=== PATIENT | male | born 1975 | race Caucasian/White ===

== ENCOUNTER 2016-08-14 00:43 | Emergency (ER) | payer OTHER ==
[2016-08-14 00:56] VITALS: RESP 18
--- NOTE | 2016-08-14 02:01 | ED ---
Wound/Laceration HPI - General Chief Complaint: Wound/Laceration Stated Complaint: finger lac Time Seen by Provider: 08/14/16 01:10 Source: patient, RN notes reviewed Mode of arrival: ambulatory Limitations: no limitations - History of Present Illness Initial Comments: Patient is a 40-year-old male presents emergency room for evaluation of right hand laceration. Patient states he was cleaning his dishes and accidentally sliced his hand on a broken portion of a dish. Patient denies any significant pain. Patient states he is up-to-date on his tetanus vaccine. Patient denies taking any blood thinners. Patient had the numbness or tingling in his fingers. - Related Data Previous Rx's Medication Instructions Recorded Ibuprofen [Motrin] 800 mg PO Q6HR PRN #20 tab 12/30/15 Cephalexin [Keflex] 500 mg PO Q6HR 5 Days 08/14/16 Allergies Allergy/AdvReac Type Severity Reaction Status Date / Time No Known Allergies Allergy Verified 08/14/16 00:56 Review of Systems ROS Statement: Those systems with pertinent positive or pertinent negative responses have been documented in the HPI. ROS Other: All systems not noted in ROS Statement are negative. Past Medical History Past Medical History: Diabetes Mellitus, Hypertension Additional Past Medical History / Comment(s): back pain History of Any Multi-Drug Resistant Organisms: None Reported Additional Past Surgical History / Comment(s): oral surgery Past Psychological History: Depression Smoking Status: Current every day smoker Past Alcohol Use History: None Reported Past Drug Use History: None Reported General Exam - General Exam Comments Initial Comments: Sitting in exam room, no acute distress. Limitations: no limitations General appearance: alert, in no apparent distress Head exam: Present: atraumatic, normocephalic, normal inspection Eye exam: Present: normal appearance ENT exam: Present: normal exam Neck exam: Present: normal inspection Respiratory exam: Absent: respiratory distress Right Hand Wrist exam: Present: full ROM, laceration (1 cm laceration on the webbing of the fingers on the palmar side between the fourth and fifth digits). Absent : tenderness Vascular: Present: normal capillary refill (Capillary refill less than 2 seconds ), radial pulse (2+), ulnar pulse (2+) Back exam: Present: normal inspection Neurological exam: Present: alert, oriented X3, CN II-XII intact, normal gait Psychiatric exam: Present: normal affect, normal mood Skin exam: Present: warm, dry, normal color. Absent: rash Course Vital Signs 08/14/16 08/14/16 00:54 03:10 Temperature 99.2 F 98.9 F Pulse Rate 95 85 Respiratory 18 18 Rate Blood Pressure 167/102 142/98 O2 Sat by Pulse 98 98 Oximetry Procedures - Laceration Laceration #1 Consent Obtained: verbal consent Indication: laceration Size (cm): 1 Description: linear Depth: simple, single layer Anesthetic Used: lidocaine 1% Anesthesia Technique: local infiltration Amount (mls): 2 Type of Sutures: nylon Size of Sutures: 5-0 Number of Sutures: 4 Technique: simple, interrupted Patient Tolerated Procedure: well, no complications Medical Decision Making - Medical Decision Making Patient is a 40-year-old male presents emergency room for evaluation right hand laceration. Laceration was repaired sutures. Patient does have history diabetes. Will place patient on Keflex for a few days prophylactically. Advised patient to return in 10-12 days for suture removal. Patient states he understands everything that was discussed with him. Return parameters discussed. Case discussed Dr. Thompson. Disposition Clinical Impression: Laceration of right hand Disposition: HOME SELF-CARE Condition: Good Instructions: Laceration (ED), Care For Your Stitches (ED) Additional Instructions: Do not submerge suture area in water. Clean suture area with a damp cloth. Take antibiotics as directed. Take Tylenol or Motrin as needed for discomfort. Please return in 10-12 days for suture removal. Please follow-up with primary care provider in 24-48 hours for reevaluation. If any new symptom arises or symptoms worsen, return to ER as soon as possible. Prescriptions: Cephalexin [Keflex] 500 mg PO Q6HR 5 Days Referrals: Nonstaff,Physician [Primary Care Provider] - 1-2 days Time of Disposition: 02:35
[2016-08-14 03:11] VITALS: BP 142/98; PULSE 85; TEMP 98.9
== END 2016-08-14 03:11 | disposition home or self-care (01) ==
LOC: EC 00:43
DX: S61.411A Laceration without foreign body of right hand, initial encounter (principal); F17.200 Nicotine dependence, unspecified, uncomplicated; W45.8XXA Other foreign body or object entering through skin, initial encounter; Y93.89 Activity, other specified
CPT/HCPCS: 12001; 99282

== ENCOUNTER 2016-11-04 22:55 | Emergency (ER) | payer OTHER ==
[2016-11-05] MEDS ORDERED: ONDANSETRON ODT 4 MG TAB ONE (00:30)
[2016-11-05] MEDS ORDERED: KETOROLAC 30 MG/ML 1 ML VIAL ONE (00:30)
== END 2016-11-05 00:40 | disposition home or self-care (01) ==
LOC: EC 22:55
DX: R51 Headache (principal); E11.9 Type 2 diabetes mellitus without complications; F17.200 Nicotine dependence, unspecified, uncomplicated; Z79.4 Long term (current) use of insulin
CPT/HCPCS: 99283; 96372; J1885

== ENCOUNTER 2017-01-11 10:26 | Emergency (ER) | payer OTHER ==
[2017-01-11] MEDS ORDERED: SODIUM CHLORIDE 0.9% 1,000 ML IV STA (10:46)
[2017-01-11] MEDS ORDERED: ONDANSETRON 4 MG/2 ML VIAL IVP STA (10:46)
[2017-01-11] MEDS ORDERED: hydrALAZINE HCL 20 MG/ML 1 ML VIAL IVP STA (10:53)
--- NOTE | 2017-01-11 10:53 | ED ---
General Adult HPI - General Chief complaint: Upper Respiratory Infection Stated complaint: SORE THROAT, CHEST PAIN WITH COUGH, RT SIDE PAIN Time Seen by Provider: 01/11/17 10:42 Source: patient, RN notes reviewed Mode of arrival: ambulatory Limitations: no limitations - History of Present Illness Initial comments: Patient 41-year-old male with significant past medical history for hypertension , diabetes, who presents emergency room today with complaints. Patient does admit that he's had some cough congestion. Denies any sputum production. He states she's not been feeling well over the last few days with some nausea. She has not had any appetite. States began having some right upper quadrant pain this morning. Patient does admit that he does not have a family doctor but gets his medications through her clinic. States blood pressure and blood sugar have been running high. Patient denies any other symptoms. Patient denies any recent fever, chills, shortness of breath, chest pain, numbness or tingling, dysuria or hematuria, constipation or diarrhea, headaches or visual changes, or any other complaints. - Related Data Home Medications Medication Instructions Recorded Confirmed Atorvastatin [Lipitor] 10 mg PO DAILY 01/11/17 01/11/17 Citalopram Hydrobromide 40 mg PO DAILY 01/11/17 01/11/17 [Citalopram HBr] Insulin Aspart [NovoLOG] See Protocol SQ AC-TID 01/11/17 01/11/17 Insulin Glargine [Lantus] 60 unit SQ BID 01/11/17 01/11/17 Lisinopril [Zestril] 40 mg PO DAILY 01/11/17 01/11/17 Naproxen 500 mg PO BID 01/11/17 01/11/17 Previous Rx's Medication Instructions Recorded Ondansetron Odt [Zofran ODT] 4 mg PO Q8HR PRN #20 tab 01/11/17 Allergies Allergy/AdvReac Type Severity Reaction Status Date / Time No Known Allergies Allergy Verified 01/11/17 11:05 Review of Systems ROS Statement: Those systems with pertinent positive or pertinent negative responses have been documented in the HPI. ROS Other: All systems not noted in ROS Statement are negative. Past Medical History Past Medical History: Diabetes Mellitus, Hypertension Additional Past Medical History / Comment(s): back pain History of Any Multi-Drug Resistant Organisms: None Reported Additional Past Surgical History / Comment(s): oral surgery Past Psychological History: Anxiety Smoking Status: Current every day smoker Past Alcohol Use History: None Reported Past Drug Use History: None Reported General Exam - General Exam Comments Initial Comments: General: The patient is awake and alert, in no distress, and does not appear acutely ill. Eye: Pupils are equal, round and reactive to light, extra-ocular movements are intact. No nystagmus. There is normal conjunctiva bilaterally. No signs of icterus. Ears, nose, mouth and throat: There are moist mucous membranes and no oral lesions. Neck: The neck is supple, there is no tenderness or JVD. Cardiovascular: There is a regular rate and rhythm. No murmur, rub or gallop is appreciated. Respiratory: Lungs are clear to auscultation, respirations are non-labored, breath sounds are equal. No wheezes, stridor, rales, or rhonchi. Gastrointestinal: Normal appearance abdomen. Normal bowel sounds. Abdomen soft on palpation. Patient does have tenderness in the right upper quadrant. Rebound tenderness. No CVA tenderness. Musculoskeletal: Normal ROM, no tenderness. Strength 5/5. Sensation intact. Pulses equal bilaterally 2+. Neurological: A&O x 3. CN II-XII intact, There are no obvious motor or sensory deficits. Coordination appears grossly intact. Speech is normal. Skin: Skin is warm and dry and no rashes or lesions are noted. Psychiatric: Cooperative, appropriate mood & affect, normal judgment. Limitations: no limitations Course Vital Signs 01/11/17 01/11/17 10:28 11:23 Temperature 97.6 F Pulse Rate 98 90 Respiratory 18 20 Rate Blood Pressure 171/112 150/90 O2 Sat by Pulse 95 98 Oximetry Medical Decision Making - Medical Decision Making Patient reexamined at this time shows no signs of distress. Is resting comfortably in the stretcher. His abdomen soft on exam. Patient's ultrasound negative for any evidence of acute cholecystitis. No gallstones. Results were discussed with patient. His labs been reviewed and negative cardiac enzymes. Patient's pain reproduced on palpation. Was discussed about the importance of following up both with family doctor and medical appointment scheduler. Patient states she has been taking his medications. Patient's EKG shows no change. Patient's chest x- rays unremarkable. A be discharged home with nausea medication. Is advised to follow-up over the next 2 days with both family doctor and medical appointment scheduler advised return here to emergency room if any symptoms increase or worsen or for new concerns. Case was discussed with attending physician . - Lab Data Result diagrams: 01/11/17 11:00 01/11/17 11:00 Lab Results 01/11/17 01/11/17 01/11/17 Range/Units 11:00 11:00 11:00 WBC 9.7 (3.8-10.6) k/uL RBC 5.08 (4.30-5.90) m/uL Hgb 15.6 (13.0-17.5) gm/dL Hct 45.1 (39.0-53.0) % MCV 88.7 (80.0-100.0) fL MCH 30.8 (25.0-35.0) pg MCHC 34.7 (31.0-37.0) g/dL RDW 12.8 (11.5-15.5) % Plt Count 244 (150-450) k/uL Neutrophils % 58 % Lymphocytes % 28 % Monocytes % 7 % Eosinophils % 4 % Basophils % 1 % Neutrophils # 5.6 (1.3-7.7) k/uL Lymphocytes # 2.7 (1.0-4.8) k/uL Monocytes # 0.7 (0-1.0) k/uL Eosinophils # 0.4 (0-0.7) k/uL Basophils # 0.1 (0-0.2) k/uL PT (9.0-12.0) sec INR (<1.2) APTT (22.0-30.0) sec Sodium 137 (137-145) mmol/L Potassium 4.1 (3.5-5.1) mmol/L Chloride 100 (98-107) mmol/L Carbon Dioxide 26 (22-30) mmol/L Anion Gap 11 mmol/L BUN 9 (9-20) mg/dL Creatinine 0.70 (0.66-1.25) mg/dL Est GFR (MDRD) Af Amer >60 (>60 ml/min/1.73 sqM) Est GFR (MDRD) Non-Af >60 (>60 ml/min/1.73 sqM) Glucose 313 H (74-99) mg/dL Calcium 9.5 (8.4-10.2) mg/dL Total Bilirubin 0.7 (0.2-1.3) mg/dL AST 48 (17-59) U/L ALT 86 H (21-72) U/L Alkaline Phosphatase 140 H (38-126) U/L Total Creatine Kinase 140 (55-170) U/L CK-MB (CK-2) 0.3 (0.0-2.4) ng/mL CK-MB (CK-2) Rel Index 0.2 Troponin I <0.012 (0.000-0.034) ng/mL Total Protein 7.5 (6.3-8.2) g/dL Albumin 4.2 (3.5-5.0) g/dL Amylase <30 L (30-110) U/L Lipase 77 (23-300) U/L Urine Color Urine Appearance (Clear) Urine pH (5.0-8.0) Ur Specific Sp[place] (1.001-1.035) Urine Protein (Negative) Urine Glucose (UA) (Negative) Urine Ketones (Negative) Urine Blood (Negative) Urine Nitrite (Negative) Urine Bilirubin (Negative) Urine Urobilinogen (<2.0) mg/dL Ur Leukocyte Esterase (Negative) Acetone, Qual Negative (Negative) 01/11/17 01/11/17 Range/Units 11:00 12:13 WBC (3.8-10.6) k/uL RBC (4.30-5.90) m/uL Hgb (13.0-17.5) gm/dL Hct (39.0-53.0) % MCV (80.0-100.0) fL MCH (25.0-35.0) pg MCHC (31.0-37.0) g/dL RDW (11.5-15.5) % Plt Count (150-450) k/uL Neutrophils % % Lymphocytes % % Monocytes % % Eosinophils % % Basophils % % Neutrophils # (1.3-7.7) k/uL Lymphocytes # (1.0-4.8) k/uL Monocytes # (0-1.0) k/uL Eosinophils # (0-0.7) k/uL Basophils # (0-0.2) k/uL PT 12.2 H (9.0-12.0) sec INR 1.2 H (<1.2) APTT 27.1 (22.0-30.0) sec Sodium (137-145) mmol/L Potassium (3.5-5.1) mmol/L Chloride (98-107) mmol/L Carbon Dioxide (22-30) mmol/L Anion Gap mmol/L BUN (9-20) mg/dL Creatinine (0.66-1.25) mg/dL Est GFR (MDRD) Af Amer (>60 ml/min/1.73 sqM) Est GFR (MDRD) Non-Af (>60 ml/min/1.73 sqM) Glucose (74-99) mg/dL Calcium (8.4-10.2) mg/dL Total Bilirubin (0.2-1.3) mg/dL AST (17-59) U/L ALT (21-72) U/L Alkaline Phosphatase (38-126) U/L Total Creatine Kinase (55-170) U/L CK-MB (CK-2) (0.0-2.4) ng/mL CK-MB (CK-2) Rel Index Troponin I (0.000-0.034) ng/mL Total Protein (6.3-8.2) g/dL Albumin (3.5-5.0) g/dL Amylase (30-110) U/L Lipase (23-300) U/L Urine Color Light Yellow Urine Appearance Clear (Clear) Urine pH 7.0 (5.0-8.0) Ur Specific [place] 1.016 (1.001-1.035) Urine Protein Negative (Negative) Urine Glucose (UA) 4+ H (Negative) Urine Ketones Trace H (Negative) Urine Blood Negative (Negative) Urine Nitrite Negative (Negative) Urine Bilirubin Negative (Negative) Urine Urobilinogen <2.0 (<2.0) mg/dL Ur Leukocyte Esterase Negative (Negative) Acetone, Qual (Negative) Disposition Clinical Impression: Nausea & vomiting, Upper respiratory infection Disposition: HOME SELF-CARE Condition: Good Instructions: Upper Respiratory Infection (ED) Additional Instructions: Please use medication as discussed. Please follow-up with family doctor in the next 2 days of symptoms have not improved. Please return to emergency room if the symptoms increase or worsen or for any other concerns. Prescriptions: Ondansetron Odt [Zofran ODT] 4 mg PO Q8HR PRN #20 tab PRN Reason: Nausea Referrals: None,Stated [Primary Care Provider] - 1-2 days Suzi Mishra MD [STAFF PHYSICIAN] - 1-2 days Víctor Sanchez MD [STAFF PHYSICIAN] - 1-2 days Time of Disposition: 12:39
[2017-01-11 11:14] LABS: Basophils # (A) 0.1 k/uL (0-0.2); Basophils % (A) 1 %; CH 31.1; CHCM 35.3; Eosinophils # (A) 0.4 k/uL (0-0.7); Eosinophils % (A) 4 %; HCT 45.1 % (39.0-53.0); HDW 2.74; HGB 15.6 gm/dL (13.0-17.5); Luc # (Auto) 0.27; Luc % (Auto) 3; Lymphocytes # (A) 2.7 k/uL (1.0-4.8); Lymphocytes % (A) 28 %; MCH 30.8 pg (25.0-35.0); MCHC 34.7 g/dL (31.0-37.0); MCV 88.7 fL (80.0-100.0); Mean Platelet Volume 7.3; Monocytes # (A) 0.7 k/uL (0-1.0); Monocytes % (A) 7 %; Neutrophils # (A) 5.6 k/uL (1.3-7.7); Neutrophils % (A) 58 %; RBC 5.08 m/uL (4.30-5.90); RDW 12.8 % (11.5-15.5); WBC 9.7 k/uL (3.8-10.6); WBC (Perox) 9.67
[2017-01-11 11:27] LABS: ALT 86 U/L (21-72); AST 48 U/L (17-59); Alkaline Phosphatase 140 U/L (38-126); Amylase <30 U/L (30-110); Anion Gap 11 mmol/L; Blood Urea Nitrogen 9 mg/dL (9-20); Calcium 9.5 mg/dL (8.4-10.2); Carbon Dioxide 26 mmol/L (22-30); Chloride 100 mmol/L (98-107); Glucose 313 mg/dL (74-99); Non-African American GFR(MDRD) >60 (>60 ml/min/1.73 sqM); Potassium 4.1 mmol/L (3.5-5.1); Sodium 137 mmol/L (137-145); Total Bilirubin 0.7 mg/dL (0.2-1.3); Total Protein 7.5 g/dL (6.3-8.2)
--- NOTE | 2017-01-11 11:33 | XR ---
EXAMINATION TYPE: XR chest 2V DATE OF EXAM: 01/11/2017 COMPARISON: 09/14/2015 HISTORY: Chest pain, abdominal pain and vomiting TECHNIQUE: Frontal and lateral views of the chest are obtained. FINDINGS: There is no focal air space opacity, pleural effusion, or pneumothorax seen. The cardiac silhouette size is within normal limits. The osseous structures are intact. Mild degenerative campos es of the thoracic spine. IMPRESSION: No acute cardiopulmonary process.
[2017-01-11 11:39] LABS: Creatine Kinase 140 U/L (55-170)
[2017-01-11 11:49] LABS: INR 1.2 (<1.2); Partial Thromboplastin Time 27.1 sec (22.0-30.0); Prothrombin Time 12.2 sec (9.0-12.0)
[2017-01-11 11:52] LABS: Creatine Kinase MB 0.3 ng/mL (0.0-2.4); Troponin I <0.012 ng/mL (0.000-0.034)
--- NOTE | 2017-01-11 12:08 | US ---
EXAMINATION TYPE: US abdomen limited DATE OF EXAM: 01/11/2017 COMPARISON: NONE CLINICAL HISTORY: Pain. RUQ pain, NPO. EXAM MEASUREMENTS: Liver Length: 21.4 cm Gallbladder Wall: 0.2 cm CBD: 0.5 cm Right Kidney: 10.9 x 6.4 x 7.6 cm Pancreas: Echogenic. Tail not well seen due to overlying bowel gas Liver: Increased attenuation, decreased visualization of vessels suggestive of fatty infiltrate. En larged. Gallbladder: wnl Evidence for sonographic Anton's sign: neg CHD: suboptimal visualization due to body habitus Right Kidney: wnl IMPRESSION: 1. Visualized portions of the abdomen right upper quadrant were unremarkable.
[2017-01-11 12:26] LABS: Appearance,Urine Clear (Clear); Bilirubin,Urine Negative (Negative); Glucose,Urine (UA) 4+ (Negative); Ketones,Urine Trace (Negative); Leukocyte Esterase,Urine Negative (Negative); Nitrite,Urine Negative (Negative); Protein,Urine Negative (Negative); Specific Gravity,Urine 1.016 (1.001-1.035); UA Billing (MACRO vs. MICRO) CHEM; Urobilinogen,Urine <2.0 mg/dL (<2.0)
[2017-01-11 12:51] VITALS: BP 156/87; PULSE 85; RESP 18; TEMP 98.3
== END 2017-01-11 12:56 | disposition home or self-care (01) ==
LOC: EC 10:26
DX: R11.2 Nausea with vomiting, unspecified (principal); J06.9 Acute upper respiratory infection, unspecified; R10.11 Right upper quadrant pain; E11.9 Type 2 diabetes mellitus without complications; I10 Essential (primary) hypertension; F41.9 Anxiety disorder, unspecified; F17.200 Nicotine dependence, unspecified, uncomplicated; Z79.1 Long term (current) use of non-steroidal anti-inflammatories (NSAID); Z79.4 Long term (current) use of insulin; Z79.899 Other long term (current) drug therapy
CPT/HCPCS: 36415; 93005; 80053; 82150; 82550; 82553; 82009; 83690; 84484; 85025; 85610; 85730; 81003; 71020; 76705; 99284; 96374; 96375; 96361; J0360; J2405

== ENCOUNTER 2017-05-10 22:43 | Emergency (ER) | payer OTHER ==
[2017-05-10] MEDS ORDERED: ENALAPRILAT 1.25 MG/ML 1 ML VIAL IVP STA (23:03)
[2017-05-10 23:18] LABS: Glucose,Whole Blood 262 mg/dL (75-99)
--- NOTE | 2017-05-10 23:20 | ED ---
Extremity Problem HPI - General Chief complaint: Extremity Problem,Nontraumatic Stated complaint: rt. leg pain Time Seen by Provider: 05/10/17 22:54 Source: patient, RN notes reviewed Mode of arrival: ambulatory Limitations: no limitations - History of Present Illness Initial comments: This is a 41-year-old male who presents to the emergency department with chief complaint of right leg pain. Patient states that he has been experiencing right calf pain for the past one week. 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 He states that the calf pain makes it difficult to stand for long periods of time. Denies any specific injury or trauma to the right lower extremity. Patient denies any chest pain or shortness of breath. Patient also presents to the emergency department with complaints of high blood pressure and diabetes. Initially, patient states that he forgot to take his medications. On further questioning, patient states that he does not have a primary care provider and ran out of his medications. Patient states he takes insulin for diabetes. Denies fever, chills , chest pain, abdominal pain, nausea or vomiting, constipation or diarrhea, dysuria or hematuria, numbness or tingling, headache or vision changes. - Related Data Home Medications Medication Instructions Recorded Confirmed Atorvastatin [Lipitor] 10 mg PO DAILY 01/11/17 01/11/17 Citalopram Hydrobromide 40 mg PO DAILY 01/11/17 01/11/17 [Citalopram HBr] Insulin Aspart [NovoLOG] 15 unit SQ AC-BID 01/11/17 04/02/17 Insulin Glargine [Lantus] 60 unit SQ BID 01/11/17 04/02/17 Lisinopril [Zestril] 40 mg PO DAILY 01/11/17 01/11/17 Naproxen 500 mg PO BID 01/11/17 01/11/17 HYDROcodone/APAP 7.5-325MG [[place] 1 tab PO BID PRN 04/02/17 04/02/17 7.5-325] Previous Rx's Medication Instructions Recorded Ondansetron Odt [Zofran ODT] 4 mg PO Q8HR PRN #20 tab 01/11/17 Ibuprofen [Motrin] 600 mg PO Q6HR PRN #20 tab 04/02/17 Ondansetron Odt [Zofran ODT] 4 mg PO Q8HR PRN #20 tab 04/02/17 Ketorolac [Toradol] 10 mg PO Q6HR #6 tab 05/11/17 Allergies Allergy/AdvReac Type Severity Reaction Status Date / Time No Known Allergies Allergy Verified 05/10/17 22:52 Review of Systems ROS Statement: Those systems with pertinent positive or pertinent negative responses have been documented in the HPI. ROS Other: All systems not noted in ROS Statement are negative. Past Medical History Past Medical History: Diabetes Mellitus, Hypertension Additional Past Medical History / Comment(s): back pain History of Any Multi-Drug Resistant Organisms: None Reported Additional Past Surgical History / Comment(s): oral surgery Past Psychological History: Anxiety Smoking Status: Current every day smoker Past Alcohol Use History: None Reported Past Drug Use History: None Reported General Exam - General Exam Comments Initial Comments: General: Awake and alert, well-developed; in no apparent distress. HEENT: Head atraumatic, normocephalic. Pupils are equal, round and reactive to light. Extraocular movements intact. Neck: Supple. Normal ROM. Cardiovascular: Regular rate and rhythm. No murmurs, rubs or gallops. Chest symmetrical. Respiratory: Lungs clear to auscultation bilaterally. No wheezes, rales or rhonchi. Normal respiratory effort with no use of accessory muscles. Musculoskeletal: Normal active range of motion of right lower extremity. No swelling, erythema or warmth noted. Pedal and posterior tibial pulses are 2+, equal and palpable bilaterally. There is tenderness on palpation of posterior calf. Positive Homans sign. Skin: [place], warm and dry without rashes or lesions. Neurological: Alert and oriented x3. CN II-XII grossly intact. Speech is fluent and answers are appropriate. No focal neuro deficits. Psychiatric: Normal mood and affect. No overt signs of depression or anxiety noted. Limitations: no limitations Course Vital Signs 05/10/17 22:44 Temperature 97.0 F L Pulse Rate 79 Respiratory 18 Rate Blood Pressure 181/103 O2 Sat by Pulse 98 Oximetry Medical Decision Making - Medical Decision Making This is a 41-year-old male who presents emergency department chief complaint of right calf pain. Ultrasound venous Doppler was negative for a deep vein thrombosis. Patient denied any specific injury or trauma to the right lower extremity. Patient will be given a prescription for Toradol 10 mg daily. He is in no acute distress at this time and is doing well. He will be discharged home to admission to follow-up with a primary care provider. He is in agreement with plan and voices understanding. All questions answered. On presentation, patient had a blood pressure of 181/103. An IV line was started and patient was given 1.25 mg of Vasotec. Bedside glucose was 262. Patient was given 6 units of Humulin R. - Radiology Data Radiology results: report reviewed Ultrasound venous Doppler right lower extremity negative for DVT Disposition Clinical Impression: Right calf pain Disposition: HOME SELF-CARE Condition: Good Instructions: Leg Pain (ED) Additional Instructions: Please take medications as prescribed. Please follow up with primary care provider within 1-2 days. Return to emergency department if symptoms should worsen or any concerns arise. Prescriptions: Ketorolac [Toradol] 10 mg PO Q6HR #6 tab Referrals: None,Stated [Primary Care Provider] - 1-2 days Sen Plummer MD [STAFF PHYSICIAN] - 1-2 days Time of Disposition: 00:07
[2017-05-10] MEDS ORDERED: INSULIN REGULAR 100 UNIT/ML VIAL SQ ONE (23:46)
--- NOTE | 2017-05-10 23:48 | US ---
EXAMINATION TYPE: US venous doppler duplex LE RT DATE OF EXAM: 05/10/2017 11:02 PM COMPARISON: NONE CLINICAL HISTORY: Pain. SIDE PERFORMED: Right TECHNIQUE: The lower extremity deep venous system is examined utilizing real time linear array sonog regis with graded compression, doppler sonography and color-flow sonography. VESSELS IMAGED: External Iliac Vein (EIV) Common Femoral Vein Deep Femoral Vein Greater Saphenous Vein * Femoral Vein Popliteal Vein Small Saphenous Vein * Proximal Calf Veins (* superficial vessels) Patient of large body habitus, technically difficult study. Right Leg: Negative for DVT IMPRESSION: Negative exam. No evidence of deep venous thrombosis in the right leg.
[2017-05-11 00:13] VITALS: TEMP 97.2
[2017-05-11 00:26] VITALS: BP 154/74; PULSE 85; RESP 18
[2017-05-11 00:27] LABS: Glucose,Whole Blood 281 mg/dL (75-99)
== END 2017-05-11 00:41 | disposition home or self-care (01) ==
LOC: EC 22:43
DX: M79.604 Pain in right leg (principal); E11.9 Type 2 diabetes mellitus without complications; I10 Essential (primary) hypertension; F17.200 Nicotine dependence, unspecified, uncomplicated; Z79.4 Long term (current) use of insulin; Z79.899 Other long term (current) drug therapy; Z79.1 Long term (current) use of non-steroidal anti-inflammatories (NSAID)
CPT/HCPCS: 36415; 96374; 99284

== ENCOUNTER 2017-05-15 21:02 | Emergency (ER) | payer OTHER ==
[2017-05-15 21:14] VITALS: TEMP 97.4
[2017-05-15] MEDS ORDERED: cloNIDine HCL 0.2 MG TAB PO STA (21:38)
--- NOTE | 2017-05-15 22:28 | US ---
EXAMINATION TYPE: US venous doppler duplex LE RT DATE OF EXAM: 05/15/2017 9:51 PM COMPARISON: NONE CLINICAL HISTORY: Pain. Right leg pain SIDE PERFORMED: Right TECHNIQUE: The lower extremity deep venous system is examined utilizing real time linear array sonog regis with graded compression, doppler sonography and color-flow sonography. VESSELS IMAGED: External Iliac Vein (EIV) Common Femoral Vein Deep Femoral Vein Greater Saphenous Vein * Femoral Vein Popliteal Vein Small Saphenous Vein * Proximal Calf Veins (* superficial vessels) Right Leg: Negative for DVT No evidence of DVT right leg. IMPRESSION: Negative exam. No evidence of deep venous thrombosis in the right leg.
--- NOTE | 2017-05-15 22:30 | ED ---
General Adult HPI - General Chief complaint: Extremity Injury, Lower Stated complaint: Leg Pain Time Seen by Provider: 05/15/17 21:24 Source: patient, RN notes reviewed Mode of arrival: ambulatory Limitations: no limitations - History of Present Illness Initial comments: This is a 41-year-old male who presents to the emergency department with chief complaint of right lower extremity pain. Patient was seen here previously with the same complaint. An ultrasound venous Doppler revealed no evidence of DVT. Patient presents again today with the same complaint. He states that he had to leave work early due to right lower extremity pain. Patient denies any specific injury or trauma to the leg. He states that this is been going on for 2-3 months. On presentation patient has an elevated blood pressure. He is a known diabetic and has hypertension that is untreated. Patient states that he does not want to see a doctor so does not take any of his medications. Denies fever, chills, chest pain, shortness of breath, abdominal pain, nausea or vomiting, constipation or diarrhea, dysuria or hematuria, numbness or tingling, headache or vision changes. - Related Data Home Medications Medication Instructions Recorded Confirmed Atorvastatin [Lipitor] 10 mg PO DAILY 01/11/17 01/11/17 Citalopram Hydrobromide 40 mg PO DAILY 01/11/17 01/11/17 [Citalopram HBr] Insulin Aspart [NovoLOG] 15 unit SQ AC-BID 01/11/17 04/02/17 Insulin Glargine [Lantus] 60 unit SQ BID 01/11/17 04/02/17 Naproxen 500 mg PO BID 01/11/17 01/11/17 HYDROcodone/APAP 7.5-325MG [[place] 1 tab PO BID PRN 04/02/17 04/02/17 7.5-325] Previous Rx's Medication Instructions Recorded Ondansetron Odt [Zofran ODT] 4 mg PO Q8HR PRN #20 tab 01/11/17 Ibuprofen [Motrin] 600 mg PO Q6HR PRN #20 tab 04/02/17 Ondansetron Odt [Zofran ODT] 4 mg PO Q8HR PRN #20 tab 04/02/17 Ketorolac [Toradol] 10 mg PO Q6HR #6 tab 05/11/17 Lisinopril [Zestril] 40 mg PO DAILY #4 tablet 05/15/17 Allergies Allergy/AdvReac Type Severity Reaction Status Date / Time No Known Allergies Allergy Verified 05/15/17 21:09 Review of Systems ROS Statement: Those systems with pertinent positive or pertinent negative responses have been documented in the HPI. ROS Other: All systems not noted in ROS Statement are negative. Past Medical History Past Medical History: Diabetes Mellitus, Hypertension Additional Past Medical History / Comment(s): back pain History of Any Multi-Drug Resistant Organisms: None Reported Additional Past Surgical History / Comment(s): oral surgery Past Psychological History: Anxiety Smoking Status: Current every day smoker Past Alcohol Use History: None Reported Past Drug Use History: None Reported General Exam - General Exam Comments Initial Comments: General: Awake and alert, well-developed; in no apparent distress. HEENT: Head atraumatic, normocephalic. Pupils are equal, round and reactive to light. Extraocular movements intact. Oropharynx moist without erythema or exudate. Neck: Supple. Normal ROM. Cardiovascular: Regular rate and rhythm. No murmurs, rubs or gallops. Chest symmetrical. Respiratory: Lungs clear to auscultation bilaterally. No wheezes, rales or rhonchi. Normal respiratory effort with no use of accessory muscles. Musculoskeletal: Normal active range of motion of right lower extremity. Calf tenderness present. Tenderness on palpation of right [place]. No swelling, erythema or contusions noted. Pedal and posterior tibial pulses are 2+ equal and palpable bilaterally. Skin: [place], warm and dry without rashes or lesions. Neurological: Alert and oriented x3. CN II-XII grossly intact. Speech is fluent and answers are appropriate. No focal neuro deficits. Psychiatric: Normal mood and affect. No overt signs of depression or anxiety noted. Limitations: no limitations Course Vital Signs 05/15/17 05/15/17 21:10 22:13 Temperature 97.4 F L Pulse Rate 82 79 Respiratory 18 20 Rate Blood Pressure 166/109 141/87 O2 Sat by Pulse 97 98 Oximetry Medical Decision Making - Medical Decision Making This is a 41-year-old male who presents to the emergency department for evaluation of chronic right lower extremity pain. Patient denies any specific injury or trauma. He does state that he has been experiencing pain for the last 2-3 months. Patient was given 0.2 mg of Catapres which brought his blood pressure down to a stable level. He will be provided a prescription for lisinopril 40 mg for the next couple of days until he is able to follow up with primary care provider. Repeat ultrasound venous Doppler revealed no evidence for DVT. X-ray of tibia and fibula revealed no acute fractures or dislocations. These findings were discussed with patient. He requests pain medications. He will be given a Tylenol with codeine starter pack. He will also be given follow-up for a primary doctor and orthopedics. Patient is in agreement with plan voices understanding. All questions were answered. - Radiology Data Radiology results: report reviewed Ultrasound Venous Doppler right lower extremity impression: Negative exam. No evidence of deep venous thrombosis in the right leg. X-ray right tibia/fibula findings: I see no fracture nor dislocation. There is a small exostosis on the medial proximal fibular metaphysis. Knee joint and ankle joints appear intact. Impression: Small exostosis on the proximal fibula of doubtful significance. Otherwise negative exam. Disposition Clinical Impression: Right calf pain Disposition: HOME SELF-CARE Condition: Good Instructions: Leg Pain (ED), Lisinopril (By mouth) Additional Instructions: Please take medications as prescribed. Please follow up with primary care provider within 1-2 days. Return to emergency department if symptoms should worsen or any concerns arise. Prescriptions: Lisinopril [Zestril] 40 mg PO DAILY #4 tablet Referrals: None,Stated [Primary Care Provider] - 1-2 days Lidia Irvin MD [STAFF PHYSICIAN] - 1-2 days Dg Haro DO [Doctor of Osteopathic Medicine] - 1-2 days Time of Disposition: 22:52
[2017-05-15 22:38] VITALS: BP 141/87; PULSE 79; RESP 20
--- NOTE | 2017-05-15 22:44 | XR ---
EXAMINATION TYPE: XR tibia fibula RT DATE OF EXAM: 05/15/2017 COMPARISON: NONE HISTORY: Pain TECHNIQUE: 3 views FINDINGS: I see no fracture nor dislocation. There is a small exostosis on the medial proximal fibula metaphysis. Knee joint and ankle joint appear intact. IMPRESSION: Small exostosis on the proximal fibula of doubtful significance. Otherwise negative exam.
[2017-05-15] MEDS ORDERED: ACET/COD 300 MG/30 MG STARTER PACK 6 TAB BTL PO STA (22:50)
== END 2017-05-15 22:58 | disposition home or self-care (01) ==
LOC: EC 21:02
DX: M79.661 Pain in right lower leg (principal); I10 Essential (primary) hypertension; F17.200 Nicotine dependence, unspecified, uncomplicated; Z79.4 Long term (current) use of insulin; Z79.1 Long term (current) use of non-steroidal anti-inflammatories (NSAID); Z79.899 Other long term (current) drug therapy
CPT/HCPCS: 99284

== ENCOUNTER 2017-06-15 16:20 | Observation (INO) | payer OTHER ==
[2017-06-15] MEDS ORDERED: SODIUM CHLORIDE 0.9% 1,000 ML IV STA (16:49)
[2017-06-15] MEDS ORDERED: ASPIRIN 81 MG PO STA (16:49)
[2017-06-15] MEDS ORDERED: MORPHINE SULFATE 4 MG/ML SYRINGE IVP STA (16:49)
[2017-06-15] MEDS ORDERED: ONDANSETRON 4 MG/2 ML VIAL IVP STA (16:49)
[2017-06-15] MEDS ORDERED: NITROGLYCERIN OINT 1 INCH/GM PACKET TOPICAL STA (16:49)
--- NOTE | 2017-06-15 16:49 | ED ---
Chest Pain HPI - General Chief Complaint: Chest Pain Stated Complaint: Chest Pain Time Seen by Provider: 06/15/17 16:36 Source: patient Mode of arrival: wheelchair Limitations: no limitations - History of Present Illness Initial Comments: Years old male with a history of diabetes hypertension and hyperlipidemia presented with the chest pain chest pain started at 10 PM last night he saying he gets chest pain off and on quite frequently he got short winded and then developed chest pain 2 days ago when he was shoveling snow now deep breaths worsen the chest pain he denies any nausea no vomiting no cold sweats no fever no chills. No headaches no neck stiffness no abdominal pain no frequency urgency dysuria no symptoms of TIA or CVA - Related Data Home Medications Medication Instructions Recorded Confirmed Atorvastatin [Lipitor] 10 mg PO DAILY 01/11/17 01/11/17 Citalopram Hydrobromide 40 mg PO DAILY 01/11/17 01/11/17 [Citalopram HBr] Insulin Aspart [NovoLOG] 15 unit SQ AC-BID 01/11/17 04/02/17 Insulin Glargine [Lantus] 60 unit SQ BID 01/11/17 04/02/17 Naproxen 500 mg PO BID 01/11/17 01/11/17 HYDROcodone/APAP 7.5-325MG [[place] 1 tab PO BID PRN 04/02/17 04/02/17 7.5-325] Previous Rx's Medication Instructions Recorded Ondansetron Odt [Zofran ODT] 4 mg PO Q8HR PRN #20 tab 01/11/17 Ibuprofen [Motrin] 600 mg PO Q6HR PRN #20 tab 04/02/17 Ondansetron Odt [Zofran ODT] 4 mg PO Q8HR PRN #20 tab 04/02/17 Ketorolac [Toradol] 10 mg PO Q6HR #6 tab 05/11/17 Lisinopril [Zestril] 40 mg PO DAILY #4 tablet 05/15/17 Allergies Allergy/AdvReac Type Severity Reaction Status Date / Time No Known Allergies Allergy Verified 06/15/17 16:27 Review of Systems ROS Statement: Those systems with pertinent positive or pertinent negative responses have been documented in the HPI. ROS Other: All systems not noted in ROS Statement are negative. EKG Findings - EKG Comments: EKG Findings:: Review of this EKG reveals sinus rhythm ventricular rate is 89 [place] interval is 144 QRS duration is 98 QT/QTC 394/479. This EKG does not reveal any ST elevation or ST depression Past Medical History Past Medical History: Diabetes Mellitus, Hypertension Additional Past Medical History / Comment(s): back pain History of Any Multi-Drug Resistant Organisms: None Reported Past Surgical History: Appendectomy Additional Past Surgical History / Comment(s): oral surgery Past Psychological History: Anxiety Smoking Status: Current every day smoker Past Alcohol Use History: Occasional Past Drug Use History: None Reported General Exam - General Exam Comments Initial Comments: General: The patient is awake and alert, in no distress, and does not appear acutely ill. Skin: Skin is warm and dry and no rashes or lesions are noted. Eye: Pupils are equal, round and reactive to light, extra-ocular movements are intact; there is normal conjunctiva bilaterally. Ears, nose, mouth and throat: There are moist mucous membranes and no oral lesions. Neck: The neck is supple, there is no tenderness or JVD. Cardiovascular: There is a regular rate and rhythm. No murmur, rub or gallop is appreciated. Respiratory: To auscultation bilateral, no wheezing no rhonchi no distress respiratory nguyen noticed Gastrointestinal: Soft, non-distended, non-tender abdomen without masses or organomegaly noted. There is no rebound or guarding present. Bowel sounds are unremarkable. Back: There is no tenderness to palpation in the midline. There is no obvious deformity. Musculoskeletal: Normal ROM, no tenderness, There is no pedal edema. There is no calf tenderness or swelling. No cords were appreciated. Neurological: CN II-XII intact, Cranial nerves III through XII are intact. There are no obvious motor or sensory deficits. Coordination appears grossly intact. Speech is normal. Psychiatric: Cooperative, appropriate mood & affect, normal judgment. Limitations: no limitations Course Vital Signs 06/15/17 06/15/17 06/15/17 16:23 16:45 18:04 Temperature 98.1 F 98.1 F Pulse Rate 86 85 Pulse Rate [ 85 Bilateral Machine Stapler ] Respiratory 18 18 Rate Blood Pressure 171/102 165/100 O2 Sat by Pulse 95 97 Oximetry Sinus reassessed at 1730, his chest x-ray, CBC, His metabolic panel are within normal range including his EKG and troponin pressure was high is greater than 300 though he is not urinating and ketoacidosis is a [place] is normal considering his high sugar and he is been off-and-on and pain worse with exertion spoke with the Dr. Stoll for 3 sets of cardiac markers he agreed to that and patient be admitted to Dr. Stoll Disposition Clinical Impression: Chest pain, Hyperglycemia Disposition: ADMITTED IP TO THIS HOSP Referrals: None,Stated [Primary Care Provider] - 1-2 days
[2017-06-15 17:10] LABS: Basophils # (A) 0.1 k/uL (0-0.2); Basophils % (A) 1 %; Eosinophils # (A) 0.2 k/uL (0-0.7); Eosinophils % (A) 2 %; HCT 45.4 % (39.0-53.0); HGB 15.2 gm/dL (13.0-17.5); Lymphocytes # (A) 3.3 k/uL (1.0-4.8); Lymphocytes % (A) 31 %; MCH 29.9 pg (25.0-35.0); MCHC 33.5 g/dL (31.0-37.0); MCV 89.4 fL (80.0-100.0); Mean Platelet Volume 7.2; Monocytes # (A) 0.5 k/uL (0-1.0); Monocytes % (A) 5 %; Neutrophils # (A) 6.5 k/uL (1.3-7.7); Neutrophils % (A) 59 %; Platelet Count 265 k/uL (150-450); RBC 5.08 m/uL (4.30-5.90); RDW 12.4 % (11.5-15.5); WBC 10.9 k/uL (3.8-10.6)
[2017-06-15 17:20] LABS: Creatine Kinase 118 U/L (55-170); D-Dimer 0.39 mg/L FEU (<0.60)
[2017-06-15 17:22] LABS: ALT 42 U/L (21-72); AST 29 U/L (17-59); Albumin 4.2 g/dL (3.5-5.0); Alkaline Phosphatase 127 U/L (38-126); Anion Gap 13 mmol/L; Blood Urea Nitrogen 11 mg/dL (9-20); Calcium 9.6 mg/dL (8.4-10.2); Carbon Dioxide 26 mmol/L (22-30); Chloride 98 mmol/L (98-107); Glucose 335 mg/dL (74-99); Magnesium 1.7 mg/dL (1.6-2.3); Potassium 3.9 mmol/L (3.5-5.1); Sodium 137 mmol/L (137-145); Total Bilirubin 0.4 mg/dL (0.2-1.3); Total Protein 7.4 g/dL (6.3-8.2)
[2017-06-15 17:24] LABS: INR 1.2 (<1.2); Partial Thromboplastin Time 26.9 sec (22.0-30.0); Prothrombin Time 11.6 sec (9.0-12.0)
--- NOTE | 2017-06-15 17:30 | XR ---
EXAMINATION TYPE: XR chest 2V DATE OF EXAM: 06/15/2017 COMPARISON: 01/11/2017 HISTORY: 41-year-old male with chest pain TECHNIQUE: PA and lateral views FINDINGS: Heart upper limits of normal in size. Aorta and pulmonary vasculature within normal limits. Diffuse i nterstitial prominence is unchanged. No consolidation or pleural effusion seen. IMPRESSION: Chronic changes, no acute cardiopulmonary process.
[2017-06-15 17:33] LABS: Creatine Kinase MB 0.5 ng/mL (0.0-2.4); Troponin I <0.012 ng/mL (0.000-0.034)
[2017-06-15] MEDS ORDERED: SODIUM CHLORIDE 0.9% 1,000 ML IV ONE (18:09)
[2017-06-15] MEDS ORDERED: INSULIN REGULAR 100 UNIT/ML VIAL SQ ONE (18:09)
[2017-06-15] MEDS ORDERED: SODIUM CHLORIDE 0.9% 1,000 ML IV SCH (18:15)
[2017-06-15] MEDS ORDERED: NITROGLYCERIN SL TABS 0.4 MG TAB SUBLINGUAL PRN (18:15)
[2017-06-15] MEDS ORDERED: HYDROcodone/APAP 7.5-325MG 1 EACH TAB PO PRN (18:18)
[2017-06-15] MEDS ORDERED: IBUPROFEN 600 MG TAB PO PRN (18:18)
[2017-06-15 19:17] LABS: Glucose,Whole Blood 225 mg/dL (75-99)
[2017-06-15 20:55] LABS: Glucose,Whole Blood 189 mg/dL (75-99)
[2017-06-15 21:26] VITALS: BMI 41.3
[2017-06-15] MEDS: INSULIN DETEMIR 100 UNIT/ML 10 ML VIAL SQ SCH (21:28)
[2017-06-15] MEDS: METOPROLOL TARTRATE 25 MG TAB PO SCH (21:28)
[2017-06-15 23:49] LABS: Creatine Kinase 104 U/L (55-170)
[2017-06-16 00:02] LABS: Creatine Kinase MB 0.3 ng/mL (0.0-2.4); Troponin I <0.012 ng/mL (0.000-0.034)
[2017-06-16 02:30] LABS: Glucose,Whole Blood 228 mg/dL (75-99)
[2017-06-16 07:09] LABS: Glucose,Whole Blood 220 mg/dL (75-99)
[2017-06-16] MEDS ORDERED: INSULIN ASPART 100 UNIT/ML 1 ML 10 ML VIAL SQ SCH (07:30)
[2017-06-16 07:34] LABS: Creatine Kinase 90 U/L (55-170)
[2017-06-16 07:38] LABS: Cholesterol 165 mg/dL (<200); HDL Cholesterol 34 mg/dL (40-60); LDL Cholesterol,Calculated 96 mg/dL (0-99); Triglycerides 174 mg/dL (<150)
[2017-06-16 07:46] LABS: Creatine Kinase MB 0.3 ng/mL (0.0-2.4); Troponin I <0.012 ng/mL (0.000-0.034)
[2017-06-16] MEDS ORDERED: ASPIRIN 325 MG TAB PO SCH (09:00)
[2017-06-16] MEDS ORDERED: CITALOPRAM HYDROBROMIDE 20 MG TAB PO SCH (09:00)
[2017-06-16] MEDS ORDERED: ATORVASTATIN 10 MG TAB PO SCH (09:00)
[2017-06-16] MEDS: METOPROLOL TARTRATE 25 MG TAB PO SCH (09:37)
[2017-06-16] MEDS: INSULIN DETEMIR 100 UNIT/ML 10 ML VIAL SQ SCH (09:37)
[2017-06-16 12:11] LABS: Glucose,Whole Blood 271 mg/dL (75-99)
[2017-06-16 12:55] VITALS: BP 148/93; PULSE 70; RESP 16; TEMP 97.9
--- NOTE | 2017-06-16 13:31 | HP ---
HISTORY AND PHYSICAL CHIEF COMPLAINT: Chest pain. HISTORY OF PRESENT ILLNESS: This is the first admission for this 41-year-old white male. He was sitting and talking to his daughter when he developed discomfort in the anterior chest. He described is as sharp. He did have some diaphoresis, shortness of breath and some dysesthesias in the left arm. He drove himself to the emergency room. In the ER, studies were negative. He was admitted for observation. He has a history of hypertension and diabetes, insulin-dependent diabetes, but apparently he is very noncompliant, does not take his medications. REVIEW OF SYSTEMS: He has had no headaches, problems with vision or hearing, neurologic history, cough, hemoptysis, sputum production, abdominal pain, nausea, vomiting, hematemesis, melena, hematochezia, colitis, diverticulosis, diverticulitis, hemorrhoids, jaundice, hepatitis, hematuria, frequency, urgency, renal disease, arthralgias. Past medical history, family history, personal and social history reveal he is not allergic to anything and he has had no surgery. MEDICATIONS: 1. Lipitor 10 mg a day. 2. Lisinopril 40 mg once a day. 3. Celexa 40 mg once a day. 4. Vicodin 7.5 b.i.d. p.r.n. 5. Ibuprofen 600 mg q.i.d. 6. Full-strength aspirin once a day. 7. Toradol 10 mg q6h p.r.n. 8. Naprosyn 500 mg twice a day. 9. Zofran ODT q8h p.r.n. 10.NovoLog 15 units twice a day. 11.Lantus 60 units twice a day. SOCIAL HISTORY: He smokes about a pack of cigarettes a day. He has a grandmother that had heart disease. PHYSICAL EXAMINATION: Blood pressure 133/84 with pulse 71, respirations of 18. He is afebrile. GENERAL: He appeared to be overweight in no acute distress. Skin color is normal. Skin is warm and dry. Lymph nodes not enlarged. Head, ears, eyes, nose, mouth, and throat were normal. Neck veins not distended. Thyroid is not enlarged. The chest is clear to auscultation and percussion. Cardiac exam is normal. The abdomen is soft and nontender. It is protuberant. Extremities normal. Neurological intact. IMPRESSION: 1. Chest pain. 2. History of hypertension. 3. Uncontrolled insulin-dependent diabetes mellitus. 4. History of poor compliance to medical management. PLAN: 1. Bed rest. 2. IV fluids. 3. Serial EKGs and enzymes. MMODL / ALAYNAN: [id number] /
--- NOTE | 2017-06-16 13:34 | DS ---
DISCHARGE SUMMARY CHIEF COMPLAINT: Chest pain. HISTORY OF PRESENT ILLNESS AND PHYSICAL EXAM: The details of this man's history and physical can be found in the initial workup. LABORATORY STUDIES: While he was in the hospital, he had laboratory studies, details of which can be found in the laboratory section of the chart. COURSE IN HOSPITAL: After admission, he was placed on bedrest, started on intravenous fluids and had serial EKGs and enzymes. They were normal. It was felt that he could go home on his usual activity, diet, medication and will follow up with his own physician or come to our office in the next day or two. FINAL DIAGNOSES: 1. Chest pain. 2. Hypertension. 3. Insulin dependent diabetes mellitus. 4. Poor medical compliance. OPERATIONS: None. CONSULTATIONS: None. He is improved. AMY / GIOVANI: [id number] /
[2017-06-16 20:08] LABS: Hemoglobin A1C 9.8 % (4.0-6.0)
== END 2017-06-16 14:55 | disposition home or self-care (01) ==
LOC: EC 16:20 → 3OBS 18:15
PROVIDERS: ADMIT Family Medicine; ATTEND Family Medicine
DX: R07.89 Other chest pain (principal); I10 Essential (primary) hypertension; E11.65 Type 2 diabetes mellitus with hyperglycemia; Z91.19 Patient's noncompliance with other medical treatment and regimen; T38.3X6A Underdosing of insulin and oral hypoglycemic [antidiabetic] drugs, initial encounter; E78.5 Hyperlipidemia, unspecified; M54.9 Dorsalgia, unspecified; F41.9 Anxiety disorder, unspecified; F17.210 Nicotine dependence, cigarettes, uncomplicated; R06.02 Shortness of breath; R20.8 Other disturbances of skin sensation; R61 Generalized hyperhidrosis; Z79.899 Other long term (current) drug therapy; Z79.4 Long term (current) use of insulin; Z79.1 Long term (current) use of non-steroidal anti-inflammatories (NSAID); Z82.49 Family history of ischemic heart disease and other diseases of the circulatory system; Z79.82 Long term (current) use of aspirin
CPT/HCPCS: 96361 ×4; 96375 ×2; 93005 ×2; 96374; 99285; 36415; 85379; 83880; 80061; 80053; 82550 ×2; 82553 ×2; 83735; 84484 ×2; 85025; 85610; 85730; 83036; 71046; G0378 ×2; J2270; J2405

== ENCOUNTER 2017-07-01 02:39 | Emergency (ER) | payer OTHER ==
[2017-07-01 03:00] VITALS: TEMP 98.4
[2017-07-01] MEDS ORDERED: METOCLOPRAMIDE 5 MG/ML 2 ML VIAL IVP STA (03:17)
[2017-07-01] MEDS ORDERED: diphenhydrAMINE 50 MG/ML 1 ML VIAL IVP STA (03:17)
[2017-07-01] MEDS ORDERED: KETOROLAC 30 MG/ML 1 ML VIAL IVP STA (03:17)
[2017-07-01] MEDS ORDERED: SODIUM CHLORIDE 0.9% 1,000 ML IV STA (03:18)
--- NOTE | 2017-07-01 03:33 | ED ---
Headache HPI - General Chief Complaint: Headache Stated Complaint: HEADACHE,VOMITING Time Seen by Provider: 07/01/17 03:15 Source: RN notes reviewed Mode of arrival: ambulatory Limitations: no limitations - History of Present Illness Initial Comments: This is a 41-year-old male who presents to the emergency department with chief complaint of headache and vomiting. Patient states that he was at work prior to arrival and had an episode of vomiting. He denies any abdominal pain. He states that on his way to the emergency department he developed a headache and had 2 more episodes of vomiting. He states that the headache is band-like, wrapping around his head and is pounding in nature. He rates his pain as 8/10. Patient does report a history of migraine headaches. Denies any recent falls , injuries or trauma. Denies fever, chills, chest pain, shortness of breath, abdominal pain,constipation or diarrhea, dysuria or hematuria, numbness or tingling, or vision changes. - Related Data Home Medications Medication Instructions Recorded Confirmed Atorvastatin [Lipitor] 10 mg PO DAILY 01/11/17 01/11/17 Citalopram Hydrobromide 40 mg PO DAILY 01/11/17 01/11/17 [Citalopram HBr] Insulin Aspart [NovoLOG] 15 unit SQ AC-BID 01/11/17 04/02/17 Insulin Glargine [Lantus] 60 unit SQ BID 01/11/17 04/02/17 Naproxen 500 mg PO BID 01/11/17 01/11/17 HYDROcodone/APAP 7.5-325MG [[place] 1 tab PO BID PRN 04/02/17 04/02/17 7.5-325] Previous Rx's Medication Instructions Recorded Ondansetron Odt [Zofran ODT] 4 mg PO Q8HR PRN #20 tab 01/11/17 Ibuprofen [Motrin] 600 mg PO Q6HR PRN #20 tab 04/02/17 Ondansetron Odt [Zofran ODT] 4 mg PO Q8HR PRN #20 tab 04/02/17 Ketorolac [Toradol] 10 mg PO Q6HR #6 tab 05/11/17 Lisinopril [Zestril] 40 mg PO DAILY #4 tablet 05/15/17 Aspirin 325 mg PO DAILY tab 06/16/17 Lisinopril [Zestril] 5 mg PO DAILY #10 tab 07/01/17 Allergies Allergy/AdvReac Type Severity Reaction Status Date / Time No Known Allergies Allergy Verified 07/01/17 03:00 Review of Systems ROS Statement: Those systems with pertinent positive or pertinent negative responses have been documented in the HPI. ROS Other: All systems not noted in ROS Statement are negative. Past Medical History Past Medical History: Diabetes Mellitus, Hypertension Additional Past Medical History / Comment(s): back pain with pinched nerve, chronic left calf pain pt states DVT r/o, pt states he was once told he has "3 bad valves" in his heart.{ pt does not recall when or who told him. he stated he was given medicine to take but he no longer takes it. unsure of name of med} migraines. History of Any Multi-Drug Resistant Organisms: None Reported Past Surgical History: Appendectomy Additional Past Surgical History / Comment(s): oral surgery Past Anesthesia/Blood Transfusion Reactions: No Reported Reaction Past Psychological History: Anxiety Smoking Status: Current every day smoker Past Alcohol Use History: Occasional Past Drug Use History: None Reported - Past Family History Brother(s) Additional Family Medical History / Comment(s): tumor of brain - at 34 General Exam - General Exam Comments Initial Comments: General: Awake and alert, well-developed; in no apparent distress. Watching TV while lying on the ED stretcher. Does not appear to be acutely ill. HEENT: Head atraumatic, normocephalic. Pupils are equal, round and reactive to light. Extraocular movements intact. Oropharynx moist without erythema or exudate. Neck: Supple. Normal ROM. Cardiovascular: Regular rate and rhythm. No murmurs, rubs or gallops. Chest symmetrical. Respiratory: Lungs clear to auscultation bilaterally. No wheezes, rales or rhonchi. Normal respiratory effort with no use of accessory muscles. Abdomen: Soft, non-tender, non-distended. No rigidity, rebound or guarding. Normal bowel sounds in all 4 quadrants. Musculoskeletal: Normal ROM, no tenderness bilateral upper and lower extremities. Ambulating normally. Skin: [place], warm and dry without rashes or lesions. Neurological: Alert and oriented x3. CN II-XII grossly intact. Speech is fluent and answers are appropriate. No focal neuro deficits. Psychiatric: Normal mood and affect. No overt signs of depression or anxiety noted. Limitations: no limitations Course Vital Signs 07/01/17 02:56 Temperature 98.4 F Pulse Rate 104 H Respiratory 20 Rate Blood Pressure 171/109 O2 Sat by Pulse 96 Oximetry Medical Decision Making - Medical Decision Making This is a 41-year-old male who presents to the emergency department with chief complaint of headache and vomiting. Patient does report a history of migraines and states that this feels no different from his normal. Denied any recent falls, injuries or trauma. Patient does suffer from hypertension and on presentation was found to have an elevated blood pressure. He was given 0.1 mg clonidine. Patient was given Toradol, Reglan and Benadryl for his headache. On reevaluation, patient states that he is much improved and is no longer experiencing symptoms. Patient states that he is not prescribed any medication for his hypertension. He will be given a prescription for lisinopril. He is to follow-up with his primary care provider as soon as possible. Patient is in no acute distress and will be discharged home. He is in agreement with plan and voices understanding. All questions were answered. Disposition Clinical Impression: Headache, Hypertension Disposition: HOME SELF-CARE Condition: Good Instructions: Acute Headache (ED), Hypertension (ED) Additional Instructions: Please take medications as prescribed. Please follow up with primary care provider within 1-2 days. Return to emergency department if symptoms should worsen or any concerns arise. Prescriptions: Lisinopril [Zestril] 5 mg PO DAILY #10 tab Referrals: Demetrio Stoll MD [Primary Care Provider] - 1-2 days Time of Disposition: 04:24
[2017-07-01] MEDS ORDERED: cloNIDine HCL 0.1 MG TAB PO STA (03:52)
[2017-07-01] MEDS ORDERED: LISINOPRIL 5 MG TAB PO STA (04:21)
[2017-07-01 04:38] VITALS: BP 153/79; PULSE 85; RESP 16
== END 2017-07-01 04:40 | disposition home or self-care (01) ==
LOC: EC 02:39
DX: I10 Essential (primary) hypertension (principal); R51 Headache; R11.10 Vomiting, unspecified; E11.9 Type 2 diabetes mellitus without complications; F41.9 Anxiety disorder, unspecified; F17.200 Nicotine dependence, unspecified, uncomplicated; Z79.1 Long term (current) use of non-steroidal anti-inflammatories (NSAID); Z79.4 Long term (current) use of insulin; Z79.899 Other long term (current) drug therapy
CPT/HCPCS: 99283; 96374; 96375 ×2; 96361; J1200; J2765; J1885

== ENCOUNTER → 2017-07-01 | Outpatient (CLI) | payer OTHER | END | disposition home or self-care (01) | LOC: RADECHMAIN 14:18 | PROVIDERS: ATTEND Family Medicine | DX: Z53.9 Procedure and treatment not carried out, unspecified reason (principal) ==

== ENCOUNTER → 2017-07-17 | Outpatient (CLI) | payer OTHER ==
--- NOTE | 2017-07-17 11:00 | ECHOS ---
STRESS ECHOCARDIOGRAM DATE OF SERVICE: 07/17/2017 INDICATIONS: Chest pain. MEDICATIONS: BASELINE HEART RATE: 97 BASELINE BLOOD PRESSURE: 126/58 MAXIMUM HEART RATE: 154 MAXIMUM BLOOD PRESSURE: 199/96 85% MPHR: 153 100% MPHR: 180 METS: 8.9 MAXIMUM STAGE REACHED: III TOTAL EXERCISE TIME: 7-1/2 minutes. CLINICAL INFORMATION: Baseline EKG revealed sinus mechanism with poor R-wave progression. Patient walked on a standard David protocol for 7-1/2 minutes achieved a maximal heart rate of 154 beats per minute. Rare isolated PVCs were noted. There was no evidence of any ST-segment changes to indicate ischemia. The patient did not have angina, but developed shortness of breath. By EKG criteria, this is a negative stress test with fair exercise capacity. Baseline echo images revealed that there was some mild global decrease in contractility of all segments. Estimated ejection fraction was between 45% and 50%. At peak exercise, there was good augmentation of left ventricular wall motion and wall thickening of all segments suggesting that there is no evidence of stress-induced ischemia on this study. Ejection fraction on stress images was at least 55% to 60%. FINAL IMPRESSION: 1. Fair exercise capacity with a negative stress test by EKG criteria. 2. Patient may have underlying nonischemic cardiomyopathy type picture. There was no evidence of ischemia on the stress echocardiogram. MMODL / IJN: [id number] /
== END | disposition home or self-care (01) ==
LOC: RADNMMAIN 06:18
PROVIDERS: ATTEND Family Medicine
DX: R07.9 Chest pain, unspecified (principal)
CPT/HCPCS: 93017; C8928; Q9950; 93350

== ENCOUNTER 2017-09-25 01:08 | Observation (INO) | payer OTHER ==
[2017-09-25] MEDS ORDERED: ONDANSETRON 4 MG/2 ML VIAL IVP STA (01:39)
[2017-09-25] MEDS ORDERED: SODIUM CHLORIDE 0.9% 1,000 ML IV STA (01:39)
[2017-09-25] MEDS: MORPHINE SULFATE 2 MG/ML SYRINGE IVP STA ×2 (01:57→02:00)
[2017-09-25 01:59] LABS: Basophils # (A) 0.1 k/uL (0-0.2); Basophils % (A) 1 %; Eosinophils # (A) 0.3 k/uL (0-0.7); Eosinophils % (A) 3 %; HCT 46.4 % (39.0-53.0); HGB 15.8 gm/dL (13.0-17.5); Lymphocytes # (A) 3.6 k/uL (1.0-4.8); Lymphocytes % (A) 36 %; MCH 30.2 pg (25.0-35.0); MCHC 34.1 g/dL (31.0-37.0); MCV 88.7 fL (80.0-100.0); Mean Platelet Volume 7.5; Monocytes # (A) 0.7 k/uL (0-1.0); Monocytes % (A) 7 %; Neutrophils # (A) 5.3 k/uL (1.3-7.7); Neutrophils % (A) 53 %; Platelet Count 223 k/uL (150-450); RBC 5.23 m/uL (4.30-5.90); RDW 12.9 % (11.5-15.5)
--- NOTE | 2017-09-25 02:08 | XR ---
EXAMINATION TYPE: XR chest 2V DATE OF EXAM: 09/25/2017 COMPARISON: 07/26/2017 HISTORY: Chest pain TECHNIQUE: Frontal and lateral views of the chest are obtained. FINDINGS: Heart and mediastinum are normal. Lungs are clear. Diaphragm is normal. There are chest le ads. IMPRESSION: Normal chest. No change.
[2017-09-25 02:09] LABS: ALT 73 U/L (21-72); AST 42 U/L (17-59); Albumin 4.3 g/dL (3.5-5.0); Alkaline Phosphatase 132 U/L (38-126); Anion Gap 16 mmol/L; Blood Urea Nitrogen 9 mg/dL (9-20); Calcium 9.2 mg/dL (8.4-10.2); Carbon Dioxide 24 mmol/L (22-30); Chloride 99 mmol/L (98-107); Glucose 356 mg/dL (74-99); Magnesium 1.7 mg/dL (1.6-2.3); Sodium 139 mmol/L (137-145); Total Bilirubin 0.4 mg/dL (0.2-1.3); Total Protein 7.4 g/dL (6.3-8.2)
--- NOTE | 2017-09-25 02:09 | CT ---
EXAMINATION TYPE: CT brain wo con DATE OF EXAM: 09/25/2017 COMPARISON: NONE HISTORY: headache CT DLP: 1108.40 mGycm. Automated Exposure Control for Dose Reduction was Utilized. TECHNIQUE: CT scan of the head is performed without contrast. FINDINGS: Ventricles and sulci appear normal. There is no mass effect nor midline shift. There is n o sign of intracranial hemorrhage. Calvarium appears normal. IMPRESSION: Normal head CT scan.
[2017-09-25 02:10] LABS: INR 1.2 (<1.2)
[2017-09-25] MEDS ORDERED: ACETAMINOPHEN TAB 500 MG TAB PO STA (02:10)
[2017-09-25 02:11] LABS: Partial Thromboplastin Time 25.9 sec (22.0-30.0); Prothrombin Time 11.3 sec (9.0-12.0)
[2017-09-25 02:36] LABS: Creatine Kinase 130 U/L (55-170)
[2017-09-25 02:50] LABS: Creatine Kinase MB 0.4 ng/mL (0.0-2.4); Troponin I <0.012 ng/mL (0.000-0.034)
[2017-09-25] MEDS ORDERED: INSULIN REGULAR 100 UNIT/ML VIAL SQ ONE (03:13)
--- NOTE | 2017-09-25 03:13 | ED ---
Chest Pain HPI - General Chief Complaint: Chest Pain Stated Complaint: chest pain Time Seen by Provider: 09/25/17 01:26 Source: patient Mode of arrival: wheelchair Limitations: no limitations - History of Present Illness Initial Comments: 45 years old male presents with a headache and the chest pain, he has a history of chronic headache as well as chronic chest pain is off-and-on for 2 years chest pain started 2 hours prior to coming to the ER headache there for 3 days he denies any shortness of breath he denies any pleuritic chest pain, he was admitted in the hospital back in June he was seen by cardiology had a stress test on. He is also complaining about some mom and dysuria as well as rash on his penis, review of system is unremarkable otherwise - Related Data Home Medications Medication Instructions Recorded Confirmed Atorvastatin [Lipitor] 10 mg PO DAILY 01/11/17 07/26/17 Citalopram Hydrobromide 40 mg PO DAILY 01/11/17 07/26/17 [Citalopram HBr] Insulin Aspart [NovoLOG] See Protocol SQ ACHS PRN 01/11/17 07/26/17 Insulin Glargine [Lantus] 100 unit SQ BID 01/11/17 07/26/17 HYDROcodone/APAP 7.5-325MG [[place] 1 tab PO BID PRN 04/02/17 07/26/17 7.5-325] ALPRAZolam [Xanax] 0.25 mg PO BID PRN 07/26/17 07/26/17 Ketorolac [Toradol] 10 mg PO Q6HR PRN 07/26/17 07/26/17 Previous Rx's Medication Instructions Recorded Ondansetron Odt [Zofran ODT] 4 mg PO Q8HR PRN #20 tab 04/02/17 Aspirin 325 mg PO DAILY tab 06/16/17 Lisinopril [Zestril] 5 mg PO DAILY #10 tab 07/01/17 Allergies Allergy/AdvReac Type Severity Reaction Status Date / Time No Known Allergies Allergy Verified 09/25/17 01:15 Review of Systems ROS Statement: Those systems with pertinent positive or pertinent negative responses have been documented in the HPI. ROS Other: All systems not noted in ROS Statement are negative. EKG Findings - EKG Comments: EKG Findings:: EKG is normal sinus rhythm ventricular rate is 98 GA interval is 150 QRS duration is 98 QT/QTc is 370/472 and aVF this EKG does not reveal any ST elevation or ST depression Past Medical History Past Medical History: Diabetes Mellitus, Hypertension Additional Past Medical History / Comment(s): back pain with pinched nerve, chronic left calf pain pt states DVT r/o, pt states he was once told he has "3 bad valves" in his heart.{ pt does not recall when or who told him. he stated he was given medicine to take but he no longer takes it. unsure of name of med} migraines. History of Any Multi-Drug Resistant Organisms: None Reported Past Surgical History: Appendectomy Additional Past Surgical History / Comment(s): oral surgery Past Anesthesia/Blood Transfusion Reactions: No Reported Reaction Past Psychological History: Anxiety Smoking Status: Current every day smoker Past Alcohol Use History: Occasional Past Drug Use History: None Reported - Past Family History Brother(s) Additional Family Medical History / Comment(s): tumor of brain - at 34 General Exam - General Exam Comments Initial Comments: General: The patient is awake and alert, in no distress, and does not appear acutely ill. Skin: Skin is warm and dry and no rashes or lesions are noted. Eye: Pupils are equal, round and reactive to light, extra-ocular movements are intact; there is normal conjunctiva bilaterally. Ears, nose, mouth and throat: There are moist mucous membranes and no oral lesions. Neck: The neck is supple, there is no tenderness or JVD. Cardiovascular: There is a regular rate and rhythm. No murmur, rub or gallop is appreciated. Respiratory: To auscultation bilateral, no wheezing no rhonchi no distress respiratory nguyen noticed Gastrointestinal: Soft, non-distended, non-tender abdomen without masses or organomegaly noted. There is no rebound or guarding present. Bowel sounds are unremarkable. Examination of the scrotum and noticed some fungal infection of the foreskin, culture was done Back: There is no tenderness to palpation in the midline. There is no obvious deformity. Musculoskeletal: Normal ROM, no tenderness, There is no pedal edema. There is no calf tenderness or swelling. No cords were appreciated. Neurological: CN II-XII intact, Cranial nerves III through XII are intact. There are no obvious motor or sensory deficits. Coordination appears grossly intact. Speech is normal. Psychiatric: Cooperative, appropriate mood & affect, normal judgment. Limitations: no limitations Course Vital Signs 09/25/17 09/25/17 09/25/17 01:13 02:01 03:33 Temperature 98.6 F Pulse Rate 101 H 94 84 Respiratory 18 18 18 Rate Blood Pressure 166/99 147/85 138/87 O2 Sat by Pulse 96 97 99 Oximetry Patient's troponin, EKG, head CT, CBC, compressive metabolic panel, EKG are unremarkable. Considering is a diabetic considering his current hyperglycemia and recommended that he stays in for 24 hours with the 3 sets of cardiac markers Disposition Clinical Impression: Chest pain, Headache, Candidiasis Disposition: ADMITTED IP TO THIS HOSP Condition: Good Referrals: None,Stated [Primary Care Provider] - 1-2 days
[2017-09-25] MEDS ORDERED: MORPHINE SULFATE 4 MG/ML SYRINGE IV PRN (04:00)
[2017-09-25] MEDS ORDERED: NITROGLYCERIN SL TABS 0.4 MG TAB SUBLINGUAL PRN (04:00)
[2017-09-25] MEDS ORDERED: HYDROcodone/APAP 7.5-325MG 1 EACH TAB PO PRN (04:11)
[2017-09-25] MEDS ORDERED: ONDANSETRON ODT 4 MG TAB PO PRN (04:11)
[2017-09-25] MEDS ORDERED: ALPRAZolam 0.25 MG TAB PO PRN (04:11)
[2017-09-25 04:27] LABS: Glucose,Whole Blood 267 mg/dL (75-99)
[2017-09-25 04:53] VITALS: BMI 41.3
[2017-09-25 07:07] LABS: Glucose,Whole Blood 250 mg/dL (75-99)
[2017-09-25 08:23] VITALS: RESP 18
[2017-09-25] MEDS ORDERED: CITALOPRAM HYDROBROMIDE 20 MG TAB PO SCH (09:00)
[2017-09-25] MEDS ORDERED: ATORVASTATIN 10 MG TAB PO SCH (09:00)
[2017-09-25] MEDS ORDERED: INSULIN DETEMIR 100 UNIT/ML 10 ML VIAL SQ SCH (09:00)
[2017-09-25] MEDS ORDERED: LISINOPRIL 5 MG TAB PO SCH (09:00)
[2017-09-25 09:42] LABS: Creatine Kinase 103 U/L (55-170)
[2017-09-25 09:51] LABS: Creatine Kinase MB 0.3 ng/mL (0.0-2.4); Troponin I <0.012 ng/mL (0.000-0.034)
--- NOTE | 2017-09-25 10:13 | CONS ---
CONSULTATION Mr. Lay is a 41-year-old male with a known history of chronic tobacco use, hypertension, hyperlipidemia and diabetes mellitus and noncompliance, who presented with symptoms of chest discomfort. He had discomfort yesterday, lasted for few minutes at rest. He had multiple presentations to the emergency room as well as admission with similar symptoms. He has underwent a stress echocardiogram performed in June of this year that revealed no evidence of stress induced ischemia. There was evidence of mild global hypokinesis noted in the past. Discussing his case with Dr. Stoll patient has been noncompliant with his medication and his followup. He has been seen in the past by Dr. Lin, but has not followed on a regular basis. The patient has some dyspnea on exertion. He is not active physically. He has no dizziness. No palpitation. No syncope. No PND or orthopnea. No peripheral edema. MEDICATION: His medications at home include lisinopril, insulin, Lipitor 10 mg daily, aspirin once a day, and Zofran on a p.r.n. basis. REVIEW OF SYSTEMS: RESPIRATORY SYSTEM: He had dyspnea on exertion. History of chronic tobacco use. GI SYSTEM: No recent GI bleed. No peptic ulcer disease. SYSTEM: No dysuria or hematuria. NERVOUS SYSTEM: No stroke or seizure. PHYSICAL EXAMINATION: A 41-year-old male, alert, oriented, in no apparent distress. Obese. Blood pressure 138/90 with the heart rate in the 70s. HEAD: Normocephalic. EYES: Sclerae anicteric. NECK: Good upstroke. No bruit. No jugular venous distention. LUNGS: Clear to auscultation. HEART: Regular rate and rhythm. S1, S2. No S3, no S4. No rub. ABDOMEN: Soft, obese, nontender. Positive bowel sounds. No organomegaly. EXTREMITIES: No edema. Intact distal pulses. LAB DATA: Lab data revealed troponin less than 0.012. BUN and creatinine of 9 and 0.75. Potassium 4.0. Hemoglobin 15.8. EKG revealed a sinus mechanism with a normal axis and intervals with minor nonspecific ST-T wave changes. He had a CT scan of the head that showed no evidence of acute changes. A chest x-ray was unremarkable. IMPRESSION: 1. Chest discomfort, has atypical feature for ischemic heart disease in a patient with multiple risk factors. The patient has underwent stress echocardiogram recently revealed no evidence of inducible ischemia with mild global hypokinesis that was noted in the past. 2. History of hypertension. 3. Hyperlipidemia. 4. Diabetes mellitus. 5. Obesity. 6. Chronic tobacco use. 7. Noncompliance. RECOMMENDATION: From the cardiac standpoint, if there is no evidence of abnormality in his subsequent enzymes, I would not recommend any further cardiac workup at this time. The importance of smoking cessation was discussed with the patient. Thank you for this consult. We will follow with you. MMODL / IJN: [id number] /
[2017-09-25 11:40] VITALS: BP 172/93; PULSE 79; TEMP 97.5
--- NOTE | 2017-09-25 20:43 | HP ---
HISTORY AND PHYSICAL CHIEF COMPLAINT: Chest pain. HISTORY OF PRESENT ILLNESS: Another of many admissions for this 41-year-old obese white male [place] diabetic. He is very noncompliant. He has been in the hospital several times over the last year. He comes in with elevated blood sugar and other problems, but frequently chest pain. He had a workup about 2 months ago and was negative, but pain is in the left lower anterior chest at the costal margin and he had no associated shortness of breath, nausea, diaphoresis, cough, hemoptysis, etc. Enzymes initially were normal. The patient is admitted for observation. REVIEW OF SYSTEMS: He has had no neurologic problems, pulmonary symptoms, abdominal pain, vomiting, GI or complaints, etc. He does not take care of his diabetes and his blood sugars are over 300. PHYSICAL EXAMINATION: Blood pressure 136/90 with a pulse of 88 and regular, respirations of 35 and he is afebrile. In general, he appeared to be obese and in no acute distress. Skin color is normal. Skin is warm and dry. Lymph nodes are not enlarged. Head, ears, eyes, nose, mouth, and throat were normal. Neck veins were not distended. Thyroid was not enlarged. Chest is clear. Cardiac is normal. The abdomen is protuberant. Extremities are normal. Neurologically, he is intact. IMPRESSION: 1. Atypical chest pain. 2. Uncontrolled insulin-dependent diabetes mellitus. 3. Chronic obstructive pulmonary disease. 4. Obesity. PLAN: 1. Bed rest. 2. IV fluids. 3. Serial EKGs and enzymes. 4. Cardiology consult. MMODL / IJN: [id number] /
--- NOTE | 2017-09-25 20:43 | DS ---
DISCHARGE SUMMARY CHIEF COMPLAINT: Chest pain. HISTORY OF PRESENT ILLNESS AND PHYSICAL EXAM: Details of this man's history and physical can be found in the initial workup. LABORATORY STUDIES: While he was the hospital he had laboratory studies details of which can be found in the laboratory section of chart. COURSE IN HOSPITAL: After admission, he was placed on bedrest, started on intravenous fluids and had serial EKGs and enzymes. The first two were drawn and they were negative. He was seen by Cardiology. He then signed himself out AGAINST MEDICAL ADVICE. FINAL DIAGNOSES: 1. Atypical chest pain. 2. Uncontrolled insulin-dependent diabetes mellitus. 3. Obesity. 4. Chronic obstructive pulmonary disease. OPERATIONS: None. CONSULTATIONS: Cardiology. He is improved. He left AMA. MMODL / IJN: [id number] /
[2017-09-26] MEDS ORDERED: ASPIRIN 325 MG TAB PO SCH (09:00)
== END 2017-09-25 11:35 | disposition left against medical advice (07) ==
LOC: EC 01:08 → 3OBS 03:59
PROVIDERS: ADMIT Family Medicine; ATTEND Family Medicine
DX: R07.89 Other chest pain (principal); E78.5 Hyperlipidemia, unspecified; E11.65 Type 2 diabetes mellitus with hyperglycemia; J44.9 Chronic obstructive pulmonary disease, unspecified; I10 Essential (primary) hypertension; B37.49 Other urogenital candidiasis; F41.9 Anxiety disorder, unspecified; F17.200 Nicotine dependence, unspecified, uncomplicated; Z91.14 Patient's other noncompliance with medication regimen; Z68.41 Body mass index [BMI] 40.0-44.9, adult; E66.9 Obesity, unspecified; G43.909 Migraine, unspecified, not intractable, without status migrainosus; M79.662 Pain in left lower leg; G89.29 Other chronic pain; G58.9 Mononeuropathy, unspecified; Z79.4 Long term (current) use of insulin; Z79.82 Long term (current) use of aspirin; Z79.899 Other long term (current) drug therapy; Z90.89 Acquired absence of other organs; Z84.89 Family history of other specified conditions
CPT/HCPCS: 99285 ×2; 96374 ×2; 96361 ×3; 36415; 93005; 80053; 82550; 82553; 83735; 84484; 85025; 85610; 85730; 87070; 87205; 71046; 70450; G0378; J2405

== ENCOUNTER 2017-10-18 22:49 | Emergency (ER) | payer OTHER ==
[2017-10-18] MEDS ORDERED: ACETAMINOPHEN TAB 500 MG TAB PO STA (23:46)
--- NOTE | 2017-10-18 23:47 | ED ---
General Adult HPI - General Chief complaint: Abdominal Pain Stated complaint: R rib pain Time Seen by Provider: 10/18/17 23:41 Source: patient, family, RN notes reviewed Mode of arrival: ambulatory Limitations: no limitations - History of Present Illness Initial comments: This is a 41-year-old male who presents to the emergency department with chief complaint right rib pain. Patient states that prior to arrival he was playing with his son. He states that his son was lying on the ground and pulling on his arm. He states that his son pulled at the same time that he pushed and his right ribs hit the wall and he felt a pop sensation. He complains of pain to the anterior portion of his right lower ribs. Denies chest pain or shortness of breath. Denies any other injuries or trauma. Denies fevers or chills, abdominal pain, nausea or vomiting, dizziness or headache. - Related Data Home Medications Medication Instructions Recorded Confirmed Insulin Glargine [Lantus] 100 unit SQ BID 01/11/17 10/18/17 HYDROcodone/APAP 7.5-325MG [[place] 1 tab PO BID PRN 04/02/17 10/18/17 7.5-325] ALPRAZolam [Xanax] 1 mg PO BID 09/25/17 10/18/17 DULoxetine HCL [Cymbalta] 60 mg PO DAILY 09/25/17 10/18/17 Glimepiride [Amaryl] 4 mg PO BID 09/25/17 10/18/17 INSULIN LISPRO (humaLOG) [humaLOG] 15 units SQ BID 09/25/17 10/18/17 Lisinopril 30 mg PO DAILY 09/25/17 10/18/17 Loratadine [Claritin] 10 mg PO DAILY 09/25/17 10/18/17 Naproxen 500 mg PO BID 09/25/17 10/18/17 Pioglitazone [Actos] 30 mg PO DAILY 09/25/17 10/18/17 metFORMIN HCL [Glucophage] 500 mg PO BID 09/25/17 10/18/17 sitaGLIPtin [Januvia] 100 mg PO DAILY 09/25/17 10/18/17 Allergies Allergy/AdvReac Type Severity Reaction Status Date / Time No Known Allergies Allergy Verified 10/18/17 22:54 Review of Systems ROS Statement: Those systems with pertinent positive or pertinent negative responses have been documented in the HPI. ROS Other: All systems not noted in ROS Statement are negative. Past Medical History Past Medical History: Diabetes Mellitus, Hypertension Additional Past Medical History / Comment(s): back pain with pinched nerve, chronic left calf pain pt states DVT r/o, pt states he was once told he has "3 bad valves" in his heart.{ pt does not recall when or who told him. he stated he was given medicine to take but he no longer takes it. unsure of name of med} migraines. History of Any Multi-Drug Resistant Organisms: None Reported Past Surgical History: Appendectomy Additional Past Surgical History / Comment(s): oral surgery Past Anesthesia/Blood Transfusion Reactions: No Reported Reaction Past Psychological History: Anxiety Smoking Status: Current every day smoker Past Alcohol Use History: Occasional Past Drug Use History: None Reported - Past Family History Brother(s) Additional Family Medical History / Comment(s): tumor of brain - at 34 General Exam - General Exam Comments Initial Comments: General: Awake and alert, well-developed; in no apparent distress. HEENT: Head atraumatic, normocephalic. Pupils are equal, round and reactive to light. Extraocular movements intact. Oropharynx moist without erythema or exudate. Neck: Supple. Normal ROM. Cardiovascular: Regular rate and rhythm. No murmurs, rubs or gallops. Chest symmetrical. Tenderness on palpation of right anterior inferior ribs. Respiratory: Lungs clear to auscultation bilaterally. No wheezes, rales or rhonchi. Normal respiratory effort with no use of accessory muscles. Musculoskeletal: Normal ROM, no tenderness bilateral upper and lower extremities. Ambulating normally. Skin: [place], warm and dry without rashes or lesions. Neurological: Alert and oriented x3. CN II-XII grossly intact. Speech is fluent and answers are appropriate. No focal neuro deficits. Psychiatric: Normal mood and affect. No overt signs of depression or anxiety noted. Limitations: no limitations Course Vital Signs 10/18/17 22:51 Temperature 98.2 F Pulse Rate 105 H Respiratory 20 Rate Blood Pressure 145/92 O2 Sat by Pulse 97 Oximetry Medical Decision Making - Medical Decision Making This is a 41-year-old male who presents to the emergency department with chief complaint of right rib pain. There is tenderness on palpation of the right anterior inferior ribs. Lungs are clear to auscultation bilaterally. X-ray of the right ribs and chest was obtained and revealed no acute abnormalities. Patient likely suffering from an intercostal muscle strain. Vital signs are stable and patient is in no acute distress. He will be discharged home at this time. Recommend rest, ice and anti-inflammatories as needed. Patient is in agreement and voices understanding. All questions answered. - Radiology Data Radiology results: report reviewed X-ray right ribs with PA chest impression: Normal chest. Normal right ribs. Disposition Clinical Impression: Intercostal muscle strain Disposition: HOME SELF-CARE Condition: Good Instructions: Chest Wall Pain (ED) Additional Instructions: Please rest, ice and take ibuprofen or Tylenol as needed. Please follow up with primary care provider within 1-2 days. Return to emergency department if symptoms should worsen or any concerns arise. Is patient prescribed a controlled substance at d/c from ED?: No Referrals: None,Stated [Primary Care Provider] - 1-2 days Time of Disposition: 00:49
--- NOTE | 2017-10-19 00:28 | XR ---
EXAMINATION TYPE: XR ribs RT w pa chest xray DATE OF EXAM: 10/19/2017 COMPARISON: NONE HISTORY: Right-sided pain TECHNIQUE: 5 views including chest x-ray FINDINGS: Heart and mediastinum are normal. Lungs are clear. The right ribs appear intact. There is n o pleural effusion or pneumothorax. IMPRESSION: Normal chest. Normal right ribs.
[2017-10-19 01:28] VITALS: BP 138/69; PULSE 89; RESP 17; TEMP 98.6
== END 2017-10-19 01:28 | disposition home or self-care (01) ==
LOC: EC 22:49
DX: S29.011A Strain of muscle and tendon of front wall of thorax, initial encounter (principal); E11.9 Type 2 diabetes mellitus without complications; I10 Essential (primary) hypertension; F41.9 Anxiety disorder, unspecified; F17.200 Nicotine dependence, unspecified, uncomplicated; Z79.4 Long term (current) use of insulin; Z79.1 Long term (current) use of non-steroidal anti-inflammatories (NSAID); Z79.899 Other long term (current) drug therapy; W22.01XA Walked into wall, initial encounter
CPT/HCPCS: 99284

== ENCOUNTER 2017-10-20 12:36 | Emergency (ER) | payer OTHER ==
[2017-10-20 12:53] VITALS: BP 168/75; PULSE 72; RESP 18; TEMP 98.2
--- NOTE | 2017-10-20 13:50 | ED ---
General Adult HPI - General Chief complaint: Chest Pain Stated complaint: rt rib pain Time Seen by Provider: 10/20/17 12:53 Source: patient, RN notes reviewed Mode of arrival: ambulatory Limitations: no limitations - History of Present Illness Initial comments: 41-year-old male presents to the emergency department for right-sided rib pain 4 days. Patient states he was playing with his child when his arm was pulled in the wrong direction and he fell on the right side of his ribs. Patient states he was seen here 4 days ago and x-ray was negative. Patient states it is still painful to take a deep breath. Patient denies any chest pain. Patient states it is not her diffuse sitting for hurts if he moves or tries to take a deep breath. Patient denies any cough or fevers. Patient denies any back pain or left-sided rib pain. Patient has no other complaints at this time including shortness of breath, chest pain, abdominal pain, nausea or vomiting, headache, or visual changes. - Related Data Home Medications Medication Instructions Recorded Confirmed Insulin Glargine [Lantus] 100 unit SQ BID 01/11/17 10/20/17 HYDROcodone/APAP 7.5-325MG [[place] 1 tab PO BID PRN 04/02/17 10/20/17 7.5-325] ALPRAZolam [Xanax] 1 mg PO BID 09/25/17 10/20/17 DULoxetine HCL [Cymbalta] 60 mg PO DAILY 09/25/17 10/20/17 Glimepiride [Amaryl] 4 mg PO BID 09/25/17 10/20/17 INSULIN LISPRO (humaLOG) [humaLOG] 15 units SQ BID 09/25/17 10/20/17 Lisinopril 30 mg PO DAILY 09/25/17 10/20/17 Loratadine [Claritin] 10 mg PO DAILY 09/25/17 10/20/17 Naproxen 500 mg PO BID 09/25/17 10/20/17 Pioglitazone [Actos] 30 mg PO DAILY 09/25/17 10/20/17 metFORMIN HCL [Glucophage] 500 mg PO BID 09/25/17 10/20/17 sitaGLIPtin [Januvia] 100 mg PO DAILY 09/25/17 10/20/17 Allergies Allergy/AdvReac Type Severity Reaction Status Date / Time No Known Allergies Allergy Verified 10/20/17 12:49 Review of Systems ROS Statement: Those systems with pertinent positive or pertinent negative responses have been documented in the HPI. ROS Other: All systems not noted in ROS Statement are negative. Past Medical History Past Medical History: Diabetes Mellitus, Hypertension Additional Past Medical History / Comment(s): back pain with pinched nerve, chronic left calf pain pt states DVT r/o, pt states he was once told he has "3 bad valves" in his heart.{ pt does not recall when or who told him. he stated he was given medicine to take but he no longer takes it. unsure of name of med} migraines. History of Any Multi-Drug Resistant Organisms: None Reported Past Surgical History: Appendectomy Additional Past Surgical History / Comment(s): oral surgery Past Anesthesia/Blood Transfusion Reactions: No Reported Reaction Past Psychological History: Anxiety Smoking Status: Current every day smoker Past Alcohol Use History: Occasional Past Drug Use History: None Reported - Past Family History Brother(s) Additional Family Medical History / Comment(s): tumor of brain - at 34 General Exam - General Exam Comments Initial Comments: Patient has tenderness to the right anterior inferior ribs. No step offs present. No ecchymosis or swelling present. No lacerations or breaks in the skin. No spreading redness. Patient is able to deep breathe but states it is painful. Limitations: no limitations General appearance: alert, in no apparent distress Head exam: Present: atraumatic, normocephalic, normal inspection Eye exam: Present: normal appearance ENT exam: Present: normal exam, mucous membranes moist Neck exam: Present: normal inspection, full ROM. Absent: tenderness, meningismus, lymphadenopathy Respiratory exam: Present: normal lung sounds bilaterally. Absent: respiratory distress, wheezes, rales, rhonchi, stridor Cardiovascular Exam: Present: regular rate, normal rhythm, normal heart sounds. Absent: systolic murmur, diastolic murmur, rubs, gallop, clicks Back exam: Present: normal inspection, full ROM. Absent: tenderness Course Vital Signs 10/20/17 12:50 Temperature 98.2 F Pulse Rate 72 Respiratory 18 Rate Blood Pressure 168/75 O2 Sat by Pulse 95 Oximetry Medical Decision Making - Medical Decision Making 41-year-old male since to the emergency department for a chief complaint of rib pain 4 days. Patient fell on his right ribs 4 days ago and was seen in the ER at that time with negative x-rays. Patient states pain is continuing and it hurts to take a deep breath. Patient states it does not hurt when he is lying down or hurts when he moves. On exam patient has tenderness of the right anterior ribs. No step off palpated. Patient is able to deep breathe but states it is painful. No swelling or ecchymosis noted of the right ribs. X- ray shows no displaced rib fractures. Lungs are clear. Chest x-ray shows no pneumothorax evident. Patient likely has a strain of an intercostal muscle as diagnosed at previous visit. He will continue to take [place] for pain. He was given an incentive spirometer and educated on use to prevent pneumonia. He was also educated on pillow splinting the area. He will follow up with primary care in 1-2 days. He will return to the emergency department if he has any worsening symptoms. Disposition Clinical Impression: Intercostal muscle strain Disposition: HOME SELF-CARE Condition: Good Instructions: Rib Contusion (ED) Additional Instructions: Please continue to take [place] for pain. You can use a pillow to splint the right ribs. Use incentive spirometer to take 10-15 breath every 2 hours. This will prevent pneumonia from occurring. Follow-up with primary care in 1-2 days. If symptoms worsen return to the emergency department. Is patient prescribed a controlled substance at d/c from ED?: No Referrals: Jorge Gauthier MD [STAFF PHYSICIAN] - 1-2 days Time of Disposition: 13:41
--- NOTE | 2017-10-20 14:14 | XR ---
EXAMINATION TYPE: XR ribs RT w pa chest xray DATE OF EXAM: 10/20/2017 COMPARISON: 10/19/2017 HISTORY: Pain TECHNIQUE: 2 views right ribs supplemented with a frontal chest. FINDINGS: No pneumothorax is evident. No displaced rib fractures are evident. No suspicious lung find ings are evident on chest film. Heart size is normal. IMPRESSION: 1. Normal right ribs. 2. Follow-up can be performed 7-10 days from acute trauma for continued pain
== END 2017-10-20 14:27 | disposition home or self-care (01) ==
LOC: EC 12:36
DX: S29.011A Strain of muscle and tendon of front wall of thorax, initial encounter (principal); E11.9 Type 2 diabetes mellitus without complications; I10 Essential (primary) hypertension; F41.9 Anxiety disorder, unspecified; F17.200 Nicotine dependence, unspecified, uncomplicated; Z79.1 Long term (current) use of non-steroidal anti-inflammatories (NSAID); Z79.4 Long term (current) use of insulin; Z79.899 Other long term (current) drug therapy; W18.39XA Other fall on same level, initial encounter; Y93.89 Activity, other specified
CPT/HCPCS: 99283

== ENCOUNTER 2017-11-01 17:15 | Emergency (ER) | payer OTHER ==
[2017-11-01 17:23] VITALS: RESP 18
--- NOTE | 2017-11-01 17:45 | ED ---
URI HPI - General Chief Complaint: Upper Respiratory Infection Stated Complaint: cough, exposed to bronchitis Time Seen by Provider: 11/01/17 17:33 Source: patient, RN notes reviewed Mode of arrival: ambulatory Limitations: no limitations - History of Present Illness Initial Comments: This is a 41-year-old male who presents to the emergency department with chief complaint of cough. Patient states that when he coughs he feels chest discomfort and short of breath. He states that he has been exposed to bronchitis as his oldest daughter was recently diagnosed. He states that he has been coughing for the past 2 days. He admits to being a current, every day smoker. Patient was seen here a couple weeks ago with rib pain. He was advised to use the spirometer every hour, however patient states that he has not been doing so. Patient denies any fevers or chills, abdominal pain, nausea or vomiting, diarrhea or constipation. Patient requests a work excusal note for tonight. - Related Data Home Medications Medication Instructions Recorded Confirmed Insulin Glargine [Lantus] 110 unit SQ BID 01/11/17 11/01/17 HYDROcodone/APAP 7.5-325MG [[place] 1 tab PO BID PRN 04/02/17 11/01/17 7.5-325] DULoxetine HCL [Cymbalta] 60 mg PO DAILY 09/25/17 11/01/17 Glimepiride [Amaryl] 4 mg PO BID 09/25/17 11/01/17 INSULIN LISPRO (humaLOG) [humaLOG] 30 units SQ BID 09/25/17 11/01/17 Lisinopril 30 mg PO DAILY 09/25/17 11/01/17 Loratadine [Claritin] 10 mg PO DAILY 09/25/17 11/01/17 Naproxen 500 mg PO BID 09/25/17 11/01/17 Pioglitazone [Actos] 30 mg PO DAILY 09/25/17 11/01/17 metFORMIN HCL [Glucophage] 500 mg PO BID 09/25/17 11/01/17 sitaGLIPtin [Januvia] 100 mg PO DAILY 09/25/17 11/01/17 ALPRAZolam [Xanax] 0.25 mg PO BID PRN 11/01/17 11/01/17 Previous Rx's Medication Instructions Recorded Albuterol Inhaler [Ventolin Hfa 1 - 2 puff INHALATION Q6HR PRN #1 11/01/17 Inhaler] inhaler Azithromycin [Zithromax Z-pack] 0 mg PO DIRECTED #6 tab 11/01/17 predniSONE 20 mg PO BID #8 tab 11/01/17 Allergies Allergy/AdvReac Type Severity Reaction Status Date / Time No Known Allergies Allergy Verified 11/01/17 17:59 Review of Systems ROS Statement: Those systems with pertinent positive or pertinent negative responses have been documented in the HPI. ROS Other: All systems not noted in ROS Statement are negative. 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 History of Any Multi-Drug Resistant Organisms: None Reported Past Surgical History: Appendectomy Additional Past Surgical History / Comment(s): oral surgery Past Anesthesia/Blood Transfusion Reactions: No Reported Reaction Past Psychological History: Anxiety Smoking Status: Current every day smoker Past Alcohol Use History: Occasional Past Drug Use History: None Reported - Past Family History Brother(s) Additional Family Medical History / Comment(s): tumor of brain - at 34 General Exam - General Exam Comments Initial Comments: General: Awake and alert, well-developed; in no apparent distress. HEENT: Head atraumatic, normocephalic. Pupils are equal, round and reactive to light. Extraocular movements intact. Oropharynx moist without erythema or exudate. Neck: Supple. Normal ROM. Cardiovascular: Regular rate and rhythm. No murmurs, rubs or gallops. Chest symmetrical. Respiratory: Lungs clear to auscultation bilaterally. No wheezes, rales or rhonchi. Normal respiratory effort with no use of accessory muscles. Musculoskeletal: Normal ROM, no tenderness bilateral upper and lower extremities. Ambulating normally. Skin: [place], warm and dry without rashes or lesions. Neurological: Alert and oriented x3. CN II-XII grossly intact. Speech is fluent and answers are appropriate. No focal neuro deficits. Psychiatric: Normal mood and affect. No overt signs of depression or anxiety noted. Limitations: no limitations Course Vital Signs 11/01/17 17:20 Temperature 98.2 F Pulse Rate 81 Respiratory 18 Rate Blood Pressure 148/88 O2 Sat by Pulse 97 Oximetry Medical Decision Making - Medical Decision Making This is a 41-year-old male who presents to the emergency department with chief complaint of cough for the past 2 days. Patient states when he coughs he feels short of breath. He states that he has recently been exposed to bronchitis. Vital signs are stable and patient is afebrile. Chest x-ray revealed no acute cardiopulmonary processes. Patient is a current, every day smoker. He will be treated with azithromycin, prednisone and albuterol inhaler. Patient is in agreement with plan and voices understanding. He is in no acute distress and will be discharged home at this time. All questions answered. - Radiology Data Radiology results: image reviewed Interpreted by me: Chest x-ray was reviewed and reveals no acute cardiopulmonary processes. No pleural effusions, pneumonia or pneumothorax noted. No significant changes when compared to 10/20/2017. Disposition Clinical Impression: Bronchitis Disposition: HOME SELF-CARE Condition: Good Instructions: Acute Bronchitis (ED) Additional Instructions: Please take medications as prescribed. Please follow up with primary care provider within 1-2 days. Return to emergency department if symptoms should worsen or any concerns arise. Prescriptions: Albuterol Inhaler [Ventolin Hfa Inhaler] 1 - 2 puff INHALATION Q6HR PRN #1 inhaler PRN Reason: Shortness Of Breath Azithromycin [Zithromax Z-pack] 0 mg PO DIRECTED #6 tab predniSONE 20 mg PO BID #8 tab Is patient prescribed a controlled substance at d/c from ED?: No Referrals: None,Stated [Primary Care Provider] - 1-2 days Time of Disposition: 19:06
[2017-11-01] MEDS ORDERED: predniSONE 50 MG TAB PO STA (19:03)
[2017-11-01 19:15] VITALS: BP 134/86; PULSE 78; TEMP 98
--- NOTE | 2017-11-01 20:05 | XR ---
EXAMINATION TYPE: XR chest 2V DATE OF EXAM: 11/01/2017 COMPARISON: 10/20/2017 HISTORY: Cough and congestion TECHNIQUE: Frontal and lateral views of the chest are obtained. FINDINGS: Heart and mediastinum are normal. Lungs are clear. Diaphragm is normal. Bony thorax appear s normal. IMPRESSION: Normal chest. There is improved aeration of the left lower lobe compared to last exam.
== END 2017-11-01 19:15 | disposition home or self-care (01) ==
LOC: EC 17:15
DX: J40 Bronchitis, not specified as acute or chronic (principal); E11.9 Type 2 diabetes mellitus without complications; I10 Essential (primary) hypertension; F41.9 Anxiety disorder, unspecified; F17.200 Nicotine dependence, unspecified, uncomplicated; Z79.4 Long term (current) use of insulin; Z79.1 Long term (current) use of non-steroidal anti-inflammatories (NSAID); Z79.899 Other long term (current) drug therapy
CPT/HCPCS: 71046; 99283; J7512

== ENCOUNTER → 2017-11-07 | Outpatient (CLI) | payer OTHER ==
[2017-11-07 14:01] VITALS: BMI 40.4
== END | disposition home or self-care (01) ==
LOC: DBWHC3 12:35
PROVIDERS: ATTEND Family Medicine
DX: E11.65 Type 2 diabetes mellitus with hyperglycemia (principal)
CPT/HCPCS: G0109 ×2

== ENCOUNTER 2017-11-21 22:10 | Emergency (ER) | payer OTHER ==
[2017-11-21] MEDS ORDERED: KETOROLAC 30 MG/ML 1 ML VIAL IVP STA (23:29)
[2017-11-21] MEDS ORDERED: METOCLOPRAMIDE 5 MG/ML 2 ML VIAL IVP STA (23:29)
[2017-11-21] MEDS ORDERED: diphenhydrAMINE 50 MG/ML 1 ML VIAL IVP STA (23:29)
--- NOTE | 2017-11-22 00:57 | ED ---
Head Injury HPI - General Chief complaint: Head Injury Stated complaint: diabetic Time Seen by Provider: 11/21/17 23:07 Source: patient Mode of arrival: ambulatory Limitations: no limitations - History of Present Illness Initial comments: 41-year-old male patient presents the emergency department today for complaints of headache. Patient states he has had a headache for the last 5 days. Patient states today he started to become nauseated. States he does have a history of headaches similar to this. States that he has seen his doctor and been here for evaluation for them in the past. Patient states he did recently have a CT scan which was normal. Patient denies any blurred or double vision. He denies any numbness or tingling, dizziness, or weakness. He denies any actual vomiting. Denies any new symptoms with this. He is also reporting some left anterior leg pain. He denies any injury to the leg. Patient states it does get better when he massages the muscle. Denies any numbness or tingling to the lower extremities. Denies any low back pain. Patient denies any recent rash, fever, chills, shortness breath, chest pain, abdominal pain, diarrhea, constipation, hematuria, dysuria, urinary urgency, urinary frequency, or any other complaints. - Related Data Home Medications Medication Instructions Recorded Confirmed Insulin Glargine [Lantus] 110 unit SQ BID 01/11/17 11/21/17 HYDROcodone/APAP 7.5-325MG [[place] 1 tab PO BID PRN 04/02/17 11/21/17 7.5-325] DULoxetine HCL [Cymbalta] 60 mg PO DAILY 09/25/17 11/21/17 Glimepiride [Amaryl] 4 mg PO BID 09/25/17 11/21/17 INSULIN LISPRO (humaLOG) [humaLOG] 34 units SQ BID 09/25/17 11/21/17 Lisinopril 30 mg PO DAILY 09/25/17 11/21/17 Loratadine [Claritin] 10 mg PO DAILY 09/25/17 11/21/17 Naproxen 500 mg PO BID 09/25/17 11/21/17 Pioglitazone [Actos] 30 mg PO DAILY 09/25/17 11/21/17 metFORMIN HCL [Glucophage] 500 mg PO BID 09/25/17 11/21/17 sitaGLIPtin [Januvia] 100 mg PO DAILY 09/25/17 11/21/17 ALPRAZolam [Xanax] 0.25 mg PO BID PRN 11/01/17 11/21/17 Allergies/Adverse reactions: Allergies Allergy/AdvReac Type Severity Reaction Status Date / Time No Known Allergies Allergy Verified 11/21/17 22:30 Review of Systems ROS Statement: Those systems with pertinent positive or pertinent negative responses have been documented in the HPI. ROS Other: All systems not noted in ROS Statement are negative. 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 History of Any Multi-Drug Resistant Organisms: None Reported Past Surgical History: Appendectomy Additional Past Surgical History / Comment(s): oral surgery Past Anesthesia/Blood Transfusion Reactions: No Reported Reaction Past Psychological History: Anxiety Smoking Status: Current every day smoker Past Alcohol Use History: Occasional Past Drug Use History: None Reported - Past Family History Brother(s) Additional Family Medical History / Comment(s): tumor of brain - at 34 General Exam Limitations: no limitations General appearance: alert, in no apparent distress, other (The well-developed, well-nourished adult male patient in no acute distress. Vital signs upon presentation are temperature 98.6F, pulse 88, respirations 18, blood pressure 166/107, pulse ox 96% on room air.) Eye exam: Present: normal appearance, PERRL, EOMI. Absent: scleral icterus, conjunctival injection, nystagmus, periorbital swelling ENT exam: Present: normal exam, normal oropharynx, mucous membranes moist Neck exam: Present: normal inspection, full ROM. Absent: tenderness, meningismus, lymphadenopathy Respiratory exam: Present: normal lung sounds bilaterally. Absent: respiratory distress, wheezes, rales, rhonchi, stridor Cardiovascular Exam: Present: regular rate, normal rhythm, normal heart sounds. Absent: systolic murmur, diastolic murmur, rubs, gallop, clicks GI/Abdominal exam: Present: soft, normal bowel sounds. Absent: distended, tenderness, guarding, rebound, rigid Extremities exam: Present: normal inspection, full ROM, normal capillary refill , other (Skin to the left lower extremity is pink, warm, and dry. Cap refills less than 3 seconds. Pedal posttibial pulses are 2+ and equal bilaterally.). Absent: tenderness, pedal edema, joint swelling, calf tenderness Neurological exam: Present: alert, oriented X3, CN II-XII intact, other ( Strength in all 4 extremities is 5/5.) Psychiatric exam: Present: normal affect, normal mood Skin exam: Present: warm, dry, intact, normal color. Absent: rash Course Vital Signs 11/21/17 11/22/17 11/22/17 22:17 00:07 01:30 Temperature 98.6 F 96.5 F L Pulse Rate 88 84 92 Respiratory 18 18 17 Rate Blood Pressure 166/107 144/85 139/79 O2 Sat by Pulse 96 96 98 Oximetry Medical Decision Making - Medical Decision Making 41-year-old male patient presented to the emergency department today for evaluation of headache 5 days. Physical examination is unremarkable. Patient is neurologically intact. Did review computed tomography scan from 09/25/2017 which showed no acute abnormalities, did inform patient of these results as he was questioning them. Did administer medications here in the department, upon reevaluation patient is feeling much better, states symptoms are fully resolved. He is instructed to follow-up with his primary care physician to discuss possible MRI if his headaches continue. Return parameters were discussed in detail. He verbalizes understanding and agrees with this plan. Disposition Clinical Impression: Headache Disposition: HOME SELF-CARE Condition: Good Instructions: Acute Headache (ED) Additional Instructions: Increase fluids. Follow-up with your primary care physician to discuss possible MRI for further evaluation of your frequent headaches. Return here immediately for any new, worsening, or concerning symptoms. Is patient prescribed a controlled substance at d/c from ED?: No Referrals: Demetrio Stoll MD [Primary Care Provider] - 1-2 days Time of Disposition: 00:57
[2017-11-22 01:31] VITALS: BP 139/79; PULSE 92; RESP 17; TEMP 96.5
== END 2017-11-22 01:31 | disposition home or self-care (01) ==
LOC: EC 22:10
DX: R51 Headache (principal); R11.0 Nausea; M79.605 Pain in left leg; E11.9 Type 2 diabetes mellitus without complications; I10 Essential (primary) hypertension; G89.29 Other chronic pain; F41.9 Anxiety disorder, unspecified; F17.200 Nicotine dependence, unspecified, uncomplicated; Z79.1 Long term (current) use of non-steroidal anti-inflammatories (NSAID); Z79.4 Long term (current) use of insulin; Z79.899 Other long term (current) drug therapy; Z84.89 Family history of other specified conditions
CPT/HCPCS: 99283; 96374; 96375 ×2; J1200; J2765; J1885

== ENCOUNTER 2017-11-23 23:35 | Emergency (ER) | payer OTHER ==
[2017-11-23 23:49] VITALS: RESP 18
[2017-11-24 00:07] LABS: Glucose,Whole Blood 223 mg/dL (75-99)
[2017-11-24] MEDS ORDERED: ONDANSETRON 4 MG/2 ML VIAL IVP STA (00:08)
[2017-11-24] MEDS ORDERED: SODIUM CHLORIDE 0.9% 1,000 ML IV STA (00:08)
--- NOTE | 2017-11-24 00:22 | ED ---
General Adult HPI - General Chief complaint: Nausea/Vomiting/Diarrhea Stated complaint: NVD Time Seen by Provider: 11/23/17 23:53 Source: patient, RN notes reviewed Mode of arrival: ambulatory Limitations: no limitations - History of Present Illness Initial comments: 41-year-old male presents to the emergency department for a chief complaint of nausea and diarrhea 2 days. Patient states he has had multiple bouts of diarrhea over the past 2 days. He has also vomited about 5 times. Patient admits to nausea at this time. Patient states he vomited last on the way to the hospital. Patient states he may have eaten fish 3 days ago that caused this. Patient admits to upper abdominal pain. He states it is mild in nature. Patient has a history of diabetes and hypertension. No fevers or chills at home. No urinary symptoms.Patient has no other complaints at this time including shortness of breath, chest pain, abdominal pain, nausea or vomiting, headache, or visual changes. - Related Data Home Medications Medication Instructions Recorded Confirmed Insulin Glargine [Lantus] 110 unit SQ BID 01/11/17 11/21/17 HYDROcodone/APAP 7.5-325MG [[place] 1 tab PO BID PRN 04/02/17 11/21/17 7.5-325] DULoxetine HCL [Cymbalta] 60 mg PO DAILY 09/25/17 11/21/17 Glimepiride [Amaryl] 4 mg PO BID 09/25/17 11/21/17 INSULIN LISPRO (humaLOG) [humaLOG] 34 units SQ BID 09/25/17 11/21/17 Lisinopril 30 mg PO DAILY 09/25/17 11/21/17 Loratadine [Claritin] 10 mg PO DAILY 09/25/17 11/21/17 Naproxen 500 mg PO BID 09/25/17 11/21/17 Pioglitazone [Actos] 30 mg PO DAILY 09/25/17 11/21/17 metFORMIN HCL [Glucophage] 500 mg PO BID 09/25/17 11/21/17 sitaGLIPtin [Januvia] 100 mg PO DAILY 09/25/17 11/21/17 ALPRAZolam [Xanax] 0.25 mg PO BID PRN 11/01/17 11/21/17 Previous Rx's Medication Instructions Recorded Loperamide [Imodium] 2 mg PO Q6H PRN #15 capsule 11/24/17 Ondansetron HCl [Zofran] 4 mg PO Q8HR PRN #14 tablet 11/24/17 Allergies Allergy/AdvReac Type Severity Reaction Status Date / Time No Known Allergies Allergy Verified 11/23/17 23:49 Review of Systems ROS Statement: Those systems with pertinent positive or pertinent negative responses have been documented in the HPI. ROS Other: All systems not noted in ROS Statement are negative. 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 History of Any Multi-Drug Resistant Organisms: None Reported Past Surgical History: Appendectomy Additional Past Surgical History / Comment(s): oral surgery Past Anesthesia/Blood Transfusion Reactions: No Reported Reaction Past Psychological History: Anxiety Smoking Status: Current every day smoker Past Alcohol Use History: None Reported Past Drug Use History: None Reported - Past Family History Brother(s) Additional Family Medical History / Comment(s): tumor of brain - at 34 General Exam Limitations: no limitations General appearance: alert, in no apparent distress Head exam: Present: atraumatic, normocephalic, normal inspection Eye exam: Present: normal appearance ENT exam: Present: normal exam, normal oropharynx, mucous membranes moist, TM's normal bilaterally, normal external ear exam Neck exam: Present: normal inspection, full ROM. Absent: tenderness, meningismus, lymphadenopathy Respiratory exam: Present: normal lung sounds bilaterally. Absent: respiratory distress, wheezes, rales, rhonchi, stridor Cardiovascular Exam: Present: regular rate, normal rhythm, normal heart sounds. Absent: systolic murmur, diastolic murmur, rubs, gallop, clicks GI/Abdominal exam: Present: soft, tenderness (mild epigastric tenderness), normal bowel sounds, other (negative rovsing, obturator). Absent: distended, guarding, rebound, rigid Neurological exam: Present: alert, oriented X3, CN II-XII intact Psychiatric exam: Present: normal affect, normal mood Course Vital Signs 11/23/17 11/24/17 11/24/17 23:46 00:23 01:47 Temperature 98.2 F 97.8 F Pulse Rate 91 86 79 Respiratory 18 18 18 Rate Blood Pressure 208/109 175/91 158/91 O2 Sat by Pulse 98 98 97 Oximetry Medical Decision Making - Medical Decision Making 41-year-old male presents to the emergency department for a chief complaint of nausea and vomiting 2 days. Patient has also had multiple bouts of diarrhea. Patient admits to mild epigastric pain. On exam patient has mild epigastric tenderness. No tenderness elsewhere in the abdomen.CBC shows a white count of 11 otherwise unremarkable. CMP unremarkable. Glucose 248 without anion gap. Patient given IV fluids and Zofran and is feeling much better. He is ready to go home. Patient likely has a gastroenteritis. He will be given Zofran as well as Imodium for relief. Patient hypertensive in emergency department. He has known hypertension and is asymptomatic at this time. He will follow up with primary care in 1-2 days for this as well as NVD. He is to return to the emergency department if he has any worsening symptoms or fevers. - Lab Data Result diagrams: 11/24/17 00:12 11/24/17 00:12 Lab Results 11/24/17 11/24/17 11/24/17 Range/Units 00:06 00:12 00:12 WBC 11.1 H (3.8-10.6) k/uL RBC 5.22 (4.30-5.90) m/uL Hgb 15.3 (13.0-17.5) gm/dL Hct 46.0 (39.0-53.0) % MCV 88.0 (80.0-100.0) fL MCH 29.3 (25.0-35.0) pg MCHC 33.2 (31.0-37.0) g/dL RDW 12.7 (11.5-15.5) % Plt Count 229 (150-450) k/uL Neutrophils % 47 % Lymphocytes % 40 % Monocytes % 7 % Eosinophils % 3 % Basophils % 1 % Neutrophils # 5.2 (1.3-7.7) k/uL Lymphocytes # 4.4 (1.0-4.8) k/uL Monocytes # 0.7 (0-1.0) k/uL Eosinophils # 0.3 (0-0.7) k/uL Basophils # 0.1 (0-0.2) k/uL Sodium 138 (137-145) mmol/L Potassium 4.2 (3.5-5.1) mmol/L Chloride 103 (98-107) mmol/L Carbon Dioxide 25 (22-30) mmol/L Anion Gap 10 mmol/L BUN 10 (9-20) mg/dL Creatinine 0.70 (0.66-1.25) mg/dL Est GFR (CKD-EPI)AfAm >90 (>60 ml/min/1.73 sqM) Est GFR (CKD-EPI)NonAf >90 (>60 ml/min/1.73 sqM) Glucose 248 H (74-99) mg/dL POC Glucose (mg/dL) 223 H (75-99) mg/dL POC Glu Japanese Interpreter ID Guerita Cameron Calcium 9.5 (8.4-10.2) mg/dL Total Bilirubin 0.8 (0.2-1.3) mg/dL AST 45 (17-59) U/L ALT 81 H (21-72) U/L Alkaline Phosphatase 108 (38-126) U/L Total Protein 7.7 (6.3-8.2) g/dL Albumin 4.3 (3.5-5.0) g/dL Amylase <30 L (30-110) U/L Lipase 56 (23-300) U/L Urine Color Urine Appearance (Clear) Urine pH (5.0-8.0) Ur Specific [place] (1.001-1.035) Urine Protein (Negative) Urine Glucose (UA) (Negative) Urine Ketones (Negative) Urine Blood (Negative) Urine Nitrite (Negative) Urine Bilirubin (Negative) Urine Urobilinogen (<2.0) mg/dL Ur Leukocyte Esterase (Negative) Urine RBC (0-5) /hpf Urine WBC (0-5) /hpf Ur Squamous Epith Cells (0-4) /hpf Amorphous Sediment (None) /hpf Urine Bacteria (None) /hpf Hyaline Casts (0-2) /lpf Urine Mucus (None) /hpf 11/24/17 Range/Units 00:13 WBC (3.8-10.6) k/uL RBC (4.30-5.90) m/uL Hgb (13.0-17.5) gm/dL Hct (39.0-53.0) % MCV (80.0-100.0) fL MCH (25.0-35.0) pg MCHC (31.0-37.0) g/dL RDW (11.5-15.5) % Plt Count (150-450) k/uL Neutrophils % % Lymphocytes % % Monocytes % % Eosinophils % % Basophils % % Neutrophils # (1.3-7.7) k/uL Lymphocytes # (1.0-4.8) k/uL Monocytes # (0-1.0) k/uL Eosinophils # (0-0.7) k/uL Basophils # (0-0.2) k/uL Sodium (137-145) mmol/L Potassium (3.5-5.1) mmol/L Chloride (98-107) mmol/L Carbon Dioxide (22-30) mmol/L Anion Gap mmol/L BUN (9-20) mg/dL Creatinine (0.66-1.25) mg/dL Est GFR (CKD-EPI)AfAm (>60 ml/min/1.73 sqM) Est GFR (CKD-EPI)NonAf (>60 ml/min/1.73 sqM) Glucose (74-99) mg/dL POC Glucose (mg/dL) (75-99) mg/dL POC Glu Japanese Interpreter ID Calcium (8.4-10.2) mg/dL Total Bilirubin (0.2-1.3) mg/dL AST (17-59) U/L ALT (21-72) U/L Alkaline Phosphatase (38-126) U/L Total Protein (6.3-8.2) g/dL Albumin (3.5-5.0) g/dL Amylase (30-110) U/L Lipase (23-300) U/L Urine Color Yellow Urine Appearance Clear (Clear) Urine pH 5.5 (5.0-8.0) Ur Specific [place] 1.023 (1.001-1.035) Urine Protein 1+ H (Negative) Urine Glucose (UA) 4+ H (Negative) Urine Ketones Negative (Negative) Urine Blood Negative (Negative) Urine Nitrite Negative (Negative) Urine Bilirubin Negative (Negative) Urine Urobilinogen <2.0 (<2.0) mg/dL Ur Leukocyte Esterase Trace H (Negative) Urine RBC <1 (0-5) /hpf Urine WBC 3 (0-5) /hpf Ur Squamous Epith Cells 2 (0-4) /hpf Amorphous Sediment Rare H (None) /hpf Urine Bacteria Rare H (None) /hpf Hyaline Casts 1 (0-2) /lpf Urine Mucus Rare H (None) /hpf Disposition Clinical Impression: Gastroenteritis Disposition: HOME SELF-CARE Condition: Good Instructions: Acute Nausea and Vomiting (ED), Acute Diarrhea (ED) Additional Instructions: Please take Zofran for nausea if needed. Please take Imodium for diarrhea if needed. Please follow-up with primary care on Saturday at your scheduled appointment. Return to the emergency department if you have any worsening symptoms Prescriptions: Loperamide [Imodium] 2 mg PO Q6H PRN #15 capsule PRN Reason: Diarrhea Ondansetron HCl [Zofran] 4 mg PO Q8HR PRN #14 tablet PRN Reason: Nausea Is patient prescribed a controlled substance at d/c from ED?: No Referrals: Demetrio Stoll MD [Primary Care Provider] - 1-2 days Time of Disposition: 01:52
[2017-11-24 00:43] LABS: Basophils # (A) 0.1 k/uL (0-0.2); Basophils % (A) 1 %; Eosinophils # (A) 0.3 k/uL (0-0.7); Eosinophils % (A) 3 %; HGB 15.3 gm/dL (13.0-17.5); Lymphocytes # (A) 4.4 k/uL (1.0-4.8); Lymphocytes % (A) 40 %; MCH 29.3 pg (25.0-35.0); MCHC 33.2 g/dL (31.0-37.0); Mean Platelet Volume 7.6; Monocytes # (A) 0.7 k/uL (0-1.0); Monocytes % (A) 7 %; Neutrophils # (A) 5.2 k/uL (1.3-7.7); Neutrophils % (A) 47 %; Platelet Count 229 k/uL (150-450); RBC 5.22 m/uL (4.30-5.90); RDW 12.7 % (11.5-15.5); WBC 11.1 k/uL (3.8-10.6)
[2017-11-24 00:55] LABS: Amorphous Sediment,Urine Rare /hpf; Appearance,Urine Clear (Clear); Bacteria,Urine Rare /hpf; Bilirubin,Urine Negative (Negative); Blood,Urine Negative (Negative); Color,Urine Yellow; Glucose,Urine (UA) 4+ (Negative); Hyaline Casts,Urine 1 /lpf (0-2); Ketones,Urine Negative (Negative); Leukocyte Esterase,Urine Trace (Negative); Mucus,Urine Rare /hpf; Nitrite,Urine Negative (Negative); PH, Urine 5.5 (5.0-8.0); Protein,Urine 1+ (Negative); RBC,Urine <1 /hpf (0-5); Specific Gravity,Urine 1.023 (1.001-1.035); Squamous Epithelial Cell,Urine 2 /hpf (0-4); Urobilinogen,Urine <2.0 mg/dL (<2.0); WBC,Urine 3 /hpf (0-5)
[2017-11-24 00:56] LABS: ALT 81 U/L (21-72); AST 45 U/L (17-59); Albumin 4.3 g/dL (3.5-5.0); Alkaline Phosphatase 108 U/L (38-126); Amylase <30 U/L (30-110); Anion Gap 10 mmol/L; Blood Urea Nitrogen 10 mg/dL (9-20); Calcium 9.5 mg/dL (8.4-10.2); Carbon Dioxide 25 mmol/L (22-30); Chloride 103 mmol/L (98-107); Glucose 248 mg/dL (74-99); Lipase 56 U/L (23-300); Potassium 4.2 mmol/L (3.5-5.1); Sodium 138 mmol/L (137-145); Total Bilirubin 0.8 mg/dL (0.2-1.3); Total Protein 7.7 g/dL (6.3-8.2)
[2017-11-24 01:48] VITALS: BP 158/91; PULSE 79; TEMP 97.8
== END 2017-11-24 02:10 | disposition home or self-care (01) ==
LOC: EC 23:35
DX: K52.9 Noninfective gastroenteritis and colitis, unspecified (principal); I10 Essential (primary) hypertension; E11.9 Type 2 diabetes mellitus without complications; F41.9 Anxiety disorder, unspecified; F17.200 Nicotine dependence, unspecified, uncomplicated; Z79.1 Long term (current) use of non-steroidal anti-inflammatories (NSAID); Z79.4 Long term (current) use of insulin; Z79.899 Other long term (current) drug therapy; Z90.49 Acquired absence of other specified parts of digestive tract
CPT/HCPCS: 36415; 80053; 82150; 83690; 85025; 81001; 99284; 96374; 96361 ×2; J2405

== ENCOUNTER 2018-03-08 12:19 | Emergency (ER) | payer OTHER ==
[2018-03-08 12:26] VITALS: TEMP 97.9
[2018-03-08] MEDS ORDERED: diphenhydrAMINE 50 MG/ML 1 ML VIAL IVP STA (12:41)
[2018-03-08] MEDS ORDERED: METOCLOPRAMIDE 5 MG/ML 2 ML VIAL IVP STA (12:41)
[2018-03-08] MEDS ORDERED: SODIUM CHLORIDE 0.9% 1,000 ML IV STA (12:41)
[2018-03-08] MEDS ORDERED: KETOROLAC 30 MG/ML 1 ML VIAL IVP STA (12:41)
[2018-03-08] MEDS ORDERED: cloNIDine HCL 0.1 MG TAB PO STA (12:42)
--- NOTE | 2018-03-08 12:44 | ED ---
Headache HPI - General Chief Complaint: Headache Stated Complaint: nausea, weakness Time Seen by Provider: 03/08/18 12:34 Source: RN notes reviewed, old records reviewed Mode of arrival: ambulatory Limitations: no limitations - History of Present Illness Initial Comments: Patient is a 42-year-old male presents emergency department today with chief complaint of headache, vomiting episodes for the past 3 days. Patient reports he has a history of diabetes and high blood pressure. Patient reports that the symptoms started with a headache. Patient states these been having a hard time taking his medications. He states that he has had no weakness, visual changes. Patient states that he has had no other complaints. - Related Data Home Medications Medication Instructions Recorded Confirmed Insulin Glargine [Lantus] 110 unit SQ BID 01/11/17 11/21/17 HYDROcodone/APAP 7.5-325MG [[place] 1 tab PO BID PRN 04/02/17 11/21/17 7.5-325] DULoxetine HCL [Cymbalta] 60 mg PO DAILY 09/25/17 11/21/17 Glimepiride [Amaryl] 4 mg PO BID 09/25/17 11/21/17 INSULIN LISPRO (humaLOG) [humaLOG] 34 units SQ BID 09/25/17 11/21/17 Lisinopril 30 mg PO DAILY 09/25/17 11/21/17 Loratadine [Claritin] 10 mg PO DAILY 09/25/17 11/21/17 Naproxen 500 mg PO BID 09/25/17 11/21/17 Pioglitazone [Actos] 30 mg PO DAILY 09/25/17 11/21/17 metFORMIN HCL [Glucophage] 500 mg PO BID 09/25/17 11/21/17 sitaGLIPtin [Januvia] 100 mg PO DAILY 09/25/17 11/21/17 ALPRAZolam [Xanax] 0.25 mg PO BID PRN 11/01/17 11/21/17 Previous Rx's Medication Instructions Recorded Loperamide [Imodium] 2 mg PO Q6H PRN #15 capsule 11/24/17 Ondansetron HCl [Zofran] 4 mg PO Q8HR PRN #14 tablet 11/24/17 Ondansetron [Zofran] 4 mg PO Q8HR PRN #8 tab 03/08/18 Allergies Allergy/AdvReac Type Severity Reaction Status Date / Time No Known Allergies Allergy Verified 03/08/18 12:26 Review of Systems ROS Statement: Those systems with pertinent positive or pertinent negative responses have been documented in the HPI. ROS Other: All systems not noted in ROS Statement are negative. 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 History of Any Multi-Drug Resistant Organisms: None Reported Past Surgical History: Appendectomy Additional Past Surgical History / Comment(s): oral surgery Past Anesthesia/Blood Transfusion Reactions: No Reported Reaction Past Psychological History: Anxiety Smoking Status: Current every day smoker Past Alcohol Use History: None Reported Past Drug Use History: None Reported - Past Family History Brother(s) Additional Family Medical History / Comment(s): tumor of brain - at 35 General Exam - General Exam Comments Initial Comments: This patient's a 42-year-old female. Alert and oriented. Patient appears in no acute distress. Limitations: no limitations General appearance: alert, in no apparent distress Head exam: Present: atraumatic Eye exam: Present: normal appearance, PERRL, EOMI. Absent: scleral icterus, conjunctival injection, periorbital swelling ENT exam: Present: normal exam, mucous membranes moist Neck exam: Present: normal inspection. Absent: tenderness, meningismus, lymphadenopathy Respiratory exam: Present: normal lung sounds bilaterally. Absent: respiratory distress, wheezes, rales, rhonchi, stridor Cardiovascular Exam: Present: regular rate, normal rhythm, normal heart sounds. Absent: systolic murmur, diastolic murmur, rubs, gallop, clicks GI/Abdominal exam: Present: soft, normal bowel sounds. Absent: distended, tenderness, guarding, rebound, rigid Extremities exam: Present: normal inspection, full ROM, normal capillary refill. Absent: tenderness, pedal edema, joint swelling, calf tenderness Back exam: Present: normal inspection Neurological exam: Present: alert, oriented X3, CN II-XII intact Psychiatric exam: Present: normal affect, normal mood Course Vital Signs 03/08/18 03/08/18 12:24 14:01 Temperature 97.9 F Pulse Rate 90 73 Respiratory 20 16 Rate Blood Pressure 207/115 120/86 O2 Sat by Pulse 98 94 L Oximetry Medical Decision Making - Medical Decision Making 22-year-old male presents with chief headache, he was given Reglan Benadryl Toradol. Is reevaluated at this time and states that his headache is diminished. Patient has no neurological deficits. He doesn't come to emergency room with an elevated blood pressure of 200/100. We did give the Patient clonidine. He states he did not take his blood pressure medication due to vomiting. Blood pressure came down nicely someone 20/80. He states that he seems symptomatic and feels well this time. Discussed close follow-up with primary care provider. Return parameters were discussed. - Lab Data Result diagrams: 03/08/18 12:59 03/08/18 12:59 Lab Results 03/08/18 03/08/18 Range/Units 12:59 12:59 WBC 8.3 (3.8-10.6) k/uL RBC 5.15 (4.30-5.90) m/uL Hgb 15.8 (13.0-17.5) gm/dL Hct 46.1 (39.0-53.0) % MCV 89.5 (80.0-100.0) fL MCH 30.7 (25.0-35.0) pg MCHC 34.3 (31.0-37.0) g/dL RDW 13.0 (11.5-15.5) % Plt Count 245 (150-450) k/uL Neutrophils % 56 % Lymphocytes % 31 % Monocytes % 6 % Eosinophils % 3 % Basophils % 1 % Neutrophils # 4.7 (1.3-7.7) k/uL Lymphocytes # 2.6 (1.0-4.8) k/uL Monocytes # 0.5 (0-1.0) k/uL Eosinophils # 0.3 (0-0.7) k/uL Basophils # 0.1 (0-0.2) k/uL Sodium 139 (137-145) mmol/L Potassium 4.2 (3.5-5.1) mmol/L Chloride 104 (98-107) mmol/L Carbon Dioxide 24 (22-30) mmol/L Anion Gap 11 mmol/L BUN 9 (9-20) mg/dL Creatinine 0.62 L (0.66-1.25) mg/dL Est GFR (CKD-EPI)AfAm >90 (>60 ml/min/1.73 sqM) Est GFR (CKD-EPI)NonAf >90 (>60 ml/min/1.73 sqM) Glucose 299 H (74-99) mg/dL Calcium 9.5 (8.4-10.2) mg/dL Disposition Clinical Impression: Headache, Hypertension Disposition: HOME SELF-CARE Condition: Good Instructions: Acute Headache (ED) Additional Instructions: Patient is follow-up with primary care physician. Return to emergency department if any alarming signs or symptoms occur. Prescriptions: Ondansetron [Zofran] 4 mg PO Q8HR PRN #8 tab PRN Reason: Nausea And Vomiting Is patient prescribed a controlled substance at d/c from ED?: No Referrals: Demetrio Stoll MD [Primary Care Provider] - 1-2 days Time of Disposition: 14:44
[2018-03-08 13:14] LABS: Basophils # (A) 0.1 k/uL (0-0.2); Basophils % (A) 1 %; Eosinophils # (A) 0.3 k/uL (0-0.7); Eosinophils % (A) 3 %; HCT 46.1 % (39.0-53.0); HGB 15.8 gm/dL (13.0-17.5); Lymphocytes # (A) 2.6 k/uL (1.0-4.8); Lymphocytes % (A) 31 %; MCH 30.7 pg (25.0-35.0); MCHC 34.3 g/dL (31.0-37.0); MCV 89.5 fL (80.0-100.0); Mean Platelet Volume 8.5; Monocytes # (A) 0.5 k/uL (0-1.0); Monocytes % (A) 6 %; Neutrophils # (A) 4.7 k/uL (1.3-7.7); Neutrophils % (A) 56 %; Platelet Count 245 k/uL (150-450); RBC 5.15 m/uL (4.30-5.90); WBC 8.3 k/uL (3.8-10.6)
[2018-03-08 13:22] LABS: Anion Gap 11 mmol/L; Blood Urea Nitrogen 9 mg/dL (9-20); Calcium 9.5 mg/dL (8.4-10.2); Carbon Dioxide 24 mmol/L (22-30); Chloride 104 mmol/L (98-107); Glucose 299 mg/dL (74-99); Potassium 4.2 mmol/L (3.5-5.1); Sodium 139 mmol/L (137-145)
[2018-03-08 14:01] VITALS: BP 120/86; PULSE 73; RESP 16
== END 2018-03-08 15:00 | disposition home or self-care (01) ==
LOC: EC 12:19
DX: I10 Essential (primary) hypertension (principal); R51 Headache; R11.2 Nausea with vomiting, unspecified; R53.1 Weakness; E11.9 Type 2 diabetes mellitus without complications; F41.9 Anxiety disorder, unspecified; F17.200 Nicotine dependence, unspecified, uncomplicated; Z86.69 Personal history of other diseases of the nervous system and sense organs; Z79.4 Long term (current) use of insulin; Z79.1 Long term (current) use of non-steroidal anti-inflammatories (NSAID); Z79.899 Other long term (current) drug therapy
CPT/HCPCS: 36415; 80048; 85025; 99284; 96374; 96375 ×2; 96361; J1200; J2765; J1885

== ENCOUNTER 2018-05-24 20:45 | Emergency (ER) | payer OTHER ==
--- NOTE | 2018-05-25 02:23 | XR ---
EXAMINATION TYPE: 3 views lumbar spine DATE OF EXAM: 05/24/2018 COMPARISON: None HISTORY: 42-year-old male with fall and pain FINDINGS: Transitional lumbosacral segment is noted as a lumbarized S1. There is grade 1 anterolisthesis at L5- S1 with hypertrophic facet arthropathy lower lumbar spine. Mild disc interspace narrowing at L5-S1. R emaining vertebral body heights are maintained. Small endplate Schmorl's nodes in the lower thoracic spine. Vertebral body heights are maintained. IMPRESSION: Transitional lumbosacral segment denoted as a lumbarized S1. There is facet arthropathy lower lumbar spine with grade 1 anterolisthesis at L5-S1. Mild degenerative disc disease here as well. No vertebra l compression collapse.
== END 2018-05-24 21:12 | disposition home or self-care (01) ==
LOC: EC 20:45
DX: M54.40 Lumbago with sciatica, unspecified side (principal)
CPT/HCPCS: 72100; 96372; 99284

== ENCOUNTER 2018-08-24 17:13 | Emergency (ER) | payer OTHER ==
[2018-08-24 17:20] VITALS: RESP 18; TEMP 97.6
[2018-08-24] MEDS ORDERED: KETOROLAC 30 MG/ML 1 ML VIAL IM STA (17:39)
[2018-08-24] MEDS ORDERED: LIDOCAINE 5% PATCH TOPICAL STA (17:40)
--- NOTE | 2018-08-24 17:43 | ED ---
Fall HPI - General Chief Complaint: Fall Stated Complaint: Fall off roof Time Seen by Provider: 08/24/18 17:27 Source: patient Mode of arrival: ambulatory - History of Present Illness Initial Comments: Patient is a 42-year-old male presenting for injuries sustained from a fall. The patient states shortly prior to arrival, he fell processing 9-10 feet off a roof when he landed on the grass. States that he did hit backwards have that there is no loss consciousness. He also adamantly denies any neck pain, back pain, abdominal pain, vision changes, headache and states that his only complaint is left lower rib pain on the anterior surface of his chest. He also denies any shortness of breath. - Related Data Home Medications Medication Instructions Recorded Confirmed Insulin Glargine [Lantus] 110 unit SQ BID 01/11/17 08/24/18 DULoxetine HCL [Cymbalta] 60 mg PO DAILY 09/25/17 08/24/18 Glimepiride [Amaryl] 4 mg PO BID 09/25/17 08/24/18 INSULIN LISPRO (humaLOG) [humaLOG] 34 units SQ BID 09/25/17 08/24/18 Lisinopril 30 mg PO DAILY 09/25/17 08/24/18 Loratadine [Claritin] 10 mg PO DAILY 09/25/17 08/24/18 Naproxen 500 mg PO BID 09/25/17 08/24/18 Pioglitazone [Actos] 30 mg PO DAILY 09/25/17 08/24/18 metFORMIN HCL [Glucophage] 500 mg PO BID 09/25/17 08/24/18 sitaGLIPtin [Januvia] 100 mg PO DAILY 09/25/17 08/24/18 ALPRAZolam [Xanax] 0.25 mg PO BID PRN 11/01/17 08/24/18 Previous Rx's Medication Instructions Recorded Ibuprofen [Motrin] 600 mg PO Q6HR PRN #20 tab 08/24/18 Lidocaine [Aspercreme Patch] 1 patch TRANSDERM DAILY #20 patch 08/24/18 Allergies Allergy/AdvReac Type Severity Reaction Status Date / Time No Known Allergies Allergy Verified 08/24/18 17:26 Review of Systems ROS Statement: Those systems with pertinent positive or pertinent negative responses have been documented in the HPI. Constitutional: Negative for chills, fatigue and fever. HENT: Negative for congestion. Respiratory: Negative for chest tightness, shortness of breath and wheezing. Negative for cough Cardiovascular: Negative for chest pain and palpitations. Gastrointestinal: Negative for abdominal pain. Negative for abdominal distention, diarrhea, nausea and vomiting. Genitourinary: Negative for dysuria. Musculoskeletal: Negative for back pain, neck pain and neck stiffness. Positive for left-sided rib pain Skin: Negative for color change. Neurological: Negative for dizziness, speech difficulty, weakness and light- headedness. Psychiatric/Behavioral: Negative for agitation and confusion. Negative for anxiety ROS Other: All systems not noted in ROS Statement are negative. Past Medical History Past Medical History: Diabetes Mellitus, Deep Vein Thrombosis (DVT), Hypertension Additional Past Medical History / Comment(s): back pain with pinched nerve, migraines. History of Any Multi-Drug Resistant Organisms: None Reported Past Surgical History: Appendectomy Additional Past Surgical History / Comment(s): oral surgery Past Anesthesia/Blood Transfusion Reactions: No Reported Reaction Past Psychological History: Anxiety, Depression Smoking Status: Current every day smoker Past Alcohol Use History: None Reported Past Drug Use History: None Reported - Past Family History Brother(s) Additional Family Medical History / Comment(s): tumor of brain - at 34 General Exam - General Exam Comments Initial Comments: Constitutional: Pt appears well-developed and well-nourished. No distress. Head: Normocephalic and atraumatic. Eyes: EOM are normal. Neck: Normal range of motion. Neck supple. Cardiovascular: Normal rate, regular rhythm, S1 normal, S2 normal and normal heart sounds. Exam reveals no gallop and no friction rub. No murmur heard. Pulmonary/Chest: Effort normal and breath sounds normal. No tachypnea and no bradypnea. No respiratory distress. No wheezes or rales noted. Abdominal: Soft. Bowel sounds are normal. Pt exhibits no shifting dullness, no distension, no pulsatile liver, no fluid wave, no abdominal bruit and no ascites. There is no rigidity, no rebound, no guarding, no tenderness at McBurney's point and negative Anton's sign. There is no tenderness. Musculoskeletal: Normal range of motion. Mild tenderness to palpation under the left nipple at approximately rib levels 63. There is no changes to skin color or ecchymosis. There is no tenderness to palpation of the C-spine, T-spine, L- spine Neurological: Pt is alert and oriented to person, place, and time. No cranial nerve deficit. Skin: Skin is warm and dry. No rash noted. Pt is not diaphoretic. No erythema. No pallor. Psychiatric: Pt has a normal mood and affect. Pt behavior is normal. Thought content normal. Limitations: no limitations Course Vital Signs 08/24/18 17:14 Temperature 97.6 F Pulse Rate 86 Respiratory 18 Rate Blood Pressure 151/104 O2 Sat by Pulse 97 Oximetry Medical Decision Making - Medical Decision Making CT of the head and neck was performed considering the mechanism of the fall. X- ray of the ribs were also unremarkable. Patient was advised that this is a contusion and was given pain medications.Explained all labs and diagnostic test results and that we will discharge the patient home and patient is to follow up with PCP in 1-2 days and return to the ED if symptoms worsen. Pt is agreeable to plan. Disposition Clinical Impression: Fall, Rib pain on left side Disposition: HOME SELF-CARE Condition: Good Instructions (If sedation given, give patient instructions): Costochondritis (ED) Prescriptions: Lidocaine [Aspercreme Patch] 1 patch TRANSDERM DAILY #20 patch Ibuprofen [Motrin] 600 mg PO Q6HR PRN #20 tab PRN Reason: Pain Is patient prescribed a controlled substance at d/c from ED?: No Referrals: None,Stated [Primary Care Provider] - 1-2 days Time of Disposition: 18:40
--- NOTE | 2018-08-24 18:21 | CT ---
EXAMINATION TYPE: CT brain gavin wo con DATE OF EXAM: 08/24/2018 COMPARISON: CT brain 09/25/2017 HISTORY: fell 10 feet off roof. Headache. Neck pain. CT DLP: 1672 mGycm Automated exposure control for dose reduction was used. TECHNIQUE: CT scan of the head and cervical spine are performed without contrast. FINDINGS: Ventricles of normal size. There is no mass effect nor midline shift. There is no sign of intracranial hemorrhage. Calvarium is intact. The cervical vertebra have normal alignment. There is anterior mild spurring at C5-6. Facet joints ar e intact. The skull base appears intact. Facet joints are intact. There is no evidence of bony destru ctive process. IMPRESSION: Negative CT scan of the brain. Mild spurring at C5-6. Otherwise negative CT scan of the cervical spine. No fracture.
--- NOTE | 2018-08-24 18:23 | XR ---
EXAMINATION TYPE: XR ribs LT w pa chest xray DATE OF EXAM: 08/24/2018 COMPARISON: 11/01/2017 chest x-ray HISTORY: Fall today. Pain. TECHNIQUE: 5 views FINDINGS: Heart and mediastinum are normal. Lungs are clear of infiltrate. There is no sign of pleura l effusion or pneumothorax. I see no rib fracture. IMPRESSION: Normal chest. Negative left rib exam.
[2018-08-24 19:02] VITALS: BP 140/99; PULSE 87
== END 2018-08-24 19:02 | disposition home or self-care (01) ==
LOC: EC 17:13
DX: R07.81 Pleurodynia (principal); E11.9 Type 2 diabetes mellitus without complications; I10 Essential (primary) hypertension; G43.909 Migraine, unspecified, not intractable, without status migrainosus; F41.9 Anxiety disorder, unspecified; F32.9 Major depressive disorder, single episode, unspecified; F17.200 Nicotine dependence, unspecified, uncomplicated; Z79.4 Long term (current) use of insulin; Z79.1 Long term (current) use of non-steroidal anti-inflammatories (NSAID); Z79.899 Other long term (current) drug therapy; W13.2XXA Fall from, out of or through roof, initial encounter; Y92.89 Other specified places as the place of occurrence of the external cause
CPT/HCPCS: 71101; 72125; 70450; 99284; 96372; J1885

== ENCOUNTER 2018-10-01 21:24 | Emergency (ER) | payer OTHER ==
[2018-10-01 21:32] VITALS: RESP 18
[2018-10-01 21:39] LABS: Glucose,Whole Blood 245 mg/dL (75-99)
[2018-10-01 22:33] LABS: Appearance,Urine Clear (Clear); Bilirubin,Urine Negative (Negative); Blood,Urine Negative (Negative); Color,Urine Yellow; Glucose,Urine (UA) 4+ (Negative); Ketones,Urine 1+ (Negative); Leukocyte Esterase,Urine Negative (Negative); Nitrite,Urine Negative (Negative); Protein,Urine Trace (Negative); Specific Gravity,Urine 1.027 (1.001-1.035); Urobilinogen,Urine <2.0 mg/dL (<2.0)
[2018-10-01] MEDS ORDERED: SODIUM CHLORIDE 0.9% 1,000 ML IV ONE (22:35)
--- NOTE | 2018-10-01 22:51 | ED ---
Recheck HPI - General Source: patient Mode of arrival: ambulatory Limitations: no limitations <Kenna Queen - Last Filed: 10/01/18 23:59> <Krysta Lino - Last Filed: 10/02/18 03:48> - General Chief Complaint: Recheck/Abnormal Lab/Rx Stated Complaint: Med Refill Time Seen by Provider: 10/01/18 21:32 - History of Present Illness Initial Comments: 42-year-old male past progressive hypertensions, type 2 diabetes presents today for chief complaint of medication refill. Patient states that he has been witho ut a primary care provider for 4 months as well as medication. Patient states she is concerned that his sugar has been uncontrolled for months who presents to the emergency department today for medication refill. Patient denies any symptoms. He states he feels well. When asked about his urinary habits patient states he has noticed a slight increased in frequency. Patient denies any bowel pain nausea vomiting he denies any chest pain source of breath headache or dizziness. He denies any lower extremity swelling. Remaining review of system negative. Upon arrival patient appears well no signs of acute distress. (Kenna Queen) - Related Data Previous Rx's Medication Instructions Recorded metFORMIN HCL 500 mg PO BID 15 Days #30 tablet 10/01/18 Allergies Allergy/AdvReac Type Severity Reaction Status Date / Time No Known Allergies Allergy Verified 10/01/18 21:53 Review of Systems ROS Other: All systems not noted in ROS Statement are negative. <Kenna Queen - Last Filed: 10/01/18 23:59> ROS Other: All systems not noted in ROS Statement are negative. <Krysta Lino - Last Filed: 10/02/18 03:48> ROS Statement: Those systems with pertinent positive or pertinent negative responses have been documented in the HPI. Past Medical History Past Medical History: Diabetes Mellitus, Deep Vein Thrombosis (DVT), Hypertension Additional Past Medical History / Comment(s): back pain with pinched nerve, migraines. History of Any Multi-Drug Resistant Organisms: None Reported Past Surgical History: Appendectomy Additional Past Surgical History / Comment(s): oral surgery, Past Anesthesia/Blood Transfusion Reactions: No Reported Reaction Past Psychological History: Anxiety, Depression Smoking Status: Current every day smoker Past Alcohol Use History: None Reported Past Drug Use History: None Reported - Past Family History Brother(s) Additional Family Medical History / Comment(s): tumor of brain - at 34 <Kenna Queen - Last Filed: 10/01/18 23:59> General Exam Limitations: no limitations <Kenna Queen - Last Filed: 10/01/18 23:59> - General Exam Comments Initial Comments: General: The patient is awake and alert, in no distress, and does not appear acutely ill. Eye: Pupils are equal, round and reactive to light, extra-ocular movements are intact. No nystagmus. There is normal conjunctiva bilaterally. No signs of icterus. Ears, nose, mouth and throat: There are moist mucous membranes and no oral lesions. Neck: The neck is supple, there is no tenderness or JVD. Cardiovascular: There is a regular rate and rhythm. No murmur, rub or gallop is appreciated. Respiratory: Lungs are clear to auscultation, respirations are non-labored, breath sounds are equal. No wheezes, stridor, rales, or rhonchi. Gastrointestinal: Soft, non-distended, non-tender abdomen without masses or organomegaly noted. There is no rebound or guarding present. No CVA tenderness. Bowel sounds are unremarkable. Musculoskeletal: Normal ROM, no tenderness. Strength 5/5. Sensation intact. Pulses equal bilaterally 2+. Neurological: A&O x 3. CN II-XII intact, There are no obvious motor or sensory deficits. Coordination appears grossly intact. Speech is normal. Skin: Skin is warm and dry and no rashes or lesions are noted. Psychiatric: Cooperative, appropriate mood & affect, normal judgment. (Kenna Queen) Course Vital Signs 10/01/18 10/01/18 21:28 23:52 Temperature 98.7 F 97.7 F Pulse Rate 115 H 93 Respiratory 18 18 Rate Blood Pressure 135/80 157/104 O2 Sat by Pulse 96 95 Oximetry Medical Decision Making - Lab Data Result diagrams: 10/01/18 22:47 10/01/18 22:47 <Kenna Queen Michelle - Last Filed: 10/01/18 23:59> - Lab Data Result diagrams: 10/01/18 22:47 10/01/18 22:47 <Krysta Lino - Last Filed: 10/02/18 03:48> - Medical Decision Making 42-year-old presenting for evaluation of blood glucose. Upon arrival blood glu cose 245. CMP revealed a glucose of 222. Patient given IV fluids. Anion gap within normal limits. No acetone in the blood. Patient did have +1 ketones. As well as glucose and urine. Patient was given 5 units SQ of regular insulin. At this time I do not feel comfortable prescribing patient insulin given patient current glucose level. Patient be prescribed metformin and given instruction to follow-up with the primary care provider. Patient is provided resources for a free/reduced [facility] that is in town. Patient was educated on lifestyle changes as well as importance of exercise. Patient states he has lost weight recently. I discussed the case by attending provider Dr. Lino over the phone at this time she is agreeable care plan as well as discharge today. Patient is agreeable care plan discharge. Denies questions at this time. (Kenna Queen) I was available for consultation in the emergency department. The history and physical exam were done by the midlevel provider. I was consulted for this patient's care. I reviewed the case with the midlevel provider and based on their presentation of the patient, I agree with the assessment, medical decision making and plan of care as documented. Chart was dictated using [employer] dictation software. Attempts were made to correct any dictation errors however some typographical errors may persist. (Krysta Lino) - Lab Data Lab Results 10/01/18 10/01/18 10/01/18 Range/Units 21:38 22:10 22:47 WBC (3.8-10.6) k/uL RBC (4.30-5.90) m/uL Hgb (13.0-17.5) gm/dL Hct (39.0-53.0) % MCV (80.0-100.0) fL MCH (25.0-35.0) pg MCHC (31.0-37.0) g/dL RDW (11.5-15.5) % Plt Count (150-450) k/uL Neutrophils % % Lymphocytes % % Monocytes % % Eosinophils % % Basophils % % Neutrophils # (1.3-7.7) k/uL Lymphocytes # (1.0-4.8) k/uL Monocytes # (0-1.0) k/uL Eosinophils # (0-0.7) k/uL Basophils # (0-0.2) k/uL Sodium 139 (137-145) mmol/L Potassium 3.9 (3.5-5.1) mmol/L Chloride 103 (98-107) mmol/L Carbon Dioxide 25 (22-30) mmol/L Anion Gap 11 mmol/L BUN 13 (9-20) mg/dL Creatinine 0.73 (0.66-1.25) mg/dL Est GFR (CKD-EPI)AfAm >90 (>60 ml/min/1.73 sqM) Est GFR (CKD-EPI)NonAf >90 (>60 ml/min/1.73 sqM) Glucose 222 H (74-99) mg/dL POC Glucose (mg/dL) 245 H (75-99) mg/dL POC Glu Pharmacy Specialist ID Guerita Cameron Calcium 10.1 (8.4-10.2) mg/dL Total Bilirubin 0.7 (0.2-1.3) mg/dL AST 39 (17-59) U/L ALT 41 (21-72) U/L Alkaline Phosphatase 112 (38-126) U/L Total Protein 8.0 (6.3-8.2) g/dL Albumin 4.4 (3.5-5.0) g/dL Urine Color Yellow Urine Appearance Clear (Clear) Urine pH 7.0 (5.0-8.0) Ur Specific [place] 1.027 (1.001-1.035) Urine Protein Trace H (Negative) Urine Glucose (UA) 4+ H (Negative) Urine Ketones 1+ H (Negative) Urine Blood Negative (Negative) Urine Nitrite Negative (Negative) Urine Bilirubin Negative (Negative) Urine Urobilinogen <2.0 (<2.0) mg/dL Ur Leukocyte Esterase Negative (Negative) Acetone, Qual Negative (Negative) 10/01/18 Range/Units 22:47 WBC 12.9 H (3.8-10.6) k/uL RBC 5.23 (4.30-5.90) m/uL Hgb 15.4 (13.0-17.5) gm/dL Hct 46.7 (39.0-53.0) % MCV 89.2 (80.0-100.0) fL MCH 29.4 (25.0-35.0) pg MCHC 33.0 (31.0-37.0) g/dL RDW 12.9 (11.5-15.5) % Plt Count 241 (150-450) k/uL Neutrophils % 62 % Lymphocytes % 28 % Monocytes % 5 % Eosinophils % 3 % Basophils % 0 % Neutrophils # 8.0 H (1.3-7.7) k/uL Lymphocytes # 3.6 (1.0-4.8) k/uL Monocytes # 0.7 (0-1.0) k/uL Eosinophils # 0.3 (0-0.7) k/uL Basophils # 0.1 (0-0.2) k/uL Sodium (137-145) mmol/L Potassium (3.5-5.1) mmol/L Chloride (98-107) mmol/L Carbon Dioxide (22-30) mmol/L Anion Gap mmol/L BUN (9-20) mg/dL Creatinine (0.66-1.25) mg/dL Est GFR (CKD-EPI)AfAm (>60 ml/min/1.73 sqM) Est GFR (CKD-EPI)NonAf (>60 ml/min/1.73 sqM) Glucose (74-99) mg/dL POC Glucose (mg/dL) (75-99) mg/dL POC Glu Pharmacy Specialist ID Calcium (8.4-10.2) mg/dL Total Bilirubin (0.2-1.3) mg/dL AST (17-59) U/L ALT (21-72) U/L Alkaline Phosphatase (38-126) U/L Total Protein (6.3-8.2) g/dL Albumin (3.5-5.0) g/dL Urine Color Urine Appearance (Clear) Urine pH (5.0-8.0) Ur Specific [place] (1.001-1.035) Urine Protein (Negative) Urine Glucose (UA) (Negative) Urine Ketones (Negative) Urine Blood (Negative) Urine Nitrite (Negative) Urine Bilirubin (Negative) Urine Urobilinogen (<2.0) mg/dL Ur Leukocyte Esterase (Negative) Acetone, Qual (Negative) Disposition Is patient prescribed a controlled substance at d/c from ED?: No Time of Disposition: 23:20 <Kenna Queen - Last Filed: 10/01/18 23:59> <Krysta Lino P - Last Filed: 10/02/18 03:48> Clinical Impression: Blood glucose elevated Disposition: HOME SELF-CARE Condition: Good Instructions (If sedation given, give patient instructions): Diabetes and Nutrition (ED), Diabetes and Exercise (ED), Type 2 Diabetes Management for Adults (ED) Additional Instructions: Please use medication as discussed. Please follow-up with family doctor in the next 2 days for further management of BP and diabetes. Please return to emergency room if the symptoms increase or worsen or for any other concerns. Prescriptions: metFORMIN HCL 500 mg PO BID 15 Days #30 tablet Referrals: None,Stated [Primary Care Provider] - 1-2 days [facility] [[facility]] - 1-2 days
[2018-10-01 23:01] LABS: Basophils # (A) 0.1 k/uL (0-0.2); Basophils % (A) 0 %; Eosinophils # (A) 0.3 k/uL (0-0.7); Eosinophils % (A) 3 %; HCT 46.7 % (39.0-53.0); HGB 15.4 gm/dL (13.0-17.5); Lymphocytes # (A) 3.6 k/uL (1.0-4.8); Lymphocytes % (A) 28 %; MCH 29.4 pg (25.0-35.0); MCV 89.2 fL (80.0-100.0); Mean Platelet Volume 7.3; Monocytes # (A) 0.7 k/uL (0-1.0); Monocytes % (A) 5 %; Neutrophils % (A) 62 %; Platelet Count 241 k/uL (150-450); RBC 5.23 m/uL (4.30-5.90); RDW 12.9 % (11.5-15.5); WBC 12.9 k/uL (3.8-10.6)
[2018-10-01 23:12] LABS: ALT 41 U/L (21-72); AST 39 U/L (17-59); Albumin 4.4 g/dL (3.5-5.0); Alkaline Phosphatase 112 U/L (38-126); Anion Gap 11 mmol/L; Blood Urea Nitrogen 13 mg/dL (9-20); Calcium 10.1 mg/dL (8.4-10.2); Carbon Dioxide 25 mmol/L (22-30); Chloride 103 mmol/L (98-107); Glucose 222 mg/dL (74-99); Potassium 3.9 mmol/L (3.5-5.1); Sodium 139 mmol/L (137-145); Total Bilirubin 0.7 mg/dL (0.2-1.3)
[2018-10-01] MEDS ORDERED: INSULIN REGULAR 100 UNIT/ML VIAL SQ ONE (23:15)
[2018-10-01 23:56] VITALS: BP 157/104; PULSE 93; TEMP 97.7
== END 2018-10-02 | disposition home or self-care (01) ==
LOC: EC 21:24
DX: E11.9 Type 2 diabetes mellitus without complications (principal); F17.200 Nicotine dependence, unspecified, uncomplicated; Z86.718 Personal history of other venous thrombosis and embolism
CPT/HCPCS: 36415; 80053; 81003; 82009; 85025; 96360; 99282

== ENCOUNTER 2019-03-14 17:48 | Emergency (ER) | payer OTHER ==
[2019-03-14] MEDS ORDERED: IPRATROPIUM-ALBUTEROL 3 ML NEB INHALATION STA (18:16)
[2019-03-14 18:49] LABS: Glucose,Whole Blood 244 mg/dL (75-99)
--- NOTE | 2019-03-14 18:56 | XR ---
EXAMINATION TYPE: XR chest 2V DATE OF EXAM: 03/14/2019 COMPARISON: 08/24/2018 HISTORY: Cough and weakness TECHNIQUE: Frontal and lateral views of the chest are obtained. FINDINGS: Heart and mediastinum are normal. Lungs are clear. Diaphragm is normal. Bony thorax appear s normal. IMPRESSION: Normal chest. No change.
--- NOTE | 2019-03-14 19:40 | ED ---
General Adult HPI - General Chief complaint: Weakness Stated complaint: cough/weakness Time Seen by Provider: 03/14/19 18:05 Source: patient, RN notes reviewed Mode of arrival: ambulatory Limitations: no limitations - History of Present Illness Initial comments: 43-year-old male with a past medical history of diabetes mellitus, DVT, hypertension presents to the emergency department for a chief complaint of cough. Patient has had a cough for the past 5-7 days. Cough is nonproductive. Patient states he has just felt run down because of this coffee. He denies shortness of breath or chest pain. States that his roommate wanted him to be checked out to make sure he wasn't contagious. He denies any fevers or chills at home. Patient has no other complaints at this time including shortness of breath, chest pain, abdominal pain, nausea or vomiting, headache, or visual changes. - Related Data Previous Rx's Medication Instructions Recorded metFORMIN HCL 500 mg PO BID 15 Days #30 tablet 10/01/18 Allergies Allergy/AdvReac Type Severity Reaction Status Date / Time No Known Allergies Allergy Verified 03/14/19 18:01 Review of Systems ROS Statement: Those systems with pertinent positive or pertinent negative responses have been documented in the HPI. ROS Other: All systems not noted in ROS Statement are negative. Past Medical History Past Medical History: Diabetes Mellitus, Deep Vein Thrombosis (DVT), Hypertension Additional Past Medical History / Comment(s): back pain with pinched nerve, migraines. History of Any Multi-Drug Resistant Organisms: None Reported Past Surgical History: Appendectomy Additional Past Surgical History / Comment(s): oral surgery, Past Anesthesia/Blood Transfusion Reactions: No Reported Reaction Past Psychological History: Anxiety, Depression Smoking Status: Current every day smoker Past Alcohol Use History: None Reported Past Drug Use History: None Reported - Past Family History Brother(s) Additional Family Medical History / Comment(s): tumor of brain - at 34 General Exam Limitations: no limitations General appearance: alert, in no apparent distress Head exam: Present: atraumatic, normocephalic, normal inspection Eye exam: Present: normal appearance, PERRL, EOMI. Absent: scleral icterus, conjunctival injection, periorbital swelling ENT exam: Present: normal exam, mucous membranes moist Neck exam: Present: normal inspection, full ROM. Absent: tenderness, meningismus, lymphadenopathy Respiratory exam: Present: normal lung sounds bilaterally. Absent: respiratory distress, wheezes, rales, rhonchi, stridor Cardiovascular Exam: Present: regular rate, normal rhythm, normal heart sounds. Absent: systolic murmur, diastolic murmur, rubs, gallop, clicks GI/Abdominal exam: Present: soft, normal bowel sounds. Absent: distended, tenderness, guarding, rebound, rigid Neurological exam: Present: alert Psychiatric exam: Present: normal affect, normal mood Course Vital Signs 03/14/19 03/14/19 03/14/19 17:58 18:32 18:37 Temperature 98.2 F Pulse Rate 98 92 100 Respiratory 18 14 Rate Blood Pressure 160/112 O2 Sat by Pulse 98 Oximetry 03/14/19 03/14/19 03/14/19 18:45 19:00 19:48 Temperature 97.5 F L 98.5 F Pulse Rate 93 95 91 Respiratory 18 18 16 Rate Blood Pressure 140/93 148/98 132/92 O2 Sat by Pulse 95 95 96 Oximetry Medical Decision Making - Medical Decision Making Patient was well-appearing. He was initially hypertensive but this did improve without therapy. Patient is denying any shortness of breath or chest pain just states he has had a nonproductive cough for the past week that is making him feel worn down. He has not had any fevers or chills. Patient states the only reason he presents today is his room he wants to make sure he is not contagious. I did obtain a chest x-ray which showed no acute process. Patient does have a glucose of 244. States that he is physically taking insulin but has not tried to follow up with anyone for this. States he doesn't know where his insurance card is. States he is no longer supposed be taking metformin. I discussed the patient that he needs to follow up with primary care soon as possible for insulin refill. He does agree to this. He will return if he has any worsening symptoms.I discussed this case with attending Dr. Martines who agrees with this assessment and treatment plan. 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 Call first thing Saturday morning. Take [id number] cough medicine. Return to the emergency department if you have any worsening symptoms. Is patient prescribed a controlled substance at d/c from ED?: No Referrals: Jabari Ricks MD [REFERRING] - 1-2 days Time of Disposition: 19:39
[2019-03-14 19:48] VITALS: BP 132/92; PULSE 91; RESP 16; TEMP 98.5
== END 2019-03-14 19:47 | disposition home or self-care (01) ==
LOC: EC 17:48
DX: J06.9 Acute upper respiratory infection, unspecified (principal); I10 Essential (primary) hypertension; E11.9 Type 2 diabetes mellitus without complications; F17.200 Nicotine dependence, unspecified, uncomplicated; Z79.4 Long term (current) use of insulin
CPT/HCPCS: 36415; 71046; 94640; 99285

== ENCOUNTER → 2019-06-19 | Outpatient (CLI) | payer OTHER ==
--- NOTE | 2019-06-19 13:23 | XR ---
EXAMINATION TYPE: XR chest 2V DATE OF EXAM: 06/19/2019 COMPARISON: Prior chest x-ray 03/14/2019 HISTORY: Cough TECHNIQUE: Frontal and lateral views of the chest are obtained. FINDINGS: There is no focal air space opacity, pleural effusion, or pneumothorax seen. The cardiac silhouette size is within normal limits. The osseous structures are intact. There is bronchial wall thickening. IMPRESSION: Correlate for bronchitis, reactive airways disease.
--- NOTE | 2019-06-20 16:01 | ECHOF ---
Referral Reason:I42.9 Cardiomyopathy MEASUREMENTS -------- HEIGHT: 180.3 cm WEIGHT: 136.1 kg BP: RVIDd: 2.9 cm (< 3.3) IVSd: 1.6 cm (0.6 - 1.1) LVIDd: 4.5 cm (3.9 - 5.3) LVPWd: 1.4 cm (0.6 - 1.1) IVSs: 2.2 cm LVIDs: 2.9 cm LVPWs: 1.7 cm Ao Diam: 3.2 cm (2.0 - 3.7) AV Cusp: 2.2 cm (1.5 - 2.6) LA Diam: 3.9 cm (2.7 - 3.8) MV EXCURSION: 23.948 mm (> 18.000) MV EF SLOPE: 122 mm/s (70 - 150) EPSS: 0.5 cm MV E Pavan: 0.61 m/s MV DecT: 212 ms MV A Pavan: 0.65 m/s MV E/A Ratio: 0.95 RAP: 5.00 mmHg RVSP: 14.84 mmHg FINDINGS -------- Sinus rhythm. This was a technically difficult study with suboptimal views. The left ventricular size is normal. There is moderate concentric left ventricular hypertrophy. O verall left ventricular systolic function is low-normal with, an EF between 50 - 55 %. The right ventricle is normal in size. The left atrial size is normal. The right atrial size is normal. Lumason used The aortic valve is trileaflet and appears structurally normal. The mitral valve is normal. There is trace mitral regurgitation. The tricuspid valve appears structurally normal. Trace tricuspid regurgitation present. Right katharina tricular systolic pressure is normal at < 35 mmHg. There is no pulmonic regurgitation present. The aortic root size is normal. IVC Not well visulized. There is no pericardial effusion. CONCLUSIONS -------- 1. Sinus rhythm. 2. This was a technically difficult study with suboptimal views. 3. The left ventricular size is normal. 4. There is moderate concentric left ventricular hypertrophy. 5. Overall left ventricular systolic function is low-normal with, an EF between 50 - 55 %. 6. The right ventricle is normal in size. 7. The left atrial size is normal. 8. The right atrial size is normal. 9. Lumason used 10. The aortic valve is trileaflet and appears structurally normal. 11. The mitral valve is normal. 12. There is trace mitral regurgitation. 13. The tricuspid valve appears structurally normal. 14. Trace tricuspid regurgitation present. 15. Right ventricular systolic pressure is normal at < 35 mmHg. 16. There is no pulmonic regurgitation present. 17. The aortic root size is normal. 18. IVC Not well visulized. 19. There is no pericardial effusion. CAR CHECKER: Sharmaine Lara RDCS
== END | disposition home or self-care (01) ==
LOC: RADECHMAIN 12:43
PROVIDERS: ATTEND Pediatrics
DX: I42.9 Cardiomyopathy, unspecified (principal); R05 Cough
CPT/HCPCS: 71046; C8929; Q9950; 93306

== ENCOUNTER 2019-11-12 14:39 | Observation (INO) | payer OTHER ==
[2019-11-12 14:50] LABS: Glucose,Whole Blood 291 mg/dL (75-99)
[2019-11-12] MEDS ORDERED: ASPIRIN 81 MG PO STA (15:17)
--- NOTE | 2019-11-12 15:42 | ED ---
General Adult HPI - General Chief complaint: Nausea/Vomiting/Diarrhea Stated complaint: Nausea, Dizzy Time Seen by Provider: 11/12/19 14:58 Source: patient Mode of arrival: ambulatory Limitations: no limitations - History of Present Illness Initial comments: Patient is a 43-year-old male with history of smoking, diabetes presenting to the emergency department with nausea and dizziness. Patient states over the last her days while he was at work, he developed sudden onset of dizziness where the room was spinning around him. Patient states afterwards she developed nausea but no vomiting. Patient reports also developing shortness of breath during those episodes with intermittent chest pain. States the chest pain was not present prior to 3 days ago. Patient states he does have history of anxiety but this does not feel like it. States he saw a customer security clerk several years ago and was advised to take blood pressure medication but he refused. Patient states his diabetes is somewhat under control and he is typically trending in the 300s whenever he is able to check his blood glucose levels. He visited family history of cardiac related . - Related Data Previous Rx's Medication Instructions Recorded metFORMIN HCL 500 mg PO BID 15 Days #30 tablet 10/01/18 Allergies Allergy/AdvReac Type Severity Reaction Status Date / Time No Known Allergies Allergy Verified 11/12/19 14:46 Review of Systems ROS Statement: Those systems with pertinent positive or pertinent negative responses have been documented in the HPI. ROS Other: All systems not noted in ROS Statement are negative. Past Medical History Past Medical History: COPD, Diabetes Mellitus, Deep Vein Thrombosis (DVT), Hypertension Additional Past Medical History / Comment(s): back pain with pinched nerve, migraines. History of Any Multi-Drug Resistant Organisms: None Reported Past Surgical History: Appendectomy Additional Past Surgical History / Comment(s): oral surgery, Past Anesthesia/Blood Transfusion Reactions: No Reported Reaction Past Psychological History: Anxiety, Depression Smoking Status: Current every day smoker Past Alcohol Use History: None Reported Past Drug Use History: None Reported - Past Family History Brother(s) Additional Family Medical History / Comment(s): tumor of brain - at 34 General Exam Limitations: no limitations General appearance: alert, in no apparent distress, obese Head exam: Present: atraumatic, normocephalic, normal inspection Eye exam: Present: normal appearance, PERRL, EOMI. Absent: conjunctival injection, nystagmus Pupils: Present: normal accommodation ENT exam: Present: normal exam, normal oropharynx, mucous membranes moist, TM's normal bilaterally, normal external ear exam Neck exam: Present: normal inspection, full ROM. Absent: tenderness Respiratory exam: Present: normal lung sounds bilaterally. Absent: respiratory distress, wheezes, rales Cardiovascular Exam: Present: regular rate, normal rhythm, normal heart sounds GI/Abdominal exam: Present: soft. Absent: distended, tenderness, guarding, rebound Extremities exam: Present: normal inspection, full ROM, normal capillary refill. Absent: tenderness Back exam: Present: normal inspection, full ROM. Absent: tenderness Neurological exam: Present: alert, oriented X3, normal gait Psychiatric exam: Present: normal affect, normal mood Skin exam: Present: warm, dry, intact, normal color Course Vital Signs 11/12/19 11/12/19 14:40 15:44 Temperature 98 F Pulse Rate 69 80 Respiratory 18 16 Rate Blood Pressure 154/81 150/97 O2 Sat by Pulse 96 95 Oximetry EKG Findings - EKG Comments: EKG Findings:: Sinus rhythm, Q waves in lead 3. Ventricular rate 82, HI 150, QRS 98, QTC 476. Medical Decision Making - Medical Decision Making Patient is a 43-year-old male with history of smoking, diabetes presenting to the emergency department with a chief complaint of nausea and dizziness. He does have history exacerbated this does not feel like it according to him. EKG reveals prolonged QT with normal sinus rhythm. His diabetes is poorly controlled and so is his blood pressure. Patient has not seen a customer security clerk in several years. Patient does have intermittent chest pain along with dyspnea over the last few days. They do mimic the symptoms of acute anxiety, however considering the patient's risk factors he will be admitted for cardiac observation. Case discussed with . Admitting physician is Dr.Nerusu Nelson consult - Lab Data Result diagrams: 11/12/19 15:29 11/12/19 15:29 Lab Results 11/12/19 11/12/19 11/12/19 Range/Units 14:43 15:29 15:29 WBC 9.4 (3.8-10.6) k/uL RBC 4.79 (4.30-5.90) m/uL Hgb 15.0 (13.0-17.5) gm/dL Hct 43.6 (39.0-53.0) % MCV 91.2 (80.0-100.0) fL MCH 31.4 (25.0-35.0) pg MCHC 34.4 (31.0-37.0) g/dL RDW 12.7 (11.5-15.5) % Plt Count 243 (150-450) k/uL Neutrophils % 60 % Lymphocytes % 28 % Monocytes % 8 % Eosinophils % 2 % Basophils % 1 % Neutrophils # 5.6 (1.3-7.7) k/uL Lymphocytes # 2.6 (1.0-4.8) k/uL Monocytes # 0.8 (0-1.0) k/uL Eosinophils # 0.2 (0-0.7) k/uL Basophils # 0.1 (0-0.2) k/uL PT 12.0 (9.0-12.0) sec INR 1.2 H (<1.2) APTT 28.5 (22.0-30.0) sec Sodium (137-145) mmol/L Potassium (3.5-5.1) mmol/L Chloride (98-107) mmol/L Carbon Dioxide (22-30) mmol/L Anion Gap mmol/L BUN (9-20) mg/dL Creatinine (0.66-1.25) mg/dL Est GFR (CKD-EPI)AfAm (>60 ml/min/1.73 sqM) Est GFR (CKD-EPI)NonAf (>60 ml/min/1.73 sqM) Glucose (74-99) mg/dL POC Glucose (mg/dL) 291 H (75-99) mg/dL POC Glu Heavy Mobile Equipment Repairer ID Martita Chicas Calcium (8.4-10.2) mg/dL Magnesium (1.6-2.3) mg/dL Total Bilirubin (0.2-1.3) mg/dL AST (17-59) U/L ALT (4-49) U/L Alkaline Phosphatase (38-126) U/L Troponin I (0.000-0.034) ng/mL Total Protein (6.3-8.2) g/dL Albumin (3.5-5.0) g/dL 11/12/19 11/12/19 Range/Units 15:29 15:29 WBC (3.8-10.6) k/uL RBC (4.30-5.90) m/uL Hgb (13.0-17.5) gm/dL Hct (39.0-53.0) % MCV (80.0-100.0) fL MCH (25.0-35.0) pg MCHC (31.0-37.0) g/dL RDW (11.5-15.5) % Plt Count (150-450) k/uL Neutrophils % % Lymphocytes % % Monocytes % % Eosinophils % % Basophils % % Neutrophils # (1.3-7.7) k/uL Lymphocytes # (1.0-4.8) k/uL Monocytes # (0-1.0) k/uL Eosinophils # (0-0.7) k/uL Basophils # (0-0.2) k/uL PT (9.0-12.0) sec INR (<1.2) APTT (22.0-30.0) sec Sodium 136 L (137-145) mmol/L Potassium 4.1 (3.5-5.1) mmol/L Chloride 101 (98-107) mmol/L Carbon Dioxide 24 (22-30) mmol/L Anion Gap 11 mmol/L BUN 12 (9-20) mg/dL Creatinine 1.00 (0.66-1.25) mg/dL Est GFR (CKD-EPI)AfAm >90 (>60 ml/min/1.73 sqM) Est GFR (CKD-EPI)NonAf >90 (>60 ml/min/1.73 sqM) Glucose 298 H (74-99) mg/dL POC Glucose (mg/dL) (75-99) mg/dL POC Glu Heavy Mobile Equipment Repairer ID Calcium 9.4 (8.4-10.2) mg/dL Magnesium 2.0 (1.6-2.3) mg/dL Total Bilirubin 0.7 (0.2-1.3) mg/dL AST 26 (17-59) U/L ALT 22 (4-49) U/L Alkaline Phosphatase 112 (38-126) U/L Troponin I <0.012 (0.000-0.034) ng/mL Total Protein 7.5 (6.3-8.2) g/dL Albumin 4.3 (3.5-5.0) g/dL Disposition Clinical Impression: Chest pain, Hyperglycemia, Dizziness Disposition: ADMITTED IP TO THIS HOSP Condition: Good Additional Instructions: Patient to be admitted Is patient prescribed a controlled substance at d/c from ED?: No Referrals: David Bentley MD [Primary Care Provider] - 1-2 days Time of Disposition: 17:22
[2019-11-12 15:51] LABS: Basophils # (A) 0.1 k/uL (0-0.2); Basophils % (A) 1 %; Eosinophils # (A) 0.2 k/uL (0-0.7); Eosinophils % (A) 2 %; HCT 43.6 % (39.0-53.0); Lymphocytes # (A) 2.6 k/uL (1.0-4.8); Lymphocytes % (A) 28 %; MCH 31.4 pg (25.0-35.0); MCHC 34.4 g/dL (31.0-37.0); MCV 91.2 fL (80.0-100.0); Mean Platelet Volume 8.5; Monocytes # (A) 0.8 k/uL (0-1.0); Monocytes % (A) 8 %; Neutrophils # (A) 5.6 k/uL (1.3-7.7); Neutrophils % (A) 60 %; Platelet Count 243 k/uL (150-450); RBC 4.79 m/uL (4.30-5.90); RDW 12.7 % (11.5-15.5); WBC 9.4 k/uL (3.8-10.6)
[2019-11-12 15:59] LABS: INR 1.2 (<1.2); Partial Thromboplastin Time 28.5 sec (22.0-30.0)
[2019-11-12 16:10] LABS: ALT 22 U/L (4-49); AST 26 U/L (17-59); African American GFR (CKD) >90 (>60 ml/min/1.73 sqM); Albumin 4.3 g/dL (3.5-5.0); Alkaline Phosphatase 112 U/L (38-126); Anion Gap 11 mmol/L; Blood Urea Nitrogen 12 mg/dL (9-20); Calcium 9.4 mg/dL (8.4-10.2); Carbon Dioxide 24 mmol/L (22-30); Chloride 101 mmol/L (98-107); Glucose 298 mg/dL (74-99); Non-African American GFR(CKD) >90 (>60 ml/min/1.73 sqM); Potassium 4.1 mmol/L (3.5-5.1); Sodium 136 mmol/L (137-145); Total Bilirubin 0.7 mg/dL (0.2-1.3); Total Protein 7.5 g/dL (6.3-8.2)
--- NOTE | 2019-11-12 16:44 | XR ---
EXAMINATION TYPE: XR chest 2V DATE OF EXAM: 11/12/2019 COMPARISON: 06/19/2019 HISTORY: 43-year-old male with chest pain TECHNIQUE: PA and lateral views FINDINGS: The cardiomediastinal silhouette, aorta, and pulmonary vasculature are within normal limits. Mild int erstitial prominence is unchanged. Otherwise, lungs and pleural spaces are clear. IMPRESSION: Chronic changes without acute cardiopulmonary process.
[2019-11-12] MEDS ORDERED: NALOXONE 0.4 MG/ML 1 ML VIAL IV PRN (17:22)
[2019-11-12] MEDS ORDERED: ONDANSETRON 4 MG/2 ML VIAL IVP STA (17:23)
[2019-11-12] MEDS ORDERED: ONDANSETRON 4 MG/2 ML VIAL IVP PRN (17:24)
[2019-11-12] MEDS ORDERED: ALPRAZolam 1 MG TAB PO PRN (17:24)
[2019-11-12] MEDS: SODIUM CHLORIDE 0.9% 1,000 ML IV SCH (18:06)
[2019-11-13] MEDS: SODIUM CHLORIDE 0.9% 1,000 ML IV SCH ×2 (06:48→20:30)
[2019-11-13 07:01] LABS: Glucose,Whole Blood 223 mg/dL (75-99)
[2019-11-13] MEDS: ATORVASTATIN 40 MG TAB PO SCH (08:13)
[2019-11-13] MEDS: ASPIRIN 81 MG PO SCH (08:13)
[2019-11-13 08:30] LABS: Cholesterol 168 mg/dL (<200); HDL Cholesterol 34 mg/dL (40-60); LDL Cholesterol,Calculated 96 mg/dL (0-99); Triglycerides 189 mg/dL (<150)
[2019-11-13] MEDS ORDERED: lisinopriL 5 MG TAB PO SCH (09:00)
--- NOTE | 2019-11-13 09:45 | P.CRDCN ---
History of Present Illness History of present illness: HISTORY OF PRESENTING ILLNESS This is a pleasant 43-year-old male past medical history significant for obese mellitus, hypertension, dyslipidemia, chronic nicotine dependence noncompliant. 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 He underwent cardiac catheterization per Dr. Daniel Alejandra [facility] March 2018 revealing normal coronary arteries with normal LVEDP. We have been asked to see in consultation for chest pain. Dates yesterday while at work he had an acute onset of diaphoresis, nausea and feeling lightheaded. He had to brace himself his machine to prevent him from passing out. He also describes a heaviness in the midsternal region. His dizziness lasted for about 10 minutes. He continued to be persistently nauseated with chest discomfort. He received IV Zofran in the emergency department and his symptoms of nausea did subside. He continues to have discomfort in the midsternal region that not reproducible on palpation or with deep inspiration. According to the patient he was recently released from and January. His medication compliance since that time has been intermittent. DIAGNOSTICS EKG reveals sinus mechanism heart rate of 82, flipped T waves inferiorly. Chest xray negative for an acute cardiopulmonary process. Laboratory reviewed, CBC unremarkable, sodium 136, potassium 4.1, creatinine 1.0 , magnesium 2.0, cardiac enzymes negative 3, LDL 96, HDL 34 and total cholesterol 168. Current cardiac medications include lisinopril 40 mg daily, atorvastatin 20 mg daily and propanolol 40 mg twice a day. Assessment updated by the pharmacy. Most recent echocardiogram obtained in May 2019 reveals preserved LV systolic function with ejection fraction 50-55%, no wall motion abnormalities noted, moderate concentric LVH. REVIEW OF SYSTEMS At the time of my exam: CONSTITUTIONAL: Denies fever or chills. CARDIOVASCULAR: Denies chest pain, shortness of breath, orthopnea, PND or palpitations. RESPIRATORY: Denies cough. GASTROINTESTINAL: Denies abdominal pain, diarrhea, constipation, nausea or vomiting. MUSCULOSKELETAL: Denies myalgias. NEUROLOGIC: Denies numbness, tingling or weakness. ENDOCRINE: Denies fatigue, weight change, polydipsia or polyurina. GENITOURINARY: Denies burning, hematuria or urgency with micturation. HEMATOLOGIC: Denies history of anemia or bleeding. PHYSICAL EXAMINATION Blood pressure 143/85 heart rate 80 afebrile and maintaining oxygen saturation on room air. CONSTITUTIONAL: No apparent distress. HEENT: Head is normocephalic. Pupils are equal, round. Sclerae anicteric. Mucous membranes of the mouth are moist. No JVD. No carotid bruit. CHEST EXAMINATION: Lungs are clear to auscultation. No chest wall tenderness is noted on palpation or with deep breathing. HEART EXAMINATION: Regular rate and rhythm. S1, S2 heard. No murmurs, gallops or rub. ABDOMEN: Soft, nontender. Positive bowel sounds. EXTREMITIES: 2+ peripheral pulses, no lower extremity edema and no calf tenderness. NEUROLOGIC EXAMINATION: Patient is awake, alert and oriented x3. ASSESSMENT Pain, atypical. An acute coronary event has been ruled out. Recent cardiac catheterization revealing normal coronary arteries March 2018. Hypertension Dyslipidemia Diabetes mellitus Chronic nicotine dependence Obesity, BMI 37 History of noncompliance PLAN Recommend continuing lisinopril 40 mg daily along with atorvastatin 40 mg daily and aspirin 81 mg daily. Discontinue propanolol secondary to noncompliance. This medication can cause rebound hypertension if not taken as prescribed. Repeat 2-D echocardiogram and Doppler study to assess cardiac structure and function. Recommend tobacco cessation. Increase activity and ambulation. Medication compliance discussed at length. Thank you kindly for this consultation. Nurse Practitioner note has been reviewed, I agree with a documented findings and plan of care. Patient was seen and examined. Past Medical History Past Medical History: COPD, Diabetes Mellitus, Deep Vein Thrombosis (DVT), Hypertension Additional Past Medical History / Comment(s): back pain with pinched nerve, migraines. History of Any Multi-Drug Resistant Organisms: None Reported Past Surgical History: Appendectomy Additional Past Surgical History / Comment(s): oral surgery, Past Anesthesia/Blood Transfusion Reactions: No Reported Reaction Past Psychological History: Anxiety, Depression Smoking Status: Current some day smoker Past Alcohol Use History: None Reported Past Drug Use History: None Reported - Past Family History Brother(s) Additional Family Medical History / Comment(s): tumor of brain - at 34 Medications and Allergies Home Medications Medication Instructions Recorded Confirmed Type Atorvastatin Calcium [Lipitor] 20 mg PO DAILY 11/13/19 11/13/19 History DULoxetine HCL [Cymbalta] 60 mg PO DAILY 11/13/19 11/13/19 History Docusate [Colace] 100 mg PO DAILY PRN 11/13/19 11/13/19 History INSULIN LISPRO (humaLOG) [humaLOG] 18 units SQ BID 11/13/19 11/13/19 History Insulin Glargine [Lantus] 60 unit SQ HS 11/13/19 11/13/19 History Lisinopril 40 mg PO DAILY 11/13/19 11/13/19 History Montelukast Sodium [Singulair] 10 mg PO HS 11/13/19 11/13/19 History Propranolol HCl 40 mg PO BID 11/13/19 11/13/19 History metFORMIN HCL ER [Glucophage Xr] 1,000 mg PO W/SUPPER 11/13/19 11/13/19 History Allergies Allergy/AdvReac Type Severity Reaction Status Date / Time No Known Allergies Allergy Verified 11/12/19 14:46 Physical Exam Vitals: Vital Signs Temp Pulse Pulse Resp BP BP Pulse Ox 11/13/19 03:00 98.2 F 80 18 143/85 93 L 11/12/19 21:00 97.7 F 78 18 165/92 98 11/12/19 19:42 18 11/12/19 17:49 97.9 F 90 16 142/107 98 11/12/19 15:44 80 16 150/97 95 11/12/19 14:40 98 F 69 18 154/81 96 Intake and Output 11/12/19 11/13/19 11/13/19 22:59 06:59 14:59 Other: # Voids 2 1 Weight 128.82 kg Results 11/12/19 15:29 11/12/19 15:29 Cardiac Enzymes 11/12/19 11/12/19 11/12/19 Range/Units 15:29 15:29 18:29 AST 26 (17-59) U/L Troponin I <0.012 <0.012 (0.000-0.034) ng/mL 11/12/19 Range/Units 20:53 AST (17-59) U/L Troponin I <0.012 (0.000-0.034) ng/mL Coagulation 11/12/19 Range/Units 15:29 PT 12.0 (9.0-12.0) sec APTT 28.5 (22.0-30.0) sec CBC 11/12/19 Range/Units 15:29 WBC 9.4 (3.8-10.6) k/uL RBC 4.79 (4.30-5.90) m/uL Hgb 15.0 (13.0-17.5) gm/dL Hct 43.6 (39.0-53.0) % Plt Count 243 (150-450) k/uL Comprehensive Metabolic Panel 11/12/19 Range/Units 15:29 Sodium 136 L (137-145) mmol/L Potassium 4.1 (3.5-5.1) mmol/L Chloride 101 (98-107) mmol/L Carbon Dioxide 24 (22-30) mmol/L BUN 12 (9-20) mg/dL Creatinine 1.00 (0.66-1.25) mg/dL Glucose 298 H (74-99) mg/dL Calcium 9.4 (8.4-10.2) mg/dL AST 26 (17-59) U/L ALT 22 (4-49) U/L Alkaline Phosphatase 112 (38-126) U/L Total Protein 7.5 (6.3-8.2) g/dL Albumin 4.3 (3.5-5.0) g/dL Current Medications Generic Name Dose Route Start Last Admin Trade Name Freq PRN Reason Stop Dose Admin Alprazolam 1 mg 11/12/19 17:24 Xanax PO BID PRN Anxiety Atorvastatin Calcium 40 mg 11/13/19 09:00 Lipitor PO DAILY JESSICA Sodium Chloride 1,000 mls @ 75 mls/hr 11/12/19 17:30 11/13/19 06:48 Saline 0.9% IV 75 mls/hr .[id number] JESSICA Administration Lisinopril 5 mg 11/13/19 09:00 Zestril PO DAILY JESSICA Naloxone HCl 0.2 mg 11/12/19 17:22 Narcan IV Q2M PRN Opioid Reversal Ondansetron HCl 4 mg 11/12/19 17:24 Zofran IVP 11/19/19 17:25 ONCE PRN Nausea Intake and Output 11/12/19 11/13/19 11/13/19 22:59 06:59 14:59 Other: # Voids 2 1 Weight 128.82 kg 11/12/19 15:29 11/12/19 15:29
--- NOTE | 2019-11-13 10:22 | ECHOF ---
Referral Reason:cp MEASUREMENTS -------- HEIGHT: 185.4 cm WEIGHT: 128.8 kg BP: 143/85 RVIDd: 3.5 cm (< 3.3) IVSd: 1.6 cm (0.6 - 1.1) LVIDd: 4.9 cm (3.9 - 5.3) LVPWd: 1.5 cm (0.6 - 1.1) IVSs: 1.7 cm LVIDs: 3.8 cm LVPWs: 2.1 cm LAESV Index (A-L): 23.00 ml/m Ao Diam: 3.3 cm (2.0 - 3.7) AV Cusp: 2.5 cm (1.5 - 2.6) MV EXCURSION: 23.970 mm (> 18.000) MV EF SLOPE: 137 mm/s (70 - 150) EPSS: 0.7 cm MV E Pavan: 0.82 m/s MV DecT: 195 ms MV A Pavan: 0.64 m/s MV E/A Ratio: 1.29 RAP: 5.00 mmHg RVSP: 22.70 mmHg FINDINGS -------- Sinus rhythm. This was a technically difficult study with suboptimal apical views. The left ventricular size is normal. There is moderate concentric left ventricular hypertrophy. O verall left ventricular systolic function is mildly impaired with, an EF between 45 - 50 %. Mitral Doppler inflow pattern suggests diastolic filling abnormality 10.22. The right ventricle is normal in size. Normal LA size by volume 22+/-6 ml/m2. The right atrium was not well visualized. xx ml of Lumason was utilized for enhancement of images. Interatrial and interventricular septum intact. The aortic valve is trileaflet, and appears structurally normal. No aortic stenosis or regurgitation. The mitral valve is normal. No mitral regurgitation. Mild tricuspid regurgitation present. Right ventricular systolic pressure is normal at < 35 mmHg. The right ventricular systolic pressure, as measured by Doppler, is 22.70mmHg. There is no pulmonic regurgitation present. The aortic root size is normal. There is no pericardial effusion. CONCLUSIONS -------- 1. There is moderate concentric left ventricular hypertrophy. 2. Overall left ventricular systolic function is mildly impaired with, an EF between 45 - 50 %. 3. Mitral Doppler inflow pattern suggest diastolic filling abnormality 10.22. 4. Normal LA size by volume 22+/-6 ml/m2. 5. The aortic valve is trileaflet, and appears structurally normal. No aortic stenosis or regurgitati on. 6. The mitral valve is normal. 7. Mild tricuspid regurgitation present. GARMENT FINISHER: Collette White RDCS
[2019-11-13 13:40] LABS: Hemoglobin A1C 10.1 % (4.0-6.0)
[2019-11-13 14:19] VITALS: BMI 37.4
[2019-11-13] MEDS ORDERED: DOCUSATE 100 MG CAP PO PRN (14:48)
--- NOTE | 2019-11-13 15:12 | P.HPIM ---
History of Present Illness this is a pleasant 43 years old male with past medical history of COPD, diabetes mellitus, hypertension, right leg deep venous thrombosis about 5-6 years agonot on anticoagulation. Patient presents because of episodes of dizziness. 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 Some of dizziness, felt like the room is spinning the pluses for 2 minutes before he goes back to normal, at times he has to hold with his hand so it will not fall down, associated with sweating, nausea. Patient denies chest pain or dyspnea It happens to him and a frequency of once a day Patient smokes cigar once a week, no alcohol or illicit drugs vital signs stable and patient is afebrile,labs show an unremarkable CBC, INR and BMP and liver enzymes. Serial troponins are negative, glucose is elevated t o 23-to 98 EKG showing sinus rhythm at [address]-T changes, QTC is no acute process echocardiogramshown ejection fraction of 45-50%, moderate concentric LVH in the emergency room patient was started on aspirin. patient says and confirms that he takes 120 units of Lantus at night, and 60 units of NovoLog with meals, no recent change in his medication we going to start him on Levemir 120 at bedtime 130 units with meals Review of Systems CONSTITUTIONAL: No fever, no malaise, no fatigue. HEENT: No recent visual problems or hearing problems. Denied any sore throat. CARDIOVASCULAR: No orthopnea, PND, no palpitations, no syncope. PULMONARY: No shortness of breath, no cough, no hemoptysis. GASTROINTESTINAL: No diarrhea, no nausea, no vomiting, no abdominal pain. Normoactive bowel sounds. NEUROLOGICAL: No headaches, no weakness, no numbness. HEMATOLOGICAL: Denies any bleeding or petechiae. GENITOURINARY: Denies any burning micturition, frequency, or urgency. MUSCULOSKELETAL/RHEUMATOLOGICAL: Denies any joint pain, swelling, or any muscle pain. ENDOCRINE: Denies any polyuria or polydipsia. Past Medical History Past Medical History: COPD, Diabetes Mellitus, Deep Vein Thrombosis (DVT), Hypertension Additional Past Medical History / Comment(s): back pain with pinched nerve, migraines. History of Any Multi-Drug Resistant Organisms: None Reported Past Surgical History: Appendectomy Additional Past Surgical History / Comment(s): oral surgery, Past Anesthesia/Blood Transfusion Reactions: No Reported Reaction Past Psychological History: Anxiety, Depression Smoking Status: Current some day smoker Past Alcohol Use History: None Reported Past Drug Use History: None Reported - Past Family History Brother(s) Additional Family Medical History / Comment(s): tumor of brain - at 34 Medications and Allergies Home Medications Medication Instructions Recorded Confirmed Type Atorvastatin Calcium [Lipitor] 20 mg PO DAILY 11/13/19 11/13/19 History DULoxetine HCL [Cymbalta] 60 mg PO DAILY 11/13/19 11/13/19 History Docusate [Colace] 100 mg PO DAILY PRN 11/13/19 11/13/19 History INSULIN LISPRO (humaLOG) [humaLOG] 18 units SQ BID 11/13/19 11/13/19 History Insulin Glargine [Lantus] 60 unit SQ HS 11/13/19 11/13/19 History Lisinopril 40 mg PO DAILY 11/13/19 11/13/19 History Montelukast Sodium [Singulair] 10 mg PO HS 11/13/19 11/13/19 History Propranolol HCl 40 mg PO BID 11/13/19 11/13/19 History metFORMIN HCL ER [Glucophage Xr] 1,000 mg PO W/SUPPER 11/13/19 11/13/19 History Allergies Allergy/AdvReac Type Severity Reaction Status Date / Time No Known Allergies Allergy Verified 11/12/19 14:46 Physical Exam Vitals: Vital Signs Temp Pulse Pulse Resp BP BP Pulse Ox 11/13/19 09:00 97.6 F 68 18 135/84 95 11/13/19 03:00 98.2 F 80 18 143/85 93 L 11/12/19 21:00 97.7 F 78 18 165/92 98 11/12/19 19:42 18 11/12/19 17:49 97.9 F 90 16 142/107 98 11/12/19 15:44 80 16 150/97 95 11/12/19 14:40 98 F 69 18 154/81 96 Intake and Output 11/12/19 11/13/19 11/13/19 22:59 06:59 14:59 Intake Total 465 Output Total 300 Balance 165 Intake: Intake, IV Titration 225 Amount Sodium Chloride 0.9% 1, 225 000 ml @ 75 mls/hr IV . [id number] [facility] Rx#:[id number] Oral 240 Output: Urine 300 Other: # Voids 2 1 Weight 128.82 kg GENERAL: The patient is alert and oriented x3, not in any acute distress. Well developed, well nourished. HEENT: Pupils are round and equally reacting to light. EOMI. No scleral icterus. No conjunctival pallor. Normocephalic, atraumatic. No pharyngeal erythema. No thyromegaly. CARDIOVASCULAR: S1 and S2 present. No murmurs, rubs, or gallops. PULMONARY: Chest is clear to auscultation, no wheezing or crackles. ABDOMEN: Soft, nontender, nondistended, normoactive bowel sounds. No palpable organomegaly. MUSCULOSKELETAL: No joint swelling or deformity. EXTREMITIES: No cyanosis, clubbing, or pedal edema. NEUROLOGICAL: Gross neurological examination did not reveal any focal deficits. SKIN: No rashes. No petechiae Results CBC & Chem 7: 11/12/19 15:29 11/12/19 15:29 Labs: Abnormal Lab Results - Last 24 Hours (Table) 11/12/19 11/12/19 11/12/19 Range/Units 14:43 15:29 15:29 INR 1.2 H (<1.2) Sodium 136 L (137-145) mmol/L Glucose 298 H (74-99) mg/dL POC Glucose (mg/dL) 291 H (75-99) mg/dL Triglycerides (<150) mg/dL HDL Cholesterol (40-60) mg/dL 11/13/19 11/13/19 Range/Units 06:54 07:47 INR (<1.2) Sodium (137-145) mmol/L Glucose (74-99) mg/dL POC Glucose (mg/dL) 223 H (75-99) mg/dL Triglycerides 189 H (<150) mg/dL HDL Cholesterol 34 L (40-60) mg/dL Thrombosis Risk Factor Assmnt - Choose All That Apply Any of the Below Risk Factors Present?: Yes Each Factor Represents 1 point: Abnormal pulmonary function (COPD), Age 41-60 years, Obesity (BMI >25) Thrombosis Risk Factor Assessment Total Risk Factor Score: 3 Thrombosis Risk Factor Assessment Level: Moderate Risk Assessment and Plan 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 Special Events Fundraiser evaluated the patient for discharge. We'll check d-dimer in view of his history of DVTand if positive then we'll do CTA of the chest to rule out PE, risks of CTA including but not limited to risk of ALLERGIC reaction nephrotoxicity is explained for the patient and he verbalized understanding and acceptance, also last neurologist to check on him, other than that his uncontrolled diabetes may contribute to it. We will check hemoglobin A1c. We'll check orthostatic vital signs were Labs and medication were reviewed.. Continue same treatment. Continue with symptomatic treatment. Resume home medication. Monitor lytes and vitals. DVT and GI prophylaxis. Further recommendations of the clinical course of the patient Patient was instructed to go back to work with heavy admission to the cleared by his doctors DVT prophylaxis: Subcutaneous heparin GI Prophylaxis: Pepcid PT/OT: Pending Prognosis is guarded
[2019-11-13 16:43] LABS: Glucose,Whole Blood 245 mg/dL (75-99)
[2019-11-13] MEDS: INSULIN ASPART (NovoLOG) 100 UNIT/ML VIAL SQ SCH ×3 (17:08→21:47)
[2019-11-13] MEDS ORDERED: metFORMIN 500 MG TAB PO SCH (17:30)
[2019-11-13] MEDS: MONTELUKAST 10 MG TAB PO SCH (20:31)
[2019-11-13] MEDS: HEPARIN SODIUM,PORCINE 5,000 UNIT/ML 1 ML VIAL SQ SCH (20:32)
[2019-11-13] MEDS: FAMOTIDINE 20 MG/2 ML VIAL IV SCH (20:32)
[2019-11-13] MEDS ORDERED: INSULIN ASPART (NovoLOG) 100 UNIT/ML VIAL SQ SCH ×2 (21:00)
[2019-11-13] MEDS ORDERED: HEPARIN SODIUM,PORCINE 5,000 UNIT/ML 1 ML VIAL SQ SCH (21:00)
[2019-11-13] MEDS ORDERED: FAMOTIDINE 20 MG/2 ML VIAL IV SCH (21:00)
[2019-11-13] MEDS ORDERED: INSULIN DETEMIR (LEVEMIR) 100 UNIT/ML SYR SQ SCH ×2 (21:00)
[2019-11-13] MEDS ORDERED: PROPRANOLOL 40 MG TAB PO SCH (21:00)
[2019-11-13 21:42] LABS: Glucose,Whole Blood 186 mg/dL (75-99)
[2019-11-13 23:10] LABS: Glucose,Whole Blood 311 mg/dL (75-99)
[2019-11-14] MEDS: DEXTROSE 5%-0.9% NACL 1,000 ML IV SCH ×4 (00:12→21:31)
[2019-11-14 00:57] LABS: Glucose,Whole Blood 254 mg/dL (75-99)
[2019-11-14 02:40] LABS: Glucose,Whole Blood 245 mg/dL (75-99)
[2019-11-14] MEDS: SODIUM CHLORIDE 0.9% 1,000 ML IV SCH ×3 (04:17→21:21)
[2019-11-14 04:34] LABS: Glucose,Whole Blood 237 mg/dL (75-99)
[2019-11-14 06:16] LABS: Glucose,Whole Blood 166 mg/dL (75-99)
[2019-11-14 06:20] LABS: Basophils # (A) 0.1 k/uL (0-0.2); Basophils % (A) 1 %; Eosinophils # (A) 0.2 k/uL (0-0.7); Eosinophils % (A) 3 %; HCT 39.8 % (39.0-53.0); HGB 13.5 gm/dL (13.0-17.5); Lymphocytes # (A) 3.4 k/uL (1.0-4.8); Lymphocytes % (A) 40 %; MCH 31.4 pg (25.0-35.0); MCV 92.4 fL (80.0-100.0); Mean Platelet Volume 8.2; Monocytes # (A) 0.5 k/uL (0-1.0); Monocytes % (A) 6 %; Neutrophils % (A) 48 %; Platelet Count 214 k/uL (150-450); RBC 4.31 m/uL (4.30-5.90); RDW 12.7 % (11.5-15.5); WBC 8.4 k/uL (3.8-10.6)
[2019-11-14 06:33] LABS: African American GFR (CKD) >90 (>60 ml/min/1.73 sqM); Anion Gap 6 mmol/L; Blood Urea Nitrogen 10 mg/dL (9-20); Calcium 8.5 mg/dL (8.4-10.2); Carbon Dioxide 24 mmol/L (22-30); Chloride 109 mmol/L (98-107); Glucose 167 mg/dL (74-99); Non-African American GFR(CKD) >90 (>60 ml/min/1.73 sqM); Sodium 139 mmol/L (137-145)
[2019-11-14] MEDS: INSULIN ASPART (NovoLOG) 100 UNIT/ML VIAL SQ SCH ×4 (06:48→21:24)
--- NOTE | 2019-11-14 07:45 | CT ---
EXAMINATION TYPE: CT angio chest DATE OF EXAM: 11/14/2019 7:35 AM COMPARISON: None. HISTORY: elevated d dimer CT DLP: 555.5 mGycm Automated exposure control for dose reduction was used. CONTRAST: CTA scan of the thorax is performed with IV Contrast, patient injected with 100 mL of Isovue 370, pul monary embolism protocol. . FINDINGS: There is some dependent atelectasis in the dependent portions of both lungs. Lungs otherwis e clear. There is no significant axillary, mediastinal or hilar adenopathy. There is no evidence of pulmonary embolus. The aorta is normal in caliber. Heart size upper limits of normal. There is no pleural or pericardial fluid. Visualized portions of the upper abdomen are unremarkable. There is minimal hypertrophic spondylosis within the spine. IMPRESSION: THIS EXAMINATION IS NEGATIVE FOR PULMONARY EMBOLUS.
[2019-11-14 08:02] LABS: Glucose,Whole Blood 116 mg/dL (75-99)
[2019-11-14] MEDS ORDERED: NON FORMULARY DRUG (Lisinopril [Lisinopril] 40 MG) PO SCH (09:00)
[2019-11-14] MEDS: HEPARIN SODIUM,PORCINE 5,000 UNIT/ML 1 ML VIAL SQ SCH ×2 (09:08→21:21)
[2019-11-14] MEDS: DULoxetine HCL 60 MG CAPSULE.DR PO SCH (09:09)
[2019-11-14] MEDS: ASPIRIN 81 MG PO SCH (09:09)
[2019-11-14] MEDS: ATORVASTATIN 40 MG TAB PO SCH (09:09)
[2019-11-14] MEDS: lisinopriL 20 MG TAB PO SCH (09:09)
[2019-11-14] MEDS: FAMOTIDINE 20 MG/2 ML VIAL IV SCH (09:09)
[2019-11-14 10:28] LABS: Glucose,Whole Blood 214 mg/dL (75-99)
[2019-11-14 12:14] LABS: Glucose,Whole Blood 157 mg/dL (75-99)
--- NOTE | 2019-11-14 13:53 | P.PN ---
Subjective Progress Note Date: 11/14/19 This is a pleasant 43-year-old male past medical history significant for obese mellitus, hypertension, dyslipidemia, chronic nicotine dependence noncompliant. He does not follow regularly in the office with a self pay collector. He underwent cardiac catheterization per Dr. Sanchez [facility] March 2018 revealing normal coronary arteries with normal LVEDP. Being seen by cardiology for atypical chest pain and HTN. Deemed no acute cardiology process. PROGRESS NOTE 11/14/2019 PHYSICAL EXAMINATION: HEENT: Head is atraumatic, normocephalic. Pupils are equal, round. Sclerae anicteric. Conjunctivae are clear. Mucous membranes of the mouth are moist. Neck is supple. There is no jugular venous distention. No carotid bruit is heard. No thyromegaly. LUNGS: Clear to auscultation no wheezes, rales or rhonchi. No chest wall tenderness is noted on palpation or with deep breathing. HEART: Regular rate and rhythm without murmurs, rubs or gallops. S1 and S2 heard. ABDOMEN: Abdominal exam revealed normal bowel sounds. The abdomen was soft, non-tender, and without masses, organomegaly, or appreciable enlargement of the abdominal aorta. EXTREMITIES: Examination of the extremities revealed easily palpable radial, femoral and pedal pulses. There was no cyanosis, clubbing or edema. No calf tenderness noted. VASCULAR: Radial and dorsalis pedis pulses palpated, no evidence of clubbing. NEUROLOGIC: Patient is awake, alert and oriented x3. There were no obvious focal neurologic abnormalities. LAB DATA: FINAL IMPRESSION: 1. Atpical chest pain 2. Hypertension, improved 3. CAD, mild by recent cardiac cath 4. Tobacco Abuse 5. Obesity PLAN: Okay for discharge from cardiology standpoint with stable blood pressure. Patient to follow-up with Dr. Tran in one week. Continue same medical/medication regime. Objective - Vital Signs Vital signs: Vital Signs Temp 98.2 F 11/14/19 07:40 Pulse 62 11/14/19 07:40 Resp 16 11/14/19 07:40 BP 152/97 11/14/19 07:40 Pulse Ox 98 11/14/19 07:40 Intake & Output 11/13/19 11/14/19 11/14/19 18:59 06:59 18:59 Intake Total 1545 350 Output Total 900 Balance 645 350 Weight 128.82 kg Intake: Intake, IV Titration 225 350 Amount Sodium Chloride 0.9% 1, 350 000 ml @ 100 mls/hr IV . Q10H [facility] Rx#:[id number] Sodium Chloride 0.9% 1, 225 000 ml @ 125 mls/hr IV . Q8H [facility] Rx#:[id number] Oral 1320 Output: Urine 900 Other: Voiding Method Toilet # Voids 1 - Labs CBC & Chem 7: 11/14/19 05:47 11/14/19 05:47 Labs: Abnormal Lab Results - Last 24 Hours (Table) 11/13/19 11/13/19 11/13/19 Range/Units 15:38 16:41 21:38 D-Dimer 0.66 H (<0.60) mg/L FEU Chloride (98-107) mmol/L Glucose (74-99) mg/dL POC Glucose (mg/dL) 245 H 186 H (75-99) mg/dL 11/13/19 11/14/19 11/14/19 Range/Units 22:59 00:54 02:37 D-Dimer (<0.60) mg/L FEU Chloride (98-107) mmol/L Glucose (74-99) mg/dL POC Glucose (mg/dL) 311 H 254 H 245 H (75-99) mg/dL 11/14/19 11/14/19 11/14/19 Range/Units 04:32 05:47 06:12 D-Dimer (<0.60) mg/L FEU Chloride 109 H (98-107) mmol/L Glucose 167 H (74-99) mg/dL POC Glucose (mg/dL) 237 H 166 H (75-99) mg/dL 11/14/19 11/14/19 11/14/19 Range/Units 08:00 10:27 12:12 D-Dimer (<0.60) mg/L FEU Chloride (98-107) mmol/L Glucose (74-99) mg/dL POC Glucose (mg/dL) 116 H 214 H 157 H (75-99) mg/dL
--- NOTE | 2019-11-14 14:10 | US ---
EXAMINATION TYPE: US carotid duplex BILAT DATE OF EXAM: 11/14/2019 COMPARISON: NONE CLINICAL HISTORY: 43-year-old male dizziness. TECHNIQUE: Carotid duplex ultrasound examination. In direct Doppler criteria utilized. FINDINGS: EXAM MEASUREMENTS: RIGHT: Peak Systolic Velocity (PSV) cm/sec ----- Right CCA: 50.1 ----- Right ICA: 76.5 ----- Right ECA: 76.5 ICA/CCA ratio: 1.5 RIGHT: End Diastole cm/sec ----- Right CCA: 12.8 ----- Right ICA: 35.8 ----- Right ECA: 17.1 LEFT: Peak Systolic Velocity (PSV) cm/sec ----- Left CCA: 51.2 ----- Left ICA: 61.6 ----- Left ECA: 75.8 ICA/CCA ratio: 1.2 LEFT: End Diastole cm/sec ----- Left CCA: 16.3 ----- Left ICA: 29.2 ----- Left ECA: 11.1 VERTEBRALS (direction of flow): Right Vertebral: Antegrade Left Vertebral: Antegrade Rhythm: Normal PRIMARY SUBSTANCE ABUSE COUNSELOR NOTES: Mild amount of plaque visualized bilaterally. No elevated velocities IMPRESSION: No hemodynamically significant internal carotid artery stenosis on either side. Mild plaque bilateral ly. Criteria for Assigning % of Stenosis / Diameter reduction (Estimation based on the indirect measurements of the internal carotid artery velocities (ICA PSV). 1. Normal (no stenosis)=ICA PSV < 125 cm/s: ratio < 2.0: ICA EDV<40 cm/s. 2. Less than 50% stenosis=ICA PSV < 125 cm/s: ratio < 2.0: ICA EDV<40 cm/s. 3. 50 to 69% stenosis=ICA PSV of 125 to 230 cm/s: ration 2.0 ? 4.0: ICA EDV 40-100 cm/s. 4. Greater than 70% stenosis to near occlusion= ICA PSV > 230 cm/s: ratio > 4.0: ICA EDV > 100 cm/s. 5. Near occlusion= ICA PSV velocities may be low or undetectable: variable ratio and ICA EDV. 6. Total occlusion=unable to detect flow.
--- NOTE | 2019-11-14 14:26 | CT ---
EXAMINATION TYPE: CT brain wo con DATE OF EXAM: 11/14/2019 COMPARISON: 08/24/2018 HISTORY: 43-year-old male with headache and dizziness TECHNIQUE: Examination was done in axial plane without intravenous contrast. Coronal and sagittal r econstructions performed. CT DLP: 862.5 mGycm Automated exposure control for dose reduction was used. FINDINGS: There is no evidence of acute intracranial hemorrhage, acute ischemic changes, mass, mass-effect, or extra-axial fluid collection. There is no effacement of cerebral sulci or basal subarachnoid cister ns. There is no hydrocephalus. There is no midline shift. Price-white matter distinction is preserv ed. Paranasal sinuses and mastoid air cells are well pneumatized. Orbits and globes are intact. IMPRESSION: No acute intracranial abnormality seen.
[2019-11-14 16:29] LABS: Glucose,Whole Blood 178 mg/dL (75-99)
[2019-11-14] MEDS ORDERED: INSULIN DETEMIR (LEVEMIR) 100 UNIT/ML SYR SQ SCH (21:00)
[2019-11-14 21:17] LABS: Glucose,Whole Blood 211 mg/dL (75-99)
[2019-11-14] MEDS: FAMOTIDINE 20 MG TAB PO SCH (21:21)
[2019-11-14] MEDS: PROPRANOLOL 40 MG TAB PO SCH (21:22)
[2019-11-14] MEDS: MONTELUKAST 10 MG TAB PO SCH (21:22)
[2019-11-14] MEDS: INSULIN DETEMIR (LEVEMIR) 100 UNIT/ML SYR SQ SCH (21:23)
--- NOTE | 2019-11-14 23:55 | P.PN ---
Subjective Progress Note Date: 11/14/19 Principal diagnosis: Dizziness Mr. Lay is a 43-year-old male with a past medical history of diabetes mellitus, hypertension, COPD, right leg DVT about 5 to 6 years ago presenting with a chief complaint of dizziness. 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 He just started to work for the past 4 days only and since going to work he is having dizziness. He is feeling like the room is spinning and that he is about to fall but did not have a fall. He tried to break the fall by holding onto things that are nearby. On 11/14/2019 -patient is lying in bed appears to be in no acute distress. He states that he just had his lunch and started to feel nauseous. He states that his dizziness starts after he feels nauseous. Denies having any vomiting or abdominal pain. He feels like the room starts to spin. Denies having any headaches, no visual changes, no double vision. He denies having any ear ache or ear discharge. No sore throat. Patient denies having any chest pain or palpitations. No cough or difficulty in breathing. Denies having hematuria or dysuria. On reviewing the patient's vitals his blood pressure is 134/69 heart rate around 63, temperature of 98.3 saturating at 96% on room air. Patient's labs have been reviewed and within normal limits. Blood sugars have been running between 200s to 300s. Active Medications Alprazolam (Xanax) 1 mg PO BID PRN PRN Reason: Anxiety Aspirin (Aspirin) 81 mg PO DAILY [facility] Last Admin: 11/14/19 09:09 Dose: 81 mg Documented by: Atorvastatin Calcium (Lipitor) 40 mg PO DAILY [facility] Last Admin: 11/14/19 09:09 Dose: 40 mg Documented by: Docusate Sodium (Colace) 100 mg PO DAILY PRN PRN Reason: Constipation Duloxetine HCl (Cymbalta) 60 mg PO DAILY [facility] Last Admin: 11/14/19 09:09 Dose: 60 mg Documented by: Famotidine (Pepcid) 20 mg PO Q12HR [facility] Last Admin: 11/14/19 21:21 Dose: 20 mg Documented by: Heparin Sodium (Porcine) (Heparin) 5,000 unit SQ Q12HR [facility] Last Admin: 11/14/19 21:21 Dose: 5,000 unit Documented by: Dextrose/Sodium Chloride (Dextrose 5%-Ns Iv Soln) 1,000 mls @ 125 mls/hr IV .Q8H [facility] Last Admin: 11/14/19 21:31 Dose: Not Given Documented by: Sodium Chloride (Saline 0.9%) 1,000 mls @ 100 mls/hr IV .Q10H [facility] Last Admin: 11/14/19 21:21 Dose: 100 mls/hr Documented by: Insulin Aspart (Novolog) 0 unit SQ [facility]; Protocol Last Admin: 11/14/19 21:24 Dose: 4 unit Documented by: Insulin Detemir (Levemir) 120 unit SQ [facility] Last Admin: 11/14/19 21:23 Dose: 120 unit Documented by: Lisinopril (Zestril) 40 mg PO DAILY [facility] Last Admin: 11/14/19 09:09 Dose: 40 mg Documented by: Montelukast Sodium (Singulair) 10 mg PO [facility] Last Admin: 11/14/19 21:22 Dose: 10 mg Documented by: Naloxone HCl (Narcan) 0.2 mg IV Q2M PRN PRN Reason: Opioid Reversal Ondansetron HCl (Zofran) 4 mg IVP ONCE PRN PRN Reason: Nausea Stop: 11/19/19 17:25 Propranolol HCl (Inderal) 40 mg PO BID [facility] Last Admin: 11/14/19 21:22 Dose: 40 mg Documented by: Objective - Vital Signs Vital signs: Vital Signs Temp 98.0 F 11/14/19 15:00 Pulse 56 L 11/14/19 15:00 Resp 16 11/14/19 15:00 BP 158/94 11/14/19 15:00 Pulse Ox 96 11/14/19 15:00 Intake & Output 11/13/19 11/14/19 11/14/19 18:59 06:59 18:59 Intake Total 1545 1200 Output Total 900 Balance 645 1200 Weight 128.82 kg 128.82 kg Intake: Intake, IV Titration 225 1200 Amount Sodium Chloride 0.9% 1, 1200 000 ml @ 100 mls/hr IV . Q10H [facility] Rx#:[id number] Sodium Chloride 0.9% 1, 225 000 ml @ 125 mls/hr IV . Q8H [facility] Rx#:[id number] Oral 1320 Output: Urine 900 Other: Voiding Method Toilet # Voids 1 5 - Exam GENERAL: The patient is alert and oriented x3, not in any acute distress. Well developed, well nourished. HEENT: Pupils are round and equally reacting to light. EOMI. No scleral icterus. No conjunctival pallor. Normocephalic, atraumatic. No pharyngeal erythema. No thyromegaly. CARDIOVASCULAR: S1 and S2 present. No murmurs, rubs, or gallops. PULMONARY: Chest is clear to auscultation, no wheezing or crackles. ABDOMEN: Soft, nontender, nondistended, normoactive bowel sounds. No palpable organomegaly. MUSCULOSKELETAL: No joint swelling or deformity. EXTREMITIES: No cyanosis, clubbing, or pedal edema. NEUROLOGICAL: Gross neurological examination did not reveal any focal deficits. SKIN: No rashes. No petechiae - Labs CBC & Chem 7: 11/14/19 05:47 11/14/19 05:47 Labs: Abnormal Lab Results - Last 24 Hours (Table) 11/13/19 11/13/19 11/14/19 Range/Units 21:38 22:59 00:54 Chloride (98-107) mmol/L Glucose (74-99) mg/dL POC Glucose (mg/dL) 186 H 311 H 254 H (75-99) mg/dL 11/14/19 11/14/19 11/14/19 Range/Units 02:37 04:32 05:47 Chloride 109 H (98-107) mmol/L Glucose 167 H (74-99) mg/dL POC Glucose (mg/dL) 245 H 237 H (75-99) mg/dL 11/14/19 11/14/19 11/14/19 Range/Units 06:12 08:00 10:27 Chloride (98-107) mmol/L Glucose (74-99) mg/dL POC Glucose (mg/dL) 166 H 116 H 214 H (75-99) mg/dL 11/14/19 11/14/19 Range/Units 12:12 16:28 Chloride (98-107) mmol/L Glucose (74-99) mg/dL POC Glucose (mg/dL) 157 H 178 H (75-99) mg/dL Assessment and Plan Assessment: ASSESSMENT Dizziness -work-up in progress Hypertension Type 2 diabetes mellitus COPD History of DVT not on anticoagulation Obesity with BMI of 37.5 PLAN: Work-up so far for [id number] at 0.66, CT Frida of the chest negat tamara for PE echocardiogram done showing ejection fraction of 45 to 50%, diastolic filling abnormality. Further his diabetes, patient states he has been taking 120 units of insulin, but that seem to make too much of a dose for him so he was only given 60 units of Lantus yesterday, his blood sugars are ranging between 200s to 300s. Will order a CAT scan of the head and also carotid artery Doppler as a part of work-up for dizziness. Neurology has been consulted, they are not available over the weekend. 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 Patient has history of DVT but has been off of anticoagulation, so currently he has not been started on any anticoagulation. Heparin for DVT prophylaxis. Continue with aspirin and statin continue with the rest of his current medication regimen. Further recommendations to follow depending on the progress of the patient.
[2019-11-15 00:43] LABS: Glucose,Whole Blood 185 mg/dL (75-99)
[2019-11-15 04:32] LABS: Glucose,Whole Blood 125 mg/dL (75-99)
[2019-11-15] MEDS: DEXTROSE 5%-0.9% NACL 1,000 ML IV SCH ×3 (05:30→23:12)
[2019-11-15] MEDS: INSULIN ASPART (NovoLOG) 100 UNIT/ML VIAL SQ SCH ×4 (06:21→20:45)
[2019-11-15 06:22] LABS: Glucose,Whole Blood 112 mg/dL (75-99)
[2019-11-15] MEDS: SODIUM CHLORIDE 0.9% 1,000 ML IV SCH (06:22)
[2019-11-15 07:26] LABS: Basophils # (A) 0.1 k/uL (0-0.2); Basophils % (A) 1 %; Eosinophils # (A) 0.4 k/uL (0-0.7); Eosinophils % (A) 4 %; HGB 13.4 gm/dL (13.0-17.5); Lymphocytes # (A) 3.4 k/uL (1.0-4.8); Lymphocytes % (A) 37 %; MCH 29.4 pg (25.0-35.0); Mean Platelet Volume 8.7; Monocytes # (A) 0.7 k/uL (0-1.0); Monocytes % (A) 7 %; Neutrophils # (A) 4.5 k/uL (1.3-7.7); Neutrophils % (A) 48 %; Platelet Count 206 k/uL (150-450); RBC 4.57 m/uL (4.30-5.90); RDW 12.7 % (11.5-15.5); WBC 9.2 k/uL (3.8-10.6)
[2019-11-15 08:01] LABS: Glucose,Whole Blood 128 mg/dL (75-99)
[2019-11-15 08:07] LABS: African American GFR (CKD) >90 (>60 ml/min/1.73 sqM); Anion Gap 8 mmol/L; Blood Urea Nitrogen 9 mg/dL (9-20); Calcium 8.7 mg/dL (8.4-10.2); Carbon Dioxide 23 mmol/L (22-30); Chloride 106 mmol/L (98-107); Glucose 99 mg/dL (74-99); Non-African American GFR(CKD) >90 (>60 ml/min/1.73 sqM); Potassium 4.1 mmol/L (3.5-5.1); Sodium 137 mmol/L (137-145)
[2019-11-15] MEDS: lisinopriL 20 MG TAB PO SCH (09:20)
[2019-11-15] MEDS: PROPRANOLOL 40 MG TAB PO SCH (09:20)
[2019-11-15] MEDS: HEPARIN SODIUM,PORCINE 5,000 UNIT/ML 1 ML VIAL SQ SCH ×2 (09:21→20:41)
[2019-11-15] MEDS: FAMOTIDINE 20 MG TAB PO SCH ×2 (09:21→20:41)
[2019-11-15] MEDS: ATORVASTATIN 40 MG TAB PO SCH (09:21)
[2019-11-15] MEDS: DULoxetine HCL 60 MG CAPSULE.DR PO SCH (09:21)
[2019-11-15] MEDS: ASPIRIN 81 MG PO SCH (09:21)
--- NOTE | 2019-11-15 10:35 | P.PN ---
Subjective HISTORY OF PRESENTING ILLNESS This is a pleasant 43-year-old male past medical history significant for obese mellitus, hypertension, dyslipidemia, chronic nicotine dependence noncompliant. He does not follow regularly in the office with a quantitative analyst. He underwent cardiac catheterization per Dr. Daniel Alejandra [facility] March 2018 revealing normal coronary arteries with normal LVEDP. He is seen and examined resting comfortably laying flat sleeping in bed. He is in no acute distress. He continues to complain of discomfort across his chest 7 out of 10 but has constant since admission. He is complaining of dizziness. He underwent a CT of his brain that was unremarkable. Echocardiogram revealed low normal ejection fraction 45-50%. Currently maintained on aspirin 81 mg daily, atorvastatin 40 mg daily, lisinopril 40 mg daily and propanolol 40 mg twice a day. Blood pressure 145/92 heart rate 55 afebrile maintaining oxygen saturation on room air. Laboratory data reviewed, CBC unremarkable, sodium 137, potassium 4.1, creatinine 0.63. He is awaiting neurology evaluation. PHYSICAL EXAMINATION CONSTITUTIONAL: No apparent distress. HEENT: Head is normocephalic. Pupils are equal, round. Sclerae anicteric. Mucous membranes of the mouth are moist. No JVD. No carotid bruit. CHEST EXAMINATION: Lungs are clear to auscultation. No chest wall tenderness is noted on palpation or with deep breathing. HEART EXAMINATION: Regular rate and rhythm. S1, S2 heard. No murmurs, gallops or rub. EXTREMITIES: 2+ peripheral pulses, no lower extremity edema and no calf tenderness. ASSESSMENT Pain, atypical. An acute coronary event has been ruled out. Recent cardiac catheterization revealing normal coronary arteries March 2018. Hypertension Dyslipidemia Diabetes mellitus Chronic nicotine dependence Obesity, BMI 37 History of noncompliance PLAN Adjust propanolol dose to 20 mg TID for optimal dosing. We will continue to follow along as needed, please call with further questions or concerns. Nurse Practitioner note has been reviewed, I agree with a documented findings and plan of care. Patient was seen and examined. Objective - Vital Signs Vital signs: Vital Signs Temp 98.1 F 11/15/19 07:55 Pulse 55 L 11/15/19 07:55 Resp 16 11/15/19 07:55 BP 145/92 11/15/19 07:55 Pulse Ox 96 11/15/19 07:55 Intake & Output 07/11/15/19 11/15/19 18:59 06:59 18:59 Intake Total 1200 Balance 1200 Weight 128.82 kg Intake: Intake, IV Titration 1200 Amount Sodium Chloride 0.9% 1, 1200 000 ml @ 100 mls/hr IV . Q10H [facility] Rx#:[id number] Other: Voiding Method Toilet # Voids 5 1 - Labs CBC & Chem 7: 11/15/19 06:01 11/15/19 06:01 Labs: Abnormal Lab Results - Last 24 Hours (Table) 11/14/19 11/14/19 11/14/19 Range/Units 10:27 12:12 16:28 Creatinine (0.66-1.25) mg/dL POC Glucose (mg/dL) 214 H 157 H 178 H (75-99) mg/dL 11/14/19 11/15/19 11/15/19 Range/Units 21:13 00:40 04:30 Creatinine (0.66-1.25) mg/dL POC Glucose (mg/dL) 211 H 185 H 125 H (75-99) mg/dL 11/15/19 11/15/19 11/15/19 Range/Units 06:01 06:20 08:00 Creatinine 0.63 L (0.66-1.25) mg/dL POC Glucose (mg/dL) 112 H 128 H (75-99) mg/dL
[2019-11-15 11:46] LABS: Glucose,Whole Blood 170 mg/dL (75-99)
[2019-11-15 16:16] LABS: Glucose,Whole Blood 105 mg/dL (75-99)
[2019-11-15] MEDS: PROPRANOLOL 20 MG TAB PO SCH ×2 (16:23→23:11)
[2019-11-15 20:12] LABS: Glucose,Whole Blood 120 mg/dL (75-99)
[2019-11-15] MEDS: INSULIN DETEMIR (LEVEMIR) 100 UNIT/ML SYR SQ SCH (20:41)
[2019-11-15] MEDS: MONTELUKAST 10 MG TAB PO SCH (20:42)
[2019-11-15 23:22] LABS: Glucose,Whole Blood 92 mg/dL (75-99)
[2019-11-16 00:37] LABS: Glucose,Whole Blood 99 mg/dL (75-99)
[2019-11-16 02:22] LABS: Glucose,Whole Blood 108 mg/dL (75-99)
[2019-11-16 04:49] LABS: Glucose,Whole Blood 100 mg/dL (75-99)
[2019-11-16 05:04] VITALS: TEMP 98.2
[2019-11-16 06:35] LABS: Glucose,Whole Blood 103 mg/dL (75-99)
[2019-11-16] MEDS: DEXTROSE 5%-0.9% NACL 1,000 ML IV SCH (06:43)
[2019-11-16] MEDS: INSULIN ASPART (NovoLOG) 100 UNIT/ML VIAL SQ SCH ×2 (06:59→11:51)
[2019-11-16 08:01] VITALS: BP 132/75; PULSE 65; RESP 16
[2019-11-16 08:36] LABS: Glucose,Whole Blood 123 mg/dL (75-99)
[2019-11-16] MEDS: FAMOTIDINE 20 MG TAB PO SCH (09:01)
[2019-11-16] MEDS: lisinopriL 20 MG TAB PO SCH (09:01)
[2019-11-16] MEDS: ATORVASTATIN 40 MG TAB PO SCH (09:01)
[2019-11-16] MEDS: DULoxetine HCL 60 MG CAPSULE.DR PO SCH (09:01)
[2019-11-16] MEDS: HEPARIN SODIUM,PORCINE 5,000 UNIT/ML 1 ML VIAL SQ SCH (09:01)
[2019-11-16] MEDS: ASPIRIN 81 MG PO SCH (09:01)
[2019-11-16] MEDS: PROPRANOLOL 20 MG TAB PO SCH (09:07)
[2019-11-16 10:37] LABS: Glucose,Whole Blood 86 mg/dL (75-99)
[2019-11-16 14:42] LABS: Glucose,Whole Blood 166 mg/dL (75-99)
--- NOTE | 2019-11-16 15:18 | P.PN ---
Subjective Progress Note Date: 11/15/19 Principal diagnosis: Dizziness Mr. Lay is a 43-year-old male with a past medical history of diabetes mellitus, hypertension, COPD, right leg DVT about 5 to 6 years ago presenting with a chief complaint of dizziness. 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 He just started to work for the past 4 days only and since going to work he is having dizziness. He is feeling like the room is spinning and that he is about to fall but did not have a fall. He tried to break the fall by holding onto things that are nearby. On 11/14/2019 -patient is lying in bed appears to be in no acute distress. He states that he just had his lunch and started to feel nauseous. He states that his dizziness starts after he feels nauseous. Denies having any vomiting or abdominal pain. He feels like the room starts to spin. Denies having any headaches, no visual changes, no double vision. He denies having any ear ache or ear discharge. No sore throat. Patient denies having any chest pain or palpitations. No cough or difficulty in breathing. Denies having hematuria or dysuria. On reviewing the patient's vitals his blood pressure is 134/69 heart rate around 63, temperature of 98.3 saturating at 96% on room air. Patient's labs have been reviewed and within normal limits. Blood sugars have been running between 200s to 300s. On 11/15/2019 - patient is lying in bed and appears to be in no acute distress. Patient received 120 units of Levemir last night and his blood sugars have been slightly on the lower side. As per nursing staff report patient has been up to keep that and not eating his meals. Patient denies having any chest pain. No cough or difficulty in breathing. No guarding pain nausea vomiting or diarrhea. He states that his dizziness is there, but improved. Reviewed patient's vitals and labs that are within normal limits for today. Objective - Vital Signs Vital signs: Vital Signs Temp 98.1 F 11/15/19 07:55 Pulse 55 L 11/15/19 07:55 Resp 16 11/15/19 07:55 BP 145/92 11/15/19 07:55 Pulse Ox 96 11/15/19 07:55 Intake & Output 11/14/19 11/15/19 11/15/19 18:59 06:59 18:59 Intake Total 1200 200 Balance 1200 200 Weight 128.82 kg Intake: Intake, IV Titration 1200 Amount Sodium Chloride 0.9% 1, 1200 000 ml @ 100 mls/hr IV . Q10H [facility] Rx#:[id number] Oral 200 Other: Voiding Method Toilet # Voids 5 1 - Exam PHYSICAL EXAM GENERAL: The patient is alert and oriented x3, not in any acute distress. Well developed, well nourished. HEENT: No pallor. No icterus. CARDIOVASCULAR: S1 and S2 present. No murmurs, rubs, or gallops. PULMONARY: Chest is clear to auscultation, no wheezing or crackles. ABDOMEN: Soft, nontender, nondistended, normoactive bowel sounds. MUSCULOSKELETAL: No joint swelling or deformity. EXTREMITIES: No cyanosis, clubbing, or pedal edema. NEUROLOGICAL: Gross neurological examination did not reveal any focal deficits. SKIN: No rashes. No petechiae - Labs CBC & Chem 7: 11/15/19 06:01 11/15/19 06:01 Labs: Abnormal Lab Results - Last 24 Hours (Table) 11/14/19 11/14/19 11/14/19 Range/Units 12:12 16:28 21:13 Creatinine (0.66-1.25) mg/dL POC Glucose (mg/dL) 157 H 178 H 211 H (75-99) mg/dL 11/15/19 11/15/19 11/15/19 Range/Units 00:40 04:30 06:01 Creatinine 0.63 L (0.66-1.25) mg/dL POC Glucose (mg/dL) 185 H 125 H (75-99) mg/dL 11/15/19 11/15/19 Range/Units 06:20 08:00 Creatinine (0.66-1.25) mg/dL POC Glucose (mg/dL) 112 H 128 H (75-99) mg/dL Assessment and Plan Assessment: ASSESSMENT Dizziness -work-up in progress Hypertension Type 2 diabetes mellitus COPD History of DVT not on anticoagulation Obesity with BMI of 37.5 PLAN: Patient's vitals and labs for today within normal limits. Work-up so far for [id number] at 0.66, CT Angio of the chest negative for PE echocardiogram done showing ejection fraction of 45 to 50%, diastolic filling abnormality. Further his diabetes, patient states he has been taking 120 units of insulin, but that seem to make too much of a dose for him so he was only given 60 units of Lantus yesterday, his blood sugars are ranging between 200s to 300s. Will order a CAT scan of the head and also carotid artery Doppler as a part of work-up for dizziness. Patient has history of DVT but has been off of anticoagulation, so currently he has not been started on any anticoagulation. Heparin for DVT prophylaxis. Continue with aspirin and statin continue with the rest of his current medication regimen.Neurology has been consulted, they are not available over the weekend. 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
--- NOTE | 2019-11-16 15:37 | P.DS ---
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 Lay is a 43-year-old male with a past medical history of COPD, that is not has, hypertension, right leg DVT not on anticoagulation, coming in with the chief complaint of dizziness. 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 He felt like the room was spinning for 2 minutes and would go back to normal. Since being in the hospital, workup for dizziness has been done with, CTA of the chest that was negative for PE. Echocardiogram showing ejection fraction of 45-50%. CT of the head is negative. Bilateral carotid artery Doppler within normal limits except for mild plaque bilaterally. Patient was evaluated by cardiology, and his propranolol dose was adjusted to 20 mg 3 times a day. Patient was also evaluated by neurology and they cleared him for discharge. Vital Signs 11/16/19 07:56 Temperature 98.2 F Pulse Rate [ 65 Left Supine] Respiratory 16 Rate Blood Pressure 132/75 [Left Arm Supine] O2 Sat by Pulse 93 L Oximetry PHYSICAL EXAM GENERAL: The patient is alert and oriented x3, not in any acute distress. Well developed, well nourished. HEENT: No pallor. No icterus. CARDIOVASCULAR: S1 and S2 present. No murmurs, rubs, or gallops. PULMONARY: Chest is clear to auscultation, no wheezing or crackles. ABDOMEN: Soft, nontender, nondistended, normoactive bowel sounds. MUSCULOSKELETAL: No joint swelling or deformity. EXTREMITIES: No cyanosis, clubbing, or pedal edema. NEUROLOGICAL: Gross neurological examination did not reveal any focal deficits. SKIN: No rashes. No petechiae DISCHARGE DIAGNOSIS Dizziness- probably due to overdosing of insulin Hypertension Type 2 diabetes mellitus COPD History of DVT not on anticoagulation Obesity with BMI of 37.5 PLAN: Patient has been advised to cut down and on his insulin, he has been taking 120 units in the morning and 60 units of Levemir at night. During his hospital stay he was given 120 units, even with this dose, patient dropped his blood sugars in the mornings. So he is advised to take 60 units of insulin daily and NovoLog 18 units with meals. Aspirin 81 mg has been added to his regimen. Propranolol has been changed from 40 mg twice a day to 20 mg 3 times a day. Patient is advised to follow-up with his PCP in 2-3 days. More than 35 minutes spent towards the discharge of the patient. Patient Condition at Discharge: Good Plan - Discharge Summary Discharge Rx Participant: No New Discharge Prescriptions: New Aspirin 81 mg PO DAILY 30 Days #30 chew Continue Lisinopril 40 mg PO DAILY Insulin Glargine [Lantus] 60 unit SQ HS INSULIN LISPRO (humaLOG) [humaLOG] 18 units SQ BID Docusate [Colace] 100 mg PO DAILY PRN PRN Reason: Constipation DULoxetine HCL [Cymbalta] 60 mg PO DAILY Atorvastatin Calcium [Lipitor] 20 mg PO DAILY metFORMIN HCL ER [Glucophage Xr] 1,000 mg PO W/SUPPER Propranolol HCl 40 mg PO BID Montelukast Sodium [Singulair] 10 mg PO HS Discharge Medication List Atorvastatin Calcium [Lipitor] 20 mg PO DAILY 11/13/19 [History] DULoxetine HCL [Cymbalta] 60 mg PO DAILY 11/13/19 [History] Docusate [Colace] 100 mg PO DAILY PRN 11/13/19 [History] INSULIN LISPRO (humaLOG) [humaLOG] 18 units SQ BID 11/13/19 [History] Insulin Glargine [Lantus] 60 unit SQ HS 11/13/19 [History] Lisinopril 40 mg PO DAILY 11/13/19 [History] Montelukast Sodium [Singulair] 10 mg PO HS 11/13/19 [History] Propranolol HCl 40 mg PO BID 11/13/19 [History] metFORMIN HCL ER [Glucophage Xr] 1,000 mg PO W/SUPPER 11/13/19 [History] Aspirin 81 mg PO DAILY 30 Days #30 chew 11/16/19 [Rx] Follow up Appointment(s)/Referral(s): Trell Cantu MD [STAFF PHYSICIAN] - 11/27/19 1:15 pm David Bentley MD [Primary Care Provider] - 1-2 days Patient Instructions/Handouts: Chest Pain (DC), Dizziness (GEN) Activity/Diet/Wound Care/Special Instructions: Patient to be admitted Discharge Disposition: HOME SELF-CARE
--- NOTE | 2019-11-16 16:22 | P.CNNES ---
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 Patient states that on 11/10/2019 he started work at 3 PM. About 2 hours into work, at around 5:30 PM, he started feeling sweaty, nauseous and dizzy. He couldn't continue to work, left work at 6:30 PM. He went home, rested, felt wanted to throw up. He felt fine however. Next morning he was fine. He again went to work at 3 PM. Around the same time at 5 to 5:30 PM, started with similar symptoms with sweating, nausea and dizziness. He pushed himself an worked until 11 PM. He went home, relaxed and felt better. Next a on , his friend drove him to work and while he was the car at 2:30 PM, he again started having similar symptoms as mentioned above. Patient states that he reported to his boss, who fired him from work immediately and told him to go to ER. He arrived ER on , 11/12/2027 to 2:39 PM. His blood pressure on arrival was 154/81, pulse rate 69 and temperature 98. Patient underwent Chest x-ray showed chronic changes without acute cardiopulmonary process. EKG showed normal sinus rhythm. Nonspecific T-wave abnormality. 2-D echo showed moderate concentric LVH. EF is mildly impaired, 45-50%. Normal left atrial size. CTA chest negative for embolism. Carotid Doppler showed no hemodynamically significant stenosis on either side. Mild plaque bilaterally. Antegrade flow in both vertebral arteries. CT head from 11/14/2019, (2 days after presentation) showed no acute intracranial abnormality. Patient's previous MRI of the lumbar spine from 07/13/2015 showed increasing degenerative changes L5-S1 level is noted with suspected effacement of right L5 nerve. Hemoglobin A1c 10.1 on 11/13/2019. Patient does have evidence of diabetes as far as October 2013, when his A1c was 9.1. Hepatic panel normal. Patient's cholesterol is 168, LDL 96, HDL 34 and triglycerides 189. TSH was checked urgently, came back normal 1.130. Patient states that he has history of diabetes since 2004. He has hypertension. Patient is a very very light smoker (states smokes 1 cigarette a week). He does not take any antiplatelet medication at home. Patient also states that he takes insulin 60 units in the morning, 60 units at lunch and 120 units before dinner. He also tells me that each day he went to work, he did not have breakfast although he took his insulin as usual. I suspect he may be having hypoglycemic episodes leading to these symptoms. He denies any slurred speech f acial droop, double vision focal numbness tingling or weakness. Patient was also seen by magneto specialist, who has mentioned that patient had undergone cardiac catheterization in March 2018 revealing normal coronary arteries with normal LVEDP. Their impression is atypical chest pain Review of Systems As per HPI. All other review of systems unremarkable. At present he feels fine. Patient denies any problems with hearing, tinnitus, sinus congestion, recent upper respiratory infection. Past Medical History Past Medical History: COPD, Diabetes Mellitus, Deep Vein Thrombosis (DVT), Hypertension Additional Past Medical History / Comment(s): back pain with pinched nerve, migraines. History of Any Multi-Drug Resistant Organisms: None Reported Past Surgical History: Appendectomy Additional Past Surgical History / Comment(s): oral surgery, Past Anesthesia/Blood Transfusion Reactions: No Reported Reaction Past Psychological History: Anxiety, Depression Smoking Status: Current some day smoker Past Alcohol Use History: None Reported Past Drug Use History: None Reported - Past Family History Brother(s) Additional Family Medical History / Comment(s): tumor of brain - at 34 Medications and Allergies Home Medications Medication Instructions Recorded Confirmed Type Atorvastatin Calcium [Lipitor] 20 mg PO DAILY 11/13/19 11/13/19 History DULoxetine HCL [Cymbalta] 60 mg PO DAILY 11/13/19 11/13/19 History Docusate [Colace] 100 mg PO DAILY PRN 11/13/19 11/13/19 History INSULIN LISPRO (humaLOG) [humaLOG] 18 units SQ BID 11/13/19 11/13/19 History Insulin Glargine [Lantus] 60 unit SQ HS 11/13/19 11/13/19 History Lisinopril 40 mg PO DAILY 11/13/19 11/13/19 History Montelukast Sodium [Singulair] 10 mg PO HS 11/13/19 11/13/19 History metFORMIN HCL ER [Glucophage Xr] 1,000 mg PO W/SUPPER 11/13/19 11/13/19 History Aspirin 81 mg PO DAILY 30 Days #30 chew 11/16/19 Rx Propranolol [Inderal] 20 mg PO TID 30 Days #90 tab 11/16/19 Rx Allergies Allergy/AdvReac Type Severity Reaction Status Date / Time No Known Allergies Allergy Verified 11/12/19 14:46 Physical Examination - Vital Signs Vital Signs: Vital Signs Temp Pulse Pulse Pulse Resp BP BP 11/16/19 07:56 98.2 F 65 16 132/75 11/16/19 03:00 98.2 F 54 L 18 126/76 11/15/19 21:00 98.5 F 52 L 16 124/73 11/15/19 14:55 98.1 F 56 L 16 156/93 Pulse Ox 11/16/19 07:56 93 L 11/16/19 03:00 97 11/15/19 21:00 96 11/15/19 14:55 98 Intake and Output 11/15/19 11/16/19 11/16/19 22:59 06:59 14:59 Intake Total 720 1000 690 Balance 720 1000 690 Intake: Intake, IV Titration 1000 Amount Dextrose 5%-0.9% NaCl 1, 1000 000 ml @ 125 mls/hr IV . Q8H [facility] Rx#:[id number] Oral 720 690 Other: Voiding Method Toilet Toilet # Voids 2 Weight 128.82 kg On examination patient is a middle aged male, in no acute distress. He is alert and awake, in no distress. Patient's mental status, speech and language functions are normal. Attention and concentration, fund of knowledge is adequate. On cranial nerve examination pupils are round and reacting to lig ht, visual ng are full on confrontation. Extraocular muscles are intact with no nystagmus. Face is symmetric, tongue protrudes the midline. Palatal elevation and sensation normal. Hearing and shoulder shrug normal. On muscle strength testing there is no pronator drift and the strength is normal in arms and legs distally and proximally. Reflexes are diminished and plantars are downgoing. Sensory touch is equal. No ataxia for [id number] or [id number]-[id number] testing. Tone and bulk of muscles normal. Gait appears normal. There is no obvious bruit, S1 is audible. There is mild peripheral edema. Results - Laboratory Findings CBC and BMP: 11/15/19 06:01 11/15/19 06:01 Abnormal Lab Findings: Abnormal Labs 11/12/19 11/12/19 11/12/19 14:43 15:29 15:29 INR 1.2 H D-Dimer Sodium 136 L Chloride Creatinine Glucose 298 H POC Glucose (mg/dL) 291 H Hemoglobin A1c Triglycerides HDL Cholesterol 11/13/19 11/13/19 11/13/19 06:54 07:47 07:51 INR D-Dimer Sodium Chloride Creatinine Glucose POC Glucose (mg/dL) 223 H Hemoglobin A1c 10.1 H Triglycerides 189 H HDL Cholesterol 34 L 11/13/19 11/13/19 11/13/19 15:38 16:41 21:38 INR D-Dimer 0.66 H Sodium Chloride Creatinine Glucose POC Glucose (mg/dL) 245 H 186 H Hemoglobin A1c Triglycerides HDL Cholesterol 11/13/19 11/14/19 11/14/19 22:59 00:54 02:37 INR D-Dimer Sodium Chloride Creatinine Glucose POC Glucose (mg/dL) 311 H 254 H 245 H Hemoglobin A1c Triglycerides HDL Cholesterol 11/14/19 11/14/19 11/14/19 04:32 05:47 06:12 INR D-Dimer Sodium Chloride 109 H Creatinine Glucose 167 H POC Glucose (mg/dL) 237 H 166 H Hemoglobin A1c Triglycerides HDL Cholesterol 11/14/19 11/14/19 11/14/19 08:00 10:27 12:12 INR D-Dimer Sodium Chloride Creatinine Glucose POC Glucose (mg/dL) 116 H 214 H 157 H Hemoglobin A1c Triglycerides HDL Cholesterol 11/14/19 11/14/19 11/15/19 16:28 21:13 00:40 INR D-Dimer Sodium Chloride Creatinine Glucose POC Glucose (mg/dL) 178 H 211 H 185 H Hemoglobin A1c Triglycerides HDL Cholesterol 11/15/19 11/15/19 11/15/19 04:30 06:01 06:20 INR D-Dimer Sodium Chloride Creatinine 0.63 L Glucose POC Glucose (mg/dL) 125 H 112 H Hemoglobin A1c Triglycerides HDL Cholesterol 11/15/19 11/15/19 11/15/19 08:00 11:45 16:15 INR D-Dimer Sodium Chloride Creatinine Glucose POC Glucose (mg/dL) 128 H 170 H 105 H Hemoglobin A1c Triglycerides HDL Cholesterol 11/15/19 11/16/19 11/16/19 20:10 02:19 04:46 INR D-Dimer Sodium Chloride Creatinine Glucose POC Glucose (mg/dL) 120 H 108 H 100 H Hemoglobin A1c Triglycerides HDL Cholesterol 11/16/19 11/16/19 06:33 08:35 INR D-Dimer Sodium Chloride Creatinine Glucose POC Glucose (mg/dL) 103 H 123 H Hemoglobin A1c Triglycerides HDL Cholesterol Assessment and Plan Assessment: * Recurrent episodes of sweating, dizziness, lightheadedness and nausea, exact etiology uncertain. Doubt cerebrovascular in origin with lack of any focal findings on examination with normal CT head. Cerebellar TIAs less likely. Cardiac etiology (CAD) also in differential. Cellar Hand has seen the patient and felt atypical chest pain. Patient does have history of diabetes, which is poorly controlled. Patient apparently had taken his insulin, in the morning and at noon, but not eaten his breakfast on each of the 3 days that he was symptomatic, therefore hypoglycemia is also in the differential. Unfortunately blood sugars were not checked at that time. Patient has long- standing history of diabetes, which is poorly controlled, but does not have a glucometer to monitor his glucose. * Hypertension * Diabetes, poorly controlled * Obesity * Dyslipidemia * Plan: * Patient was recommended to start aspirin 81 mg daily, and continue indefinitely. * Continue statins. * TSH was checked, and is normal. * Carotid Doppler and computed tomography scan of head are normal. * Aggressive control of stroke risk factors, including optimize control of diabetes to target hemoglobin A1c <7.0. * Patient to be provided with a glucometer machine, to check blood glucose if he again develops symptoms. * Follow with his primary physician closely.
[2019-11-16] MEDS ORDERED: INSULIN DETEMIR (LEVEMIR) 100 UNIT/ML SYR SQ SCH (21:00)
== END 2019-11-16 16:15 | disposition home or self-care (01) ==
LOC: EC 14:39 → 3NCARDOBS 18:07
PROVIDERS: ADMIT Internal Medicine; ATTEND Internal Medicine
DX: R42 Dizziness and giddiness (principal); I10 Essential (primary) hypertension; E11.649 Type 2 diabetes mellitus with hypoglycemia without coma; J44.9 Chronic obstructive pulmonary disease, unspecified; E66.9 Obesity, unspecified; R07.89 Other chest pain; F41.9 Anxiety disorder, unspecified; T50.906A Underdosing of unspecified drugs, medicaments and biological substances, initial encounter; G43.909 Migraine, unspecified, not intractable, without status migrainosus; F32.9 Major depressive disorder, single episode, unspecified; R94.31 Abnormal electrocardiogram [ECG] [EKG]; I65.23 Occlusion and stenosis of bilateral carotid arteries; R79.1 Abnormal coagulation profile; E78.5 Hyperlipidemia, unspecified; R60.0 Localized edema; I25.10 Atherosclerotic heart disease of native coronary artery without angina pectoris; F17.290 Nicotine dependence, other tobacco product, uncomplicated; F17.210 Nicotine dependence, cigarettes, uncomplicated; Z68.37 Body mass index [BMI] 37.0-37.9, adult; Z98.890 Other specified postprocedural states; Z91.128 Patient's intentional underdosing of medication regimen for other reason; Z03.818 Encounter for observation for suspected exposure to other biological agents ruled out; Z86.718 Personal history of other venous thrombosis and embolism; Z87.39 Personal history of other diseases of the musculoskeletal system and connective tissue; Z90.49 Acquired absence of other specified parts of digestive tract; Z79.4 Long term (current) use of insulin; Z79.899 Other long term (current) drug therapy; Z59.0 Homelessness; Z82.0 Family history of epilepsy and other diseases of the nervous system
CPT/HCPCS: 93005 ×2; 96361 ×3; 96372 ×4; 96375 ×2; 96374; 99285; 36415; 85379; 80061; 80053; 80048 ×2; 84443; 82607; 82746; 83735; 84484; 85025 ×3; 85610; 85730; 83036; 71046; 93880; 70450; 71275; G0378 ×5; C8929; U0003; J1644 ×4; J2405; Q9950; Q9967; 93306

== ENCOUNTER → 2020-05-19 | Outpatient (CLI) | payer OTHER ==
--- NOTE | 2020-05-19 15:45 | XR ---
EXAMINATION TYPE: XR cervical spine comp DATE OF EXAM: 05/19/2020 COMPARISON: NONE HISTORY: Pain TECHNIQUE: Four views are submitted. FINDINGS: The odontoid is intact. There are no compression deformities. The prevertebral soft tissue structur es are within normal limits. Calcification the soft tissues of the left neck likely related carotid artery calcification. Hypertrophic and degenerative changes involving the mid and lower spine. Alignm ent is demonstrated level C6. IMPRESSION: 1. Alignment only demonstrated level C6 demonstrates multilevel hypertrophic and degenerative changes .
--- NOTE | 2020-05-19 15:46 | XR ---
EXAMINATION TYPE: XR shoulder complete RT DATE OF EXAM: 05/19/2020 COMPARISON: NONE HISTORY: Pain TECHNIQUE: Three views are submitted. FINDINGS: The osseous structures are intact. There is no acute fracture or dislocation. Mild hypertrophic gomez ges of the AC joint. IMPRESSION: 1. Mild AC joint arthropathy.
--- NOTE | 2020-05-19 15:47 | XR ---
EXAMINATION TYPE: XR thoracic spine 2V DATE OF EXAM: 05/19/2020 COMPARISON: NONE HISTORY: Pain TECHNIQUE: 3 views submitted FINDINGS: Alignment is anatomic. There is no compression deformities. Multilevel mild to moderate hypertrophic and degenerative changes. IMPRESSION: 1. Multilevel mild to moderate degenerative disc disease.
== END | disposition home or self-care (01) ==
LOC: RADXRMAIN 14:55
PROVIDERS: ATTEND Physician Assistant
DX: M51.34 Other intervertebral disc degeneration, thoracic region (principal); M47.812 Spondylosis without myelopathy or radiculopathy, cervical region; M89.38 Hypertrophy of bone, other site; M12.811 Other specific arthropathies, not elsewhere classified, right shoulder
CPT/HCPCS: 72050; 72070

== ENCOUNTER 2020-09-01 16:33 | Emergency (ER) | payer OTHER ==
[2020-09-01 17:15] VITALS: RESP 18
[2020-09-01] MEDS ORDERED: ACET/COD 300 MG/30 MG STARTER PACK 6 TAB BTL PO STA (18:18)
--- NOTE | 2020-09-01 18:20 | ED ---
Upper Extremity HPI - General Source: patient Mode of arrival: ambulatory Limitations: no limitations <Kenna Queen - Last Filed: 09/01/20 19:32> <Lashonda Alejandre - Last Filed: 09/02/20 23:07> - General Chief Complaint: Extremity Injury, Upper Stated Complaint: R Shoulder Pain Time Seen by Provider: 09/01/20 17:30 - History of Present Illness Initial Comments: 44-year-old male presenting for multiple complaints. Patient states that he has had a skin tag on his scrotum for months he states he had a previous one removed in [place]. Patient states that it is so large is now hurting he denies any peeling cracking or bleeding he denies any pain in the testicle itself states it is just of the skin of the scrotum. Patient also states that he was told he had a right shoulder bursitis, and needed an MRI. Patient states he thought he could get a MRI in the ER today. Patient denies any penile lesions fevers dysuria urgency frequency hematuria he denies any shoulder redness he states that the right shoulder pain was worsened after lifting some heavy pots for a friend. Patient has been seeing a phyiscian for the right shoulder outpatient. pt denies chest pain, dyspnea, extremity swelling, weakness of the UE. Patient has no additional complaints. Denies falls. Patient appears well nontoxic in no acute ditress. BP elevated, pt states he needs to take him BP medications. (Kenna Queen) - Related Data Home Medications Medication Instructions Recorded Confirmed Atorvastatin Calcium [Lipitor] 20 mg PO DAILY 11/13/19 11/13/19 DULoxetine HCL [Cymbalta] 60 mg PO DAILY 11/13/19 11/13/19 Docusate [Colace] 100 mg PO DAILY PRN 11/13/19 11/13/19 INSULIN LISPRO (humaLOG) [humaLOG] 18 units SQ BID 11/13/19 11/13/19 Insulin Glargine [Lantus] 60 unit SQ HS 11/13/19 11/13/19 Montelukast Sodium [Singulair] 10 mg PO HS 11/13/19 11/13/19 lisinopriL 40 mg PO DAILY 11/13/19 11/13/19 metFORMIN HCL ER [Glucophage Xr] 1,000 mg PO W/SUPPER 11/13/19 11/13/19 Previous Rx's Medication Instructions Recorded Aspirin 81 mg PO DAILY 30 Days #30 chew 11/16/19 Propranolol [Inderal] 20 mg PO TID 30 Days #90 tab 11/16/19 Allergies Allergy/AdvReac Type Severity Reaction Status Date / Time No Known Allergies Allergy Verified 09/01/20 17:15 Review of Systems ROS Other: All systems not noted in ROS Statement are negative. <Kenna Queen - Last Filed: 09/01/20 19:32> ROS Other: All systems not noted in ROS Statement are negative. <HillLashonda Sanchez - Last Filed: 09/02/20 23:07> ROS Statement: Those systems with pertinent positive or pertinent negative responses have been documented in the HPI. Past Medical History Past Medical History: COPD, Diabetes Mellitus, Deep Vein Thrombosis (DVT), Hypertension Additional Past Medical History / Comment(s): back pain with pinched nerve, benjamin soheila. History of Any Multi-Drug Resistant Organisms: None Reported Past Surgical History: Appendectomy Additional Past Surgical History / Comment(s): oral surgery, Past Anesthesia/Blood Transfusion Reactions: No Reported Reaction Past Psychological History: Anxiety, Depression Smoking Status: Current some day smoker Past Alcohol Use History: None Reported Past Drug Use History: None Reported - Past Family History Brother(s) Additional Family Medical History / Comment(s): tumor of brain - at 34 <Kenna Queen - Last Filed: 09/01/20 19:32> General Exam Limitations: no limitations <Kenna Queen - Last Filed: 09/01/20 19:32> - General Exam Comments Initial Comments: General: The patient is awake and alert, in no distress Eye: Pupils are equal, round and reactive to light, extra-ocular movements are intact. No nystagmus. There is normal conjunctiva bilaterally. No signs of icterus. Ears, nose, mouth and throat: There are moist mucous membranes and no oral lesions. Neck: The neck is supple, there is no tenderness or JVD. Cardiovascular: There is a regular rate and rhythm. No murmur, rub or gallop is appreciated. Respiratory: Lungs are clear to auscultation, respirations are non-labored, breath sounds are equal. No wheezes, stridor, rales, or rhonchi. Gastrointestinal: Soft, non-distended, non-tender abdomen without masses or organomegaly noted. There is no rebound or guarding present. : pedunculated skin color lesion on right testicle, handing roughly [id number] Musculoskeletal: Normal ROM, no tenderness. Strength 5/5. Sensation intact. Radial pulses equal bilaterally 2+. Patient is able to make the okay sign, thumbs-up ,oppose all digits and thumb, extned and flex at the wrist. Neurological: A&O x 3. CN II-XII intact grossly, There are no obvious motor or sensory deficits. Coordination appears grossly intact. Speech is normal. Skin: Skin is warm and dry and no rashes or lesions are noted. Psychiatric: Cooperative, appropriate mood & affect, normal judgment. (Kenna Queen) Course Vital Signs 09/01/20 09/01/20 17:12 18:41 Temperature 98 F 98.7 F Pulse Rate 116 H 102 H Respiratory 18 18 Rate Blood Pressure 156/95 196/117 O2 Sat by Pulse 98 97 Oximetry Medical Decision Making <Kenna Queen - Last Filed: 09/01/20 19:32> <Lashonda Alejandre - Last Filed: 09/02/20 23:07> - Medical Decision Making XR no acute process. hx of buritis/rotator injury. increased with movement and after lifting. patient denies direct trauma. pt neurovascularly intact. scrotum has a pedunculated lesion with stalk on the right testicle. skin color, no bleeding. no testicular swelling, no pain to papation of the remaining testicul/scrotum. patient has no additioned complaints. BP elevated states he will take medications when he gets home, denies headaches nausea vomiting visual changes chest pain shortness of breath or changes in urination. Ibach and the patient have biopsy and removal of the suspected skin tag like lesion of testicl e to r/o a malignant source as well as f/u with orthopedics for srugery. pt provided referrals and discharged appearing well. Dr Alejandre agreeable to care plan. (Kenna Queen) I was available for consultation in the emergency department. The history and physical exam were done by the midlevel provider. I was consulted for this patients care. I reviewed the case with the midlevel provider and based on their presentation of the patient, I agree with the assessment, medical decision making and plan of care as documented. Chart was dictated using Spread[employer] dictation software. Attempts were made to correct any dictation errors however some typographical errors may persist. Patient was seen during a national state of emergency due to the Covid-19 pandemic. (Lashonda Alejandre) Disposition Is patient prescribed a controlled substance at d/c from ED?: No Time of Disposition: 18:20 <Kenna Queen - Last Filed: 09/01/20 19:32> <Lashonda Alejandre - Last Filed: 09/02/20 23:07> Clinical Impression: Right shoulder pain, Right shoulder strain, Scrotal skin lesion Disposition: HOME SELF-CARE Condition: Good Instructions (If sedation given, give patient instructions): R.I.C.E. Treatment (ED) Additional Instructions: Please use medication as discussed. Please follow-up with family doctor in the next 2 days, recommend orthopedic follow-up, and urology or dermatology follow- up for scrotal skin lesion. Please return to emergency room if the symptoms increase or worsen or for any other concerns. Referrals: Reji Hanson MD [Primary Care Provider] - 1-2 days Nabil Reyes MD [STAFF PHYSICIAN] - 1-2 days Randall Wagner MD [STAFF PHYSICIAN] - 1-2 days
--- NOTE | 2020-09-01 18:31 | XR ---
EXAMINATION TYPE: XR shoulder complete RT DATE OF EXAM: 09/01/2020 COMPARISON: 05/19/2020 HISTORY: Shoulder pain TECHNIQUE: 3 views FINDINGS: I see no fracture nor dislocation. Glenohumeral joint is intact. There are no erosions. The re are no pathologic calcifications. IMPRESSION: Negative right shoulder exam. No fracture.
[2020-09-01 18:46] VITALS: BP 196/117; PULSE 102; TEMP 98.7
== END 2020-09-01 18:41 | disposition home or self-care (01) ==
LOC: EC 16:33
DX: S46.911A Strain of unspecified muscle, fascia and tendon at shoulder and upper arm level, right arm, initial encounter (principal); N50.89 Other specified disorders of the male genital organs; J44.9 Chronic obstructive pulmonary disease, unspecified; I10 Essential (primary) hypertension; E11.9 Type 2 diabetes mellitus without complications; F41.9 Anxiety disorder, unspecified; F32.9 Major depressive disorder, single episode, unspecified; G43.909 Migraine, unspecified, not intractable, without status migrainosus; F17.200 Nicotine dependence, unspecified, uncomplicated; Z86.718 Personal history of other venous thrombosis and embolism; Z79.82 Long term (current) use of aspirin; Z79.4 Long term (current) use of insulin; X50.0XXA Overexertion from strenuous movement or load, initial encounter
CPT/HCPCS: 99283

== ENCOUNTER 2020-09-19 14:02 | Observation (INO) | payer OTHER ==
[2020-09-19 14:42] LABS: Basophils # (A) 0.1 k/uL (0-0.2); Basophils % (A) 1 %; Eosinophils # (A) 0.3 k/uL (0-0.7); Eosinophils % (A) 3 %; HCT 44.7 % (39.0-53.0); HGB 15.7 gm/dL (13.0-17.5); Lymphocytes # (A) 2.7 k/uL (1.0-4.8); Lymphocytes % (A) 29 %; MCH 30.9 pg (25.0-35.0); MCHC 35.1 g/dL (31.0-37.0); Mean Platelet Volume 7.6; Monocytes # (A) 0.4 k/uL (0-1.0); Monocytes % (A) 5 %; Neutrophils # (A) 5.8 k/uL (1.3-7.7); Neutrophils % (A) 61 %; Platelet Count 248 k/uL (150-450); RBC 5.08 m/uL (4.30-5.90); RDW 12.5 % (11.5-15.5); WBC 9.5 k/uL (3.8-10.6)
[2020-09-19 14:52] LABS: INR 1.1 (<1.2); Partial Thromboplastin Time 25.4 sec (22.0-30.0); Prothrombin Time 11.7 sec (9.0-12.0)
[2020-09-19 14:54] LABS: ALT 20 U/L (4-49); AST 22 U/L (17-59); African American GFR (CKD) >90 (>60 ml/min/1.73 sqM); Albumin 4.5 g/dL (3.5-5.0); Alkaline Phosphatase 125 U/L (38-126); Anion Gap 9 mmol/L; Blood Urea Nitrogen 12 mg/dL (9-20); Calcium 10.2 mg/dL (8.4-10.2); Carbon Dioxide 25 mmol/L (22-30); Chloride 101 mmol/L (98-107); Glucose 340 mg/dL (74-99); Magnesium 1.7 mg/dL (1.6-2.3); Non-African American GFR(CKD) >90 (>60 ml/min/1.73 sqM); Potassium 3.9 mmol/L (3.5-5.1); Sodium 135 mmol/L (137-145); Total Bilirubin 0.5 mg/dL (0.2-1.3); Total Protein 7.6 g/dL (6.3-8.2)
[2020-09-19] MEDS ORDERED: NITROGLYCERIN OINT 1 INCH/GM PACKET TOPICAL STA (15:26)
[2020-09-19] MEDS ORDERED: ASPIRIN 81 MG PO STA (15:26)
--- NOTE | 2020-09-19 15:48 | ED ---
General Adult HPI - General Chief complaint: Chest Pain Stated complaint: Chest Pain, SOB Time Seen by Provider: 09/19/20 14:10 Source: patient, RN notes reviewed, old records reviewed Mode of arrival: ambulatory Limitations: no limitations - History of Present Illness Initial comments: This a 44-year-old male presents emergency Department complaining of chest pain. Patient states woke him up last night twice and he states when he has the chest pain there is shortness of breath associated with it. Patient denies any diaphoretic episodes. Patient denies any recent fever chills or cough per patient has any recent trauma. Patient states currently he is pacing chest pain. Patient states earlier today was coming and going and lasting only a few minutes but now it is been more persistent. Patient states he is a diabetic with high blood pressure and high cholesterol. Patient states she quit smoking 2 years ago. - Related Data Home Medications Medication Instructions Recorded Confirmed Atorvastatin Calcium [Lipitor] 20 mg PO DAILY 11/13/19 11/13/19 DULoxetine HCL [Cymbalta] 60 mg PO DAILY 11/13/19 11/13/19 Docusate [Colace] 100 mg PO DAILY PRN 11/13/19 11/13/19 INSULIN LISPRO (humaLOG) [humaLOG] 18 units SQ BID 11/13/19 11/13/19 Insulin Glargine [Lantus] 60 unit SQ HS 11/13/19 11/13/19 Montelukast Sodium [Singulair] 10 mg PO HS 11/13/19 11/13/19 lisinopriL 40 mg PO DAILY 11/13/19 11/13/19 metFORMIN HCL ER [Glucophage Xr] 1,000 mg PO W/SUPPER 11/13/19 11/13/19 Previous Rx's Medication Instructions Recorded Aspirin 81 mg PO DAILY 30 Days #30 chew 11/16/19 Propranolol [Inderal] 20 mg PO TID 30 Days #90 tab 11/16/19 Allergies Allergy/AdvReac Type Severity Reaction Status Date / Time No Known Allergies Allergy Verified 09/19/20 16:28 Review of Systems ROS Statement: Those systems with pertinent positive or pertinent negative responses have been documented in the HPI. ROS Other: All systems not noted in ROS Statement are negative. Past Medical History Past Medical History: COPD, Diabetes Mellitus, Deep Vein Thrombosis (DVT), Hypertension Additional Past Medical History / Comment(s): back pain with pinched nerve, migraines. History of Any Multi-Drug Resistant Organisms: None Reported Past Surgical History: Appendectomy Additional Past Surgical History / Comment(s): oral surgery, Past Anesthesia/Blood Transfusion Reactions: No Reported Reaction Past Psychological History: Anxiety, Depression Smoking Status: Former smoker Past Alcohol Use History: None Reported Past Drug Use History: None Reported - Past Family History Brother(s) Additional Family Medical History / Comment(s): tumor of brain - at 34 General Exam - General Exam Comments Initial Comments: GENERAL: Patient is well-developed and well-nourished. Patient is nontoxic and well- hydrated and is in mild distress. ENT: Neck is soft and supple. No significant lymphadenopathy is noted. Oropharynx is clear. Moist mucous membranes. Neck has full range of motion without eliciting any pain. EYES: The sclera were anicteric and conjunctiva were pink and moist. Extraocular movements were intact and pupils were equal round and reactive to light. Eyelids were unremarkable. PULMONARY: Unlabored respirations. Good breath sounds bilaterally. No audible rales rhon chi or wheezing was noted. CARDIOVASCULAR: There is a regular rate and rhythm without any murmurs gallops or rubs. ABDOMEN: Soft and nontender with normal bowel sounds. SKIN: Skin is clear with no lesions or rashes and otherwise unremarkable. NEUROLOGIC: Patient is alert and oriented x3. Cranial nerves II through XII are grossly intact. Motor and sensory are also intact. Normal speech, volume and content. Symmetrical smile. MUSCULOSKELETAL: Normal extremities with adequate strength and full range of motion. No lower extremity swelling or edema. No calf tenderness. LYMPHATICS: No significant lymphadenopathy is noted PSYCHIATRIC: Normal psychiatric evaluation. Limitations: no limitations Course Vital Signs 09/19/20 14:11 Temperature 97.5 F L Pulse Rate 101 H Respiratory 18 Rate Blood Pressure 142/101 O2 Sat by Pulse 97 Oximetry Medical Decision Making - Medical Decision Making EKG shows normal sinus rhythm at 90 bpm AR interval 256 QRS is 104 QT interval 388 QTC is 495. Patient's EKG shows no ST segment elevation Chest x-ray shows no acute abnormality. I will back into the room and reevaluated the patient after she passed when and nitroglycerin. Patient received heparin I spoke with Dr. Brand agreed with the patient admitted the patient wrote admitting orders I continued heparin Nitropaste the floor. I consulted cardiology. - Lab Data Result diagrams: 09/19/20 14:34 09/19/20 14:34 Lab Results 09/19/20 09/19/20 09/19/20 Range/Units 14:34 14:34 14:34 WBC 9.5 (3.8-10.6) k/uL RBC 5.08 (4.30-5.90) m/uL Hgb 15.7 (13.0-17.5) gm/dL Hct 44.7 (39.0-53.0) % MCV 88.0 (80.0-100.0) fL MCH 30.9 (25.0-35.0) pg MCHC 35.1 (31.0-37.0) g/dL RDW 12.5 (11.5-15.5) % Plt Count 248 (150-450) k/uL MPV 7.6 Neutrophils % 61 % Lymphocytes % 29 % Monocytes % 5 % Eosinophils % 3 % Basophils % 1 % Neutrophils # 5.8 (1.3-7.7) k/uL Lymphocytes # 2.7 (1.0-4.8) k/uL Monocytes # 0.4 (0-1.0) k/uL Eosinophils # 0.3 (0-0.7) k/uL Basophils # 0.1 (0-0.2) k/uL PT 11.7 (9.0-12.0) sec INR 1.1 (<1.2) APTT 25.4 (22.0-30.0) sec Sodium 135 L (137-145) mmol/L Potassium 3.9 (3.5-5.1) mmol/L Chloride 101 (98-107) mmol/L Carbon Dioxide 25 (22-30) mmol/L Anion Gap 9 mmol/L BUN 12 (9-20) mg/dL Creatinine 0.57 L (0.66-1.25) mg/dL Est GFR (CKD-EPI)AfAm >90 (>60 ml/min/1.73 sqM) Est GFR (CKD-EPI)NonAf >90 (>60 ml/min/1.73 sqM) Glucose 340 H (74-99) mg/dL Calcium 10.2 (8.4-10.2) mg/dL Magnesium 1.7 (1.6-2.3) mg/dL Total Bilirubin 0.5 (0.2-1.3) mg/dL AST 22 (17-59) U/L ALT 20 (4-49) U/L Alkaline Phosphatase 125 (38-126) U/L Troponin I (0.000-0.034) ng/mL Total Protein 7.6 (6.3-8.2) g/dL Albumin 4.5 (3.5-5.0) g/dL 09/19/20 Range/Units 14:34 WBC (3.8-10.6) k/uL RBC (4.30-5.90) m/uL Hgb (13.0-17.5) gm/dL Hct (39.0-53.0) % MCV (80.0-100.0) fL MCH (25.0-35.0) pg MCHC (31.0-37.0) g/dL RDW (11.5-15.5) % Plt Count (150-450) k/uL MPV Neutrophils % % Lymphocytes % % Monocytes % % Eosinophils % % Basophils % % Neutrophils # (1.3-7.7) k/uL Lymphocytes # (1.0-4.8) k/uL Monocytes # (0-1.0) k/uL Eosinophils # (0-0.7) k/uL Basophils # (0-0.2) k/uL PT (9.0-12.0) sec INR (<1.2) APTT (22.0-30.0) sec Sodium (137-145) mmol/L Potassium (3.5-5.1) mmol/L Chloride (98-107) mmol/L Carbon Dioxide (22-30) mmol/L Anion Gap mmol/L BUN (9-20) mg/dL Creatinine (0.66-1.25) mg/dL Est GFR (CKD-EPI)AfAm (>60 ml/min/1.73 sqM) Est GFR (CKD-EPI)NonAf (>60 ml/min/1.73 sqM) Glucose (74-99) mg/dL Calcium (8.4-10.2) mg/dL Magnesium (1.6-2.3) mg/dL Total Bilirubin (0.2-1.3) mg/dL AST (17-59) U/L ALT (4-49) U/L Alkaline Phosphatase (38-126) U/L Troponin I <0.012 (0.000-0.034) ng/mL Total Protein (6.3-8.2) g/dL Albumin (3.5-5.0) g/dL Critical Care Time Critical Care Time: Yes Total Critical Care Time: 35 Disposition Clinical Impression: Unstable angina pectoris Disposition: ADMITTED IP TO THIS HOSP Referrals: Reji Hanson MD [Primary Care Provider] - 1-2 days Time of Disposition: 17:00
--- NOTE | 2020-09-19 15:59 | XR ---
EXAMINATION TYPE: XR chest 2V DATE OF EXAM: 09/19/2020 COMPARISON: Chest x-ray November 12, 2019. CTA chest November 14, 2019 HISTORY: Chest pain. TECHNIQUE: Frontal and lateral views of the chest are obtained. FINDINGS: There is no suspicious new focal air space opacity, pleural effusion, or pneumothorax seen . The cardiac silhouette size is stable and upper limits of normal. The osseous structures are int act. IMPRESSION: No acute cardiopulmonary process. No significant change from prior studies.
[2020-09-19] MEDS ORDERED: HEPARIN SODIUM 1,000 UN/ML (10ML VL) IV STA (17:01)
[2020-09-19] MEDS ORDERED: NITROGLYCERIN SL TABS 0.4 MG TAB SUBLINGUAL PRN (17:02)
[2020-09-19] MEDS ORDERED: hydrALAZINE HCL 20 MG/ML 1 ML VIAL IVP STA (17:14)
[2020-09-19] MEDS ORDERED: HEPARIN SOD,PORK IN 0.45% NACL 25,000 UNIT in 0.45% NACL 1 250ML.BAG IV SCH (17:15)
[2020-09-19] MEDS: NITROGLYCERIN OINT 1 INCH/GM PACKET TOPICAL SCH ×2 (18:31→23:40)
[2020-09-19] MEDS ORDERED: ACETAMINOPHEN TAB 325 MG TAB PO STA (18:49)
[2020-09-19] MEDS ORDERED: INSULIN ASPART (NovoLOG) 100 UNIT/ML VIAL SQ ONE (18:58)
[2020-09-19 18:59] LABS: Glucose,Whole Blood 271 mg/dL (75-99)
[2020-09-19] MEDS ORDERED: INSULIN DETEMIR (LEVEMIR) 100 UNIT/ML SYR SQ SCH (21:00)
[2020-09-19] MEDS ORDERED: MONTELUKAST 10 MG TAB PO SCH (21:00)
[2020-09-19] MEDS: FLUTICASONE 110 MCG INHALER INHALATION SCH (21:42)
--- NOTE | 2020-09-19 21:43 | P.HPIM ---
History of Present Illness H&P Date: 09/19/20 Chief Complaint: Chest pain History of presenting complaint: This is a pleasant 43-year-old patient of Dr. Hanson. Chronic stable medical conditions include COPD, diabetes, hypertension, hyperlipidemia and chronic low back pain. Patient also takes Cymbalta for depression. Patient presents for central chest pain that he's had on and off for cc for last 3 years. But pain has been more severe this time. He woke up at night with a sharp pain like needles in the middle of the chest. Fasting for about a minute. It happened a second time around. He decided to come in. Does not radiation. No dizziness or lightheadedness no perspiration. This local tenderness around t he sternum. Denies any prior cardiac history. Denies any cough Review of systems: GEN.: None EYES: None HEENT: None NECK: None RESPIRATORY: None CARDIOVASCULAR: As above GASTROINTESTINAL: None GENITOURINARY: None MUSCULOSKELETAL: As above] LYMPHATICS: None HEMATOLOGICAL: None PSYCHIATRY: None NEUROLOGICAL: None Past medical history to include: COPD, diabetes, DVT, hypertension, low back pain with pinched nerve, migraines, anxiety depression Social history: Lives with a friend, otherwise is homeless. Does smoke a cigar occasionally. Did smoke more so in the past. No alcohol. Physical examination: VITAL SIGNS: 97.5, 101, 18, 1 42 x 1 01, 97% on room air GENERAL: BMI 35, decline in bed, awake, comfortable. EYES: Pupils equal. Conjunctiva normal. HEENT: External appearance of nose and ears normal, oral cavity grossly normal. NECK: JVD not raised; masses not palpable. HEART: First and second heart sounds are normal; no edema. LUNGS: Respiratory rate normal; clear to auscultation. ABDOMEN: Soft, nontender, liver spleen not palpable, no masses palpable. PSYCH: Alert and oriented x3; mood and affect normal. MUSCULAR skeletal: Reproducible pain on the right costochondral junction at the midsternal level NEUROLOGICAL: Cranial nerves grossly intact; no facial asymmetry, power and sensation grossly intact. LYMPHATICS: No lymph nodes palpable in the axilla and neck INVESTIGATIONS, reviewed in the clinical context: WBC 9.5 hemoglobin 15.7 platelets 248 potassium 3.9 creatinine 0.57 Blood glucose 340 Troponin I 2 less than 0.012 Coronavirus [PCR]-not detected EKG tracing personally reviewed by me-normal sinus rhythm. Nonspecific T-wave changes. Prolonged QT Chest x-ray film personally reviewed by me-lungs clear Assessment and plan: -Anterior chest wall pain that had been present for 3 years. Intubated. Pain is reproducible. Localized tenderness at the costochondral junction. Pain is only of 1 minute duration. Likely accuse costochondritis. Rule out a cardiac cause -Obesity BMI 35 Weight loss measures and follow-up with PCP -COPD in a cigar smoker Use Asmanex -Diabetes mellitus type 2 on oral hypoglycemic and insulin Continue with Glucophage and Giardia is. Follow Accu-Cheks. Resume Lantus at the reduced dose -Hyperlipidemia Continue with Crestor -Essential hypertension Continue with lisinopril and Inderal -Depression Continue with Cymbalta Care was discussed with the patient. Questions answered. Home medications resumed. Follow Accu-Cheks. Cardiology consulted. Past Medical History Past Medical History: COPD, Diabetes Mellitus, Deep Vein Thrombosis (DVT), Hypertension Additional Past Medical History / Comment(s): back pain with pinched nerve, migraines. History of Any Multi-Drug Resistant Organisms: None Reported Past Surgical History: Appendectomy Additional Past Surgical History / Comment(s): oral surgery, Past Anesthesia/Blood Transfusion Reactions: No Reported Reaction Past Psychological History: Anxiety, Depression Smoking Status: Former smoker Past Alcohol Use History: None Reported Past Drug Use History: None Reported - Past Family History Brother(s) Additional Family Medical History / Comment(s): tumor of brain - at 34 Medications and Allergies Home Medications Medication Instructions Recorded Confirmed Type DULoxetine HCL [Cymbalta] 60 mg PO BID 11/13/19 09/19/20 History Docusate [Colace] 100 mg PO DAILY PRN 11/13/19 09/19/20 History INSULIN LISPRO (humaLOG) [humaLOG] 30 units SQ AC-TID 11/13/19 09/19/20 History Insulin Glargine [Lantus] 60 unit SQ HS 11/13/19 09/19/20 History Montelukast Sodium [Singulair] 10 mg PO HS 11/13/19 09/19/20 History lisinopriL 40 mg PO DAILY 11/13/19 09/19/20 History metFORMIN HCL ER [Glucophage Xr] 1,000 mg PO W/SUPPER 11/13/19 09/19/20 History Propranolol [Inderal] 20 mg PO TID 30 Days #90 tab 11/16/19 09/19/20 Rx Empagliflozin [Jardiance] 10 mg PO DAILY 09/19/20 09/19/20 History Mometasone Furoate [Asmanex] 1 puff INHALATION RT-HS 09/19/20 09/19/20 History Rosuvastatin Calcium [Crestor] 40 mg PO DAILY 09/19/20 09/19/20 History Allergies Allergy/AdvReac Type Severity Reaction Status Date / Time No Known Allergies Allergy Verified 09/19/20 17:20 Physical Exam Vitals: Vital Signs Temp Pulse Resp BP Pulse Ox 09/19/20 20:00 108 H 18 135/80 95 09/19/20 18:23 105 H 18 153/94 95 09/19/20 17:07 100 18 172/113 94 L 09/19/20 14:11 97.5 F L 101 H 18 142/101 97 Intake and Output 09/19/20 09/19/20 09/19/20 06:59 14:59 22:59 Other: Weight 127.006 kg Results CBC & Chem 7: 09/19/20 14:34 09/19/20 14:34 Labs: Abnormal Lab Results - Last 24 Hours (Table) 09/19/20 09/19/20 Range/Units 14:34 18:48 Sodium 135 L (137-145) mmol/L Creatinine 0.57 L (0.66-1.25) mg/dL Glucose 340 H (74-99) mg/dL POC Glucose (mg/dL) 271 H (75-99) mg/dL
[2020-09-19] MEDS ORDERED: PROPRANOLOL 20 MG TAB PO SCH (22:00)
[2020-09-19 23:13] LABS: Glucose,Whole Blood 294 mg/dL (75-99)
[2020-09-19] MEDS ORDERED: ACETAMINOPHEN TAB 325 MG TAB PO PRN (23:30)
[2020-09-19] MEDS: metFORMIN 500 MG TAB PO SCH (23:38)
[2020-09-19] MEDS: DULoxetine HCL 60 MG CAPSULE.DR PO SCH (23:40)
[2020-09-20] MEDS: HEPARIN SODIUM 1,000 UN/ML (10ML VL) IV PRN ×2 (00:36→07:07)
[2020-09-20 03:57] VITALS: RESP 18
[2020-09-20 06:57] LABS: Glucose,Whole Blood 297 mg/dL (75-99)
[2020-09-20] MEDS: FLUTICASONE 110 MCG INHALER INHALATION SCH (08:00)
[2020-09-20 08:29] LABS: Glucose,Whole Blood 282 mg/dL (75-99)
[2020-09-20] MEDS ORDERED: ONDANSETRON 4 MG/2 ML VIAL IVP PRN (08:37)
[2020-09-20] MEDS: NITROGLYCERIN OINT 1 INCH/GM PACKET TOPICAL SCH ×2 (08:48→11:04)
[2020-09-20] MEDS ORDERED: lisinopriL 20 MG TAB PO SCH (09:00)
[2020-09-20] MEDS ORDERED: TRIAMTERENE-HCTZ 37.5-25MG 1 EACH CAP PO SCH (09:00)
[2020-09-20] MEDS ORDERED: ASPIRIN 325 MG TAB PO SCH (09:00)
[2020-09-20] MEDS ORDERED: ATORVASTATIN 80 MG TAB PO SCH (09:00)
[2020-09-20] MEDS ORDERED: NON FORMULARY DRUG (Empagliflozin [Jardiance] 10 MG Tablet) PO SCH (09:00)
[2020-09-20] MEDS: INSULIN ASPART (NovoLOG) 100 UNIT/ML VIAL SQ SCH ×6 (09:01→18:02)
[2020-09-20] MEDS: metFORMIN 500 MG TAB PO SCH (09:15)
[2020-09-20] MEDS: DULoxetine HCL 60 MG CAPSULE.DR PO SCH (09:15)
[2020-09-20] MEDS: carvediloL 6.25 MG TAB PO SCH ×2 (09:15→17:57)
[2020-09-20 11:34] LABS: Chol/HDL Ratio 7.1; LDL Cholesterol,Calculated 106.8 mg/dL (0.0-131.0); VLDL Calculation 70.2 mg/dL (5.00-40.00)
[2020-09-20 11:48] LABS: Glucose,Whole Blood 235 mg/dL (75-99)
[2020-09-20 14:11] VITALS: BP 131/82; PULSE 97; TEMP 98.3
--- NOTE | 2020-09-20 14:51 | P.CRDCN ---
History of Present Illness History of present illness: HISTORY OF PRESENTING ILLNESS This is a pleasant 44-year-old male past medical history significant for type 2 diabetes, hypertension, dyslipidemia, former nicotine dependence, former alcohol abuse, peripheral vascular disease. Patient states he is homeless and has difficulty getting to his appointments. He follows in the office with Dr. Sanchez. We have been asked to see in consultation for chest pain. Patient presents to the emergency department with increased episodes of chest pain. His chest pain is midsternal, nonradiating, nonexertional. He states that he gets chest pain when he wakes up at night. It lasts for minutes to 1.5 minute. This continued to happen for 3 mornings so he decided to present to the emergency department. His pain is sharp. He denies palpitations, shortness of breath, fatigue, weakness, lightheadedness, syncope. Nothing makes the pain better or worse. He does have lower extremity edema. He states he used to drink alcohol 30+ beers a day. he is a former smoker. He denies symptoms of PND or orthopnea. In 2018 patient presented to [facility] with atypical chest discomfort. He underwent a cardiac catheterization which revealed normal coronary arteries. He continued to have intermittent episodes of atypical chest discomfort. In 2018 his echocardiogram revealed mildly impaired LV function was around 45%.Current home cardiac medications include lisinopril 40 mg daily, rosuvastatin 40 mg daily, propanolol 20 mg 3 times a day. DIAGNOSTICS EKG reveals sinus rhythm, heart rate 98, no significant ST-T wave abnormalities. EKG this morning revealed sinus rhythm, heart rate 89, no significant ST-T wave abnormalities. Last Cardiac Catheterization 02/2018 at [facility] Which Revealed Normal Coronary Arteries. Chest xray no acute cardiopulmonary process. Laboratory reviewed, CBC unremarkable, sodium 135, potassium 3.9, serum creatinine 0.7, glucose 340, magnesium 1.7, troponin negative 3, COVID-19 negative REVIEW OF SYSTEMS At the time of my exam: CONSTITUTIONAL: Denies fever or chills. CARDIOVASCULAR: Positive chest pain, positive lower extremity edema Denies chest pain,, orthopnea, PND or palpitations. RESPIRATORY: Denies cough. GASTROINTESTINAL: Denies abdominal pain, diarrhea, constipation, nausea or vomiting. MUSCULOSKELETAL: Denies myalgias. NEUROLOGIC: Denies numbness, tingling, headacbe or weakness. ENDOCRINE: Denies fatigue, weight change, polydipsia or polyurina. GENITOURINARY: Denies burning, hematuria or urgency with micturation. HEMATOLOGIC: Denies history of anemia or bleeding. PHYSICAL EXAMINATION Blood pressure 142/93 heart rate 0.7 afebrile and maintaining oxygen saturation 93% on room air CONSTITUTIONAL: No apparent distress. HEENT: Head is normocephalic. Pupils are equal, round. Sclerae anicteric. Mucous membranes of the mouth are moist. No JVD. No carotid bruit. CHEST EXAMINATION: Lungs are clear to auscultation. No chest wall tenderness is noted on palpation or with deep breathing. HEART EXAMINATION: Regular rate and rhythm. S1, S2 heard. No murmurs, gallops or rub. ABDOMEN: Soft, nontender. Positive bowel sounds. EXTREMITIES: 2+ peripheral pulses, 3+ bilateral lower extremity edema and no calf tenderness. NEUROLOGIC EXAMINATION: Patient is awake, alert and oriented x3. ASSESSMENT Chest pain, atypical, acute coronary syndrome has been ruled out Hypertension Type 2 Diabetes Dyslipidemia Former nicotine dependence Former alcohol abuse Peripheral vascular disease PLAN An acute coronary event has been ruled out with no EKG evidence of ischemia and negative cardiac enzymes. Obtain 2D echocardiogram and doppler study to assess cardiac structure and function. Check TSH Stop Propranolol Recommend carvedilol 6.25mg BID Start Dyazide 30 7. 525 milligrams daily Continue lisinopril 40 mg daily Continue Statin Follow up with Dr. Sanchez Nurse Practitioner note has been reviewed, I agree with a documented findings and plan of care. Patient was seen and examined. Past Medical History Past Medical History: COPD, Diabetes Mellitus, Deep Vein Thrombosis (DVT), Hypertension Additional Past Medical History / Comment(s): back pain with pinched nerve, migraines. History of Any Multi-Drug Resistant Organisms: None Reported Past Surgical History: Appendectomy Additional Past Surgical History / Comment(s): oral surgery, Past Anesthesia/Blood Transfusion Reactions: No Reported Reaction Past Psychological History: Anxiety, Depression Smoking Status: Former smoker Past Alcohol Use History: None Reported Past Drug Use History: None Reported - Past Family History Brother(s) Additional Family Medical History / Comment(s): tumor of brain - at 34 Medications and Allergies Home Medications Medication Instructions Recorded Confirmed Type DULoxetine HCL [Cymbalta] 60 mg PO BID 11/13/19 09/19/20 History Docusate [Colace] 100 mg PO DAILY PRN 11/13/19 09/19/20 History INSULIN LISPRO (humaLOG) [humaLOG] 30 units SQ AC-TID 11/13/19 09/19/20 History Insulin Glargine [Lantus] 60 unit SQ HS 11/13/19 09/19/20 History Montelukast Sodium [Singulair] 10 mg PO HS 11/13/19 09/19/20 History lisinopriL 40 mg PO DAILY 11/13/19 09/19/20 History metFORMIN HCL ER [Glucophage Xr] 1,000 mg PO W/SUPPER 11/13/19 09/19/20 History Propranolol [Inderal] 20 mg PO TID 30 Days #90 tab 11/16/19 09/19/20 Rx Empagliflozin [Jardiance] 10 mg PO DAILY 09/19/20 09/19/20 History Mometasone Furoate [Asmanex] 1 puff INHALATION RT-HS 09/19/20 09/19/20 History Rosuvastatin Calcium [Crestor] 40 mg PO DAILY 09/19/20 09/19/20 History Allergies Allergy/AdvReac Type Severity Reaction Status Date / Time No Known Allergies Allergy Verified 09/19/20 17:20 Physical Exam Vitals: Vital Signs Temp Pulse Pulse Resp BP BP Pulse Ox 09/20/20 11:02 93 142/93 09/20/20 08:00 18 09/20/20 07:00 98.5 F 95 18 144/92 92 L 09/20/20 05:00 132/87 09/20/20 00:45 97.4 F L 97 18 160/113 95 09/19/20 23:01 97.8 F 99 20 158/101 96 09/19/20 20:00 108 H 18 135/80 95 09/19/20 18:23 105 H 18 153/94 95 09/19/20 17:07 100 18 172/113 94 L 09/19/20 14:11 97.5 F L 101 H 18 142/101 97 Intake and Output 09/19/20 09/20/20 09/20/20 22:59 06:59 14:59 Intake Total 62.5 98.288 Balance 62.5 98.288 Intake: Intake, IV Titration 62.5 98.288 Amount Heparin Sod,Pork in 0.45% 62.5 98.288 NaCl 25,000 unit In 0.45 % NaCl 1 250ml.bag @ 7. 874 UNITS/KG/HR 10 mls/hr IV .Q24H [facility] Rx#: [id number] Other: Voiding Method Toilet Toilet # Voids 1 Weight 127.006 kg Results 09/19/20 14:34 09/19/20 14:34 Cardiac Enzymes 09/19/20 09/19/20 09/19/20 Range/Units 14:34 14:34 17:38 AST 22 (17-59) U/L Troponin I <0.012 <0.012 (0.000-0.034) ng/mL 09/19/20 Range/Units 21:51 AST (17-59) U/L Troponin I <0.012 (0.000-0.034) ng/mL Coagulation 09/19/20 09/19/20 09/20/20 Range/Units 14:34 23:12 05:15 PT 11.7 (9.0-12.0) sec APTT 25.4 28.6 35.1 H (22.0-30.0) sec Lipids 09/19/20 Range/Units 23:12 Triglycerides 351.0 H (0.0-149.0) mg/dL Cholesterol 206 H (0-200) mg/dL HDL Cholesterol 29.0 L (40.0-60.0) mg/dL Cholesterol/HDL Ratio 7.10 CBC 09/19/20 Range/Units 14:34 WBC 9.5 (3.8-10.6) k/uL RBC 5.08 (4.30-5.90) m/uL Hgb 15.7 (13.0-17.5) gm/dL Hct 44.7 (39.0-53.0) % Plt Count 248 (150-450) k/uL Comprehensive Metabolic Panel 09/19/20 Range/Units 14:34 Sodium 135 L (137-145) mmol/L Potassium 3.9 (3.5-5.1) mmol/L Chloride 101 (98-107) mmol/L Carbon Dioxide 25 (22-30) mmol/L BUN 12 (9-20) mg/dL Creatinine 0.57 L (0.66-1.25) mg/dL Glucose 340 H (74-99) mg/dL Calcium 10.2 (8.4-10.2) mg/dL AST 22 (17-59) U/L ALT 20 (4-49) U/L Alkaline Phosphatase 125 (38-126) U/L Total Protein 7.6 (6.3-8.2) g/dL Albumin 4.5 (3.5-5.0) g/dL Current Medications Generic Name Dose Route Start Last Admin Trade Name Rajatq PRN Reason Stop Dose Admin Acetaminophen 650 mg 09/19/20 23:30 09/19/20 23:41 Acetaminophen Tab 325 Mg Tab PO 650 mg Q6HR PRN Administration Fever and/ or Pain Atorvastatin Calcium 80 mg 09/20/20 09:00 09/20/20 09:15 Atorvastatin 80 Mg Tab PO 80 mg DAILY JESSICA Administration Carvedilol 6.25 mg 09/20/20 08:57 09/20/20 09:15 Carvedilol 6.25 Mg Tab PO 6.25 mg BID-W/MEALS JESSICA Administration Duloxetine HCl 60 mg 09/19/20 21:00 09/20/20 09:15 Duloxetine Hcl 60 Mg Capsule.Dr PO 60 mg BID JESSICA Administration Fluticasone Propionate 1 puff 09/19/20 20:00 09/20/20 08:00 Fluticasone 110 Mcg Inhaler INHALATION 1 puff RT-BID JESSICA Administration Heparin Sodium (Porcine) 0 unit 09/19/20 23:54 09/20/20 07:07 Heparin Sodium 1,000 Un/Ml (10ml Vl) IV 3,000 unit PER PROTOCOL PRN Administration Low PTT Protocol Insulin Aspart 20 unit 09/20/20 07:30 09/20/20 09:01 Insulin Aspart (Novolog) 100 Unit/Ml Vial SQ Not Given AC-TID JESSICA Insulin Aspart 0 unit 09/20/20 12:30 09/20/20 09:13 Insulin Aspart (Novolog) 100 Unit/Ml Vial SQ 7 unit ACHS JESSICA Administration Protocol Insulin Detemir 50 unit 09/19/20 21:00 09/19/20 23:40 Insulin Detemir (Levemir) 100 Unit/Ml Syr SQ 50 unit HS JESSICA Administration Lisinopril 40 mg 09/20/20 09:00 09/20/20 09:15 Lisinopril 20 Mg Tab PO 40 mg DAILY JESSICA Administration Metformin HCl 500 mg 09/19/20 21:00 09/20/20 09:15 Metformin 500 Mg Tab PO 500 mg BID JESSICA Administration Montelukast Sodium 10 mg 09/19/20 21:00 09/19/20 23:40 Montelukast 10 Mg Tab PO 10 mg HS JESSICA Administration Nitroglycerin 0.4 mg 09/19/20 17:02 Nitroglycerin Sl Tabs 0.4 Mg Tab SUBLINGUAL Q5M PRN Chest Pain Nitroglycerin 1 inch 09/19/20 18:00 09/20/20 11:04 Nitroglycerin Oint 1 Inch/Gm Packet TOPICAL Not Given Q6HR [facility] Non-Formulary Medication 10 mg 09/20/20 09:00 09/20/20 09:15 Empagliflozin [Jardiance] PO Not Given DAILY JESSICA Ondansetron HCl 4 mg 09/20/20 08:37 09/20/20 08:55 Ondansetron 4 Mg/2 Ml Vial IVP 4 mg Q6HR PRN Administration Nausea And Vomiting Triamterene/Hydrochlorothiazide 1 each 09/20/20 09:00 09/20/20 11:03 Triamterene-Hctz 37.5-25mg 1 Each Cap PO 1 each DAILY JESSICA Administration Intake and Output 09/19/20 09/20/20 09/20/20 22:59 06:59 14:59 Intake Total 62.5 98.288 Balance 62.5 98.288 Intake: Intake, IV Titration 62.5 98.288 Amount Heparin Sod,Pork in 0.45% 62.5 98.288 NaCl 25,000 unit In 0.45 % NaCl 1 250ml.bag @ 7. 874 UNITS/KG/HR 10 mls/hr IV .Q24H [facility] Rx#: [id number] Other: Voiding Method Toilet Toilet # Voids 1 Weight 127.006 kg 09/19/20 14:34 09/19/20 14:34
--- NOTE | 2020-09-20 17:00 | ECHOF ---
Referral Reason:LV function MEASUREMENTS -------- HEIGHT: 190.5 cm WEIGHT: 127.0 kg BP: 144/92 IVSd: 1.7 cm (0.6 - 1.1) LVIDd: 5.1 cm (3.9 - 5.3) LVPWd: 1.7 cm (0.6 - 1.1) EDV(Teich): 123 ml IVSs: 1.5 cm LVIDs: 4.7 cm LVPWs: 2.3 cm %IVS Thck: -10 % ESV(Teich): 105 ml EF(Teich): 15 % %FS: 7 % SV(Teich): 18 ml RVIDd: 2.9 cm (< 3.3) LALs A4C: 4.8 cm LAAs A4C: 11.9 cm LAESV A-L A4C: 25 ml LAESV MOD A4C: 24 ml LALs A2C: 5.5 cm LAAs A2C: 16.2 cm LAESV A-L A2C: 40 ml LAESV MOD A2C: 38 ml LAESV(A-L): 34 ml LAESV Index (A-L): 13.51 ml/m Ao Diam: 3.3 cm (2.0 - 3.7) AV Cusp: 1.8 cm (1.5 - 2.6) EPSS: 1.7 cm MV E Pavan: 0.79 m/s MV DecT: 131 ms MV Dec [place]: 6.0 m/s MV A Pavan: 0.67 m/s MV E/A Ratio: 1.17 MV PHT: 38 ms AV Vmax: 1.07 m/s AV maxP.56 mmHg MV EF SLOPE: 72.09 mm/s (70 - 150) MV EXCURSION: 19.44 mm (> 18.000) FINDINGS -------- Sinus rhythm. This was a technically difficult study with suboptimal apical views. The left ventricular size is normal. There is moderate concentric left ventricular hypertrophy. T here is severe global hypokinesis of LV . Overall left ventricular systolic function is severely im paired with, an EF between 25 - 30 %. The right ventricle is normal in size. Normal LA size by volume 22+/-6 ml/m2. The right atrial size is normal. xx ml of Lumason was utilized for enhancement of images. Interatrial and interventricular septum intact. There is no evidence of aortic regurgitation. There is no evidence of aortic stenosis. Mild mitral regurgitation is present. Mild tricuspid regurgitation present. Unable to estimate RVSP due to inadequate TR jet spectral dop pler profile. There is no pulmonic regurgitation present. The aortic root size is normal. IVC Not well visulized. There is no pericardial effusion. CONCLUSIONS -------- 1. The left ventricular size is normal. 2. There is moderate concentric left ventricular hypertrophy. 3. There is severe global hypokinesis of LV . 4. Overall left ventricular systolic function is severely impaired with, an EF between 25 - 30 %. 5. Mild mitral regurgitation is present. 6. Mild tricuspid regurgitation present. OIL WELL PERFORATOR OPERATOR: Collette White RDCS
[2020-09-20] MEDS ORDERED: carvediloL 6.25 MG TAB PO SCH (17:30)
[2020-09-20 17:33] LABS: Glucose,Whole Blood 169 mg/dL (75-99)
--- NOTE | 2020-09-20 22:30 | P.DS ---
Providers Date of admission: 09/19/20 18:41 Expected date of discharge: 09/20/20 Attending physician: Mukesh Brand Consults: 09/19/20 17:02 Consult Physician Urgent Consulting Provider: [facility] Consult Reason/Comments: Unstable angina Do you want consulting provider notified?: Yes Primary care physician: [facility] Course: Chief Complaint: Chest pain History of presenting complaint: This is a pleasant 43-year-old patient of Dr. Hanson. Chronic stable medical conditions include COPD, diabetes, hypertension, hyperlipidemia and chronic low back pain. Patient also takes Cymbalta for depression. Patient presents for central chest pain that he's had on and off for cc for last 3 years. But pain has been more severe this time. He woke up at night with a sharp pain like needles in the middle of the chest. Fasting for about a minute. It happened a second time around. He decided to come in. Does not radiation. No dizziness or lightheadedness no perspiration. This local tenderness around the sternum. Denies any prior cardiac history. Denies any cough Patient is felt to have acute costochondritis. 2-D echo showed an EF of 25-30%. Patient is placed on Coreg and lisinopril HCl. Care was discussed with the patient. Cleared by cardiology this evening for discharge. We'll follow with Dr. Tran in the office. Discussion and discharge planning more than 35 minutes Consultation: [facility] Past medical history to include: COPD, diabetes, DVT, hypertension, low back pain with pinched nerve, migraines, anxiety depression Social history: Lives with a friend, otherwise is homeless. Does smoke a cigar occasionally. Did smoke more so in the past. No alcohol. Physical examination: VITAL SIGNS: 98.3, 97, 18, 130/82, 93% GENERAL: BMI 35, laying in bed, comfortable EYES: Pupils equal. Conjunctiva normal. HEENT: External appearance of nose and ears normal, oral cavity grossly normal. NECK: JVD not raised; masses not palpable. HEART: First and second heart sounds are normal; no edema. LUNGS: Respiratory rate normal; clear to auscultation. ABDOMEN: Soft, nontender, liver spleen not palpable, no masses palpable. PSYCH: Alert and oriented x3; mood and affect normal. MUSCULAR skeletal: Reproducible pain on the right costochondral junction at the midsternal level INVESTIGATIONS, reviewed in the clinical context: 2-D echocardiogram: Moderate concentric LVH. EF 25-30% TSH 3.1 WBC 9.5 hemoglobin 15.7 platelets 248 potassium 3.9 creatinine 0.57 Blood glucose 340 Troponin I 2 less than 0.012 Coronavirus [PCR]-not detected EKG tracing personally reviewed by me-normal sinus rhythm. Nonspecific T-wave changes. Prolonged QT Chest x-ray film personally reviewed by me-lungs clear Assessment and plan: -Anterior chest wall pain that had been present for 3 years. reproducible. Localized tenderness at the costochondral junction. Pain is only of 1 minute duration. Acute on chronic costochondritis. -Obesity BMI 35 Weight loss measures and follow-up with PCP -COPD in a cigar smoker Use Asmanex -Diabetes mellitus type 2 on oral hypoglycemic and insulin Continue with Glucophage and Giardia is. Follow Accu-Cheks. Resume Lantus at the reduced dose -Hyperlipidemia Continue with Crestor -Essential hypertension Continue with lisinopril and Inderal -Depression Continue with Cymbalta -Chronic congestive heart failure from systolic dysfunction EF 25 to-30% Beta andrew and Coreg added. patient will need a cardiac catheterization. Disposition: Home Plan - Discharge Summary New Discharge Prescriptions: New carvediloL [Coreg] 6.25 mg PO BID-W/MEALS #60 tab Lisinopril-Hctz 20-12.5 mg [Zestoretic 20-12.5] 1 tab PO BID #60 tab Continue Insulin Glargine [Lantus] 60 unit SQ HS INSULIN LISPRO (humaLOG) [humaLOG] 30 units SQ AC-TID Docusate [Colace] 100 mg PO DAILY PRN PRN Reason: Constipation DULoxetine HCL [Cymbalta] 60 mg PO BID metFORMIN HCL ER [Glucophage Xr] 1,000 mg PO W/SUPPER Montelukast Sodium [Singulair] 10 mg PO HS Rosuvastatin Calcium [Crestor] 40 mg PO DAILY Mometasone Furoate [Asmanex] 1 puff INHALATION RT-HS Empagliflozin [Jardiance] 10 mg PO DAILY Discontinued lisinopriL 40 mg PO DAILY Propranolol [Inderal] 20 mg PO TID 30 Days #90 tab Discharge Medication List DULoxetine HCL [Cymbalta] 60 mg PO BID 11/13/19 [History] Docusate [Colace] 100 mg PO DAILY PRN 11/13/19 [History] INSULIN LISPRO (humaLOG) [humaLOG] 30 units SQ AC-TID 11/13/19 [History] Insulin Glargine [Lantus] 60 unit SQ HS 11/13/19 [History] Montelukast Sodium [Singulair] 10 mg PO HS 11/13/19 [History] metFORMIN HCL ER [Glucophage Xr] 1,000 mg PO W/SUPPER 11/13/19 [History] Empagliflozin [Jardiance] 10 mg PO DAILY 09/19/20 [History] Mometasone Furoate [Asmanex] 1 puff INHALATION RT-HS 09/19/20 [History] Rosuvastatin Calcium [Crestor] 40 mg PO DAILY 09/19/20 [History] Lisinopril-Hctz 20-12.5 mg [Zestoretic 20-12.5] 1 tab PO BID #60 tab 09/20/20 [Rx] carvediloL [Coreg] 6.25 mg PO BID-W/MEALS #60 tab 09/20/20 [Rx] Follow up Appointment(s)/Referral(s): Víctor Sanchez MD [STAFF PHYSICIAN] - 2 Weeks (Please call office to make appointment ) Reji Hanson MD [Primary Care Provider] - 1-2 days (Please call office to make appointment) Patient Instructions/Handouts: Heart Healthy Diet (DC), Hypertension (DC) Discharge Disposition: HOME SELF-CARE
== END 2020-09-20 18:07 | disposition home or self-care (01) ==
LOC: EC 14:02 → 6NMEDSUR 18:41
PROVIDERS: ADMIT Hospitalist; ATTEND Hospitalist
DX: R07.2 Precordial pain (principal); M94.0 Chondrocostal junction syndrome [Tietze]; E66.9 Obesity, unspecified; J44.9 Chronic obstructive pulmonary disease, unspecified; I50.20 Unspecified systolic (congestive) heart failure; E78.5 Hyperlipidemia, unspecified; Z20.822 Contact with and (suspected) exposure to COVID-19; E11.51 Type 2 diabetes mellitus with diabetic peripheral angiopathy without gangrene; E11.41 Type 2 diabetes mellitus with diabetic mononeuropathy; E78.00 Pure hypercholesterolemia, unspecified; G89.29 Other chronic pain; M54.5 Low back pain; F17.290 Nicotine dependence, other tobacco product, uncomplicated; F32.9 Major depressive disorder, single episode, unspecified; F41.9 Anxiety disorder, unspecified; Z59.0 Homelessness; Z68.35 Body mass index [BMI] 35.0-35.9, adult; Z79.4 Long term (current) use of insulin; Z79.899 Other long term (current) drug therapy; Z79.82 Long term (current) use of aspirin; Z86.718 Personal history of other venous thrombosis and embolism; Z86.69 Personal history of other diseases of the nervous system and sense organs
CPT/HCPCS: 96366 ×3; 96375 ×2; 96365; 99291; 36415; 94640; 93005; 80061; 80053; 84443; 83735; 84484; 85025; 85610; 85730 ×2; 87635; 71046; G0378 ×2; C8929; J0360; J2405; J1644 ×3; Q9950; 93306

== ENCOUNTER → 2020-10-25 | Outpatient (CLI) | payer OTHER | END | disposition home or self-care (01) | LOC: LABWHC1 11:37 | PROVIDERS: ATTEND Internal Medicine Interventional Cardiology | DX: E66.3 Overweight (principal); E78.5 Hyperlipidemia, unspecified; I10 Essential (primary) hypertension; I42.8 Other cardiomyopathies | CPT/HCPCS: 36415; 84439; 84443 ==

== ENCOUNTER 2020-11-03 15:02 | Emergency (ER) | payer OTHER ==
[2020-11-03 15:15] VITALS: BP 151/108; PULSE 93; RESP 16; TEMP 98
[2020-11-03] MEDS ORDERED: KETOROLAC 15 MG/ML 1 ML VIAL IM STA (15:34)
--- NOTE | 2020-11-03 16:15 | XR ---
EXAMINATION TYPE: XR shoulder complete 3 views RT, XR forearm 2 views RT DATE OF EXAM: 11/03/2020 Comparison: Shoulder 09/01/2020 Clinical History: 44-year-old male with pain after injury Findings: Right shoulder: AC joint appears intact. Subacromial space is preserved. No tendinous or bursal calcifications. No ac [place] fracture, subluxation, or dislocation seen. An os acromion is noted. Some irregularity at its pse udoarticulation is unchanged from 09/01/2020 and likely chronic. Visualized right hemithorax is clear. Right forearm: The elbow and wrist articulations appear intact. No elbow joint effusion. No acute fracture of the ra dius or ulna is identified. Impression: 1. Right shoulder: Some degenerative change at the pseudoarticulation of the os acromiale. This appea rs similar compared to 09/01/2020. Otherwise, no acute osseous abnormality seen. 2. Right forearm: No acute osseous abnormality seen.
--- NOTE | 2020-11-03 16:31 | ED ---
Extremity Problem HPI - General Chief complaint: Extremity Problem,Nontraumatic Stated complaint: Broken arm Time Seen by Provider: 11/03/20 15:16 Source: patient, RN notes reviewed Mode of arrival: ambulatory Limitations: no limitations - History of Present Illness Initial comments: 44-year-old male complaining of right shoulder and right elbow pain. He notes that he jumped into some water over the weekend and landed on his right arm. He notes that his right shoulder is painful to raise secondary to pain. He notes that the pain is anteriorly in on the top. He notes that the pain in his forearm is over his brachial radialis and that it is tender to the touch. Patient does have full range of motion sensation in his right upper extremity. He denied any numbness tingling. He denied any chest pain shortness of breath headache nausea vomiting diarrhea constipation fever fatigue chills. - Related Data Home Medications Medication Instructions Recorded Confirmed DULoxetine HCL [Cymbalta] 60 mg PO BID 11/13/19 09/19/20 Docusate [Colace] 100 mg PO DAILY PRN 11/13/19 09/19/20 INSULIN LISPRO (humaLOG) [humaLOG] 30 units SQ AC-TID 11/13/19 09/19/20 Insulin Glargine [Lantus] 60 unit SQ HS 11/13/19 09/19/20 Montelukast Sodium [Singulair] 10 mg PO HS 11/13/19 09/19/20 metFORMIN HCL ER [Glucophage Xr] 1,000 mg PO W/SUPPER 11/13/19 09/19/20 Empagliflozin [Jardiance] 10 mg PO DAILY 09/19/20 09/19/20 Mometasone Furoate [Asmanex] 1 puff INHALATION RT-HS 09/19/20 09/19/20 Rosuvastatin Calcium [Crestor] 40 mg PO DAILY 09/19/20 09/19/20 Previous Rx's Medication Instructions Recorded Lisinopril-Hctz 20-12.5 mg 1 tab PO BID #60 tab 09/20/20 [Zestoretic 20-12.5] carvediloL [Coreg] 6.25 mg PO BID-W/MEALS #60 tab 09/20/20 Allergies Allergy/AdvReac Type Severity Reaction Status Date / Time No Known Allergies Allergy Verified 11/03/20 15:11 Review of Systems ROS Statement: Those systems with pertinent positive or pertinent negative responses have been documented in the HPI. ROS Other: All systems not noted in ROS Statement are negative. Past Medical History Past Medical History: COPD, Diabetes Mellitus, Deep Vein Thrombosis (DVT), Hypertension Additional Past Medical History / Comment(s): back pain with pinched nerve, migraines. History of Any Multi-Drug Resistant Organisms: None Reported Past Surgical History: Appendectomy Additional Past Surgical History / Comment(s): oral surgery, Past Anesthesia/Blood Transfusion Reactions: No Reported Reaction Past Psychological History: Anxiety, Depression Smoking Status: Former smoker Past Alcohol Use History: None Reported Past Drug Use History: None Reported - Past Family History Brother(s) Additional Family Medical History / Comment(s): tumor of brain - at 34 General Exam Limitations: no limitations General appearance: alert, in no apparent distress Head exam: Present: atraumatic, normocephalic, normal inspection Eye exam: Present: normal appearance, PERRL, EOMI. Absent: scleral icterus, conjunctival injection, periorbital swelling Neck exam: Present: normal inspection Respiratory exam: Present: normal lung sounds bilaterally. Absent: respiratory distress, wheezes, rales, rhonchi, stridor Cardiovascular Exam: Present: regular rate, normal rhythm, normal heart sounds. Absent: systolic murmur, diastolic murmur, rubs, gallop, clicks Right Shoulder Exam: Present: normal inspection, tenderness (Anterior and superior aspect). Absent: full ROM (Secondary to pain), swelling, abrasion, laceration, ecchymosis, deformity, crepitus, dislocation, erythema, tenderness over AC joint Forearm Wrist exam: Present: normal inspection, full ROM, tenderness (Over the brachial radialis). Absent: swelling, abrasion, laceration, ecchymosis, deformity, crepitus, dislocation Neurological exam: Present: alert, oriented X3 Psychiatric exam: Present: normal affect, normal mood Skin exam: Present: warm, dry, intact, normal color. Absent: rash Course Vital Signs 11/03/20 15:11 Temperature 98 F Pulse Rate 93 Respiratory 16 Rate Blood Pressure 151/108 O2 Sat by Pulse 98 Oximetry Medical Decision Making - Medical Decision Making 44-year-old male complaining of right shoulder and forearm pain after injuring it over the weekend by jumping into some water and landing on it. X-ray of the right shoulder and right forearm, 15 mg of Toradol ordered. X-ray negative for any acute fractures or dislocations. Given imaging results and clinical symptoms most likely muscle strains of the right shoulder and right forearm. Case discussed with Dr. Thompson, patient can discharge home with follow-up to orthopedist. - Radiology Data Radiology results: report reviewed, image reviewed Right forearm and shoulder x-ray: The elbow and wrist articulations appear intact. No elbow joint effusion. No acute fracture of the radius or ulna is identified. Before meals joint appears intact. Subacromial space is preserved. No tenderness or bursal calcifications. No acute fracture subluxation or disl ocation seen. In hospital chromium is noted. Some irregularity at its pseudoarticulation is unchanged from 09/01/2020 and likely chronic. Disposition Clinical Impression: Right shoulder pain, Right forearm pain Disposition: HOME SELF-CARE Condition: Stable Instructions (If sedation given, give patient instructions): Arm Pain (ED) Additional Instructions: Please return to the Emergency Department if symptoms worsen or any other concerns. Follow-up with primary care as needed. Follow-up with orthopedist in the next several days. Take at home Motrin Tylenol as needed for pain control. Wear sling throughout the day. Is patient prescribed a controlled substance at d/c from ED?: No Referrals: None,Stated [Primary Care Provider] - 1-2 days Bart Haines PAC [PHYSICIAN CONCRETE SMOOTHER] - 1-2 days Time of Disposition: 16:59
== END 2020-11-03 17:24 | disposition home or self-care (01) ==
LOC: EC 15:02
DX: M25.511 Pain in right shoulder (principal); M79.631 Pain in right forearm; M25.521 Pain in right elbow; I10 Essential (primary) hypertension; E11.9 Type 2 diabetes mellitus without complications; J44.9 Chronic obstructive pulmonary disease, unspecified; G43.909 Migraine, unspecified, not intractable, without status migrainosus; F32.9 Major depressive disorder, single episode, unspecified; F41.9 Anxiety disorder, unspecified; Z86.718 Personal history of other venous thrombosis and embolism; Z87.891 Personal history of nicotine dependence; Z79.4 Long term (current) use of insulin; Z79.51 Long term (current) use of inhaled steroids
CPT/HCPCS: 96372; 99283

== ENCOUNTER → 2021-01-05 | Outpatient (CLI) | payer OTHER ==
--- NOTE | 2021-01-08 03:19 | MR ---
EXAMINATION TYPE: MR shoulder RT wo con DATE OF EXAM: 01/05/2021 COMPARISON: HISTORY: Right shoulder pain, decreased ROM x 6 mos. Multiplanar multiecho imaging of the right shoulder without contrast. The glenoid alexandro appear intact. Subscapularis tendon is intact. Biceps tendon is intact. There is some spurring at the AC joint. There is minimal subacromial impingement. The supraspinatus t endon appears intact. I see no bony destructive process. There is some narrowing of the shoulder join t space. There is no evidence of a fracture. IMPRESSION: No evidence of rotator cuff tear. Mild osteoarthritis of the glenohumeral joint. Spurring at the AC j oint and mild subacromial impingement.
== END | disposition home or self-care (01) ==
LOC: RADMRIMAIN 11:14
PROVIDERS: ATTEND Orthopaedic Surgery
DX: M19.011 Primary osteoarthritis, right shoulder (principal)

== ENCOUNTER → 2021-05-01 | Outpatient (CLI) | payer OTHER ==
[2021-05-01 15:47] LABS: HCT 46.5 % (39.0-53.0); HGB 15.2 gm/dL (13.0-17.5); MCH 30.4 pg (25.0-35.0); MCHC 32.6 g/dL (31.0-37.0); MCV 93.3 fL (80.0-100.0); Mean Platelet Volume 8.1; Platelet Count 261 k/uL (150-450); RBC 4.98 m/uL (4.30-5.90); RDW 12.7 % (11.5-15.5); WBC 10.6 k/uL (3.8-10.6)
[2021-05-01 15:56] LABS: African American GFR (CKD) >90 (>60 ml/min/1.73 sqM); Anion Gap 15 mmol/L; Blood Urea Nitrogen 9 mg/dL (9-20); Carbon Dioxide 26 mmol/L (22-30); Chloride 100 mmol/L (98-107); Non-African American GFR(CKD) >90 (>60 ml/min/1.73 sqM); Potassium 4.5 mmol/L (3.5-5.1); Sodium 141 mmol/L (137-145)
== END | disposition home or self-care (01) ==
LOC: LABPAT 14:29
PROVIDERS: ATTEND Internal Medicine Interventional Cardiology
DX: Z01.812 Encounter for preprocedural laboratory examination (principal); I42.8 Other cardiomyopathies
CPT/HCPCS: 36415; 80051; 82565; 84520; 85027

== ENCOUNTER 2021-05-08 06:00 | Observation (INO) | payer OTHER ==
[2021-05-08] MEDS ORDERED: ALPRAZolam 0.5 MG TAB PO PRN (06:29)
[2021-05-08] MEDS ORDERED: ALPRAZolam 0.25 MG TAB PO PRN (06:29)
[2021-05-08] MEDS ORDERED: NITROGLYCERIN SL TABS 0.4 MG TAB SUBLINGUAL PRN (06:29)
[2021-05-08] MEDS ORDERED: ATORVASTATIN 80 MG TAB PO STA (06:29)
[2021-05-08] MEDS ORDERED: ASPIRIN 325 MG TAB PO STA (06:29)
[2021-05-08] MEDS: SODIUM CHLORIDE 0.9% 1,000 ML in EMPTY BAG 1 BAG IV SCH ×3 (06:45→23:09)
[2021-05-08 06:54] LABS: Glucose,Whole Blood 190 mg/dL (75-99)
[2021-05-08] MEDS ORDERED: VERAPAMIL 2.5 MG/ML 2 ML AMP ONE (07:16)
[2021-05-08] MEDS ORDERED: LIDOCAINE 1% INJ 10MG/ML (20 ML MDV) ONE (07:16)
[2021-05-08] MEDS ORDERED: HEPARIN SODIUM 1,000 UN/ML (10ML VL) ONE (07:33)
[2021-05-08] MEDS ORDERED: MIDAZOLAM 2 MG/2 ML VIAL IV ONE (07:42)
[2021-05-08] MEDS ORDERED: LIDOCAINE 1% INJ 10MG/ML (20 ML MDV) SQ ONE (07:44)
[2021-05-08] MEDS: VERAPAMIL SYRINGE (5 MG/10 ML) INTRAARTER ONE ×2 (07:47→08:00)
[2021-05-08] MEDS ORDERED: ENALAPRILAT 1.25 MG/ML 1 ML VIAL ONE (07:54)
[2021-05-08] MEDS ORDERED: hydrALAZINE HCL 20 MG/ML 1 ML VIAL ONE ×2 (07:54→09:09)
[2021-05-08] MEDS ORDERED: fentaNYL (PF) 50 MCG/ML 2 ML AMP ONE (07:57)
[2021-05-08] MEDS ORDERED: ENALAPRILAT 1.25 MG/ML 1 ML VIAL IV ONE (07:59)
[2021-05-08] MEDS ORDERED: hydrALAZINE HCL 20 MG/ML 1 ML VIAL IV ONE (07:59)
[2021-05-08] MEDS ORDERED: IOPAMIDOL-370 125ML BTL INJ ONE (08:00)
[2021-05-08] MEDS ORDERED: fentaNYL (PF) 50 MCG/ML 2 ML AMP IV ONE (08:00)
[2021-05-08] MEDS ORDERED: RX INFO: IV CONTRAST WAS GIVEN 1 EACH MISC MISCELLANE PRN (08:02)
[2021-05-08] MEDS ORDERED: SODIUM CHLORIDE 0.9% 1,000 ML IV SCH (08:15)
[2021-05-08] MEDS ORDERED: hydrALAZINE HCL 20 MG/ML 1 ML VIAL IVP STA (09:08)
[2021-05-08] MEDS ORDERED: ONDANSETRON 4 MG/2 ML VIAL ONE ×2 (09:36→09:48)
[2021-05-08 09:54] LABS: Glucose,Whole Blood 253 mg/dL (75-99)
[2021-05-08] MEDS ORDERED: METOPROLOL TARTRATE 5 MG/5 ML VIAL IVP ONE (10:10)
[2021-05-08] MEDS ORDERED: traMADol 50 MG TAB PO PRN (10:23)
[2021-05-08] MEDS ORDERED: DOCUSATE 100 MG CAP PO PRN (10:23)
--- NOTE | 2021-05-08 10:49 | CC ---
CARDIAC CATHETERIZATION REPORT DATE OF SERVICE: 05/08/2021 PERFORMING PHYSICIAN: Víctor Sanchez M.D. PROCEDURES PERFORMED: 1. Selective right and left coronary angiogram. 2. Left heart catheterization. INDICATION: This is a 45-year-old gentleman who was diagnosed recently with cardiomyopathy with echo showing also wall motion abnormalities concerning for severe underlying coronary artery disease. The EF was 30% to 35%. In light of that, a heart catheterization was advised to rule out severe underlying coronary artery disease. APPROACH: Right radial artery. COMPLICATIONS: None. LEVEL OF SEDATION: Moderate, with sedation length of 17 minutes. PROCEDURE DESCRIPTION: After obtaining informed consent, the patient was brought to cardiac label tacker. The right radial artery was cannulated using micropuncture technique. The micropuncture wire passed easily. Then I placed a 6-Turkmen sheath at the right radial artery. I did selective right and left coronary angiogram using JR4 and JL3.5 catheters. Left heart catheterization was performed using a 5-Turkmen pigtail catheter. The procedure was completed without any complication. SELECTIVE CORONARY ANGIOGRAM: 1. The right coronary artery is a large-caliber vessel and it is a dominant vessel. The RCA is angiographically normal. It distally bifurcates into PDA and PLV branches; both appeared to be angiographically normal. 2. The left main is angiographically normal. It bifurcates into LCX and LAD. 3. The LCX is a large-caliber vessel. It is a nondominant vessel. The LCX is angiographically normal. It gives rise to the first and second obtuse marginal branches; both appeared to be angiographically normal. 4. The LAD is a large-caliber vessel. The LAD is angiographically normal. It gives rise to a first diagonal branch, which seems to be angiographically normal. The LAD does reach the apex. 5. HEMODYNAMICS: The LVEDP was 22 mmHg without significant gradient across the aortic valve. CONCLUSION: 1. Normal coronary angiogram. 2. Elevated left-sided filling pressure with EDP of 22 mmHg. POST-PROCEDURE MANAGEMENT: 1. Continue to maximize medical treatment for cardiomyopathy. 2. Continue up-titrating beta andrew as well as YOLIE inhibitor. 3. Repeat the echo down the line to assess for improvement in the ejection fraction. 4. Follow up with the patient. MMODL / IJN: [id number] /
[2021-05-08] MEDS ORDERED: NON FORMULARY DRUG (Insulin Lispro (Humalog) 100 UNIT/1 ML Vial) SQ SCH (12:30)
[2021-05-08] MEDS: INSULIN ASPART (NovoLOG) 100 UNIT/ML VIAL SQ SCH ×2 (14:12→17:44)
[2021-05-08] MEDS: ONDANSETRON 4 MG/2 ML VIAL IVP PRN ×2 (14:53→21:40)
[2021-05-08] MEDS ORDERED: ACETAMINOPHEN TAB 325 MG TAB PO PRN (15:08)
[2021-05-08 17:09] LABS: Glucose,Whole Blood 172 mg/dL (75-99)
[2021-05-08] MEDS: carvediloL 6.25 MG TAB PO SCH (18:39)
[2021-05-08 19:23] VITALS: BMI 39.2
[2021-05-08 20:32] LABS: Glucose,Whole Blood 169 mg/dL (75-99)
[2021-05-08] MEDS: FLUTICASONE 110 MCG INHALER INHALATION SCH (20:32)
[2021-05-08] MEDS ORDERED: INSULIN DETEMIR (LEVEMIR) 100 UNIT/ML SYR SQ SCH (21:00)
[2021-05-08] MEDS ORDERED: MONTELUKAST 10 MG TAB PO SCH (21:00)
[2021-05-08] MEDS: DULoxetine HCL 60 MG CAPSULE.DR PO SCH (21:40)
[2021-05-08] MEDS: LISINOPRIL-HCTZ 20-12.5 MG 1 EACH TAB PO SCH (21:40)
[2021-05-09] MEDS: SODIUM CHLORIDE 0.9% 1,000 ML in EMPTY BAG 1 BAG IV SCH ×2 (04:55→13:40)
[2021-05-09] MEDS: ONDANSETRON 4 MG/2 ML VIAL IVP PRN (05:53)
[2021-05-09 07:16] LABS: Glucose,Whole Blood 197 mg/dL (75-99)
[2021-05-09 08:07] VITALS: RESP 16; TEMP 98
[2021-05-09] MEDS ORDERED: METOCLOPRAMIDE 5 MG/ML 2 ML VIAL IVP PRN (08:29)
[2021-05-09] MEDS: INSULIN ASPART (NovoLOG) 100 UNIT/ML VIAL SQ SCH ×3 (08:30→17:38)
[2021-05-09] MEDS: DULoxetine HCL 60 MG CAPSULE.DR PO SCH (08:32)
[2021-05-09] MEDS: LISINOPRIL-HCTZ 20-12.5 MG 1 EACH TAB PO SCH (08:32)
[2021-05-09] MEDS: carvediloL 6.25 MG TAB PO SCH ×2 (08:32→17:43)
[2021-05-09] MEDS ORDERED: ATORVASTATIN 80 MG TAB PO SCH (09:00)
[2021-05-09] MEDS ORDERED: ASPIRIN 325 MG TAB PO SCH (09:00)
[2021-05-09] MEDS: FLUTICASONE 110 MCG INHALER INHALATION SCH (09:11)
[2021-05-09 12:16] LABS: Glucose,Whole Blood 217 mg/dL (75-99)
[2021-05-09 15:44] VITALS: BP 161/88; PULSE 90
[2021-05-09 17:22] LABS: Glucose,Whole Blood 188 mg/dL (75-99)
--- NOTE | 2021-05-10 17:18 | DS ---
DISCHARGE SUMMARY DATE OF ADMISSION: 05/08/2021 DATE OF DISCHARGE: 05/09/2021 BRIEF HISTORY: This is a 45-year-old gentleman who was diagnosed recently with cardiomyopathy and he underwent a heart catheterization which revealed mild nonobstructive coronary artery disease. The patient was seen yesterday. He was kept overnight per his request and because he is homeless. The patient is going to be discharged home. His right radial site is soft and nontender and without any bruises. I will follow up with the patient in a week in the office. MMODL / IJN: [id number] /
== END 2021-05-09 17:47 | disposition home or self-care (01) ==
LOC: CATHCVL 06:00 → 6NMEDSUR 07:57 → CATHCVL 23:54 → 6NMEDSUR 23:54
PROVIDERS: ADMIT Internal Medicine Interventional Cardiology; ATTEND Internal Medicine Interventional Cardiology
DX: I42.8 Other cardiomyopathies (principal); I25.10 Atherosclerotic heart disease of native coronary artery without angina pectoris; I10 Essential (primary) hypertension; E11.9 Type 2 diabetes mellitus without complications; I34.0 Nonrheumatic mitral (valve) insufficiency; E78.00 Pure hypercholesterolemia, unspecified; F17.290 Nicotine dependence, other tobacco product, uncomplicated; I73.9 Peripheral vascular disease, unspecified; E66.01 Morbid (severe) obesity due to excess calories; Z68.39 Body mass index [BMI] 39.0-39.9, adult; Z79.51 Long term (current) use of inhaled steroids; Z79.4 Long term (current) use of insulin; Z79.84 Long term (current) use of oral hypoglycemic drugs; Z79.899 Other long term (current) drug therapy; Z59.00 Homelessness unspecified
CPT/HCPCS: 93458; 94640 ×2; 87635; G0378; C1894; J2250; J0360; J2765; J2405 ×2; J2001; J3010; J1644; Q9967

== ENCOUNTER 2021-05-12 11:33 | Inpatient (IN) | payer OTHER ==
--- NOTE | 2021-05-12 12:34 | ED ---
General Adult HPI - General Chief complaint: Neuro Symptoms/Deficit Stated complaint: blurred vision, dizzy Time Seen by Provider: 05/12/21 11:45 Source: patient Mode of arrival: wheelchair Limitations: no limitations - History of Present Illness Initial comments: Dictation was produced using [employer] dictation software. please excuse any grammatical, word or spelling errors. Chief Complaint: 45-year-old male presents to the emergency department for headache and diplopia History of Present Illness: She is a 45-year-old homeless man who presents to the emergency department for headache and diplopia. 4 days ago patient was admitted to the hospital. He had a cardiac catheterization on May 08. Catheterization was allegedly normal. Patient reports that after the catheterization he started complaining of diplopia. Patient states that he has no history of diplopia. Patient also complains of a mild whole cranial headache. States the headache is not severe. Patient states he has decreased visual acuity to both eyes. He does complain of worsening symptoms to both eyes but worse with the right. He states that he sees double. Patient states that he is diplopia with all extraocular movements. The ROS documented in this emergency department record has been reviewed and confirmed by me. Those systems with pertinent positive or negative responses have been documented in the HPI. All other systems are other negative and/or noncontributory. PHYSICAL EXAM: General Impression: Alert and oriented x3, not in acute distress HEENT: Normocephalic atraumatic, extra-ocular movements intact, pupils equal and reactive to light bilaterally, mucous membranes moist. Cardiovascular: Heart regular rate and rhythm Chest: Able to complete full sentences, no retractions, no tachypnea Abdomen: abdomen soft, non-tender, non-distended, no organomegaly Musculoskeletal: Pulses present and equal in all extremities, no peripheral edema Motor: no focal deficits noted Neurological: There is incomplete medial gaze to the right eye with gazing to the left. No ptosis bilaterally no other facial abnormalities noted. Resting gaze shows barely noticeable exotropia of the right eye Skin: Intact with no visualized rashes Psych: Normal affect and mood ED course: 45-year-old male presents with acute onset diplopia. She does have physical exam findings concerning for diplopia. Vital signs upon arrival are within acceptable limits. Laboratory evaluation obtained. CBC shows mild leukocytosis 12.1. Likely stress. Coag panel is unremarkable. Metabolic panel is within acceptable limits. COVID-19 rapid test is negative. Computed tomography scan of brain shows no acute processes. Chest x-ray shows cardiac megaly but no acute processes. CT angiography of the head and neck was obtained showing low attenuation within the jugular vein on the left is likely flow artifact rather than thrombosis. There is a questionable perhaps 1 mm aneurysm of the anterior communicating artery likely related to superimposition of structures. Patient reevaluated at 2:42 PM. He denies any headache. He does feel like he is nauseated. Case is discussed in detail with neurologist Dr. Peres who will be on consult. He states that the patient will need magnetic resonance imaging for further workup. [facility] be [facility]. Patient given aspirin per recommendation by Dr. Peres. Patient is agreeable with plan. He will be admitted. EKG interpretation: Ventricular rate 95, normal sinus rhythm, KS interval 142, QRS 100, QTC 477. No KS prolongation, no QTC prolongation, no ST or T-wave jb nges noted. Overall, this EKG is unremarkable - Related Data Home Medications Medication Instructions Recorded Confirmed INSULIN LISPRO (humaLOG) [humaLOG] 30 units SQ AC-BID 11/13/19 05/12/21 Insulin Glargine [Lantus Vial] 60 unit SQ HS 11/13/19 05/12/21 Montelukast Sodium [Singulair] 10 mg PO HS 11/13/19 05/12/21 Rosuvastatin Calcium [Crestor] 40 mg PO DAILY 09/19/20 05/12/21 traMADol HCL [Ultram] 50 mg PO QID PRN 05/08/21 05/12/21 Carvedilol [Coreg] 25 mg PO BID-W/MEALS 05/12/21 05/12/21 Dulaglutide [Trulicity] 1.5 mg SQ WE 05/12/21 05/12/21 Lisinopril-Hctz 20-12.5 mg 1 tab PO DAILY 05/12/21 05/12/21 [Zestoretic 20-12.5] Spironolactone 25 mg PO DAILY 05/12/21 05/12/21 Allergies Allergy/AdvReac Type Severity Reaction Status Date / Time No Known Allergies Allergy Verified 05/12/21 13:14 Review of Systems ROS Statement: Those systems with pertinent positive or pertinent negative responses have been documented in the HPI. ROS Other: All systems not noted in ROS Statement are negative. Past Medical History Past Medical History: COPD, Diabetes Mellitus, Deep Vein Thrombosis (DVT), Hyperlipidemia, Hypertension Additional Past Medical History / Comment(s): back pain with pinched nerve, migraines. History of Any Multi-Drug Resistant Organisms: None Reported Past Surgical History: Appendectomy Additional Past Surgical History / Comment(s): oral surgery, Past Anesthesia/Blood Transfusion Reactions: No Reported Reaction Past Psychological History: Anxiety, Depression Smoking Status: Former smoker Past Alcohol Use History: None Reported Past Drug Use History: None Reported - Past Family History Brother(s) Additional Family Medical History / Comment(s): tumor of brain - at 34 General Exam Limitations: no limitations Course Vital Signs 05/12/21 11:36 Temperature 97.5 F L Pulse Rate 103 H Respiratory 18 Rate Blood Pressure 149/112 O2 Sat by Pulse 98 Oximetry Medical Decision Making - Lab Data Result diagrams: 05/12/21 12:15 05/12/21 12:15 Lab Results 05/12/21 05/12/21 05/12/21 Range/Units 12:15 12:15 12:15 WBC 12.1 H (3.8-10.6) k/uL RBC 5.25 (4.30-5.90) m/uL Hgb 16.3 (13.0-17.5) gm/dL Hct 48.0 (39.0-53.0) % MCV 91.4 (80.0-100.0) fL MCH 31.1 (25.0-35.0) pg MCHC 34.0 (31.0-37.0) g/dL RDW 12.4 (11.5-15.5) % Plt Count 270 (150-450) k/uL MPV 8.0 Neutrophils % 65 % Lymphocytes % 25 % Monocytes % 6 % Eosinophils % 1 % Basophils % 1 % Neutrophils # 7.8 H (1.3-7.7) k/uL Lymphocytes # 3.1 (1.0-4.8) k/uL Monocytes # 0.7 (0-1.0) k/uL Eosinophils # 0.2 (0-0.7) k/uL Basophils # 0.1 (0-0.2) k/uL PT 12.6 H (9.0-12.0) sec INR 1.2 H (<1.2) APTT 28.5 (22.0-30.0) sec Sodium 136 L (137-145) mmol/L Potassium 4.3 (3.5-5.1) mmol/L Chloride 100 (98-107) mmol/L Carbon Dioxide 25 (22-30) mmol/L Anion Gap 11 mmol/L BUN 11 (9-20) mg/dL Creatinine 0.70 (0.66-1.25) mg/dL Est GFR (CKD-EPI)AfAm >90 (>60 ml/min/1.73 sqM) Est GFR (CKD-EPI)NonAf >90 (>60 ml/min/1.73 sqM) Glucose 192 H (74-99) mg/dL Calcium 9.9 (8.4-10.2) mg/dL Coronavirus (PCR) (Not Detectd) 05/12/21 Range/Units 13:21 WBC (3.8-10.6) k/uL RBC (4.30-5.90) m/uL Hgb (13.0-17.5) gm/dL Hct (39.0-53.0) % MCV (80.0-100.0) fL MCH (25.0-35.0) pg MCHC (31.0-37.0) g/dL RDW (11.5-15.5) % Plt Count (150-450) k/uL MPV Neutrophils % % Lymphocytes % % Monocytes % % Eosinophils % % Basophils % % Neutrophils # (1.3-7.7) k/uL Lymphocytes # (1.0-4.8) k/uL Monocytes # (0-1.0) k/uL Eosinophils # (0-0.7) k/uL Basophils # (0-0.2) k/uL PT (9.0-12.0) sec INR (<1.2) APTT (22.0-30.0) sec Sodium (137-145) mmol/L Potassium (3.5-5.1) mmol/L Chloride (98-107) mmol/L Carbon Dioxide (22-30) mmol/L Anion Gap mmol/L BUN (9-20) mg/dL Creatinine (0.66-1.25) mg/dL Est GFR (CKD-EPI)AfAm (>60 ml/min/1.73 sqM) Est GFR (CKD-EPI)NonAf (>60 ml/min/1.73 sqM) Glucose (74-99) mg/dL Calcium (8.4-10.2) mg/dL Coronavirus (PCR) Not Detected (Not Detectd) Disposition Clinical Impression: Diplopia Disposition: ADMITTED IP TO THIS HOSP Condition: Fair Referrals: Cabrera Andrew DO [Primary Care Provider] - 1-2 days
[2021-05-12 12:38] LABS: Basophils # (A) 0.1 k/uL (0-0.2); Basophils % (A) 1 %; Eosinophils # (A) 0.2 k/uL (0-0.7); Eosinophils % (A) 1 %; HGB 16.3 gm/dL (13.0-17.5); Lymphocytes # (A) 3.1 k/uL (1.0-4.8); Lymphocytes % (A) 25 %; MCH 31.1 pg (25.0-35.0); MCV 91.4 fL (80.0-100.0); Monocytes # (A) 0.7 k/uL (0-1.0); Monocytes % (A) 6 %; Neutrophils # (A) 7.8 k/uL (1.3-7.7); Neutrophils % (A) 65 %; Platelet Count 270 k/uL (150-450); RBC 5.25 m/uL (4.30-5.90); RDW 12.4 % (11.5-15.5); WBC 12.1 k/uL (3.8-10.6)
[2021-05-12 12:43] LABS: INR 1.2 (<1.2); Partial Thromboplastin Time 28.5 sec (22.0-30.0); Prothrombin Time 12.6 sec (9.0-12.0)
[2021-05-12 12:45] LABS: African American GFR (CKD) >90 (>60 ml/min/1.73 sqM); Anion Gap 11 mmol/L; Blood Urea Nitrogen 11 mg/dL (9-20); Calcium 9.9 mg/dL (8.4-10.2); Carbon Dioxide 25 mmol/L (22-30); Chloride 100 mmol/L (98-107); Glucose 192 mg/dL (74-99); Non-African American GFR(CKD) >90 (>60 ml/min/1.73 sqM); Sodium 136 mmol/L (137-145)
[2021-05-12 12:48] LABS: Potassium 4.3 mmol/L (3.5-5.1)
[2021-05-12] MEDS ORDERED: ONDANSETRON 4 MG/2 ML VIAL IVP STA (13:24)
--- NOTE | 2021-05-12 13:31 | XR ---
EXAMINATION TYPE: XR chest 1V portable DATE OF EXAM: 05/12/2021 COMPARISON: NONE HISTORY: Diplopia TECHNIQUE: Single frontal view of the chest is obtained. FINDINGS: There is no focal air space opacity, pleural effusion, or pneumothorax seen. Heart size is enlarged. No overt failure. Biapical pleural thickening.. The osseous structures are intact. IMPRESSION: Cardiomegaly.
--- NOTE | 2021-05-12 13:31 | CT ---
EXAMINATION TYPE: CT brain wo con DATE OF EXAM: 05/12/2021 COMPARISON: None HISTORY: Heart cath 05-08-21. Headache, dizziness and nausea x [address] DLP: 1124.8 mGycm. Automated Exposure Control for Dose Reduction was Utilized. TECHNIQUE: CT scan of the head is performed without contrast. FINDINGS: There is no acute intracranial hemorrhage, mass effect, or midline shift identified. The ventricles and sulci are within normal limits in size. The globes are intact and the visualized sin uses are clear. IMPRESSION: No acute intracranial hemorrhage, mass effect, or midline shift is seen.
--- NOTE | 2021-05-12 14:26 | CT ---
EXAMINATION TYPE: CT angio head neck DATE OF EXAM: 05/12/2021 HISTORY: Heart cath 05-08-21. Headache, dizziness and nausea x 3 days. COMPARISON: CT DLP: 814.1 mGycm. Automated Exposure Control for Dose Reduction was Utilized. TECHNIQUE: CTA scan of the neck is performed with IV Contrast, patient injected with 65 mL of Isovue 370, axial images are obtained, coronal and sagittal reformatted images are reviewed. 3D reconstruct ed images are created on an independent workstation and reviewed. FINDINGS: Standard three-vessel anatomy of the arch is seen. There is mild atherosclerotic plaque of the left carotid bulb with no significant stenosis. The right carotid bulb appears to be widely paten t with no significant stenosis. Visualized subclavian arteries are patent. There is increased attenuation within the jugular vein antwan aterally which likely is related to flow artifact. This is more pronounced on the left and could be c onfirmed with ultrasound of the jugular vein. Intracranially there is symmetric appearance of the vertebral arteries and the basilar system is rizvi nt. Posterior cerebral arteries are symmetric and appear to be patent. There is a hypoplastic or aplastic segment of the right anterior cerebral artery A1 segment. MCAs fernando ear to be symmetric in size and patent. A 2 segment of the right anterior cerebral artery somewhat di minutive. There is slight prominence of the anterior communicating artery on axial image 22. IMPRESSION: 1. Carotid bifurcations are widely patent. There is low attenuation within the jugular vein particula rly on the left most likely related to flow artifact rather than thrombosis. Recommend ultrasound of the jugular veins within the neck for confirmation. 2. Intracranial structures appear to be patent with questionable 1 mm aneurysm of the anterior commun icating artery which is the more likely related to superimposition of structures. This could be follo wed with a short-term follow-up 6 month MRA [place] of Gutierrez. 3. There is mild prominence of the extraocular muscles which may be physiologic correlate with thyroi d function studies. NASCET criteria was used in interpretation of this exam?
[2021-05-12] MEDS ORDERED: ASPIRIN 81 MG PO STA (14:37)
[2021-05-12] MEDS ORDERED: NALOXONE 0.4 MG/ML 1 ML VIAL IV PRN (14:43)
[2021-05-12] MEDS: SODIUM CHLORIDE 0.9% 1,000 ML IV SCH (14:50)
[2021-05-12] MEDS ORDERED: traMADol 50 MG TAB PO PRN (17:43)
--- NOTE | 2021-05-12 19:16 | MR ---
INDICATION: Patient age:Male; 45 years old; Reason for study: inconclusive CT; COMPARISON: CT angiogram of 05/12/2021. TECHNIQUE: Multi planar, multi sequence imaging was performed through the brain including: T1, T2, In version recovery, Diffusion weighted imaging, and gradient echo imaging. T1 fat-saturation images we re obtained. FINDINGS: Small focus of restricted effusion suggested within the most lateral to cerebral aqueduct on the righ t near the superior pole calculus. No additional areas of restricted diffusion identified. The campo-white junctions, ventricular system, basal cisterns appear unremarkable. Intracranial arteri al flow voids are maintained. Midline structures show no abnormality. Patchy areas of high T2 signal intensity are seen within the periventricular white matter. The susceptibility weighted images do not reveal any evidence for micro-hemorrhage. The bone marrow signal is within normal limits. The paranasal sinuses and globes are unremarkable. IMPRESSION: 1. Subtle area of restricted diffusion suggesting acute/subacute infarct brain stem just lateral to t he cerebral aqueduct on the right near the superior colliculus. No evidence of intracranial mass or a bnormal enhancement. 2. Nonspecific white matter changes, likely related to small vessel ischemic disease
--- NOTE | 2021-05-12 20:41 | HP ---
HISTORY AND PHYSICAL DATE OF SERVICE: 05/12/2021. CHIEF COMPLAINTS: Blurry vision, dizziness. HISTORY OF PRESENT ILLNESS: This 45-year-old gentleman with a past medical history of multiple medical problems including COPD, diabetes mellitus, history of DVT, hypertension, hyperlipidemia, anxiety and depression being followed by Dr. Cabrera Andrew in the outpatient setting. The patient recently had a cardiac catheterization on 05/08/2021 through right radial approach. Cardiac cath showed normal coronaries elevated left-sided filling pressure with end-diastolic pressure of 22 mm. The patient is complaining of dizziness and diplopia on looking to the left after the procedure. There is no history of fever, rigors or chills. No history of headache, loss of consciousness or seizures. Patient had some ataxic gait, falling to the right also. Patient came to [facility] and admitted to the hospital for further evaluation and treatment. There is no history of fever, rigors. No history if headache, loss of consciousness or seizures. PAST MEDICAL HISTORY: History of recent cardiac arrest, COPD, diabetes, DVT, history of hypertension, hyperlipidemia, back pain. MEDICATIONS: Home medications are: Trulicity, Ultram, Crestor, Coreg, Singular, Zestoretic, Lantus, Humalog, Aldactone. Doses are reviewed. ALLERGIES: None. FAMILY HISTORY: History of tumor in the brain in brother who at the age of 34. SOCIAL HISTORY: Previous history of smoking. No history of alcohol intake. REVIEW OF SYSTEMS: ENT: As mentioned earlier. CARDIOVASCULAR system: As mentioned earlier. RESPIRATORY: As mentioned earlier. GI: No nausea or vomiting. : No dysuria. NERVOUS SYSTEM: As mentioned earlier. ALLERGY/IMMUNOLOGY: No asthma or hayfever. MUSCULOSKELETAL: As mentioned earlier. HEMATOLOGY/ONCOLOGY: No history of anemia. ENDOCRINE: As mentioned earlier. CONSTITUTIONAL: As mentioned earlier. DERMATOLOGY: Negative. RHEUMATOLOGY: Negative. PSYCHIATRIC: As mentioned earlier. PHYSICAL EXAMINATION: Patient is alert, oriented x3. Pulse is 103, blood pressure 149/112, respiration 18, temperature 97.5, pulse ox 98% on room air. HEENT: Conjunctivae normal. Oral mucosa moist. NECK is no jugular venous distention. No carotid bruit. No lymph node enlargement. CARDIOVASCULAR: S1, S2. RESPIRATORY: Breath sounds diminished in the bases. No rhonchi. No crackles. ABDOMEN: Soft, nontender. No mass palpable. LEGS: No edema. No swelling. NERVOUS SYSTEM: Higher functions as mentioned earlier. Moves all four extremities. No focal motor or sensory deficits. The medial movement of the right eye is diminished and some ataxia present on the right side. LYMPHATICS: No lymph nodes palpable in the neck, axillae or groin. SKIN: No ulcers, no rashes, no bleeding. JOINTS: No active deforming arthropathy. LAB STUDIES: WBC 12.1, hemoglobin 16.3, INR 1.2 sodium 136, glucose 192. ASSESSMENT: 1. Possible brainstem lesion with medial lesion on the right brainstem. 2. History of recent cardiac catheterization. 3. Increased WBC. 4. Hyponatremia. 5. Diabetes mellitus, type 2. 6. Chronic obstructive pulmonary disease. 7. History of deep vein thrombosis. 8. Hypertension. 9. Hyperlipidemia. 10.Back pain with . 11.History of migraine. 12.History of anxiety, depression. 13.History of nicotine dependence. 14.Obesity with body mass index 38.7. 15.FULL CODE. RECOMMENDATIONS AND DISCUSSION: This 45-year-old gentleman who presented with multiple complex medical issues, we will monitor the patient closely, continue the current medications, management and symptomatic treatment. Otherwise, at this time, I would recommend MRI of the brain and neurology evaluation, neuro checks. Resume the home medications. Antiplatelet agents. Guarded prognosis because of multiple complex medical issues. Further recommendations to follow. A copy of dictation being forwarded to Dr. Cabrera Andrew who is the primary physician. MMCLAUDIO / ALAYNAN: [id number] / MTDD
[2021-05-12] MEDS: carvediloL 12.5 MG TAB PO SCH (21:08)
[2021-05-12] MEDS: CLOPIDOGREL 75 MG TAB PO SCH (21:08)
[2021-05-12] MEDS: INSULIN DETEMIR (LEVEMIR) 100 UNIT/ML SYR SQ SCH (21:08)
[2021-05-12] MEDS: MONTELUKAST 10 MG TAB PO SCH (21:08)
[2021-05-12] MEDS: ATORVASTATIN 80 MG TAB PO SCH (21:08)
[2021-05-12] MEDS: HEPARIN SODIUM,PORCINE/PF 5,000 UNIT/0.5 ML SYRINGE SQ SCH (21:08)
[2021-05-12] MEDS: INSULIN ASPART (NovoLOG) 100 UNIT/ML VIAL SQ SCH (21:20)
[2021-05-12 21:28] LABS: Glucose,Whole Blood 196 mg/dL (75-99)
--- NOTE | 2021-05-12 23:45 | P.CNNES ---
History of Present Illness Consult date: 05/12/21 Requesting physician: Coy Hameed Reason for Consult: Diplopia History of Present Illness: Patient is a 45-year-old male, who had undergone cardiac catheterization recently came to the hospital today at 11:33 AM for dizziness, double vision and nausea. Patient states that he underwent cardiac catheterization 4 days ago on 05/08/2021. Right after the cath was completed, patient was complaining of some pain in the cath site. While he was given the pain medication, patient immediately developed blurred vision, headache, dizziness. He was told that the symptoms will go away, but he was still discharged the next day. Patient states that since then he has been having problems with double vision particularly looking to the left. Also complaining of headache pointing to the bifrontal region, dizziness, nausea. The dizziness and nausea is worse when he is walking to the bathroom. He spoke to his primary physician, who wanted patient to come to the ER. Vital signs on arrival blood pressure 149/112, pulse rate 103, temperature 97.5. Blood test shows normal CBC with slightly elevated WBC 12.1. INR 1.2, sodium 136 potassium 4.3, normal renal functions. Coronavirus negative. Patient's last hemoglobin A1c 10.1 on 11/13/2019. Lipid panel with cholesterol 206, LDL 106 and HDL 29 and triglycerides 351 on 09/19/2020. PFTs normal. Patient's B12 was 601 on 11/15/2019. CT head normal. Chest x-ray showed cardiomegaly. CTA of neck showed carotid bifurcations are widely patent. There is low att enuation within the jugular vein particularly on the left, most likely related to flow artifact rather than thrombosis. Recommend ultrasound of the jugular veins within the neck for confirmation. Intracranial structures appeared to be patent with questionable 1 mm aneurysm of the anterior communicating artery which is more likely related to superimposition of structures. This could be followed with a short term follow-up 6 months MRA [facility] of [place]. There is mild prominence of the extraocular muscles which may be physiologic, correlate with thyroid function studies. EKG shows normal sinus rhythm, minimal voltage criteria for LVH. Patient's home medications include insulin, Crestor 40 mg, tramadol, spironolactone, Coreg, lisinopril/HCTZ, Trulicity. Patient states that he did not take any antiplatelet medication until the day before his cardiac catheterization when he started the aspirin. He is taking aspirin 81 mg daily only for the last for 5 days. Patient denies any previous history of strokes or TIA. Patient has been seen by myself previously on 11/16/2023 recurrent episodes of sweating, dizziness lightheadedness and nausea. Review of Systems As mentioned in detail in HPI. All other 14 point review of systems reviewed and are unremarkable. He does have poor dentition. Denies any chest pain, shortness of breath wheezing or cough. Denies any abdominal pain, nausea vomiting diarrhea. Patient does have some history of dislocated shoulder. He does get shoulder pain. Past Medical History Past Medical History: COPD, Diabetes Mellitus, Deep Vein Thrombosis (DVT), Hyperlipidemia, Hypertension Additional Past Medical History / Comment(s): back pain with pinched nerve, migraines. History of Any Multi-Drug Resistant Organisms: None Reported Past Surgical History: Appendectomy Additional Past Surgical History / Comment(s): oral surgery, Past Anesthesia/Blood Transfusion Reactions: No Reported Reaction Past Psychological History: Anxiety, Depression Smoking Status: Former smoker Past Alcohol Use History: None Reported Past Drug Use History: None Reported - Past Family History Brother(s) Additional Family Medical History / Comment(s): tumor of brain - at 34 Medications and Allergies Home Medications Medication Instructions Recorded Confirmed Type INSULIN LISPRO (humaLOG) [humaLOG] 30 units SQ AC-BID 11/13/19 05/12/21 History Insulin Glargine [Lantus Vial] 60 unit SQ HS 11/13/19 05/12/21 History Montelukast Sodium [Singulair] 10 mg PO HS 11/13/19 05/12/21 History Rosuvastatin Calcium [Crestor] 40 mg PO DAILY 09/19/20 05/12/21 History traMADol HCL [Ultram] 50 mg PO QID PRN 05/08/21 05/12/21 History Carvedilol [Coreg] 25 mg PO BID-W/MEALS 05/12/21 05/12/21 History Dulaglutide [Trulicity] 1.5 mg SQ WE 05/12/21 05/12/21 History Lisinopril-Hctz 20-12.5 mg 1 tab PO DAILY 05/12/21 05/12/21 History [Zestoretic 20-12.5] Spironolactone 25 mg PO DAILY 05/12/21 05/12/21 History Allergies Allergy/AdvReac Type Severity Reaction Status Date / Time No Known Allergies Allergy Verified 05/12/21 13:14 Physical Examination - Vital Signs Vital Signs: Vital Signs Temp Pulse Resp BP Pulse Ox 05/12/21 17:06 111 H 18 158/98 97 05/12/21 11:36 97.5 F L 103 H 18 149/112 98 Intake and Output 05/12/21 05/12/21 05/12/21 06:59 14:59 22:59 Other: Weight 129.274 kg Patient is a middle aged male, in no acute distress. Patient is alert awake oriented to time place and person. Speech and language functions are normal. Attention, concentration and fund of knowledge is adequate. On cranial examination, pupils are round and reacting to light, visual ng are full on confrontation, extraocular muscles reveal right JUWAN. Face has mild flattening of the right nasolabial fold. His tongue protrudes to the midline. Palatal elevation and sensation normal, hearing and shoulder shrug normal, facial sensation normal. Shoulder shrug normal. On muscle strength testing, there is no pronator drift and the strength is normal in arms and legs distally and proximally. Deep tendon reflexes are symmetric, 1 in the upper limbs, 2 at the knees, 1 at ankles and plantars downgoing. Sensory to touch is equal with no neglect on double simultaneous stimulation. Cerebellar function showed no ataxia for [id number] testing. No dysdiadochokinesia. Tone and bulk of muscles normal. Gait normal. On general examination, there is no carotid bruit or murmur, S1-S2 audible. Abdomen is soft nontender. Chest is clear. Peripheral pulses are present. No edema. Results - Laboratory Findings CBC and BMP: 05/12/21 12:15 05/12/21 12:15 Abnormal Lab Findings: Abnormal Labs 05/12/21 05/12/21 05/12/21 12:15 12:15 12:15 WBC 12.1 H Neutrophils # 7.8 H PT 12.6 H INR 1.2 H Sodium 136 L Glucose 192 H Assessment and Plan Assessment: * Acute ischemic stroke producing right JUWAN. MRI of the brain revealed acute ischemic infarction involving the brainstem, just lateral to the cerebral aqueduct on the right, near superior colliculus (probably involving the right MLF). Patient has presented with diplopia, dizziness, headache and nausea. * Status post cardiac catheterization 05/08/2021 * Diabetes, poorly controlled * Hypertension * Obesity * Hyperlipidemia Plan: * Patient will be placed on dual antiplatelet medications for 21 days, then stop Plavix and continue aspirin 81 mg indefinitely. * Optimize control of stroke risk factors. * Hemoglobin A1c is 8.3. Optimize diabetes control to target A1c <7.0 * 2-D echo evaluate for any embolic source. * B12, folate. Lipid panel. * CTA of the head reported possibility of cerebral aneurysm. We will check MRA of the brain. * Patient was recommended to follow up with neuro-wildland fire fighter as an outpatient, if the diplopia persists. * Dr. Dillard will resume neurology service in the morning. * Thank you for the consult.
[2021-05-12 23:57] LABS: Folate, Serum 19.3 ng/mL (4.40-31.00)
[2021-05-13 08:01] LABS: Glucose,Whole Blood 133 mg/dL (75-99)
[2021-05-13] MEDS: MULTIVITAMINS, THERA 1 EACH TAB PO SCH (09:16)
[2021-05-13] MEDS: PANTOPRAZOLE 40 MG TABLET PO SCH (09:16)
[2021-05-13] MEDS: LISINOPRIL-HCTZ 20-12.5 MG 1 EACH TAB PO SCH (09:16)
[2021-05-13] MEDS: INSULIN ASPART (NovoLOG) 100 UNIT/ML VIAL SQ SCH ×2 (09:17→17:58)
[2021-05-13] MEDS: ATORVASTATIN 80 MG TAB PO SCH (09:17)
[2021-05-13] MEDS: SPIRONOLACTONE 25 MG TAB PO SCH (09:17)
[2021-05-13] MEDS: CLOPIDOGREL 75 MG TAB PO SCH (09:17)
[2021-05-13] MEDS: ASPIRIN 81 MG PO SCH (09:17)
[2021-05-13] MEDS: carvediloL 12.5 MG TAB PO SCH ×2 (09:17→17:58)
[2021-05-13] MEDS: HEPARIN SODIUM,PORCINE/PF 5,000 UNIT/0.5 ML SYRINGE SQ SCH ×2 (09:18→20:30)
[2021-05-13 11:40] LABS: Glucose,Whole Blood 172 mg/dL (75-99)
--- NOTE | 2021-05-13 12:01 | ECHOF ---
Referral Reason:Stroke MEASUREMENTS -------- HEIGHT: 182.9 cm WEIGHT: 129.3 kg BP: 115/65 IVSd: 1.4 cm (0.6 - 1.1) LVIDd: 5.3 cm (3.9 - 5.3) LVPWd: 1.5 cm (0.6 - 1.1) EDV(Teich): 138 ml IVSs: 1.6 cm LVIDs: 4.3 cm LVPWs: 2.1 cm %IVS Thck: 16 % ESV(Teich): 85 ml EF(Teich): 38 % %FS: 19 % SV(Teich): 53 ml LA Diam: 3.8 cm (2.7 - 3.8) RVIDd: 2.7 cm (< 3.3) LALs A4C: 5.9 cm LAAs A4C: 20.7 cm LAESV A-L A4C: 61 ml LAESV MOD A4C: 57 ml LALs A2C: 5.4 cm LAAs A2C: 17.1 cm LAESV A-L A2C: 46 ml LAESV MOD A2C: 45 ml LAESV(A-L): 56 ml LAESV Index (A-L): 22.51 ml/m Ao Diam: 3.4 cm (2.0 - 3.7) AV Cusp: 2.3 cm (1.5 - 2.6) EPSS: 1.3 cm MV E Pavan: 0.73 m/s MV DecT: 245 ms MV Dec Doddridge: 3.0 m/s MV A Pavan: 0.59 m/s MV E/A Ratio: 1.24 MV PHT: 71 ms AV Vmax: 1.36 m/s AV maxP.42 mmHg TR Vmax: 1.94 m/s TR maxP.05 mmHg RAP: 5.00 mmHg RVSP: 20.05 mmHg MV EF SLOPE: 109.26 mm/s (70 - 150) MV EXCURSION: 18.05 mm (> 18.000) FINDINGS -------- Sinus rhythm. This was a technically difficult study with suboptimal apical views. The left ventricular size is normal. There is moderate concentric left ventricular hypertrophy. O verall left ventricular systolic function is severely impaired with, an EF between 25 - 30 %. The right ventricle is normal in size. Normal LA size by volume 22+/-6 ml/m2. The right atrium is normal in size. The aortic valve is trileaflet, and appears structurally normal. No aortic stenosis or regurgitation. The mitral valve is normal. Mild tricuspid regurgitation present. Right ventricular systolic pressure is normal at < 35 mmHg. The pulmonic valve is normal. The aortic root size is normal. IVC Not well visulized. There is no pericardial effusion. 3 ml of Lumason was utilized for enhancement of images. CONCLUSIONS -------- 1. The left ventricular size is normal. 2. There is moderate concentric left ventricular hypertrophy. 3. Overall left ventricular systolic function is severely impaired with, an EF between 25 - 30 %. 4. 3 ml of Lumason was utilized for enhancement of images. 5. The aortic valve is trileaflet, and appears structurally normal. No aortic stenosis or regurgitati on. 6. Mild tricuspid regurgitation present. 7. There is no pericardial effusion. STRATEGY DIRECTOR: Margo Todd RDCS
--- NOTE | 2021-05-13 12:11 | P.PN ---
Subjective Progress Note Date: 05/13/21 The patient is a 45-year-old male who is seen in neurologic follow-up on May 13, 2021, via telemedicine. The patient reportedly began to experience symptoms of blurred vision, nausea and ataxia following his cardiac catheterization. The patient reports that he continues to feel unsteady, nauseous and dizzy, when he gets up to go to the bathroom. When he is sitting quietly in the bed, he does not experience those symptoms. Chart is reviewed. MRI of the brain reveals an acute/subacute infarct involving the right brainstem. CT angiogram of the brain revealed a questionable 1 mm aneurysm. The patient has just returned from MRA. Objective - Vital Signs Vital signs: Vital Signs Temp 97.8 F 05/13/21 07:13 Pulse 78 05/13/21 07:13 Resp 17 05/13/21 07:13 BP 114/71 05/13/21 07:13 Pulse Ox 96 05/13/21 07:13 Intake & Output 05/12/21 05/13/21 05/13/21 18:59 06:59 18:59 Weight 129.274 kg Other: Voiding Method Toilet # Voids 1 - Exam Gen.: The patient is well-nourished. He is in no acute distress. He appears older than his stated age. He is obese. HEENT: Head is atraumatic, normocephalic. Fundus not visualized. There is no scleral icterus. Mucous membranes are moist. Neurological examination Mental status: Patient is awake, alert and oriented 3. His speech is clear. There is no dysarthria or aphasia. Cranial nerves: Pupils are equal at 3 mm. Right pupil is sluggishly reactive, with the left being brisk. Extraocular movement testing reveals a right intranuclear ophthalmoplegia. There is no nystagmus. Facial sensation is in tact. There is slight flattening of the left nasolabial fold. Tongue protrudes midline. Shoulder shrug is symmetric. Motor: Strength is 5/5 throughout Coordination: Finger to nose testing is intact. - Labs CBC & Chem 7: 05/12/21 12:15 05/12/21 12:15 Labs: Abnormal Lab Results - Last 24 Hours (Table) 05/12/21 05/12/21 05/12/21 Range/Units 12:15 12:15 12:15 WBC 12.1 H (3.8-10.6) k/uL Neutrophils # 7.8 H (1.3-7.7) k/uL PT 12.6 H (9.0-12.0) sec INR 1.2 H (<1.2) Sodium 136 L (137-145) mmol/L Glucose 192 H (74-99) mg/dL POC Glucose (mg/dL) (75-99) mg/dL Hemoglobin A1c (0.0-6.0) % 05/12/21 05/12/21 05/13/21 Range/Units 12:15 21:10 08:00 WBC (3.8-10.6) k/uL Neutrophils # (1.3-7.7) k/uL PT (9.0-12.0) sec INR (<1.2) Sodium (137-145) mmol/L Glucose (74-99) mg/dL POC Glucose (mg/dL) 196 H 133 H (75-99) mg/dL Hemoglobin A1c 8.3 H (0.0-6.0) % 05/13/21 Range/Units 11:38 WBC (3.8-10.6) k/uL Neutrophils # (1.3-7.7) k/uL PT (9.0-12.0) sec INR (<1.2) Sodium (137-145) mmol/L Glucose (74-99) mg/dL POC Glucose (mg/dL) 172 H (75-99) mg/dL Hemoglobin A1c (0.0-6.0) % Assessment and Plan Assessment: 1. Acute/subacute infarct involving the right brainstem with resultant right JUWAN 2. Recent cardiac catheterization 3. Chest x-ray revealing cardiomyopathy 4. Poorly controlled diabetes mellitus 5. Hypertension Plan: 1. Await MRA result 2. Agree with dual antiplatelet therapy for 21 days 3. Agree with high-dose statin 4. Advised patient that his right JUWAN may improve slightly or may remain unchanged. I did discuss with him the possibility of obtaining glasses, with nixon escamilla that will result in resolution of his diplopia. This can be discussed with case management. 5. Modification of stroke risk factors is recommended: Exercises for 20 minutes 3-5 times per week, weight loss, heart healthy diet, closer monitoring and reduction of blood sugar Time with Patient: Less than 30 (spent 25 minutes with patient via telemedicine)
--- NOTE | 2021-05-13 12:12 | MR ---
EXAMINATION TYPE: MR angio head wo con DATE OF EXAM: 05/13/2021 COMPARISON: None HISTORY: Cerebral aneurysm??? TECHNIQUE: Time of flight images focusing on the [place] were performed without contrast. FINDINGS: There is no sizable aneurysm sac, vascular malformation or segmental occlusion. IMPRESSION: No significant abnormality seen.
[2021-05-13 12:24] LABS: ALT 19 U/L (10-49); AST 14 U/L (14-35); African American GFR (CKD) 105.6 (60.0-200.0); Albumin 4.3 g/dL (3.8-4.9); Albumin/Globulin Ratio 1.54 (1.60-3.17); Alkaline Phosphatase 100 U/L (41-126); Blood Urea Nitrogen 12.8 mg/dL (9.0-27.0); Calcium 9.3 mg/dL (8.7-10.3); Carbon Dioxide 17.3 mmol/L (20.0-27.5); Chloride 100 mmol/L (96-109); Chol/HDL Ratio 2.96 Ratio; Globulin 2.8 g/dL (1.6-3.3); Glucose 144 mg/dL (70-110); LDL Cholesterol,Calculated 40.5 mg/dL (0.0-131.0); Non-African American GFR(CKD) 91.1 (60.0-200.0); Potassium 3.9 mmol/L (3.5-5.5); Sodium 138 mmol/L (135-145); Total Protein 7.1 g/dL (6.2-8.2)
[2021-05-13 13:37] LABS: Basophils # (A) 0.11 X 10*3/uL (0.00-0.10); Eosinophils # (A) 0.18 X 10*3/uL (0.04-0.35); Eosinophils % (A) 1.6 %; HCT 43.8 % (39.6-50.0); HGB 14.5 g/dL (13.0-17.0); Immature Grans, Automated 0.2 %; Lymphocytes # (A) 4.16 X 10*3/uL (0.90-5.00); Lymphocytes % (A) 37.5 %; MCHC 33.1 g/dL (32.0-37.0); MCV 90.5 fL (80.0-97.0); Mean Platelet Volume 10.9 fL (9.5-12.2); Monocytes # (A) 1.35 X 10*3/uL (0.20-1.00); Monocytes % (A) 12.2 %; NRBC Per 100 WBC 0 /100 WBCS (0.0-0.0); Neutrophils # (A) 5.28 X 10*3/uL (1.80-7.70); Neutrophils % (A) 47.5 %; Platelet Count 283 X 10*3/uL (140-440); RBC 4.84 X 10*6/uL (4.40-5.60); RDW 12.5 % (11.5-14.5)
[2021-05-13] MEDS: SODIUM CHLORIDE 0.9% 1,000 ML IV SCH (14:17)
[2021-05-13 17:18] LABS: Glucose,Whole Blood 223 mg/dL (75-99)
[2021-05-13] MEDS ORDERED: CALCIUM CARBONATE 500 MG CHEWABLE PO PRN (19:29)
[2021-05-13] MEDS: MONTELUKAST 10 MG TAB PO SCH (20:28)
--- NOTE | 2021-05-13 20:45 | PN ---
PROGRESS NOTE DATE OF SERVICE: 05/13/2021 This 45-year-old gentleman with a past medical history of multiple medical problems was admitted with features of diplopia. A brain MRI was done. Neurology is following the patient closely. The patient had difficulty in direction of the right eye. The brain MRI showed a subtle area of acute/subacute infarct in the brainstem, left lateral cerebral peduncle on the right . Neurology is also following the patient closely. Right JUWAN is being diagnosed. The MRA did not show any definite acute abnormality. Past medical history reviewed. REVIEW OF SYSTEMS: CARDIOVASCULAR SYSTEM: No angina. RESPIRATION: As mentioned earlier. GI: As mentioned earlier. NERVOUS SYSTEM: As mentioned earlier. CURRENT MEDICATIONS: Reviewed. They include aspirin, Lipitor, Coreg, Plavix. Doses and other medications are reviewed. PHYSICAL EXAMINATION: Patient alert and oriented x3. Pulse 81, blood pressure 91/64, respirations 16, temperature 97.8, pulse ox 94% on room air. HEENT: Conjunctivae normal. NECK: No jugular venous distention. CARDIOVASCULAR: S1, S2 muffled. RESPIRATION: Breath sounds diminished at the bases. A few scattered rhonchi. ABDOMEN: Soft. NERVOUS SYSTEM: The right medial movement is impaired. LABS: WBC 11.5. Monocytes are 1.35. Glucose is 172, HDL is 33. Lipid panel is negative otherwise. ASSESSMENT: 1. Acute right brainstem lesion with right IN ophthalmoplegia. 2. History of recent cardiac catheterization. 3. Increased white count. 4. Hyponatremia. 5. Diabetes mellitus, type 2. 6. Chronic obstructive pulmonary disease. 7. History of deep vein thrombosis. 8. Hypertension. 9. Hyperlipidemia. 10.History of back pain. 11.History of migraines. 12.History of anxiety, depression. 13.History of nicotine dependence. 14.Obesity with body mass index of 38.7. 15.FULL CODE. RECOMMENDATIONS AND DISCUSSION: I recommend to continue current medications, continue with the monitoring, symptomatic treatment. Continue with antiplatelet agents, Lipitor. Continue the rest of the medication. Monitor closely. Ophthalmology evaluation. Neurology consultation. Prognosis guarded because of multiple complex medical issues. Further recommendations to follow. MMODL / IJN: [id number] / MTDD
[2021-05-13] MEDS ORDERED: DOCUSATE 100 MG CAP PO PRN (21:07)
[2021-05-13] MEDS ORDERED: DOCUSATE 100 MG CAP PO STA (21:07)
[2021-05-13 21:10] LABS: Glucose,Whole Blood 160 mg/dL (75-99)
[2021-05-13] MEDS: INSULIN DETEMIR (LEVEMIR) 100 UNIT/ML SYR SQ SCH (21:20)
[2021-05-14 07:39] LABS: Glucose,Whole Blood 117 mg/dL (75-99)
[2021-05-14] MEDS: INSULIN ASPART (NovoLOG) 100 UNIT/ML VIAL SQ SCH ×2 (07:45→17:27)
[2021-05-14] MEDS: HEPARIN SODIUM,PORCINE/PF 5,000 UNIT/0.5 ML SYRINGE SQ SCH ×2 (07:55→21:03)
[2021-05-14] MEDS: SPIRONOLACTONE 25 MG TAB PO SCH (07:56)
[2021-05-14] MEDS: PANTOPRAZOLE 40 MG TABLET PO SCH (07:56)
[2021-05-14] MEDS: ATORVASTATIN 80 MG TAB PO SCH (07:56)
[2021-05-14] MEDS: ASPIRIN 81 MG PO SCH (07:56)
[2021-05-14] MEDS: carvediloL 12.5 MG TAB PO SCH ×2 (07:56→17:26)
[2021-05-14] MEDS: CLOPIDOGREL 75 MG TAB PO SCH (07:56)
[2021-05-14] MEDS: LISINOPRIL-HCTZ 20-12.5 MG 1 EACH TAB PO SCH (07:57)
[2021-05-14 12:34] LABS: Glucose,Whole Blood 216 mg/dL (75-99)
[2021-05-14] MEDS: MULTIVITAMINS, THERA 1 EACH TAB PO SCH (12:50)
--- NOTE | 2021-05-14 16:43 | PN ---
PROGRESS NOTE DATE OF SERVICE: 05/14/2021 This 45-year-old gentleman was admitted with acute right brainstem stroke, is being closely monitored. No chest pain. No palpitations. No fever. Neurology following the patient closely. The patient also complains of dizziness. PHYSICAL EXAMINATION: Alert and oriented. Pulse 82, blood pressure 126/81, respiration 18, temperature 98.2, pulse ox 94% on room air. HEENT: Conjunctivae normal. Oral mucosa moist. NECK: No jugular venous distention. No lymph node enlargement. CARDIOVASCULAR: S1, S2, muffled. No S3, no S4, RESPIRATORY: Diminished breath sounds at the bases. No rhonchi, no crackles. ABDOMEN: Soft, nontender. LEGS: No edema, no swelling. NERVOUS SYSTEM: Right internuclear ophthalmoplegia present. LABS: Noted. ASSESSMENT: 1. Acute right brainstem lesion with the right internuclear ophthalmoplegia. 2. History of recent cardiac catheterization. 3. Increased WBC. 4. Hyponatremia. 5. Diabetes mellitus type 2. 6. Chronic obstructive pulmonary disease. 7. History of deep vein thrombosis. 8. Hypertension. 9. Hyperlipidemia. 10.History of back pain. 11.History of migraine. 12.History of anxiety, depression. 13.History of nicotine dependence. 14.Obesity with body mass index of 38.6. 15.FULL CODE. RECOMMENDATIONS AND DISCUSSION: Recommend to continue current management, continue symptomatic treatment. Continue with antiplatelet agents. Continue with antihyperlipidemic agents. Closely follow with Neurology. Prognosis guarded. Ophthalmology evaluation. Further recommendations to follow. MMODL / IJN: [id number] /
[2021-05-14 17:20] LABS: Glucose,Whole Blood 285 mg/dL (75-99)
[2021-05-14] MEDS: SODIUM CHLORIDE 0.9% 1,000 ML IV SCH (19:06)
[2021-05-14] MEDS: MONTELUKAST 10 MG TAB PO SCH (21:03)
[2021-05-14] MEDS: INSULIN DETEMIR (LEVEMIR) 100 UNIT/ML SYR SQ SCH (21:03)
[2021-05-14 21:07] LABS: Glucose,Whole Blood 165 mg/dL (75-99)
[2021-05-15 07:30] LABS: Glucose,Whole Blood 143 mg/dL (75-99)
[2021-05-15] MEDS: INSULIN ASPART (NovoLOG) 100 UNIT/ML VIAL SQ SCH (08:06)
[2021-05-15] MEDS: ASPIRIN 81 MG PO SCH (08:07)
[2021-05-15] MEDS: LISINOPRIL-HCTZ 20-12.5 MG 1 EACH TAB PO SCH (08:07)
[2021-05-15] MEDS: carvediloL 12.5 MG TAB PO SCH (08:07)
[2021-05-15] MEDS: ATORVASTATIN 80 MG TAB PO SCH (08:07)
[2021-05-15] MEDS: PANTOPRAZOLE 40 MG TABLET PO SCH (08:07)
[2021-05-15] MEDS: HEPARIN SODIUM,PORCINE/PF 5,000 UNIT/0.5 ML SYRINGE SQ SCH (08:07)
[2021-05-15] MEDS: CLOPIDOGREL 75 MG TAB PO SCH (08:07)
[2021-05-15] MEDS: SPIRONOLACTONE 25 MG TAB PO SCH (08:07)
[2021-05-15 08:46] VITALS: BP 148/88; PULSE 84; RESP 16; TEMP 97.6
[2021-05-15] MEDS: MULTIVITAMINS, THERA 1 EACH TAB PO SCH (11:47)
[2021-05-15 12:03] LABS: Glucose,Whole Blood 200 mg/dL (75-99)
[2021-05-15] MEDS: SODIUM CHLORIDE 0.9% 1,000 ML IV SCH (15:59)
--- NOTE | 2021-05-15 17:50 | DS ---
DISCHARGE SUMMARY DATE OF SERVICE: 05/15/2021 FINAL DIAGNOSES: 1. Acute right brainstem lesion with right internuclear ophthalmoplegia, improved. 2. History of recent cardiac catheterization. 3. Increased WBC. 4. Hyponatremia. 5. Diabetes mellitus, type 2. 6. Chronic obstructive pulmonary disease. 7. History of deep vein thrombosis. 8. Hypertension. 9. Hyperlipidemia. 10.History of back pain. 11.History of migraines. 12.Anxiety/depression. 13.History of nicotine dependence. 14.Obesity with body mass index 38.6. 15.FULL CODE. DISCHARGE DISPOSITION: The patient discharged in stable condition with guarded prognosis. Discharge cleared by neurology. HISTORY OF PRESENT ILLNESS: This 45 -year-old gentleman with a past medical history of multiple medical problems admitted with features of diplopia and as well as right internuclear ophthalmoplegia right brainstem stroke probably. MRA confirmed the lesions. Neurology saw the patient. Neurovascular workup is otherwise unremarkable. The patient being discharged in stable condition with guarded prognosis. Ophthalmology evaluation is pending outpatient. On exam, vitals are stable. Cardiovascular S1, S2. Abdomen soft. Nervous system: No focal deficits. DISCHARGE ADVICE AND MEDICATIONS: 1. Diet is cardiac diet. 2. Activity limited until followup. 3. Follow up with Dr. Andrew in 2-3 days. 4. Follow up with Dr. Delatorre in 1 week. 5. Follow up with Dr. Talavera in 2-3 days. MEDICATIONS: Are as follows: 1. Coreg 25 mg p.o. b.i.d. 2. Humalog 30 units subcu. 3. Lantus 60 units subcu q.h.s. 4. Accu-Cheks a.c. and q.h.s. with Dr. Andrew. 5. Singulair 10 mg q.h.s. 6. Aldactone 25 mg p.o. daily. 7. Trulicity 1.5 mg subcu Saturday. 8. Ultram p.r.n. 9. Lisinopril 20/12.5 p.o. daily. 10.Aspirin 81 mg daily. 11.Colace 100 mg p.o. b.i.d. 12.Lipitor 80 mg daily. 13.Multivitamins one p.o. daily. 14.Plavix 75 mg p.o. daily. 15.Tums 1000 mg b.i.d. p.r.n. Once again, the patient will be discharged in stable condition with guarded prognosis. MMCLAUDIO / ALAYNAN: [id number] /
[2021-05-17] MEDS ORDERED: PATIENT'S OWN (Dulaglutide [Trulicity] 1.5 MG/0.5 ML Each) SQ SCH (12:00)
== END 2021-05-15 16:30 | disposition home or self-care (01) | DRG 65 ==
LOC: EC 11:33 → 6NMEDSUR 14:49 → OBSVTOIN 05-13 10:36
PROVIDERS: ADMIT Hospitalist; ATTEND Hospitalist
DX: I63.9 Cerebral infarction, unspecified (principal); E87.1 Hypo-osmolality and hyponatremia; I42.9 Cardiomyopathy, unspecified; H51.21 Internuclear ophthalmoplegia, right eye; R42 Dizziness and giddiness; Z20.822 Contact with and (suspected) exposure to COVID-19; E11.9 Type 2 diabetes mellitus without complications; D72.829 Elevated white blood cell count, unspecified; I07.1 Rheumatic tricuspid insufficiency; I10 Essential (primary) hypertension; J44.9 Chronic obstructive pulmonary disease, unspecified; Z68.38 Body mass index [BMI] 38.0-38.9, adult; E66.9 Obesity, unspecified; E78.5 Hyperlipidemia, unspecified; F32.A Depression, unspecified; F41.9 Anxiety disorder, unspecified; H50.111 Monocular exotropia, right eye; H53.2 Diplopia; Z59.00 Homelessness unspecified; Z79.4 Long term (current) use of insulin; Z79.82 Long term (current) use of aspirin; Z79.899 Other long term (current) drug therapy; Z86.718 Personal history of other venous thrombosis and embolism; Z87.891 Personal history of nicotine dependence; Z86.74 Personal history of sudden cardiac arrest
CPT/HCPCS: 36415; 70450; 70496; 70498; 70544; 70551; 71045; 80048; 80053; 80061; 82607; 82746; 83036; 85025; 85610; 85730; 87635; 93005; 93306; 96374; 99285

== ENCOUNTER → 2021-05-17 | Outpatient (CLI) | payer OTHER ==
[2021-05-17 23:51] LABS: Eosinophils # (A) 0.28 X 10*3/uL (0.04-0.35); Eosinophils % (A) 2.7 %; HCT 46.2 % (39.6-50.0); HGB 15.1 g/dL (13.0-17.0); Lymphocytes # (A) 3.43 X 10*3/uL (0.90-5.00); Lymphocytes % (A) 32.7 %; MCHC 32.7 g/dL (32.0-37.0); MCV 91.8 fL (80.0-97.0); Mean Platelet Volume 11.7 fL (9.5-12.2); Monocytes # (A) 0.94 X 10*3/uL (0.20-1.00); Neutrophils # (A) 5.73 X 10*3/uL (1.80-7.70); Neutrophils % (A) 54.4 %; Platelet Count 250 X 10*3/uL (140-440); RBC 5.03 X 10*6/uL (4.40-5.60); RDW 12.3 % (11.5-14.5)
[2021-05-18 00:56] LABS: African American GFR (CKD) 125.9 (60.0-200.0); Anion Gap 14.1 mmol/L (10.00-18.00); BUN/Creat Ratio 18.5 Ratio (12.00-20.00); Blood Urea Nitrogen 14.8 mg/dL (9.0-27.0); Calcium 9.4 mg/dL (8.7-10.3); Carbon Dioxide 20.9 mmol/L (20.0-27.5); Non-African American GFR(CKD) 108.6 (60.0-200.0); Potassium 4.5 mmol/L (3.5-5.5)
== END | disposition home or self-care (01) ==
LOC: LABWHC1 14:32
PROVIDERS: ATTEND Registered Nurse
DX: D72.829 Elevated white blood cell count, unspecified (principal); I63.9 Cerebral infarction, unspecified
CPT/HCPCS: 36415; 80048; 85025

== ENCOUNTER → 2022-05-30 | Outpatient (CLI) | payer OTHER ==
--- NOTE | 2022-05-30 13:48 | XR ---
EXAMINATION TYPE: XR chest 2V DATE OF EXAM: 05/30/2022 COMPARISON: 05/12/2021 TECHNIQUE: PA and lateral views submitted. HISTORY: Cough FINDINGS: The lungs are clear and there is no pneumothorax, pleural effusion, or focal pneumonia. Heart size normal and no overt failure. Osseous structures demonstrate hypertrophic and degenerative changes of the spine. IMPRESSION: 1. No acute process.
== END | disposition home or self-care (01) ==
LOC: RADXRMAIN 13:31
PROVIDERS: ATTEND Physician Assistant
DX: R05.9 Cough, unspecified (principal)
CPT/HCPCS: 71046

== ENCOUNTER 2022-09-08 07:40 | Emergency (ER) | payer OTHER ==
[2022-09-08] MEDS ORDERED: SODIUM CHLORIDE 0.9% 1,000 ML IV STA (07:54)
[2022-09-08] MEDS ORDERED: ONDANSETRON 4 MG/2 ML VIAL IVP STA (07:54)
[2022-09-08] MEDS ORDERED: ACETAMINOPHEN IV (For NPO) 1,000 MG in EMPTY BAG 1 BAG IVPB STA (07:55)
[2022-09-08] MEDS ORDERED: FAMOTIDINE 20 MG/2 ML VIAL IV STA (07:55)
--- NOTE | 2022-09-08 07:59 | ED ---
General Adult HPI - General Chief complaint: Upper Respiratory Infection Stated complaint: Congestion Time Seen by Provider: 09/08/22 07:49 Source: patient, RN notes reviewed Mode of arrival: ambulatory Limitations: no limitations - History of Present Illness Initial comments: Patient is a pleasant 46-year-old male presenting to the emergency Department with several complaints. Patient has been feeling sick for the past couple days. Patient is chilled and has fatigue. Patient has sore throat. Patient does have congestion and cough. Patient has had vomiting sometimes associated with the cough and sometimes not. Decreased oral intake. No abdominal pain. No constipation or diarrhea. - Related Data Home Medications Medication Instructions Recorded Confirmed INSULIN LISPRO (humaLOG) [humaLOG] 30 units SQ AC-BID 11/13/19 05/12/21 Insulin Glargine [Lantus Vial] 60 unit SQ HS 11/13/19 05/12/21 Montelukast Sodium [Singulair] 10 mg PO HS 11/13/19 05/12/21 traMADol HCL [Ultram] 50 mg PO QID PRN 05/08/21 05/12/21 Dulaglutide [Trulicity] 1.5 mg SQ WE 05/12/21 05/12/21 Lisinopril-Hctz 20-12.5 mg 1 tab PO DAILY 05/12/21 05/12/21 [Zestoretic 20-12.5] Spironolactone 25 mg PO DAILY 05/12/21 05/12/21 carvediloL [Coreg] 25 mg PO BID-W/MEALS 05/12/21 05/12/21 Previous Rx's Medication Instructions Recorded Aspirin 81 mg PO DAILY 30 Days #30 tab 05/15/21 Atorvastatin [Lipitor] 80 mg PO DAILY 30 Days #30 tab 05/15/21 Calcium Carbonate [Tums] 1,000 mg PO QID PRN tab 05/15/21 Clopidogrel [Plavix] 75 mg PO DAILY 30 Days #30 tab 05/15/21 Docusate [Colace] 100 mg PO BID PRN cap 05/15/21 Multivitamins, Thera [Multivitamin 1 each PO DAILY@1200 #30 tab 05/15/21 (formulary)] Nirmatrelvir/Ritonavir [Paxlovid 3 each PO BID #30 each 09/08/22 300-100 mg Pack (Eua)] Allergies Allergy/AdvReac Type Severity Reaction Status Date / Time No Known Allergies Allergy Verified 09/08/22 07:47 Review of Systems ROS Statement: Those systems with pertinent positive or pertinent negative responses have been documented in the HPI. ROS Other: All systems not noted in ROS Statement are negative. Constitutional: Reports: as per HPI, fever Eyes: Denies: as per HPI ENT: Reports: throat pain, congestion. Denies: ear pain Respiratory: Reports: cough, dyspnea (Patient believes this may be related with congestion) Cardiovascular: Denies: chest pain Endocrine: Reports: fatigue Gastrointestinal: Reports: as per HPI, vomiting. Denies: abdominal pain Genitourinary: Denies: dysuria Musculoskeletal: Denies: back pain Skin: Denies: rash Neurological: Denies: weakness Past Medical History Past Medical History: COPD, Diabetes Mellitus, Deep Vein Thrombosis (DVT), Hyperlipidemia, Hypertension Additional Past Medical History / Comment(s): back pain with pinched nerve, migraines. History of Any Multi-Drug Resistant Organisms: None Reported Past Surgical History: Appendectomy Additional Past Surgical History / Comment(s): oral surgery, Past Anesthesia/Blood Transfusion Reactions: No Reported Reaction Past Psychological History: Anxiety, Depression Smoking Status: Current every day smoker Past Alcohol Use History: None Reported Past Drug Use History: None Reported - Past Family History Brother(s) Additional Family Medical History / Comment(s): tumor of brain - at 35 General Exam Limitations: no limitations General appearance: alert, in no apparent distress Head exam: Present: normocephalic Eye exam: Present: normal appearance ENT exam: Present: other (Mild pharyngeal erythema) Neck exam: Present: normal inspection Respiratory exam: Present: normal lung sounds bilaterally Cardiovascular Exam: Present: regular rate, normal rhythm GI/Abdominal exam: Present: soft. Absent: tenderness Extremities exam: Present: normal inspection. Absent: pedal edema, calf tenderness Neurological exam: Present: alert Psychiatric exam: Present: normal affect, normal mood Skin exam: Present: normal color Course Vital Signs 09/08/22 09/08/22 07:43 09:11 Temperature 100.6 F H 100.2 F H Pulse Rate 112 H Respiratory 18 Rate Blood Pressure 162/92 O2 Sat by Pulse 97 Oximetry Medical Decision Making - Medical Decision Making Was pt. sent in by a medical professional or institution (Dr., PA, SPRAY DRY OPERATOR, urgent care, hospital, or senior living...) When possible be specific @ -No Did you speak to anyone other than the patient for history (EMS, parent, family, police, friend...)? What history was obtained from this source @ -No Did you review nursing and triage notes (agree or disagree)? Why? @ -I reviewed and agree with nursing and triage notes Were old charts reviewed (outside hosp., previous admission, EMS record, old EKG, old radiological studies, urgent care reports/EKG's, senior living records)? Report findings @ -No old charts were reviewed Differential Diagnosis (chest pain, altered mental status, abdominal pain women, abdominal pain men, vaginal bleeding, weakness, fever, dyspnea, syncope, headache, dizziness, GI bleed, back pain, seizure, CVA, palpatations, mental health)? @ -Differential Dyspnea: Coronary syndrome, arrhythmia, tamponade, asthma, COPD, pulmonary embolism, pneumonia, pneumothorax, pulmonary effusion, anaphylaxis, diabetic ketoacidosis, flailed chest, pulmonary contusion, diaphragmatic rupture, anemia, neuromuscular, this is not meant to be an all-inclusive list. EKG interpreted by me (3pts min.). @ -As above X-rays interpreted by me (1pt min.). @ -Chest x-ray shows no acute process CT interpreted by me (1pt min.). @ -None done U/S interpreted by me (1pt. min.). @ -None done What testing was considered but not performed or refused? (CT, X-rays, U/S, labs)? Why? @ -None What meds were considered but not given or refused? Why? @ -None Did you discuss the management of the patient with other professionals (pr ofessionals i.e. , PA, SPRAY DRY OPERATOR, lab, RT, psych nurse, social media sr strategy manager, account engineer, teacher, juvenile probation officer, case managers)? Give summary @ -No Was smoking cessation discussed for >3mins.? @ -No Was critical care preformed (if so, how long)? @ -No Were there social determinants of health that impacted care today? How? (Homelessness, low income, unemployed, alcoholism, drug addiction, transport ation, low edu. Level, literacy, decrease access to med. care, [facility], rehab)? @ -Patient has history of homelessness. Patient will be provided Zofran starter pack Was there de-escalation of care discussed even if they declined (Discuss DNR or withdrawal of care, Hospice)? DNR status @ -No What co-morbidities impacted this encounter? (DM, HTN, Smoking, COPD, CAD, Cancer, CVA, ARF, Chemo, Hep., AIDS, mental health diagnosis, sleep apnea, morbid obesity)? @ -None Was patient admitted / discharged? Hospital course, mention meds given and route, prescriptions, significant lab abnormalities, going to OR and other pertinent info. @ -Patient reevaluated and updated. Patient is feeling better. Undiagnosed new problem with uncertain prognosis? @ -No Drug Therapy requiring intensive monitoring for toxicity (Heparin, Nitro, Insulin, Cardizem)? @ -No Were any procedures done? @ -No Diagnosis/symptom? @ -COVID-19 Acute, or Chronic, or Acute on Chronic? @ -Acute Uncomplicated (without systemic symptoms) or Complicated (systemic symptoms)? @ -default Side effects of treatment? @ -No Exacerbation, Progression, or Severe Exacerbation? @ -No Poses a threat to life or bodily function? How? (Chest pain, [place], [place], pneumonia, PE, COPD, DKA, ARF, appy, cholecystitis, CVA, Diverticulitis, Homicidal, Suicidal, threat to staff... and all critical care pts) @ -No - Lab Data Result diagrams: 09/08/22 08:20 09/08/22 08:20 Lab Results 09/08/22 09/08/22 09/08/22 Range/Units 08:20 08:20 08:20 WBC 8.8 (3.8-10.6) k/uL RBC 4.82 (4.30-5.90) m/uL Hgb 14.6 (13.0-17.5) gm/dL Hct 42.3 (39.0-53.0) % MCV 87.7 (80.0-100.0) fL MCH 30.2 (25.0-35.0) pg MCHC 34.5 (31.0-37.0) g/dL RDW 13.0 (11.5-15.5) % Plt Count 190 (150-450) k/uL MPV 8.6 Neutrophils % (Manual) 62 % Lymphocytes % (Manual) 20 % Monocytes % (Manual) 17 % Basophils % (Manual) 1 % Neutrophils # (Manual) 5.46 (1.3-7.7) k/uL Lymphocytes # (Manual) 1.76 (1.0-4.8) k/uL Monocytes # (Manual) 1.50 H (0-1.0) k/uL Basophils # (Manual) 0.09 (0-0.2) k/uL Nucleated RBCs 0 (0-0) /100 WBC Manual Slide Review Performed RBC Morphology Normal D-Dimer 0.51 (<0.60) mg/L FEU Sodium 133 L (137-145) mmol/L Potassium 3.8 (3.5-5.1) mmol/L Chloride 99 (98-107) mmol/L Carbon Dioxide 23 (22-30) mmol/L Anion Gap 11 mmol/L BUN 10 (9-20) mg/dL Creatinine 0.61 L (0.66-1.25) mg/dL Est GFR (CKD-EPI)AfAm >90 (>60 ml/min/1.73 sqM) Est GFR (CKD-EPI)NonAf >90 (>60 ml/min/1.73 sqM) Glucose 284 H (74-99) mg/dL Calcium 8.6 (8.4-10.2) mg/dL Total Bilirubin 0.7 (0.2-1.3) mg/dL AST 27 (17-59) U/L ALT 22 (4-49) U/L Alkaline Phosphatase 90 (38-126) U/L Total Protein 7.5 (6.3-8.2) g/dL Albumin 4.2 (3.5-5.0) g/dL Amylase 32 (30-110) U/L Lipase 37 (23-300) U/L Acetone, Qual Negative (Negative) Influenza Type A (PCR) (Not Detectd) Influenza Type B (PCR) (Not Detectd) RSV (PCR) (Not Detectd) SARS-CoV-2 (PCR) (Not Detectd) Group A Strep (PCR) (Not Detectd) 09/08/22 09/08/22 Range/Units 08:48 08:48 WBC (3.8-10.6) k/uL RBC (4.30-5.90) m/uL Hgb (13.0-17.5) gm/dL Hct (39.0-53.0) % MCV (80.0-100.0) fL MCH (25.0-35.0) pg MCHC (31.0-37.0) g/dL RDW (11.5-15.5) % Plt Count (150-450) k/uL MPV Neutrophils % (Manual) % Lymphocytes % (Manual) % Monocytes % (Manual) % Basophils % (Manual) % Neutrophils # (Manual) (1.3-7.7) k/uL Lymphocytes # (Manual) (1.0-4.8) k/uL Monocytes # (Manual) (0-1.0) k/uL Basophils # (Manual) (0-0.2) k/uL Nucleated RBCs (0-0) /100 WBC Manual Slide Review RBC Morphology D-Dimer (<0.60) mg/L FEU Sodium (137-145) mmol/L Potassium (3.5-5.1) mmol/L Chloride (98-107) mmol/L Carbon Dioxide (22-30) mmol/L Anion Gap mmol/L BUN (9-20) mg/dL Creatinine (0.66-1.25) mg/dL Est GFR (CKD-EPI)AfAm (>60 ml/min/1.73 sqM) Est GFR (CKD-EPI)NonAf (>60 ml/min/1.73 sqM) Glucose (74-99) mg/dL Calcium (8.4-10.2) mg/dL Total Bilirubin (0.2-1.3) mg/dL AST (17-59) U/L ALT (4-49) U/L Alkaline Phosphatase (38-126) U/L Total Protein (6.3-8.2) g/dL Albumin (3.5-5.0) g/dL Amylase (30-110) U/L Lipase (23-300) U/L Acetone, Qual (Negative) Influenza Type A (PCR) Not Detected (Not Detectd) Influenza Type B (PCR) Not Detected (Not Detectd) RSV (PCR) Not Detected (Not Detectd) SARS-CoV-2 (PCR) Detected A (Not Detectd) Group A Strep (PCR) NOT DETECTED (Not Detectd) Disposition Clinical Impression: COVID-19 Disposition: HOME SELF-CARE Condition: Stable Instructions (If sedation given, give patient instructions): COVID-19 (Coronavirus Disease 2019) (ED) Additional Instructions: Prescription sent to pharmacy. Please do follow-up with primary care physician in the next or 2 for recheck. Return for difficulty breathing, not telling fluids, worsening or change in symptoms or other concerns. [id number] Tylenol as needed for fever and chills. [id number] vitamin C, vitamin D, and zinc daily until symptoms have resolved. Prescriptions: Nirmatrelvir/Ritonavir [Paxlovid 300-100 mg Pack (Eua)] 3 each PO BID #30 each Is patient prescribed a controlled substance at d/c from ED?: No Referrals: David Bentley MD [Primary Care Provider] - 1-2 days Time of Disposition: 09:39
[2022-09-08 08:33] LABS: HCT 42.3 % (39.0-53.0); HGB 14.6 gm/dL (13.0-17.5); MCH 30.2 pg (25.0-35.0); MCHC 34.5 g/dL (31.0-37.0); MCV 87.7 fL (80.0-100.0); Mean Platelet Volume 8.6; Platelet Count 190 k/uL (150-450); RBC 4.82 m/uL (4.30-5.90); WBC 8.8 k/uL (3.8-10.6)
[2022-09-08 08:46] LABS: ALT 22 U/L (4-49); African American GFR (CKD) >90 (>60 ml/min/1.73 sqM); Albumin 4.2 g/dL (3.5-5.0); Amylase 32 U/L (30-110); Anion Gap 11 mmol/L; Blood Urea Nitrogen 10 mg/dL (9-20); Calcium 8.6 mg/dL (8.4-10.2); Carbon Dioxide 23 mmol/L (22-30); Chloride 99 mmol/L (98-107); Glucose 284 mg/dL (74-99); Lipase 37 U/L (23-300); Non-African American GFR(CKD) >90 (>60 ml/min/1.73 sqM); Sodium 133 mmol/L (137-145); Total Bilirubin 0.7 mg/dL (0.2-1.3); Total Protein 7.5 g/dL (6.3-8.2)
[2022-09-08 08:49] LABS: AST 27 U/L (17-59); Alkaline Phosphatase 90 U/L (38-126); Potassium 3.8 mmol/L (3.5-5.1)
--- NOTE | 2022-09-08 08:53 | XR ---
EXAMINATION TYPE: XR chest 2V DATE OF EXAM: 09/08/2022 COMPARISON: 05/30/2022 INDICATION: Cough TECHNIQUE: Frontal and lateral views of the chest are obtained. FINDINGS: The heart size is normal. The pulmonary vasculature is normal. The lungs are clear. IMPRESSION: 1. No acute pulmonary process.
[2022-09-08 09:08] LABS: Basophils # (M) 0.09 k/uL (0-0.2); Lymphocytes # (M) 1.76 k/uL (1.0-4.8); Neutrophils # (M) 5.46 k/uL (1.3-7.7); Neutrophils % (M) 62 %; Nucleated Red Blood Cells 0 /100 WBC (0-0); RBC Morphology Normal; Total Cells Counted 100
[2022-09-08] MEDS ORDERED: ONDANSETRON 4 MG ODT STARTER PACK 2 TAB BTL PO STA (09:39)
[2022-09-08 10:03] VITALS: BP 144/89; PULSE 91; RESP 20; TEMP 98.8
== END 2022-09-08 10:02 | disposition home or self-care (01) ==
LOC: EC 07:40
DX: U07.1 COVID-19 (principal); I10 Essential (primary) hypertension; J44.9 Chronic obstructive pulmonary disease, unspecified; E11.9 Type 2 diabetes mellitus without complications; E78.5 Hyperlipidemia, unspecified; F41.9 Anxiety disorder, unspecified; F32.A Depression, unspecified; F17.200 Nicotine dependence, unspecified, uncomplicated; Z79.4 Long term (current) use of insulin; Z79.899 Other long term (current) drug therapy
CPT/HCPCS: 36415; 87651; 85379; 80053; 82150; 82009; 83690; 85025; 87636; 71046; 99283; 96374; 96375 ×2; 96361; J2405; J0131; S0119

== ENCOUNTER 2023-10-18 13:38 | Observation (INO) | payer OTHER ==
--- NOTE | 2023-10-18 14:20 | XR ---
EXAMINATION TYPE: XR chest 2V DATE OF EXAM: 10/18/2023 COMPARISON: 09/08/2022 HISTORY: Chest pain TECHNIQUE: Frontal and lateral views of the chest are obtained. FINDINGS: There is no focal air space opacity. No evidence for pneumothorax. No pleural effusion. The cardiac silhouette size is within normal limits. The osseous structures are grossly intact. IMPRESSION: 1. No acute cardiopulmonary process.
[2023-10-18 14:27] LABS: Basophils # (A) 0.1 k/uL (0-0.2); Basophils % (A) 1 %; Eosinophils # (A) 0.4 k/uL (0-0.7); Eosinophils % (A) 4 %; HCT 44.1 % (39.0-53.0); HGB 14.3 gm/dL (13.0-17.5); Lymphocytes # (A) 2.8 k/uL (1.0-4.8); Lymphocytes % (A) 30 %; MCH 29.7 pg (25.0-35.0); MCHC 32.5 g/dL (31.0-37.0); MCV 91.4 fL (80.0-100.0); Mean Platelet Volume 8.4; Monocytes # (A) 0.6 k/uL (0-1.0); Monocytes % (A) 6 %; Neutrophils # (A) 5.2 k/uL (1.3-7.7); Neutrophils % (A) 57 %; Platelet Count 213 k/uL (150-450); RBC 4.82 m/uL (4.30-5.90); RDW 13.2 % (11.5-15.5); WBC 9.2 k/uL (3.8-10.6)
[2023-10-18 14:35] LABS: INR 1.2 (<1.2); Partial Thromboplastin Time 26.4 sec (22.0-30.0); Prothrombin Time 12.6 sec (10.0-12.5)
[2023-10-18 14:43] LABS: ALT 17 U/L (4-49); African American GFR (CKD) >90 (>60 ml/min/1.73 sqM); Albumin 4.5 g/dL (3.5-5.0); Anion Gap 10 mmol/L; Blood Urea Nitrogen 7 mg/dL (9-20); Carbon Dioxide 22 mmol/L (22-30); Chloride 104 mmol/L (98-107); Glucose 262 mg/dL (74-99); Non-African American GFR(CKD) >90 (>60 ml/min/1.73 sqM); Sodium 136 mmol/L (137-145); Total Bilirubin 0.9 mg/dL (0.2-1.3); Total Protein 7.6 g/dL (6.3-8.2)
[2023-10-18 14:57] LABS: AST 26 U/L (17-59); Alkaline Phosphatase 91 U/L (38-126); Potassium 4.5 mmol/L (3.5-5.1)
--- NOTE | 2023-10-18 16:34 | ED ---
Chest Pain HPI - General Source: patient, RN notes reviewed Mode of arrival: ambulatory Limitations: no limitations <Casi Cerda - Last Filed: 10/18/23 16:32> - General Source: patient, RN notes reviewed Mode of arrival: ambulatory Limitations: no limitations <Luther Wright - Last Filed: 10/18/23 19:10> - General Chief Complaint: Chest Pain Stated Complaint: Chest pain, coughing Time Seen by Provider: 10/18/23 16:32 - History of Present Illness Initial Comments: Quick [id number] male with history of COPD, diabetes, DVT, hyperlipidemia, and hypertension presenting with chest pain x 2 years. States the pain is in the middle of his chest and does not radiate. States he is also been having a dry cough as well. Denies any change in symptoms over the past day. States he had a stroke a couple years ago and ever since then he has been having some chronic chest pain. He does not follow with any doctors. (Casi Cerda) Patient is a 47-year-old male presenting to the emergency department with concern for chest discomfort. Patient states that his present for years, worse the past couple months. Patient states recently is starting to become severe. Patient does have some dyspnea, unclear if this is related. Patient denies history of previous blood clot. Patient states he does have a cardiac history and does have previous stent placement. (Luther Wright) - Related Data Home Medications Medication Instructions Recorded Confirmed INSULIN LISPRO (humaLOG) [humaLOG] 30 units SQ AC-BID 11/13/19 05/12/21 Insulin Glargine [Lantus Vial] 60 unit SQ HS 11/13/19 05/12/21 Montelukast Sodium [Singulair] 10 mg PO HS 11/13/19 05/12/21 traMADol HCL [Ultram] 50 mg PO QID PRN 05/08/21 05/12/21 Dulaglutide [Trulicity] 1.5 mg SQ WE 05/12/21 05/12/21 Lisinopril-Hctz 20-12.5 mg 1 tab PO DAILY 05/12/21 05/12/21 [Zestoretic 20-12.5] Spironolactone 25 mg PO DAILY 05/12/21 05/12/21 carvediloL [Coreg] 25 mg PO BID-W/MEALS 05/12/21 05/12/21 Previous Rx's Medication Instructions Recorded Aspirin 81 mg PO DAILY 30 Days #30 tab 05/15/21 Atorvastatin [Lipitor] 80 mg PO DAILY 30 Days #30 tab 05/15/21 Calcium Carbonate [Tums] 1,000 mg PO QID PRN tab 05/15/21 Clopidogrel [Plavix] 75 mg PO DAILY 30 Days #30 tab 05/15/21 Docusate [Colace] 100 mg PO BID PRN cap 05/15/21 Multivitamins, Thera [Multivitamin 1 each PO DAILY@1200 #30 tab 05/15/21 (formulary)] Nirmatrelvir/Ritonavir [Paxlovid 3 each PO BID #30 each 09/08/22 300-100 mg Pack (Eua)] Allergies Allergy/AdvReac Type Severity Reaction Status Date / Time No Known Allergies Allergy Verified 10/18/23 13:47 Review of Systems ROS Other: All systems not noted in ROS Statement are negative. <Casi Cerda - Last Filed: 10/18/23 16:32> ROS Other: All systems not noted in ROS Statement are negative. Constitutional: Denies: fever Eyes: Denies: eye pain ENT: Denies: ear pain Respiratory: Reports: cough, dyspnea Cardiovascular: Reports: chest pain, orthopnea Endocrine: Denies: fatigue Gastrointestinal: Denies: abdominal pain Musculoskeletal: Denies: back pain <Luther Wright - Last Filed: 10/18/23 19:10> ROS Statement: Those systems with pertinent positive or pertinent negative responses have been documented in the HPI. EKG Findings - EKG Results: EKG: interpreted by ERMD (Nonspecific T waves.), sinus rhythm, normal axis, normal QRS <Luther Wright - Last Filed: 10/18/23 19:10> Past Medical History Past Medical History: COPD, Diabetes Mellitus, Deep Vein Thrombosis (DVT), Hyperlipidemia, Hypertension Additional Past Medical History / Comment(s): back pain with pinched nerve, migraines. History of Any Multi-Drug Resistant Organisms: None Reported Past Surgical History: Appendectomy Additional Past Surgical History / Comment(s): oral surgery, Past Anesthesia/Blood Transfusion Reactions: No Reported Reaction Past Psychological History: Anxiety, Depression Smoking Status: Current every day smoker Past Alcohol Use History: None Reported Past Drug Use History: None Reported - Past Family History Brother(s) Additional Family Medical History / Comment(s): tumor of brain - at 34 <PrashantCasi - Last Filed: 10/18/23 16:32> General Exam Limitations: no limitations <Casi Cerda - Last Filed: 10/18/23 16:32> Limitations: no limitations General appearance: alert, in no apparent distress Head exam: Present: normocephalic Eye exam: Present: normal appearance Neck exam: Present: normal inspection Respiratory exam: Present: normal lung sounds bilaterally Cardiovascular Exam: Present: regular rate, normal rhythm Expanded Peripheral pulses: 2+: Radial (R), Radial (L), Posterior Tibialis (R), Posterior Tibialis (L) GI/Abdominal exam: Present: soft. Absent: tenderness Extremities exam: Present: normal inspection. Absent: pedal edema, calf tenderness Neurological exam: Present: alert Psychiatric exam: Present: normal affect, normal mood Skin exam: Present: normal color <Luther Wright - Last Filed: 10/18/23 19:10> - General Exam Comments Initial Comments: Visual Physical Exam Vital signs reviewed General: Well-appearing, nontoxic, no acute distress. Head: Normocephalic, atraumatic Eyes: PERRLA, EOMI ENT: Airway patent Chest: Nonlabored breathing Skin: No visual rash, normal skin tone Neuro: Alert and oriented 3 Musculoskeletal: No gross abnormalities (PrashantCasi) Course Vital Signs 10/18/23 10/18/23 10/18/23 13:45 16:45 18:33 Temperature 98.1 F 97.9 F Pulse Rate 102 H 102 H 86 Pulse Rate [ 103 H Nurseryman Assistant ] Respiratory 22 18 18 Rate Blood Pressure 154/95 145/96 107/61 O2 Sat by Pulse 99 98 95 Oximetry Chest Pain MDM <Casi Cerda - Last Filed: 10/18/23 16:32> <Luther Wright - Last Filed: 10/18/23 19:10> - MDM I completed the quick note portion of this chart signed Casi Cerda PA-C (Cais Cerda) Chest x-ray interpreted by myself shows no acute process Was pt. sent in by a medical professional or institution (, PA, INSPECTOR MACHINE PARTS, urgent care, hospital, or shelter...) When possible be specific @ -No Did you speak to anyone other than the patient for history (EMS, parent, family, police, friend...)? What history was obtained from this source @ -No Did you review nursing and triage notes (agree or disagree)? Why? @ -I reviewed and agree with nursing and triage notes Were old charts reviewed (outside hosp., previous admission, EMS record, old EKG, old radiological studies, urgent care reports/EKG's, shelter records)? Report findings @ -No old charts were reviewed Differential Diagnosis (chest pain, altered mental status, abdominal pain women, abdominal pain men, vaginal bleeding, weakness, fever, dyspnea, syncope, headache, dizziness, GI bleed, back pain, seizure, CVA, palpatations, mental health, musculoskeletal)? @ -Differential Chest Pain: Stable Angina, Unstable Angina, STEMI, NSTEMI Aortic Dissection, Pneumothorax, Musculoskeletal, Esophageal Spasm GERD, Cholecystitis, Pancreatitis, Zoster, this is not meant to be an all-inclusive list. EKG interpreted by me (3pts min.). @ -As above X-rays interpreted by me (1pt min.). @ -Chest x-ray shows no acute process CT interpreted by me (1pt min.). @ -CT chest negative for pulmonary embolism U/S interpreted by me (1pt. min.). @ -None done What testing was considered but not performed or refused? (CT, X-rays, U/S, labs)? Why? @ -None What meds were considered but not given or refused? Why? @ -None Did you discuss the management of the patient with other professionals (professionals i.e. , PA, INSPECTOR MACHINE PARTS, lab, RT, psych nurse, social secretary, early childhood education worker, teacher, loan servicing officer, case management associate)? Give summary @ -Discussed with Dr. Kee who will admit covering hospital call Was smoking cessation discussed for >3mins.? @ -No Was critical care preformed (if so, how long)? @ -No Were there social determinants of health that impacted care today? How? (Homelessness, low income, unemployed, alcoholism, drug addiction, transportation, low edu. Level, literacy, decrease access to med. care, [facility], rehab)? @ -No Was there de-escalation of care discussed even if they declined (Discuss DNR or withdrawal of care, Hospice)? DNR status @ -No What co-morbidities impacted this encounter? (DM, HTN, Smoking, COPD, CAD, Cancer, CVA, ARF, Chemo, Hep., AIDS, mental health diagnosis, sleep apnea, morbid obesity)? @ -Coronary artery Was patient admitted / discharged? Hospital course, mention meds given and route, prescriptions, significant lab abnormalities, going to OR and other pertinent info. @ -Patient presents with worsening chest discomfort with cardiac history. Original ER assessment without acute abnormality. Patient will be admitted with cardiac observation/consult. Symptoms did improve with nitroglycerin. Undiagnosed new problem with uncertain prognosis? @ -No Drug Therapy requiring intensive monitoring for toxicity (Heparin, Nitro, Insulin, Cardizem)? @ -No Were any procedures done? @ -No Diagnosis/symptom? @ -Chest pain Acute, or Chronic, or Acute on Chronic? @ -Acute Uncomplicated (without systemic symptoms) or Complicated (systemic symptoms)? @ -Default Side effects of treatment? @ -No Exacerbation, Progression, or Severe Exacerbation? @ -No Poses a threat to life or bodily function? How? (Chest pain, [place], [place], pneumonia, PE, COPD, DKA, ARF, appy, cholecystitis, CVA, Diverticulitis, Homicidal, Suicidal, threat to staff... and all critical care pts) @ -Threat to cardiac function (Luther Wright) Disposition <Casi Cerda - Last Filed: 10/18/23 16:32> Is patient prescribed a controlled substance at d/c from ED?: No Time of Disposition: 19:10 <Luther Wright - Last Filed: 10/18/23 19:10> Clinical Impression: Chest pain Disposition: ADMITTED IP TO THIS HOSP Referrals: Rosy Blanchard, PAC [Primary Care Provider] - 1-2 days
[2023-10-18] MEDS: NITROGLYCERIN SL TABS 0.4 MG TAB SUBLINGUAL STA (16:57)
[2023-10-18] MEDS: ASPIRIN 81 MG PO STA (16:58)
--- NOTE | 2023-10-18 17:36 | CT ---
EXAMINATION TYPE: CT angio chest DATE OF EXAM: 10/18/2023 COMPARISON: None HISTORY: cp,luis, elevated d-dimer CT DLP: 1023.4 mGycm CONTRAST: CT chest with contrast and 3D reconstruction with MIP imaging is performed with IV Contrast, patient injected with 100ml mL of Isovue 370. Contrast-enhanced CT of the chest was performed through the course of the pulmonary arteries with matt g and mediastinal window settings submitted. 3D reconstruction with MIP imaging was also performed. PULMONARY ARTERIES: The pulmonary arteries and their major tributaries are patent. I do not see joellen dence for sizable filling defect to suggest pulmonary embolic process. LUNGS: The lungs are clear and free of infiltrate. No evidence for atelectasis. No pulmonary nodule or mass is detected. No pleural effusion. MEDIASTINUM: Thoracic aorta is of normal caliber.. The heart is not enlarged. No evidence for media stinal mass. No mediastinal lymph nodes greater than 1cm. HILAR STRUCTURES: No evidence for mass. No hilar lymph nodes greater than 1 cm. UPPER ABDOMEN: No significant abnormality is seen. IMPRESSION: 1. No evidence for Pulmonary embolism at this time.
[2023-10-18] MEDS ORDERED: NITROGLYCERIN SL TABS 0.4 MG TAB SUBLINGUAL PRN (19:11)
[2023-10-18] MEDS: NITROGLYCERIN OINT 1 INCH/GM PACKET TOPICAL SCH (23:39)
[2023-10-19] MEDS ORDERED: CYCLOBENZAPRINE 10 MG TAB PO PRN (03:24)
[2023-10-19] MEDS ORDERED: traMADol 50 MG TAB PO PRN (03:24)
--- NOTE | 2023-10-19 03:26 | P.HPIM ---
History of Present Illness H&P Date: 10/18/23 Patient is a 47-year-old male with a PMH of CAD status post stent, type II DM complicated by peripheral neuropathy, hypertension, hyperlipidemia, history of CVA, and COPD who presents to the emergency room with complaints of chest pain. Has been experiencing chest pain for the past 2 years intermittently with no clear inciting or alleviating factors. Notes pain is substernal, pressure and sharp-like, strongly pleuritic, nonradiating, that occurs every few days and last for several days at a time. Notes the pain is gradually getting worse. Denies experiencing cough, fever, lower extremity swelling, lower extremity pain. Also denies abdominal pain, vomiting, diarrhea. Chest CTA in the emergency room was unremarkable with EKG showing sinus rhythm at 99 bpm with T wave flattening in leads V5 and V6 as reviewed by me. Laboratory evaluation was remarkable for troponin less than 0.012, glucose 262, sodium 136, WBC count 9.2, hemoglobin 14.3. ED documentation reviewed and case discussed with ED provider. Review of systems: Pertinent positives and negatives as discussed in HPI, a complete review of systems was performed and all other systems are negative. Physical examination: Vital signs reviewed General: non toxic, no distress, appears at stated age, morbidly obese Derm: no unusual rashes/lesions, warm Head: atraumatic, normocephalic, symmetric Eyes: EOMI, no lid lag, anicteric sclera, pupils equal round reactive to light ENT: Nose and ears atraumatic Neck: No cervical lymphadenopathy, trachea midline, supple Mouth: no lip lesion, mucus membranes moist Cardiovascular: S1S2 reg, no murmur, positive dorsalis pedis pulse bilateral, no edema, sternal chest wall tenderness noted Lungs: CTA bilateral, no rhonchi, no rales, no accessory muscle use Abdominal: soft, nontender to palpation, no guarding Ext: muscle strength 5 out of 5 in all 4 extremities grossly, no gross muscle atrophy, no contractures, Neuro: CN II-XI grossly intact, no gross focal neuro deficits Psych: Alert, oriented, appropriate affect Assessment: Atypical chest pain Chronic conditions: Type II DM, hypertension, hyperlipidemia, COPD, history of CVA Imaging: Chest CTA in the emergency room was unremarkable with EKG showing sinus rhythm at 99 bpm with T wave flattening in leads V5 and V6 as reviewed by me. Data Review: Laboratory evaluation was remarkable for troponin less than 0.012, glucose 262, sodium 136, WBC count 9.2, hemoglobin 14.3. Plan: Cardiology consulted Cardiac monitoring Trend troponin Continue with aspirin and statin Insulin sliding scale and blood glucose monitoring Resume home medications DVT prophylaxis: Lovenox subcu The patient is admitted with an anticipated [] than 2 midnight stay for evaluation of [] CODE STATUS: Full Code Discussed with: Patient Anticipated discharge place: Home Past Medical History Past Medical History: COPD, Diabetes Mellitus, Deep Vein Thrombosis (DVT), Hyperlipidemia, Hypertension Additional Past Medical History / Comment(s): back pain with pinched nerve, migraines. History of Any Multi-Drug Resistant Organisms: None Reported Past Surgical History: Appendectomy Additional Past Surgical History / Comment(s): oral surgery, Past Anesthesia/Blood Transfusion Reactions: No Reported Reaction Past Psychological History: Anxiety, Depression Smoking Status: Current every day smoker Past Alcohol Use History: None Reported Past Drug Use History: None Reported - Past Family History Brother(s) Additional Family Medical History / Comment(s): tumor of brain - at 34 Medications and Allergies Home Medications Medication Instructions Recorded Confirmed Type INSULIN LISPRO (humaLOG) [humaLOG] 30 units SQ AC-TID PRN 11/13/19 10/18/23 History Insulin Glargine [Lantus Vial] 60 unit SQ HS PRN 11/13/19 10/18/23 History Montelukast Sodium [Singulair] 10 mg PO HS 11/13/19 10/18/23 History traMADol HCL [Ultram] 50 mg PO TID PRN 05/08/21 10/18/23 History Dulaglutide [Trulicity] 1.5 mg SQ WE 05/12/21 10/18/23 History Spironolactone 25 mg PO DAILY 05/12/21 10/18/23 History carvediloL [Coreg] 25 mg PO BID 05/12/21 10/18/23 History Atorvastatin [Lipitor] 80 mg PO DAILY 30 Days #30 tab 05/15/21 10/18/23 Rx Clopidogrel [Plavix] 75 mg PO DAILY 30 Days #30 tab 05/15/21 10/18/23 Rx Cyclobenzaprine [Flexeril] 10 mg PO TID PRN 10/18/23 10/18/23 History Fluticasone Propionate 220 Mcg 1 puff INHALATION RT-BID 10/18/23 10/18/23 Histor y [Flovent 220 Mcg Inhaler] Gabapentin [Neurontin] 400 mg PO TID 10/18/23 10/18/23 History Omeprazole [PriLOSEC] 40 mg PO DAILY 10/18/23 10/18/23 History Topiramate [Topamax] 25 mg PO BID 10/18/23 10/18/23 History lisinopriL [Zestril] 40 mg PO DAILY 10/18/23 10/18/23 History Allergies Allergy/AdvReac Type Severity Reaction Status Date / Time No Known Allergies Allergy Verified 10/18/23 19:59 Physical Exam Vitals: Vital Signs Temp Pulse Pulse Resp BP Pulse Ox 10/18/23 21:27 91 18 133/90 96 10/18/23 18:33 97.9 F 86 18 107/61 95 10/18/23 16:45 102 H 103 H 18 145/96 98 10/18/23 13:45 98.1 F 102 H 22 154/95 99 Intake and Output 10/18/23 10/18/23 10/19/23 14:59 22:59 06:59 Other: Weight 127.006 kg Results CBC & Chem 7: 10/18/23 14:00 10/18/23 14:00 Labs: Abnormal Lab Results - Last 24 Hours (Table) 10/18/23 10/18/23 10/18/23 Range/Units 14:00 14:00 14:00 PT 12.6 H (10.0-12.5) sec INR 1.2 H (<1.2) D-Dimer 1.07 H (<0.60) mg/L FEU Sodium 136 L (137-145) mmol/L BUN 7 L (9-20) mg/dL Creatinine 0.61 L (0.66-1.25) mg/dL Glucose 262 H (74-99) mg/dL
[2023-10-19] MEDS: ATORVASTATIN 80 MG TAB PO STA (03:34)
[2023-10-19 07:44] LABS: Glucose,Whole Blood 197 mg/dL (70-110)
[2023-10-19] MEDS: INSULIN ASPART (NovoLOG) 100 UNIT/ML VIAL SQ SCH (07:52)
[2023-10-19] MEDS: carvediloL 12.5 MG TAB PO SCH (07:53)
[2023-10-19] MEDS: FLUTICASONE 220 MCG INHALER INHALATION SCH (08:13)
[2023-10-19] MEDS: ENOXAPARIN 40 MG/0.4 ML SYRINGE SQ SCH (08:26)
[2023-10-19] MEDS: ASPIRIN 325 MG TAB PO SCH (08:27)
[2023-10-19] MEDS: SPIRONOLACTONE 25 MG TAB PO SCH (08:27)
[2023-10-19] MEDS: CLOPIDOGREL 75 MG TAB PO SCH (08:27)
[2023-10-19] MEDS: lisinopriL 20 MG TAB PO SCH (08:27)
[2023-10-19] MEDS: TOPIRAMATE 25 MG TAB PO SCH (08:27)
[2023-10-19] MEDS: PANTOPRAZOLE 40 MG TABLET PO SCH (08:28)
[2023-10-19] MEDS: GABAPENTIN 400 MG CAP PO SCH (08:32)
[2023-10-19 10:11] LABS: Chol/HDL Ratio 4.79 Ratio; LDL Cholesterol,Calculated 125.7 mg/dL (0.0-131.0)
--- NOTE | 2023-10-19 11:44 | P.CRDCN ---
History of Present Illness Consult date: 10/19/23 Requesting physician: Adonis Rockwell Reason for Consult (text): cp Chief complaint: chest pain History of present illness: Is a 47-year-old gentleman with a past medical history of hypertension, hyperlipidemia, diabetes, COPD, CVA, nonischemic cardiomyopathy with an ejection fraction of 25 to 30% by echo in 2021 at which time it cardiac catheterization revealed normal coronary arteries. Patient has been noncompliant has not followed up with cardiology and several years. He presented with complaints of chest discomfort worsened from baseline ongoing for several years. The pain was left-sided not exertional and there seem to be no aggravating or relieving factors. No associated symptoms. He does have some dyspnea on exertion and evidence of possible orthopnea with no edema. EKG on admission showed sinus mechanism with nonspecific ST-T wave abnormalities. He is not sure which medications he is currently taking. He is currently homeless and lives with a friend. He verbalizes difficulty lying supine however says he uses only 1 pillow because that is all he has. He continues to smoke and admits to smoking 1 cigarette every 3 weeks. He quit drinking several years ago. The time my examination he continues to have chest pain, chronic but better compared to admission. Troponins have been negative x 3. Blood pressure elevated this morning at 153/99. Past Medical History Past Medical History: COPD, Diabetes Mellitus, Deep Vein Thrombosis (DVT), Hyperlipidemia, Hypertension Additional Past Medical History / Comment(s): back pain with pinched nerve, migraines. History of Any Multi-Drug Resistant Organisms: None Reported Past Surgical History: Appendectomy Additional Past Surgical History / Comment(s): oral surgery, Past Anesthesia/Blood Transfusion Reactions: No Reported Reaction Past Psychological History: Anxiety, Depression Smoking Status: Current every day smoker Past Alcohol Use History: None Reported Past Drug Use History: None Reported - Past Family History Brother(s) Additional Family Medical History / Comment(s): tumor of brain - at 34 Medications and Allergies Home Medications Medication Instructions Recorded Confirmed Type INSULIN LISPRO (humaLOG) [humaLOG] 30 units SQ AC-TID PRN 11/13/19 10/18/23 History Insulin Glargine [Lantus Vial] 60 unit SQ HS PRN 11/13/19 10/18/23 History Montelukast Sodium [Singulair] 10 mg PO HS 11/13/19 10/18/23 History traMADol HCL [Ultram] 50 mg PO TID PRN 05/08/21 10/18/23 History Dulaglutide [Trulicity] 1.5 mg SQ WE 05/12/21 10/18/23 History Spironolactone 25 mg PO DAILY 05/12/21 10/18/23 History carvediloL [Coreg] 25 mg PO BID 05/12/21 10/18/23 History Atorvastatin [Lipitor] 80 mg PO DAILY 30 Days #30 tab 05/15/21 10/18/23 Rx Clopidogrel [Plavix] 75 mg PO DAILY 30 Days #30 tab 05/15/21 10/18/23 Rx Cyclobenzaprine [Flexeril] 10 mg PO TID PRN 10/18/23 10/18/23 History Fluticasone Propionate 220 Mcg 1 puff INHALATION RT-BID 10/18/23 10/18/23 History [Flovent 220 Mcg Inhaler] Gabapentin [Neurontin] 400 mg PO TID 10/18/23 10/18/23 History Omeprazole [PriLOSEC] 40 mg PO DAILY 10/18/23 10/18/23 History Topiramate [Topamax] 25 mg PO BID 10/18/23 10/18/23 History lisinopriL [Zestril] 40 mg PO DAILY 10/18/23 10/18/23 History Allergies Allergy/AdvReac Type Severity Reaction Status Date / Time No Known Allergies Allergy Verified 10/18/23 19:59 Physical Exam Vitals: Vital Signs Temp Pulse Pulse Resp BP Pulse Ox 10/19/23 10:38 77 14 95/42 95 10/19/23 08:15 98 10/19/23 07:44 96 18 153/99 95 10/19/23 06:22 90 16 131/81 96 10/19/23 03:36 94 18 119/58 97 10/18/23 23:36 87 18 147/98 95 10/18/23 21:27 91 18 133/90 96 10/18/23 18:33 97.9 F 86 18 107/61 95 10/18/23 16:45 102 H 103 H 18 145/96 98 10/18/23 13:45 98.1 F 102 H 22 154/95 99 PHYSICAL EXAMINATION: This is a 47-year-old male in no apparent distress at the time of my examination. VITAL SIGNS: Reviewed HEENT: Head is atraumatic, normocephalic. Pupils are equal, round. Sclerae anicteric. Conjunctivae are clear. Mucous membranes of the mouth are moist. Neck is supple. There is no elevated jugular venous pressure. No carotid bruit is heard. CHEST EXAMINATION: Clear to auscultation bilaterally. No wheezes rales or rhonchi. Respirations even and nonlabored. HEART EXAMINATION: Heart regular, positive S1 and S2. No S3. No S4. Soft systolic murmur. ABDOMEN: Soft, nontender. Bowel sounds are heard. No organomegaly noted. EXTREMITIES: 2+ peripheral pulses with no evidence of peripheral edema and no calf tenderness noted. NEUROLOGIC EXAMINATION: Patient is awake, alert and oriented x3. Results 10/18/23 14:00 10/18/23 14:00 Cardiac Enzymes 10/18/23 10/18/23 10/18/23 Range/Units 14:00 14:00 19:21 AST 26 (17-59) U/L Troponin I <0.012 <0.012 (0.000-0.034) ng/mL 10/18/23 Range/Units 21:48 AST (17-59) U/L Troponin I <0.012 (0.000-0.034) ng/mL Coagulation 10/18/23 Range/Units 14:00 PT 12.6 H (10.0-12.5) sec APTT 26.4 (22.0-30.0) sec Lipids 10/18/23 Range/Units 14:00 Triglycerides 135.00 (0.00-149.00) mg/dL Cholesterol 193.00 (0.00-200.00) mg/dL HDL Cholesterol 40.30 (40.00-60.00) mg/dL Cholesterol/HDL Ratio 4.79 Ratio CBC 10/18/23 Range/Units 14:00 WBC 9.2 (3.8-10.6) k/uL RBC 4.82 (4.30-5.90) m/uL Hgb 14.3 (13.0-17.5) gm/dL Hct 44.1 (39.0-53.0) % Plt Count 213 (150-450) k/uL Comprehensive Metabolic Panel 10/18/23 Range/Units 14:00 Sodium 136 L (137-145) mmol/L Potassium 4.5 (3.5-5.1) mmol/L Chloride 104 (98-107) mmol/L Carbon Dioxide 22 (22-30) mmol/L BUN 7 L (9-20) mg/dL Creatinine 0.61 L (0.66-1.25) mg/dL Glucose 262 H (74-99) mg/dL Calcium 9.0 (8.4-10.2) mg/dL AST 26 (17-59) U/L ALT 17 (4-49) U/L Alkaline Phosphatase 91 (38-126) U/L Total Protein 7.6 (6.3-8.2) g/dL Albumin 4.5 (3.5-5.0) g/dL Current Medications Generic Name Dose Route Start Last Admin Trade Name Freq PRN Reason Stop Dose Admin Aspirin 81 mg 10/20/23 09:00 Aspirin 81 Mg PO DAILY [facility] Atorvastatin Calcium 80 mg 10/19/23 21:00 Atorvastatin 80 Mg Tab PO [facility] Carvedilol 25 mg 10/19/23 07:30 10/19/23 07:53 Carvedilol 12.5 Mg Tab PO 25 mg BID-W/MEALS JESSICA Administration Cyclobenzaprine HCl 10 mg 10/19/23 03:24 Cyclobenzaprine 10 Mg Tab PO TID PRN Muscle Spasm Enoxaparin Sodium 40 mg 10/19/23 09:00 10/19/23 08:26 Enoxaparin 40 Mg/0.4 Ml Syringe SQ 40 mg DAILY JESSICA Administration Fluticasone Propionate 2 puff 10/19/23 08:00 10/19/23 08:13 Fluticasone 220 Mcg Inhaler INHALATION 2 puff RT-BID JESSICA Administration Gabapentin 400 mg 10/19/23 09:00 10/19/23 08:32 Gabapentin 400 Mg Cap PO 400 mg TID JESSICA Administration Insulin Aspart 0 unit 10/19/23 07:30 10/19/23 07:52 Insulin Aspart (Novolog) 100 Unit/Ml Vial SQ 3 unit ACHS JESSICA Administration Protocol Lisinopril 40 mg 10/19/23 09:00 10/19/23 08:27 Lisinopril 20 Mg Tab PO 40 mg DAILY JESSICA Administration Montelukast Sodium 10 mg 06/22/24 21:00 Montelukast 10 Mg Tab PO HS JESSICA Nitroglycerin 0.4 mg 10/18/23 19:11 Nitroglycerin Sl Tabs 0.4 Mg Tab SUBLINGUAL Q5M PRN Chest Pain Pantoprazole Sodium 40 mg 10/19/23 09:00 10/19/23 08:28 Pantoprazole 40 Mg Tablet PO 40 mg DAILY JESSICA Administration Spironolactone 25 mg 10/19/23 09:00 10/19/23 08:27 Spironolactone 25 Mg Tab PO 25 mg DAILY JESSICA Administration Topiramate 25 mg 10/19/23 09:00 10/19/23 08:27 Topiramate 25 Mg Tab PO 25 mg BID JESSICA Administration Tramadol HCl 50 mg 10/19/23 03:24 Tramadol 50 Mg Tab PO TID PRN Pain 10/18/23 14:00 10/18/23 14:00 Assessment and Plan Assessment: #1 nonischemic cardiomyopathy #2 chest pain, acute coronary event has been ruled out #3 hypertension #4 hyperlipidemia #5 diabetes #6 noncompliance Plan: From cardiology's perspective we will resume beta-andrew, statin, and spironolactone. Patient does complain of a dry cough we will switch from lisinopril to losartan. Will obtain a 2D echo with Doppler study to assess cardiac structure and function. Further recommendations to follow. STEEL ESTIMATOR note has been reviewed, I agree with a documented findings and plan of care. Patient was seen and examined.
[2023-10-19 12:03] LABS: Glucose,Whole Blood 291 mg/dL (70-110)
[2023-10-19] MEDS ORDERED: DEXTROSE 50% SYRINGE 50 ML IVP PRN ×2 (13:24)
--- NOTE | 2023-10-19 13:25 | P.PN ---
Subjective Progress Note Date: 10/19/23 Patient is a 47-year-old male with a PMH of CAD status post stent, type II DM complicated by peripheral neuropathy, hypertension, hyperlipidemia, history of CVA, and COPD who presents to the emergency room with complaints of chest pain. Has been experiencing chest pain for the past 2 years intermittently with no clear inciting or alleviating factors. Notes pain is substernal, pressure and sharp-like, strongly pleuritic, nonradiating, that occurs every few days and last for several days at a time. Notes the pain is gradually getting worse. Denies experiencing cough, fever, lower extremity swelling, lower extremity pain. Also denies abdominal pain, vomiting, diarrhea. Chest CTA in the emergency room was unremarkable with EKG showing sinus rhythm at 99 bpm with T wave flattening in leads V5 and V6. Laboratory evaluation was remarkable for troponin less than 0.012, glucose 262, sodium 136, WBC count 9.2, hemoglobin 14.3. Patient was admitted for chest pain, rule out ACS and Cardiology evaluation. 10/18 Patient was seen and examined. Patient reports improved but persistent chest pain. Ongoing for the past 2 weeks. Cardiology recommends Echo. Troponin < 0.012 x 2. Lipid panel T. Chol 193, LDL 125.7, HDL 40.3. EKG done today shows sinus rhythm with non specific ST-T wave abnormalities. General: no distress, appears at stated age Derm: warm, dry Head: atraumatic, normocephalic, symmetric Eyes: EOMI, no lid lag, anicteric sclera Mouth: no lip lesion, mucus membranes moist Cardiovascular: S1S2 reg, no murmur Lungs: Decreased BS bilateral, no rhonchi, no rales , no accessory muscle use Ext: no gross muscle atrophy, no edema, no contractures Neuro: no focal neuro deficits Psych: Alert and oriented Based on my assessment of this patient, this patient meets a high complexity l evel of care. Chest pain: ACS ruled out. ASA 81 mg PO QD. Lipitor 80 mg PO QHS. Coreg 25 mg PO BID. Echocardiogram pending. Telemetry monitoring. Cardiology on board. Elevated D-Dimer: CTA chest ruled out PE. DM with hyperglycemia: MDSS. Accuchecks ACHS. Hypoglycemic precautions. Hypertension: Coreg as above. Losartan 50 mg PO QD. Aldactone 25 mg PO QD. Dyslipidemia: Lipitor as above. History of CVA: ASA and Lipitor as above. COPD not in acute exacerbation CODE STATUS: FULL CODE DVT Prophylaxis: Lovenox GI Prophylaxis: Designated medical POA if patient is not able to make medical decisions for themselves: I have reviewed the following lean consultant notes: Cardiology note. I have reviewed the results of the following tests: Troponin x 2, Lipid panel. I have ordered the following tests: I have discussed the care of this patient with the following independent historian: I have independently interpreted the following test below: EKG I have discussed the management of this patient with the following physician: Objective - Vital Signs Vital signs: Vital Signs Temp 97.9 F 10/18/23 18:33 Pulse 73 10/19/23 13:13 Resp 14 10/19/23 13:13 BP 109/71 10/19/23 13:13 Pulse Ox 93 L 10/19/23 13:13 FiO2 Intake & Output 10/18/23 10/19/23 10/19/23 18:59 06:59 18:59 Weight 127.006 kg - Labs CBC & Chem 7: 10/18/23 14:00 10/18/23 14:00 Labs: Abnormal Lab Results - Last 24 Hours (Table) 10/18/23 10/18/23 10/18/23 Range/Units 14:00 14:00 14:00 PT 12.6 H (10.0-12.5) sec INR 1.2 H (<1.2) D-Dimer 1.07 H (<0.60) mg/L FEU Sodium 136 L (137-145) mmol/L BUN 7 L (9-20) mg/dL Creatinine 0.61 L (0.66-1.25) mg/dL Glucose 262 H (74-99) mg/dL POC Glucose (mg/dL) (70-110) mg/dL 10/19/23 10/19/23 Range/Units 07:42 12:01 PT (10.0-12.5) sec INR (<1.2) D-Dimer (<0.60) mg/L FEU Sodium (137-145) mmol/L BUN (9-20) mg/dL Creatinine (0.66-1.25) mg/dL Glucose (74-99) mg/dL POC Glucose (mg/dL) 197 H 291 H (70-110) mg/dL
[2023-10-19 17:00] LABS: Glucose,Whole Blood 178 mg/dL (70-110)
[2023-10-19 21:22] LABS: Glucose,Whole Blood 208 mg/dL (70-110)
[2023-10-19] MEDS: MONTELUKAST 10 MG TAB PO SCH (21:31)
[2023-10-19] MEDS: ATORVASTATIN 80 MG TAB PO SCH (21:31)
[2023-10-20 07:53] LABS: Glucose,Whole Blood 181 mg/dL (70-110)
[2023-10-20] MEDS ORDERED: BENZONATATE 100 MG CAP PO PRN (08:19)
[2023-10-20] MEDS: LOSARTAN 50 MG TAB PO SCH (08:27)
[2023-10-20] MEDS: ASPIRIN 81 MG PO SCH (08:27)
--- NOTE | 2023-10-20 10:41 | P.PN ---
Subjective Progress Note Date: 10/20/23 This is a 47-year-old gentleman with a past medical history of hypertension, hyperlipidemia, diabetes, COPD, CVA, nonischemic cardiomyopathy with an ejection fraction of 25 to 30% by echo in 2021 at which time it cardiac catheterization revealed normal coronary arteries. Patient has been noncompliant has not followed up with cardiology and several years. He presented with complaints of chest discomfort worsened from baseline ongoing for several years. The pain was left-sided not exertional and there seem to be no aggravating or relieving factors. No associated symptoms. He does have some dyspnea on exertion and evidence of possible orthopnea with no edema. EKG on admission showed sinus mechanism with nonspecific ST-T wave abnormalities. He is not sure which medications he is currently taking. He is currently homeless and lives with a friend. He verbalizes difficulty lying supine however says he uses only 1 pillow because that is all he has. He continues to smoke and admits to smoking 1 cigarette every 3 weeks. He quit drinking several years ago. The time my examination he continues to have chest pain, chronic but better compared to admission. Troponins have been negative x 3. Blood pressure elevated this morning at 153/99. 10/20/2023 The patient was seen and examined sitting up at the side of the bed. He continues to have chest discomfort, nonexertional and better since admission. Back to his baseline. He denies any clear dyspnea on exertion. Continues to complain of a dry cough. He complains of feeling easier to breathe sitting up but has no clear complaints of shortness of breath while supine. Echocardiogram is pending. Blood pressure is better controlled. Objective - Vital Signs Vital signs: Vital Signs Temp 97.7 F 10/20/23 07:50 Pulse 79 10/20/23 07:50 Resp 18 10/20/23 07:50 BP 113/81 10/20/23 07:50 Pulse Ox 96 10/20/23 07:50 FiO2 - Exam VITAL SIGNS: Reviewed HEENT: Head is atraumatic, normocephalic. Pupils are equal, round. Sclerae anicteric. Conjunctivae are clear. Mucous membranes of the mouth are moist. Neck is supple. There is no elevated jugular venous pressure. No carotid bruit is heard. CHEST EXAMINATION: Clear to auscultation bilaterally. No wheezes rales or rhonchi. Respirations even and nonlabored. HEART EXAMINATION: Heart regular, positive S1 and S2. No S3. No S4. Soft systolic murmur. ABDOMEN: Soft, nontender. Bowel sounds are heard. No organomegaly noted. EXTREMITIES: 2+ peripheral pulses with no evidence of peripheral edema and no calf tenderness noted. NEUROLOGIC EXAMINATION: Patient is awake, alert and oriented x3. - Labs CBC & Chem 7: 10/18/23 14:00 10/18/23 14:00 Labs: Abnormal Lab Results - Last 24 Hours (Table) 10/19/23 10/19/23 10/19/23 Range/Units 12:01 16:56 21:21 POC Glucose (mg/dL) 291 H 178 H 208 H (70-110) mg/dL 10/20/23 Range/Units 07:52 POC Glucose (mg/dL) 181 H (70-110) mg/dL Assessment and Plan Assessment: #1 nonischemic cardiomyopathy #2 chest pain, acute coronary event has been ruled out #3 hypertension #4 hyperlipidemia #5 diabetes #6 noncompliance Plan: From cardiology's perspective we will get BNP and give 1 dose of IV Lasix this morning. Awaiting echocardiogram results. We will continue to follow the patient. Further recommendations to follow. BALLET DANCER note has been reviewed, I agree with a documented findings and plan of care. Patient was seen and examined.
[2023-10-20 11:59] LABS: Glucose,Whole Blood 213 mg/dL (70-110)
[2023-10-20] MEDS: FUROSEMIDE 10 MG/ML 4 ML VIAL IV STA (13:16)
--- NOTE | 2023-10-20 15:25 | P.PN ---
Subjective Progress Note Date: 10/20/23 Principal diagnosis: Chest pain Mr. Lay was seen and examined. Chest pain is improved. By description, chest pain appears atypical as it is sharp and located on the left side. Is nonradiating. States he has had this pain for the last 2 years. Awaiting echocardiogram. Objective - Vital Signs Vital signs: Vital Signs Temp 98.4 F 10/20/23 13:23 Pulse 103 H 10/20/23 14:00 Resp 18 10/20/23 14:00 BP 100/72 10/20/23 13:23 Pulse Ox 97 10/20/23 13:23 FiO2 Intake & Output 10/19/23 10/20/23 10/20/23 18:59 06:59 18:59 Weight 127.006 kg Other: # Voids 1 - Exam Vitals: Reviewed General: No acute distress Cardiovascular: RRR, S1-S2 Lungs: Breath sounds equal and clear to auscultation bilaterally. No wheezing, rhonchi or rales Extremities: No lower extremity edema - Labs CBC & Chem 7: 10/18/23 14:00 10/18/23 14:00 Labs: Abnormal Lab Results - Last 24 Hours (Table) 10/19/23 10/19/23 10/20/23 Range/Units 16:56 21:21 07:52 POC Glucose (mg/dL) 178 H 208 H 181 H (70-110) mg/dL 10/20/23 Range/Units 11:58 POC Glucose (mg/dL) 213 H (70-110) mg/dL Assessment and Plan Plan: # Chest pain, atypical D-dimer was elevated, CTA was done and ruled out PE. ACS ruled out. Echo pending. Cardiac cath in April 2021 with normal coronaries. Echo in April 2021 with EF 25 to 30%. # Nonischemic cardiomyopathy, HFrEF Not in exacerbation. GDMT. Echo pending. # Hypertension Continue with Coreg, losartan and Aldactone # History of CVA Continue with aspirin and statin # Dyslipidemia Continue statin # COPD Not exacerbation VTE prophylaxis with enoxaparin
[2023-10-20 16:55] LABS: Glucose,Whole Blood 223 mg/dL (70-110)
[2023-10-20 20:25] LABS: Glucose,Whole Blood 255 mg/dL (70-110)
[2023-10-21 06:09] LABS: Glucose,Whole Blood 171 mg/dL (70-110)
[2023-10-21 08:43] VITALS: RESP 16
[2023-10-21 11:02] LABS: BUN/Creat Ratio 17.45 Ratio (12.00-20.00); Blood Urea Nitrogen 19.2 mg/dL (9.0-27.0); Calcium 8.7 mg/dL (8.7-10.3); Chloride 103 mmol/L (96-109); Glucose 192 mg/dL (70-110); Magnesium 2.1 mg/dL (1.5-2.4); Phosphorus 4.1 mg/dL (2.4-5.1); Potassium 4.1 mmol/L (3.5-5.5); Sodium 139 mmol/L (135-145)
[2023-10-21 12:07] LABS: Glucose,Whole Blood 310 mg/dL (70-110)
[2023-10-21] MEDS: DAPAGLIFLOZIN PROPANEDIOL 10 MG TABLET PO SCH (13:27)
--- NOTE | 2023-10-21 13:33 | P.PN ---
Subjective Progress Note Date: 10/21/23 Principal diagnosis: Chest pain Mr. Lay was seen and examined. He states chest pain is 50/50. I asked him what he meant by that he states it comes and goes and has been present for the last 2 years. Awaiting echo. Objective - Vital Signs Vital signs: Vital Signs Temp 98.9 F 10/21/23 08:00 Pulse 79 10/21/23 10:35 Resp 16 10/21/23 08:00 BP 111/95 10/21/23 10:35 Pulse Ox 95 10/21/23 10:35 FiO2 Intake & Output 10/20/23 10/21/23 10/21/23 18:59 06:59 18:59 Weight 127.006 kg Other: # Voids 1 2 - Exam Vitals: Reviewed General: No acute distress Cardiovascular: RRR, S1-S2 Lungs: Breath sounds equal and clear to auscultation bilaterally. No wheezing, rhonchi or rales Extremities: No lower extremity edema - Labs CBC & Chem 7: 10/18/23 14:00 10/21/23 06:14 Labs: Abnormal Lab Results - Last 24 Hours (Table) 10/20/23 10/20/23 10/21/23 Range/Units 16:54 20:23 06:08 Glucose (70-110) mg/dL POC Glucose (mg/dL) 223 H 255 H 171 H (70-110) mg/dL 10/21/23 10/21/23 Range/Units 06:14 12:05 Glucose 192 H (70-110) mg/dL POC Glucose (mg/dL) 310 H (70-110) mg/dL Assessment and Plan Plan: # Chest pain, atypical D-dimer was elevated, CTA was done and ruled out PE. ACS ruled out. Echo pending. Cardiac cath in April 2021 with normal coronaries. Echo in April 2021 with EF 25 to 30%. # Nonischemic cardiomyopathy, HFrEF Not in exacerbation. GDMT. Echo pending. # Hypertension Continue with Coreg, losartan and Aldactone # History of CVA Continue with aspirin and statin # Dyslipidemia Continue statin # COPD Not exacerbation VTE prophylaxis with enoxaparin
--- NOTE | 2023-10-21 13:40 | P.PN ---
Subjective Progress Note Date: 10/21/23 This is a 47-year-old gentleman with a past medical history of hypertension, hyperlipidemia, diabetes, COPD, CVA, nonischemic cardiomyopathy with an ejection fraction of 25 to 30% by echo in 2021 at which time it cardiac catheterization revealed normal coronary arteries. Patient has been noncompliant has not followed up with cardiology and several years. He presented with complaints of chest discomfort worsened from baseline ongoing for several years. The pain was left-sided not exertional and there seem to be no aggravating or relieving factors. No associated symptoms. He does have some dyspnea on exertion and evidence of possible orthopnea with no edema. EKG on admission showed sinus mechanism with nonspecific ST-T wave abnormalities. He is not sure which medications he is currently taking. He is currently homeless and lives with a friend. He verbalizes difficulty lying supine however says he uses only 1 pillow because that is all he has. He continues to smoke and admits to smoking 1 cigarette every 3 weeks. He quit drinking several years ago. The time my examination he continues to have chest pain, chronic but better compared to admission. Troponins have been negative x 3. Blood pressure elevated this morning at 153/99. 10/20/2023 The patient was seen and examined sitting up at the side of the bed. He continues to have chest discomfort, nonexertional and better since admission. Back to his baseline. He denies any clear dyspnea on exertion. Continues to complain of a dry cough. He complains of feeling easier to breathe sitting up but has no clear complaints of shortness of breath while supine. Echocardiogram is pending. Blood pressure is better controlled. 10/20 Patient is seen today in follow-up. He does state he has a cough and chest pain when he is coughing. Blood pressure 111/95, heart rate in the 70s, pulse ox 95% on room air. Repeat blood work reveals sodium 139, potassium 4.1, creatinine 1.1. Patient received 1 dose of IV Lasix yesterday. VITAL SIGNS: Reviewed HEENT: Head is atraumatic, normocephalic. Pupils are equal, round. Sclerae an icteric. Conjunctivae are clear. Mucous membranes of the mouth are moist. Neck is supple. There is no elevated jugular venous pressure. No carotid bruit is heard. CHEST EXAMINATION: Clear to auscultation bilaterally. No wheezes rales or rhonchi. Respirations even and nonlabored. HEART EXAMINATION: Heart regular, positive S1 and S2. No S3. No S4. Soft systolic murmur. ABDOMEN: Soft, nontender. Bowel sounds are heard. No organomegaly noted. EXTREMITIES: 2+ peripheral pulses with no evidence of peripheral edema and no calf tenderness noted. NEUROLOGIC EXAMINATION: Patient is awake, alert and oriented x3. Assessment: #1 nonischemic cardiomyopathy #2 chest pain, acute coronary event has been ruled out #3 hypertension #4 hyperlipidemia #5 diabetes #6 noncompliance Plan: Continue current cardiac medications: Aspirin 81 mg daily, atorvastatin 40 mg daily, Coreg 25 mg twice daily, Aldactone 25 mg daily Start patient on Entresto 24-26 mg twice daily and discontinue losartan. Start patient on Farxiga Patient is cleared for discharge and may follow-up in the office in 1 week. Nurse practitioner note has been reviewed, I agree with documented findings and plan of care. Patient was seen and examined. Objective - Vital Signs Vital signs: Vital Signs Temp 98.9 F 10/21/23 08:00 Pulse 79 10/21/23 10:35 Resp 16 10/21/23 08:00 BP 111/95 10/21/23 10:35 Pulse Ox 95 10/21/23 10:35 FiO2 Intake & Output 10/20/23 10/21/23 10/21/23 18:59 06:59 18:59 Weight 127.006 kg Other: # Voids 1 2 - Labs CBC & Chem 7: 10/18/23 14:00 10/21/23 06:14 Labs: Abnormal Lab Results - Last 24 Hours (Table) 10/20/23 10/20/23 10/21/23 Range/Units 16:54 20:23 06:08 Glucose (70-110) mg/dL POC Glucose (mg/dL) 223 H 255 H 171 H (70-110) mg/dL 10/21/23 Range/Units 06:14 Glucose 192 H (70-110) mg/dL POC Glucose (mg/dL) (70-110) mg/dL
[2023-10-21] MEDS: INSULIN DETEMIR (LEVEMIR) 100 UNIT/ML SYR SQ SCH (14:04)
--- NOTE | 2023-10-21 14:24 | P.DS ---
Providers Date of admission: 10/18/23 19:11 Expected date of discharge: 10/21/23 Attending physician: Adonis Rockwell MD Consults: 10/18/23 19:11 Consult Physician Urgent Consulting Provider: Víctor Sanchez Consult Reason/Comments: cp Do you want consulting provider notified?: Yes Primary care physician: [facility] Course: Mr. Lay is a 47-year-old gentleman with a medical history significant for diabetes mellitus, CVA, COPD, hypertension and hyperlipidemia who presented with atypical chest pain. He had a CTA done which was negative for any PEs or aortic dissection. Troponins were negative. He had a normal cardiac cath in 2021. Echo has been done but not read. Case discussed with cardiology today who cleared for discharge. They have recommended addition of Entresto and SGL 2 inhibitor. He is advised to follow-up with cardiology and his PCP outpatient. Advised to return with any recurrent symptoms. All questions were answered. Discharge diagnoses 1. Chronic atypical chest pain, improved 2. CHF, HFrEF, nonischemic cardiomyopathy, not exacerbation Discharge time greater than 30 minutes Patient Condition at Discharge: Good Plan - Discharge Summary Discharge Rx Participant: Yes New Discharge Prescriptions: New Dapagliflozin Propanediol [Farxiga] 10 mg PO DAILY #30 tab Sacubitril/Valsartan [Entresto 24 mg-26 mg Tablet] 1 each PO BID #60 tab Continue Insulin Glargine [Lantus Vial] 60 unit SQ HS PRN PRN Reason: Blood Sugar - High INSULIN LISPRO (humaLOG) [humaLOG] 30 units SQ AC-TID PRN PRN Reason: Blood Sugar - High Montelukast Sodium [Singulair] 10 mg PO HS traMADol HCL [Ultram] 50 mg PO TID PRN PRN Reason: Pain Spironolactone 25 mg PO DAILY carvediloL [Coreg] 25 mg PO BID Fluticasone Propionate 220 Mcg [Flovent 220 Mcg Inhaler] 1 puff INHALATION RT-BID Cyclobenzaprine [Flexeril] 10 mg PO TID PRN PRN Reason: Muscle Spasm Dulaglutide [Trulicity] 1.5 mg SQ WE Atorvastatin [Lipitor] 80 mg PO DAILY 30 Days #30 tab Clopidogrel [Plavix] 75 mg PO DAILY 30 Days #30 tab Topiramate [Topamax] 25 mg PO BID Omeprazole [PriLOSEC] 40 mg PO DAILY Gabapentin [Neurontin] 400 mg PO TID Discontinued lisinopriL [Zestril] 40 mg PO DAILY Discharge Medication List INSULIN LISPRO (humaLOG) [humaLOG] 30 units SQ AC-TID PRN 11/13/19 [History] Insulin Glargine [Lantus Vial] 60 unit SQ HS PRN 11/13/19 [History] Montelukast Sodium [Singulair] 10 mg PO HS 11/13/19 [History] traMADol HCL [Ultram] 50 mg PO TID PRN 05/08/21 [History] Dulaglutide [Trulicity] 1.5 mg SQ WE 05/12/21 [History] Spironolactone 25 mg PO DAILY 05/12/21 [History] carvediloL [Coreg] 25 mg PO BID 05/12/21 [History] Atorvastatin [Lipitor] 80 mg PO DAILY 30 Days #30 tab 05/15/21 [Rx] Clopidogrel [Plavix] 75 mg PO DAILY 30 Days #30 tab 05/15/21 [Rx] Cyclobenzaprine [Flexeril] 10 mg PO TID PRN 10/18/23 [History] Fluticasone Propionate 220 Mcg [Flovent 220 Mcg Inhaler] 1 puff INHALATION RT- BID 10/18/23 [History] Gabapentin [Neurontin] 400 mg PO TID 10/18/23 [History] Omeprazole [PriLOSEC] 40 mg PO DAILY 10/18/23 [History] Topiramate [Topamax] 25 mg PO BID 10/18/23 [History] Dapagliflozin Propanediol [Farxiga] 10 mg PO DAILY #30 tab 10/21/23 [Rx] Sacubitril/Valsartan [Entresto 24 mg-26 mg Tablet] 1 each PO BID #60 tab 10/21/23 [Rx] Follow up Appointment(s)/Referral(s): [facility] [Provider Group] - 1 Week (Office will call patient with date and time of appointment) [facility] [NON-STAFF] - 1 Week Rosy Bl[facility] [Primary Care Provider] - 1-2 days Patient Instructions/Handouts: Heart Failure (IP) Discharge Disposition: HOME SELF-CARE Plan of Treatment: Please follow-up with your primary care provider within 1 week Please follow-up with your cryptographic machine operator within 1 week Dapagliflozin and Entresto were added to your CHF regimen Please return with any recurrence of symptoms
[2023-10-21 14:59] VITALS: BP 105/73; PULSE 73; TEMP 98.5
--- NOTE | 2023-10-21 17:02 | CA ---
Transthoracic Echo Report Name: Yoni Lay Age: 47 Gender: M : 1975 Exam Date: 10/21/2023 08:59 Exam Location: [place] [facility] Ht (in): 72 Wt (lb): 280 Ordering Physician: Daysi West Attending/Referring Phys: [id number], Jenna Manager [employer] Collette White RDCS Procedure CPT: Indications: cp, cardiomyopathy Cardiac Hx: Technical Quality: Technically difficult study Contrast 1: Definity Total Dose (mL): 2 Contrast 2: Total Dose (mL): MEASUREMENTS (Male / Female) Normal Values 2D ECHO LV Diastolic Diameter PLAX 5.6 cm 4.2 - 5.9 / 3.9 - 5.3 cm LV Systolic Diameter PLAX 4.2 cm IVS Diastolic Thickness 1.7 cm 0.6 - 1.0 / 0.6 - 0.9 cm LVPW Diastolic Thickness 1.4 cm 0.6 - 1.0 / 0.6 - 0.9 cm LV Relative Wall Thickness 0.6 RV Internal Dim ED PLAX 3.3 cm LV Diastolic Volume MOD BP 233.8 cm??? 67 - 155 / 56 - 104 cm??? LV Systolic Volume MOD BP 197.3 cm??? 22 - 58 / 19 - 49 cm??? LV Ejection Fraction MOD BP 15.6 % >= 55 % LV Cardiac Index MOD BP 1087.8 cm???/min???m??? LV Diastolic Volume MOD 4C 280.6 cm??? LV Systolic Volume MOD 4C 195.2 cm??? LV Ejection Fraction MOD 4C 30.4 % LV Cardiac Index MOD 4C 2540.6 cm???/min???m??? LV Diastolic Length 4C 9.7 cm LV Systolic Length 4C 8.3 cm LV Diastolic Volume MOD 2C 159.5 cm??? LV Systolic Volume MOD 2C 165.8 cm??? LV Ejection Fraction MOD 2C -3.9 % LV Cardiac Index MOD 2C -186.9 cm???/min???m??? LV Diastolic Length 2C 7.7 cm LV Systolic Length 2C 6.9 cm LA Volume 117.2 cm??? 18 - 58 / 22 - 52 cm??? LA Volume Index 45.3 cm???/m??? 16 - 28 cm???/m??? M-MODE LV Diastolic Diameter MM 7.2 cm 4.2 - 5.9 / 3.9 - 5.3 cm LV Systolic Diameter MM 5.1 cm LV Cardiac Index MM Teich 4354.3 cm???/min???m??? IVS Diastolic Thickness MM 1.5 cm 0.6 - 1.0 / 0.6 - 0.9 cm LVPW Diastolic Thickness MM 1.2 cm 0.6 - 1.0 / 0.6 - 0.9 cm LV Relative Wall Thickness MM 0.4 0.24 - 0.42 / 0.22 - 0.42 LV Mass Index MM 190.9 g/m??? 49 - 115 / 43 - 95 g/m??? Aortic Root Diameter MM 3.4 cm LA Systolic Diameter MM 5.4 cm LA Ao Ratio MM 1.6 AV Cusp Separation MM 2.4 cm DOPPLER AV Peak Velocity 124.1 cm/s AV Peak Gradient 6.2 mmHg AV Mean Velocity 96.4 cm/s AV Mean Gradient 4.1 mmHg AV Velocity Time Integral 20.9 cm LVOT Peak Velocity 79.1 cm/s LVOT Peak Gradient 2.5 mmHg LVOT Velocity Time Integral 13.5 cm MV Area PHT 3.7 cm??? Mitral E Point Velocity 89.3 cm/s Mitral A Point Velocity 68.6 cm/s Mitral E to A Ratio 1.3 MV Deceleration Time 205.2 ms MV E' Velocity 5.0 cm/s Mitral E to MV E' Ratio 17.9 FINDINGS Left Ventricle Severely increased left ventricular mass. Moderately increased septal wall thickness. Mildly increased posterior wall thickness. Severely increased left ventricular diastolic diameter. Severely increased left ventricular diastolic volume and systolic volume. Severely reduced global left ventricular systolic function. Left ventricular ejection fraction is estimated at 25-30 %. Grade 2 diastolic dysfunction. Right Ventricle Right ventricle not well visualized. Right Atrium Right atrium not well visualized. Left Atrium Severely increased left atrial volume. Mildly increased left atrial area. Mitral Valve Structurally normal mitral valve. Moderate mitral annular calcification. Mild- to-moderate mitral regurgitation. Aortic Valve No aortic valve stenosis or regurgitation. Tricuspid Valve Tricuspid valve not well visualized. Pulmonic Valve Structurally normal pulmonic valve. Pericardium No pericardial effusion. Aorta Normal size aortic root and proximal ascending aorta. CONCLUSIONS Left ventricular ejection fraction is estimated at 25-30 %. Severely dilated LV cavity Severely reduced global LV systolic function Mild to moderate functional mitral regurgitation Previewed by: Dr Glenn Gregory (Electronically Signed) Final Date: 21 October 2023 17:01
[2023-10-21] MEDS ORDERED: ATORVASTATIN 40 MG TAB PO SCH (21:00)
[2023-10-22] MEDS ORDERED: SACUBITRIL/VALSARTAN 24 MG-26 MG TABLET PO SCH (09:00)
== END 2023-10-21 15:38 | disposition home or self-care (01) ==
LOC: EC 13:38 → 6NMEDSUR 19:11
PROVIDERS: ADMIT Family Medicine; ATTEND Family Medicine
DX: R07.89 Other chest pain (principal); I11.0 Hypertensive heart disease with heart failure; G89.29 Other chronic pain; I50.20 Unspecified systolic (congestive) heart failure; E78.5 Hyperlipidemia, unspecified; J44.9 Chronic obstructive pulmonary disease, unspecified; Z86.73 Personal history of transient ischemic attack (TIA), and cerebral infarction without residual deficits; Z91.199 Patient's noncompliance with other medical treatment and regimen due to unspecified reason; Z95.5 Presence of coronary angioplasty implant and graft; Z79.899 Other long term (current) drug therapy; Z79.82 Long term (current) use of aspirin; Z79.4 Long term (current) use of insulin; Z79.02 Long term (current) use of antithrombotics/antiplatelets
CPT/HCPCS: 96372 ×3; 96374; 99285; 36415; 94640 ×3; 94760; 93005 ×2; 93306; 85379; 83880; 80061; 80053; 80048; 83735 ×2; 84100; 84484; 85025; 85610; 85730; 71046; 71275; G0378 ×4; J1940; J1650 ×3; Q9957; Q9967

== ENCOUNTER → 2024-01-31 | Outpatient (CLI) | payer OTHER ==
[2024-01-31 20:22] LABS: HCT 48.5 % (39.6-50.0); HGB 16.4 g/dL (13.0-17.0); MCH 30.1 pg (27.0-32.0); MCHC 33.8 g/dL (32.0-37.0); Mean Platelet Volume 11.3 FL (9.5-12.2); NRBC Per 100 WBC 0 X 10*3/uL (0.00-0.01); Platelet Count 243 X 10*3/uL (140-440); RBC 5.45 X 10*6/uL (4.40-5.60); RDW 12.7 % (11.5-14.5); WBC 9.35 X 10*3/uL (4.50-10.00)
[2024-01-31 21:42] LABS: BUN/Creat Ratio 9.75 Ratio (12.00-20.00); Blood Urea Nitrogen 7.8 mg/dL (9.0-27.0); Carbon Dioxide 25.2 mmol/L (21.6-31.8); Chloride 99 mmol/L (96-109); Glucose 260 mg/dL (70-110); Potassium 4.3 mmol/L (3.5-5.5); Sodium 138 mmol/L (135-145)
[2024-01-31 21:43] LABS: ALT 27 U/L (10-49); AST 22 U/L (14-35); Albumin 4.6 g/dL (3.8-4.9); Albumin/Globulin Ratio 1.35 Ratio (1.60-3.17); Alkaline Phosphatase 125 U/L (41-126); Calcium 9.3 mg/dL (8.7-10.3); Globulin 3.4 g/dL (1.6-3.3); Total Bilirubin 0.3 mg/dL (0.3-1.2)
[2024-01-31 21:45] LABS: NT-Pro-B-Type Natriuretic Pept 182 pg/mL (0-125)
== END | disposition home or self-care (01) ==
LOC: LABWHC1 13:45
PROVIDERS: ATTEND Internal Medicine Cardiovascular Disease
DX: Z00.00 Encounter for general adult medical examination without abnormal findings
CPT/HCPCS: 36415; 80053; 83880; 85027

== ENCOUNTER 2024-04-22 04:50 | Emergency (ER) | payer OTHER ==
[2024-04-22] MEDS: BENZONATATE 100 MG CAP PO STA (05:08)
--- NOTE | 2024-04-22 05:33 | ED ---
Chest Pain HPI - General Chief Complaint: Chest Pain Stated Complaint: Cough, chest pain Time Seen by Provider: 04/22/24 04:53 Source: patient, RN notes reviewed, old records reviewed Mode of arrival: ambulatory Limitations: no limitations - History of Present Illness MD Complaint: chest pain -: days(s) Onset: during rest Pain Location: substernal Pain Radiation: none Severity: moderate Severity scale (1-10): 5 Consistency: constant Improves With: nothing Worsens With: nothing Anginal Symptoms: sense of impending doom Other Symptoms: palpitations Treatments Prior to Arrival: none - Related Data Home Medications Medication Instructions Recorded Confirmed INSULIN LISPRO (humaLOG) [humaLOG] 30 units SQ AC-TID PRN 11/13/19 10/18/23 Insulin Glargine [Lantus Vial] 60 unit SQ HS PRN 11/13/19 10/18/23 Montelukast Sodium [Singulair] 10 mg PO HS 11/13/19 10/18/23 traMADol HCL [Ultram] 50 mg PO TID PRN 05/08/21 10/18/23 Dulaglutide [Trulicity] 1.5 mg SQ WE 05/12/21 10/18/23 Spironolactone 25 mg PO DAILY 05/12/21 10/18/23 carvediloL [Coreg] 25 mg PO BID 05/12/21 10/18/23 Cyclobenzaprine [Flexeril] 10 mg PO TID PRN 10/18/23 10/18/23 Fluticasone Propionate 220 Mcg 1 puff INHALATION RT-BID 10/18/23 10/18/23 [Flovent 220 Mcg Inhaler] Gabapentin [Neurontin] 400 mg PO TID 10/18/23 10/18/23 Omeprazole [PriLOSEC] 40 mg PO DAILY 10/18/23 10/18/23 Topiramate [Topamax] 25 mg PO BID 10/18/23 10/18/23 Previous Rx's Medication Instructions Recorded Atorvastatin [Lipitor] 80 mg PO DAILY 30 Days #30 tab 05/15/21 Clopidogrel [Plavix] 75 mg PO DAILY 30 Days #30 tab 05/15/21 Dapagliflozin Propanediol [Farxiga] 10 mg PO DAILY #30 tab 10/21/23 Sacubitril/Valsartan [Entresto 24 1 each PO BID #60 tab 10/21/23 mg-26 mg Tablet] Azithromycin [Zithromax] 500 mg PO DAILY 5 Days #1 tab 04/22/24 Benzonatate [Tessalon Perles] 100 mg PO TID PRN #15 capsule 04/22/24 Allergies Allergy/AdvReac Type Severity Reaction Status Date / Time No Known Allergies Allergy Verified 10/18/23 19:59 Review of Systems ROS Statement: Those systems with pertinent positive or pertinent negative responses have been documented in the HPI. ROS Other: All systems not noted in ROS Statement are negative. EKG Findings - EKG Comments: EKG Findings:: EKG is sinus 103 [place] 132 QRS 98 QTc 432 - EKG Results: EKG: interpreted by CHARLES Past Medical History Past Medical History: COPD, Diabetes Mellitus, Deep Vein Thrombosis (DVT), Hyperlipidemia, Hypertension Additional Past Medical History / Comment(s): back pain with pinched nerve, migraines. History of Any Multi-Drug Resistant Organisms: None Reported Past Surgical History: Appendectomy Additional Past Surgical History / Comment(s): oral surgery, Past Anesthesia/Blood Transfusion Reactions: No Reported Reaction Past Psychological History: Anxiety, Depression Smoking Status: Current every day smoker Past Alcohol Use History: None Reported Past Drug Use History: None Reported - Past Family History Brother(s) Additional Family Medical History / Comment(s): tumor of brain - at 34 General Exam Limitations: no limitations General appearance: alert, in no apparent distress Head exam: Present: atraumatic, normocephalic, normal inspection Eye exam: Present: normal appearance, PERRL, EOMI. Absent: scleral icterus, conjunctival injection, periorbital swelling ENT exam: Present: normal exam, mucous membranes moist Neck exam: Present: normal inspection. Absent: tenderness, meningismus, lymphadenopathy Respiratory exam: Present: normal lung sounds bilaterally. Absent: respiratory distress, wheezes, rales, rhonchi, stridor Cardiovascular Exam: Present: regular rate, normal rhythm, normal heart sounds. Absent: systolic murmur, diastolic murmur, rubs, gallop, clicks GI/Abdominal exam: Present: soft, normal bowel sounds. Absent: distended, t enderness, guarding, rebound, rigid Extremities exam: Present: normal inspection, full ROM, normal capillary refill. Absent: tenderness, pedal edema, joint swelling, calf tenderness Back exam: Present: normal inspection Neurological exam: Present: alert, oriented X3, CN II-XII intact Psychiatric exam: Present: normal affect, normal mood Skin exam: Present: warm, dry, intact, normal color. Absent: rash Course Vital Signs 04/22/24 04:52 Temperature 98.7 F Pulse Rate 112 H Respiratory 22 Rate Blood Pressure 166/95 O2 Sat by Pulse 95 Oximetry - Reevaluation(s) Reevaluation #4: Was pt. sent in by a medical professional or institution ([facility], [facility], urgent care, hospital, or group home...) When possible be specific @ -no Did you speak to anyone other than the patient for history (EMS, parent, family, police, friend...)? What history was obtained from this source @ -no Did you review nursing and triage notes (agree or disagree)? Why? @ -agree Are old charts reviewed (outside hosp., previous admission, EMS record, old EKG, old radiological studies, urgent care reports/EKG's, group home records)? Report findings @ -yes Differential Diagnosis (chest pain, altered mental status, abdominal pain women, abdominal pain men, vaginal bleeding, weakness, fever, dyspnea, syncope, headache, dizziness, GI bleed, back pain, seizure, CVA, palpatations, mental health, musculoskeletal)? @ -prior EKG interpreted by me (3pts min.). @ -yes X-rays interpreted by me (1pt min.). @ -yes negative for acute disease CT interpreted by me (1pt min.). @ -no U/S interpreted by me (1pt. min.). @ -no What testing was considered but not performed or refused? (CT, X-rays, U/S, labs)? Why? @ -none What meds were considered but not given or refused? Why? @ -none Did you discuss the management of the patient with other professionals (professionals i.e. [facility], [facility], lab, RT, psych nurse, criminal justice social worker, transit authority police officer, teacher, community chest officer, showcase maker)? Give summary @ -no Was smoking cessation discussed for >3mins.? @ -no Was critical care preformed (if so, how long)? @ -no Were there social determinants of health that impacted care today? How? (Homelessness, low income, unemployed, alcoholism, drug addiction, transportation, low edu. Level, literacy, decrease access to med. care, senior living, rehab)? @ -none Was there de-escalation of care discussed even if they declined (Discuss DNR or withdrawal of care, Hospice)? DNR status @ -no What co-morbidities impacted this encounter? (DM, HTN, Smoking, COPD, CAD, Cancer, CVA, ARF, Chemo, Hep., AIDS, mental health diagnosis, sleep apnea, morbid obesity)? @ -none Was patient admitted / discharged? Hospital course, mention meds given and route, prescriptions, significant lab abnormalities, going to OR and other pertinent info. @ - Undiagnosed new problem with uncertain prognosis? @ -no Drug Therapy requiring intensive monitoring for toxicity (Heparin, Nitro, Insulin, Cardizem)? @ -no Were any procedures done? @ -no Diagnosis/symptom? @ - Acute, or Chronic, or Acute on Chronic? @ -Acute Uncomplicated (without systemic symptoms) or Complicated (systemic symptoms)? @ -Complicated Side effects of treatment? @ -no Exacerbation, Progression, or Severe Exacerbation? @ -exacerbation Poses a threat to life or bodily function? How? (Chest pain, [place], CA, pneumonia, PE, COPD, DKA, ARF, appy, cholecystitis, CVA, Diverticulitis, Homicidal, Suicidal, threat to staff... and all critical care pts) @ -yes Reevaluation #5: Differential Chest Pain: Stable Angina, Unstable Angina, STEMI, NSTEMI Aortic Dissection, Pneumothorax, Musculoskeletal, Esophageal Spasm GERD, Cholecystitis, Pancreatitis, Zoster, this is not meant to be an all-inclusive list. Disposition Clinical Impression: Chest pain, Cough, Pneumonia Disposition: HOME SELF-CARE Condition: Fair Instructions (If sedation given, give patient instructions): Chest Pain (ED), Community Acquired Pneumonia (ED) Prescriptions: Benzonatate [Tessalon Perles] 100 mg PO TID PRN #15 capsule PRN Reason: Cough Azithromycin [Zithromax] 500 mg PO DAILY 5 Days #1 tab Is patient prescribed a controlled substance at d/c from ED?: No Referrals: None,Stated [Primary Care Provider] - 1-2 days Time of Disposition: 06:00
[2024-04-22] MEDS: SODIUM CHLORIDE 0.9% 1,000 ML IV STA (06:09)
[2024-04-22] MEDS: AZITHROMYCIN 500 MG TAB PO STA ×2 (06:09→06:13)
[2024-04-22] MEDS: ACET/COD 300 MG/30 MG STARTER PACK 6 TAB BTL PO STA (06:12)
[2024-04-22] MEDS: IBUPROFEN 600 MG STARTER PACK 4 TAB BTL PO STA (06:12)
[2024-04-22] MEDS: ONDANSETRON 4 MG ODT STARTER PACK 2 TAB BTL PO STA (06:13)
[2024-04-22] MEDS: predniSONE 20 MG TAB PO STA (06:13)
[2024-04-22] MEDS: Acetaminophen-Codeine 300-30mg TAB PO STA (06:13)
[2024-04-22] MEDS: KETOROLAC 15 MG/ML 1 ML VIAL IVP STA (06:14)
[2024-04-22] MEDS: KETOROLAC 15 MG/ML 1 ML VIAL IM STA (06:14)
[2024-04-22] MEDS: IPRATROPIUM-ALBUTEROL 3 ML NEB INHALATION STA (06:19)
[2024-04-22 06:26] VITALS: RESP 18
[2024-04-22 06:37] VITALS: BP 162/89; PULSE 95; TEMP 98.8
--- NOTE | 2024-04-22 06:58 | XR ---
EXAMINATION TYPE: XR chest 1V DATE OF EXAM: 04/22/2024 COMPARISON: 10/18/2023 CLINICAL INDICATION: Male, 48 years old with history of cough; TECHNIQUE: Single frontal view of the chest is obtained. FINDINGS: There is moderate to marked pulmonary vascular congestion. There is mild cardiomegaly. Ther e is no pleural effusion or pneumothorax. There is no airspace consolidation. The osseous structures are intact. IMPRESSION: Acute cardiopulmonary disease consistent with mild CHF or diffuse interstitial pneumonia. Short-term follow-up is recommended. [facility], , 04/22/2024 6:56 AM
== END 2024-04-22 06:37 | disposition home or self-care (01) ==
LOC: EC 04:50
DX: J18.9 Pneumonia, unspecified organism (principal); F17.200 Nicotine dependence, unspecified, uncomplicated
CPT/HCPCS: 99285; 96372; 94640; 93005; 87636; 71045; J1885; S0119; J7512

== ENCOUNTER → 2024-06-29 | Day surgery (SDC) | payer OTHER ==
[~2024-06-29] MED LIST: SODIUM CHLORIDE 0.9% 1,000 ML IV SCH; ceFAZolin 1 GM in SODIUM CHLORIDE 0.9% IRRIG BTL 250 ML IRRIGATION PRN
== END ==
LOC: CATHEP 08:05
PROVIDERS: ATTEND Internal Medicine Clinical Cardiac Electrophysiology
DX: Z53.9 Procedure and treatment not carried out, unspecified reason (principal); I42.9 Cardiomyopathy, unspecified

== ENCOUNTER 2024-08-25 10:16 | Day surgery (SDC) | payer OTHER ==
[2024-08-20 14:12] VITALS: BMI 39.0
[2024-08-25] MEDS: SODIUM CHLORIDE 0.9% 1,000 ML IV SCH (11:32)
[2024-08-25 11:41] LABS: Basophils # (A) 0.09 10*3/uL (0.00-0.10); Basophils % (A) 0.8 %; Eosinophils # (A) 0.26 10*3/uL (0.04-0.35); Eosinophils % (A) 2.4 %; HCT 44.2 % (39.6-50.0); HGB 15.5 g/dL (13.0-17.0); Lymphocytes # (A) 3.11 10*3/uL (0.90-5.00); Lymphocytes % (A) 29.2 %; MCH 30.6 pg (27.0-32.0); MCHC 35.1 g/dL (32.0-37.0); MCV 87.2 fL (80.0-97.0); Mean Platelet Volume 10.4 fL (9.5-12.2); Monocytes # (A) 0.92 10*3/uL (0.20-1.00); Monocytes % (A) 8.6 %; Neutrophils # (A) 6.25 10*3/uL (1.80-7.70); Neutrophils % (A) 58.7 %; Platelet Count 241 10*3/uL (140-440); RBC 5.07 10*6/uL (4.40-5.60); RDW 12.3 % (11.5-14.5); WBC 10.66 10*3/uL (4.50-10.00)
[2024-08-25 11:59] LABS: ALT 24 U/L (4-49); AST 24 U/L (17-59); African American GFR (CKD) >90 (>60 ml/min/1.73 sqM); Albumin 4.5 g/dL (3.5-5.0); Alkaline Phosphatase 113 U/L (38-126); Anion Gap 11 mmol/L; Blood Urea Nitrogen 10 mg/dL (9-20); Calcium 9.6 mg/dL (8.4-10.2); Carbon Dioxide 26 mmol/L (22-30); Chloride 101 mmol/L (98-107); Glucose 247 mg/dL (74-99); Non-African American GFR(CKD) >90 (>60 ml/min/1.73 sqM); Sodium 138 mmol/L (137-145); Total Bilirubin 0.9 mg/dL (0.2-1.3); Total Protein 7.8 g/dL (6.3-8.2)
[2024-08-25 12:12] VITALS: RESP 16
[2024-08-25] MEDS ORDERED: PROPOFOL 10 MG/ML 20 ML VIAL IV ONE (13:29)
[2024-08-25] MEDS ORDERED: fentaNYL (PF) 50 MCG/ML 2 ML AMP ONE (13:29)
[2024-08-25] MEDS ORDERED: METOPROLOL TARTRATE 5 MG/5 ML VIAL IVP ONE (13:29)
[2024-08-25] MEDS ORDERED: MIDAZOLAM 2 MG/2 ML VIAL ONE (13:29)
[2024-08-25] MEDS: IV FLUID CONTINUATION 1,000 ML IV ONE (13:29)
[2024-08-25] MEDS: IOPAMIDOL-370 100ML BTL INJ ONE (13:54)
[2024-08-25] MEDS: ceFAZolin 3 GM in SODIUM CHLORIDE 0.9% 100 ML IVPB PRN (14:10)
[2024-08-25] MEDS: ROPIVACAINE 5 MG/ML 30 ML VIAL MISCELLANE ONE (14:22)
[2024-08-25] MEDS: LIDOCAINE 1% INJ 10MG/ML (20 ML MDV) SQ ONE (14:22)
[2024-08-25] MEDS: ceFAZolin 1 GM in SODIUM CHLORIDE 0.9% IRRIG BTL 250 ML IRRIGATION PRN (14:22)
[2024-08-25] MEDS ORDERED: traMADol 50 MG TAB PO PRN (15:13)
[2024-08-25] MEDS ORDERED: ACETAMINOPHEN TAB 325 MG TAB PO PRN (15:15)
--- NOTE | 2024-08-25 15:29 | P.EPPROC ---
- EP Procedure Note Electrophysiology Procedure Note: Diagnosis Cardiomyopathy, chronic, nonischemic Congestive heart failure, systolic, class II On guideline directed medical treatment guideline directed Procedure: Single ICD implantation for management of risk of sudden cardiac /Gage Machine Strap Buckler: Dr. Jacome Result: Single chamber ICD implantation,/[place] RV ICD lead: Just above RV apex. R waves 10 mV pacing impedance 610 ohms and pacing threshold 0.8 V at 0.5 ms High-voltage impedance 77 ohms ICD generator [employer] [place], VR Procedure details: Patient was brought to the EP lab in a fasting state. Written informed consent was obtained prior to the procedure. Options, pros and cons, benefits and risks and complications discussed with patient in detail prior to the procedure (shared decision making document, from [facility]). Importance of continuing medical treatment emphasized. Alternatives discussed. Patient would like to proceed with ICD implant. Left upper extremity venogram performed. 15 mL IV dye injected in the left arm. Patent axillary/subclavian vein The left pectoral area was prepped and draped as a protocol. IV antibiotics administered 1% lidocaine was used for local anesthesia. A 4 cm incision was made parallel to the deltopectoral groove, about 1.5 cm medial to it. The incision was carried down to the level of the pectoralis muscle and the subfascial pocket was made. Hemostasis was assured. The axillary vein access was obtained. Appropriately sized venous sheath was placed. ICD lead implanted in the right ventricle and screwed in. ICD lead tested for threshold, sensing, impedances and tested with high output pacing for diaphragmatic stimulation Lead secured to the underlying transverse muscle after removing sheaths . Pocket irrigated with antibiotic solution Leads connected to the ICD generator. Wound closed in 3 layers and dressed per protocol ICD was interrogated and programmed. Appropriate pacing parameters, antitachycardia therapies with antitachycardia pacing cardioversion defibrillations programmed. Patient tolerated the procedure well without any acute complications. See scanned device report in EMR for lead details
--- NOTE | 2024-08-25 16:18 | XR ---
EXAMINATION TYPE: XR chest 1V portable DATE OF EXAM: 08/25/2024 4:10 PM COMPARISON: 04/22/2024 CLINICAL INDICATION: Male, 48 years old with history of Lead placement check, , FINDINGS: Left anterior chest. Moderate air with right ventricular lead. Heart mildly enlarged. Mild interstitial densities persist which shows improvement from 04/22/2024. No consolidation or pleural effusion. No appreciable pneumot horax. IMPRESSION: 1. Left anterior chest wall AICD generator with single right ventricular lead. No appreciable pneumot horax. 2. There may be mild pulmonary vascular congestion. The overall appearance however is improved compar ed to 04/22/2024. [facility], Workstation: [email or web address]-[email or web address], 08/25/2024 4:15 PM
[2024-08-25] MEDS: ACETAMINOPHEN IV (For NPO) 1,000 MG in EMPTY BAG 1 BAG IVPB ONE (17:12)
[2024-08-25] MEDS: carvediloL 12.5 MG TAB PO SCH (17:12)
[2024-08-25] MEDS: GABAPENTIN 400 MG CAP PO SCH (17:12)
[2024-08-25] MEDS: ceFAZolin 2 GM in DEXTROSE 5% IN WATER 50 ML IVPB SCH (18:09)
[2024-08-25 18:54] VITALS: TEMP 98.4
[2024-08-25 18:55] VITALS: BP 110/75; PULSE 88
[2024-08-25] MEDS ORDERED: INSULIN GLARGINE (LANTUS) 100 UNIT/ML SYR SQ SCH (21:00)
[2024-08-25] MEDS ORDERED: TOPIRAMATE 25 MG TAB PO SCH (21:00)
[2024-08-25] MEDS ORDERED: MONTELUKAST 10 MG TAB PO SCH (21:00)
[2024-08-25] MEDS ORDERED: SACUBITRIL/VALSARTAN 97 MG-103 MG TABLET PO SCH (21:00)
[2024-08-26] MEDS ORDERED: PANTOPRAZOLE 40 MG TABLET PO SCH (07:30)
[2024-08-26] MEDS ORDERED: DAPAGLIFLOZIN PROPANEDIOL 10 MG TABLET PO SCH (09:00)
[2024-08-26] MEDS ORDERED: ATORVASTATIN 40 MG TAB PO SCH (09:00)
[2024-08-26] MEDS ORDERED: SPIRONOLACTONE 25 MG TAB PO SCH (09:00)
[2024-08-26] MEDS ORDERED: CLOPIDOGREL 75 MG TAB PO SCH (09:00)
[2024-08-26] MEDS ORDERED: IVABRADINE HCL 5 MG PO SCH (09:00)
== END 2024-08-25 19:08 | disposition home or self-care (01) ==
LOC: CATHEP 10:16 → 6NMEDSUR 15:32 → CATHEP 19:08
PROVIDERS: ATTEND Internal Medicine Clinical Cardiac Electrophysiology
DX: I42.0 Dilated cardiomyopathy (principal); I11.0 Hypertensive heart disease with heart failure; I50.22 Chronic systolic (congestive) heart failure; E11.51 Type 2 diabetes mellitus with diabetic peripheral angiopathy without gangrene; E78.5 Hyperlipidemia, unspecified; I34.0 Nonrheumatic mitral (valve) insufficiency; G47.33 Obstructive sleep apnea (adult) (pediatric); G43.909 Migraine, unspecified, not intractable, without status migrainosus; F41.9 Anxiety disorder, unspecified; F32.A Depression, unspecified; Z79.84 Long term (current) use of oral hypoglycemic drugs; Z79.4 Long term (current) use of insulin; Z79.02 Long term (current) use of antithrombotics/antiplatelets; Z79.85 Long-term (current) use of injectable non-insulin antidiabetic drugs; Z79.899 Other long term (current) drug therapy; Z72.0 Tobacco use; Z86.73 Personal history of transient ischemic attack (TIA), and cerebral infarction without residual deficits
CPT/HCPCS: 33249; 80053; 84443; 85025; 71045; C1722; C1892; C1769; C1777; J2250; J0690; J2003; J3010; J2795; J0131; J2704; Q9967

== ENCOUNTER 2024-08-26 15:13 | Emergency (ER) | payer OTHER ==
[2024-08-26 15:17] VITALS: RESP 20; TEMP 97.4
[2024-08-26 15:48] VITALS: BP 158/107; PULSE 98
--- NOTE | 2024-08-26 16:01 | ED ---
General Adult HPI - General Chief complaint: Skin/Abscess/Foreign Body Stated complaint: L Chest Issue Post Op Time Seen by Provider: 08/26/24 15:28 Source: patient, RN notes reviewed Mode of arrival: ambulatory Limitations: no limitations - History of Present Illness Initial comments: This is a 48-year-old male presenting for postsurgical bleeding noted earlier today. Patient states he had an implanted pacemaker surgically placed yesterday by Dr. Echols, noting some bleeding and swelling beneath the incision site today. Patient denies any associated pain, dizziness or discharge. Patient endorses use of Plavix. Denies fever, chills, chest pain, dyspnea, palpitations. Onset/Timin -: days(s) Location: chest Radiation: non-radiation Severity scale (1-10): 0 Associated Symptoms: denies other symptoms Treatments Prior to Arrival: none - Related Data Home Medications Medication Instructions Recorded Confirmed INSULIN LISPRO (humaLOG) [humaLOG] 30 - 40 units SQ DAILY 11/13/19 08/26/24 Insulin Glargine (Lantus) [Lantus 60 unit SQ BID 11/13/19 08/26/24 Vial] carvediloL [Coreg] 25 mg PO BID 05/12/21 08/26/24 Gabapentin [Neurontin] 400 mg PO TID 10/18/23 08/26/24 Sacubitril/Valsartan [Entresto 97 1 tab PO BID 06/25/24 08/26/24 mg-103 mg Tablet] Dulaglutide [Trulicity] 4.5 mg SQ WE 08/26/24 08/26/24 Fluticasone/Umeclidin/Vilanter 1 puff INHALATION RT-DAILY 08/26/24 08/26/24 [Trelegy Ellipta 200-62.5-25] HYDROcodone/APAP 5-325MG [[place] 1 tab PO BID PRN 08/26/24 08/26/24 5-325] Rosuvastatin Calcium [Crestor] 40 mg PO DAILY 08/26/24 08/26/24 Topiramate 50 mg PO BID 08/26/24 08/26/24 metFORMIN HCL ER [Glucophage XR] 1,000 mg PO HS 08/26/24 08/26/24 Allergies Allergy/AdvReac Type Severity Reaction Status Date / Time No Known Allergies Allergy Verified 08/26/24 15:54 Review of Systems ROS Statement: Those systems with pertinent positive or pertinent negative responses have been documented in the HPI. ROS Other: All systems not noted in ROS Statement are negative. Past Medical History Past Medical History: COPD, CVA/TIA, Diabetes Mellitus, Deep Vein Thrombosis (DVT), Hyperlipidemia, Hypertension, Sleep Apnea/CPAP/BIPAP Additional Past Medical History / Comment(s): See Dr. Jacome's H&P; back pain with pinched nerve, migraines, hx TIA 1-2 yrs ago; no CPAP. History of Any Multi-Drug Resistant Organisms: None Reported Past Surgical History: Appendectomy, Heart Catheterization, Pacemaker Additional Past Surgical History / Comment(s): oral surgery Past Anesthesia/Blood Transfusion Reactions: No Reported Reaction Additional Past Anesthesia/Blood Transfusion Reaction / Comment(s): no hx blood transfusion Past Psychological History: Anxiety, Depression Smoking Status: Former smoker - Past Family History Brother(s) Additional Family Medical History / Comment(s): tumor of brain - at 34 General Exam Limitations: no limitations General appearance: alert, in no apparent distress Head exam: Present: atraumatic, normocephalic, normal inspection Eye exam: Present: normal appearance, PERRL, EOMI. Absent: scleral icterus, conjunctival injection, periorbital swelling ENT exam: Present: normal exam, mucous membranes moist Neck exam: Present: normal inspection. Absent: tenderness, meningismus, lymphadenopathy Respiratory exam: Present: normal lung sounds bilaterally, other (Positive oozing from left superior chest surgical incision site covered by Steri-Strips and bandage with mild underlying hematoma without ecchymosis or tenderness). Absent: respiratory distress, wheezes, rales, rhonchi, stridor Cardiovascular Exam: Present: regular rate, normal rhythm, normal heart sounds. Absent: systolic murmur, diastolic murmur, rubs, gallop, clicks GI/Abdominal exam: Present: soft, normal bowel sounds. Absent: distended, tenderness, guarding, rebound, rigid Extremities exam: Present: normal inspection, full ROM, normal capillary refill. Absent: tenderness, pedal edema, joint swelling, calf tenderness Back exam: Present: normal inspection Neurological exam: Present: alert, oriented X3, CN II-XII intact Psychiatric exam: Present: normal affect, normal mood Skin exam: Present: warm, dry, intact, normal color. Absent: rash Course Vital Signs 08/26/24 08/26/24 15:14 15:47 Temperature 97.4 F L Pulse Rate 107 H 98 Respiratory 20 20 Rate Blood Pressure 188/128 158/107 O2 Sat by Pulse 95 95 Oximetry Medical Decision Making - Medical Decision Making Was pt. sent in by a medical professional or institution (, [facility], HOSPITAL CODER, urgent care, hospital, or correction...) When possible be specific @ -[No] Did you speak to anyone other than the patient for history (EMS, parent, family, police, friend...)? What history was obtained from this source @ -[No] Did you review nursing and triage notes (agree or disagree)? Why? @ -[I reviewed and agree with nursing and triage notes] Were old charts reviewed (outside hosp., previous admission, EMS record, old EKG, old radiological studies, urgent care reports/EKG's, correction records)? Report findings @ -[No old charts were reviewed] Differential Diagnosis (chest pain, altered mental status, abdominal pain women, abdominal pain men, vaginal bleeding, weakness, fever, dyspnea, syncope, headache, dizziness, GI bleed, back pain, seizure, CVA, palpatations, mental health, musculoskeletal)? @ -Differential Musculoskeletal Muscular strain, contusion, ligament sprain, fracture, arthritis, septic arthritis, bursitis, cellulitis, muscle spasm, nerve compression, DVT, arterial occlusion, herpes zoster, electrolyte abnormality, tumor.... This is not meant to be in all inclusive list EKG interpreted by me (3pts min.). @ -Sinus tachycardia without ST deviation or T wave inversion. Ventricular rate 100 bpm, HUEY 150 ms, QRS 96 ms, QTc 414 ms X-rays interpreted by me (1pt min.). @ -[None done] CT interpreted by me (1pt min.). @ -[None done] U/S interpreted by me (1pt. min.). @ -[None done] What testing was considered but not performed or refused? (CT, X-rays, U/S, labs)? Why? @ -[None] What meds were considered but not given or refused? Why? @ -[None] Did you discuss the management of the patient with other professionals (professionals i.e. , PA, HOSPITAL CODER, lab, RT, psych nurse, social services technician, accounts adjustable clerk, teacher, lead security officer, keycase assembler)? Give summary @ -[No] Was smoking cessation discussed for >3mins.? @ -[No] Was critical care preformed (if so, how long)? @ -[No] Were there social determinants of health that impacted care today? How? (Homelessness, low income, unemployed, alcoholism, drug addiction, transportation, low edu. Level, literacy, decrease access to med. care, fdc, rehab)? @ -[No] Was there de-escalation of care discussed even if they declined (Discuss DNR or withdrawal of care, Hospice)? DNR status @ -[No] What co-morbidities impacted this encounter? (DM, HTN, Smoking, COPD, CAD, Cancer, CVA, ARF, Chemo, Hep., AIDS, mental health diagnosis, sleep apnea, morbid obesity)? @ -[None] Was patient admitted / discharged? Hospital course, mention meds given and route, prescriptions, significant lab abnormalities, going to OR and other pertinent info. @ -[hospital course] Undiagnosed new problem with uncertain prognosis? @ -[No] Drug Therapy requiring intensive monitoring for toxicity (Heparin, Nitro, Insulin, Cardizem)? @ -[No] Were any procedures done? @ -[No] Diagnosis/symptom? @ -Normal postsurgical bleeding/oozing Acute, or Chronic, or Acute on Chronic? @ -Acute Uncomplicated (without systemic symptoms) or Complicated (systemic symptoms)? @ -Uncomplicated Side effects of treatment? @ -[No] Exacerbation, Progression, or Severe Exacerbation? @ -[No] Poses a threat to life or bodily function? How? (Chest pain, [place], [place], pneumonia, PE, COPD, DKA, ARF, appy, cholecystitis, CVA, Diverticulitis, Homicidal, Suicidal, threat to staff... and all critical care pts) @ -[No] Disposition Clinical Impression: Postoperative bleeding from incision Disposition: HOME SELF-CARE Condition: Good Instructions (If sedation given, give patient instructions): Postoperative Bleeding (ED) Additional Instructions: Contact surgeon tomorrow morning about bleeding/hematoma. Return to ER if bleeding/hematoma worsens significantly. Is patient prescribed a controlled substance at d/c from ED?: No Referrals: Nonstaff,Physician [Primary Care Provider] - 1-2 days Patrick Jacome MD [STAFF PHYSICIAN] - 1-2 days Time of Disposition: 17:40
--- NOTE | 2024-08-26 16:33 | XR ---
EXAMINATION TYPE: XR chest 2V DATE OF EXAM: 08/26/2024 4:28 PM COMPARISON: 08/25/2024 CLINICAL INDICATION: Male, 48 years old with history of Left upper chest, pacemaker surgical site ble reggie, , TECHNIQUE: PA and lateral views FINDINGS: Left anterior chest wall AICD generator with right ventricular lead. No appreciable pneumothorax. Hea rt mildly enlarged. Diffuse interstitial/vascular prominence. No consolidation or pleural effusion. IMPRESSION: 1. Left anterior chest wall AICD generator with single right ventricular lead. 2. Mild cardiomegaly. 3. Interstitial/vascular density may indicate pulmonary vascular congestion. [facility], Workstation: [facility], 08/26/2024 4:30 PM
== END 2024-08-26 18:09 | disposition home or self-care (01) ==
LOC: EC 15:13
DX: L76.22 Postprocedural hemorrhage of skin and subcutaneous tissue following other procedure (principal); Z86.73 Personal history of transient ischemic attack (TIA), and cerebral infarction without residual deficits; Z87.891 Personal history of nicotine dependence
CPT/HCPCS: 71046; 99283

== ENCOUNTER 2024-10-25 20:00 | Observation (INO) | payer OTHER ==
--- NOTE | 2024-10-25 20:15 | ED ---
Recheck HPI - General Chief Complaint: Recheck/Abnormal Lab/Rx Stated Complaint: pacemaker issues Time Seen by Provider: 10/25/24 20:10 Source: patient, RN notes reviewed, old records reviewed Mode of arrival: ambulatory Limitations: no limitations - History of Present Illness Initial Comments: This is a 48-year-old male to the ER for evaluation today. Patient states he has a pacemaker defibrillator implanted and is shocked him at least 4 times today. Otherwise he has felt well with no significant chest pain no shortness of breath no other complaints here in the ER. Patient is just concerned that recent cardiac pacemaker placement may either not be functioning well or is functioning wrong as it is gone off multiple times a day MD Complaint: other (Defibrillator discharge) -: hour(s) Returns Today for: other (Patient is asymptomatic otherwise) Symptoms Since Prior Visit: no new symptoms Associated Symptoms: none - Related Data Home Medications Medication Instructions Recorded Confirmed INSULIN LISPRO (humaLOG) [humaLOG] See Protocol SQ AC-TID 11/13/19 10/26/24 Insulin Glargine (Lantus) [Lantus 60 unit SQ BID 11/13/19 10/26/24 Vial] carvediloL [Coreg] 25 mg PO BID 05/12/21 10/26/24 Gabapentin [Neurontin] 400 mg PO TID 10/18/23 10/26/24 Sacubitril/Valsartan [Entresto 97 1 tab PO BID 06/25/24 10/26/24 mg-103 mg Tablet] Dulaglutide [Trulicity] 4.5 mg SQ WE 08/26/24 10/26/24 Fluticasone/Umeclidin/Vilanter 1 puff INHALATION RT-DAILY 08/26/24 10/26/24 [Trelegy Ellipta 200-62.5-25] HYDROcodone/APAP 5-325MG [Bridgeton 1 tab PO QID PRN 08/26/24 10/26/24 5-325] Rosuvastatin Calcium [Crestor] 40 mg PO DAILY 08/26/24 10/26/24 Topiramate 50 mg PO BID 08/26/24 10/26/24 metFORMIN HCL ER [Glucophage XR] 1,000 mg PO HS 08/26/24 10/26/24 Allergies Allergy/AdvReac Type Severity Reaction Status Date / Time No Known Allergies Allergy Verified 10/26/24 08:39 Review of Systems ROS Statement: Those systems with pertinent positive or pertinent negative responses have been documented in the HPI. ROS Other: All systems not noted in ROS Statement are negative. Past Medical History Past Medical History: COPD, CVA/TIA, Diabetes Mellitus, Deep Vein Thrombosis (DVT), Hyperlipidemia, Hypertension, Sleep Apnea/CPAP/BIPAP Additional Past Medical History / Comment(s): See Dr. Jacome's H&P; back pain with pinched nerve, migraines, hx TIA 1-2 yrs ago; no CPAP. History of Any Multi-Drug Resistant Organisms: None Reported Past Surgical History: Appendectomy, Heart Catheterization, Pacemaker Additional Past Surgical History / Comment(s): oral surgery Past Anesthesia/Blood Transfusion Reactions: No Reported Reaction Additional Past Anesthesia/Blood Transfusion Reaction / Comment(s): no hx blood transfusion Past Psychological History: Anxiety, Depression Smoking Status: Current some day smoker Past Alcohol Use History: None Reported Past Drug Use History: None Reported - Past Family History Brother(s) Additional Family Medical History / Comment(s): tumor of brain - at 34 General Exam Limitations: no limitations General appearance: alert, in no apparent distress Head exam: Present: atraumatic, normocephalic, normal inspection Eye exam: Present: normal appearance, PERRL, EOMI. Absent: scleral icterus, conjunctival injection, periorbital swelling ENT exam: Present: normal exam, mucous membranes moist Neck exam: Present: normal inspection. Absent: tenderness, meningismus, lymphadenopathy Respiratory exam: Present: normal lung sounds bilaterally. Absent: respiratory distress, wheezes, rales, rhonchi, stridor Cardiovascular Exam: Present: regular rate, normal rhythm, normal heart sounds. Absent: systolic murmur, diastolic murmur, rubs, gallop, clicks GI/Abdominal exam: Present: soft, normal bowel sounds. Absent: distended, tenderness, guarding, rebound, rigid Extremities exam: Present: normal inspection, full ROM, normal capillary refill. Absent: tenderness, pedal edema, joint swelling, calf tenderness Back exam: Present: normal inspection Neurological exam: Present: alert, oriented X3, CN II-XII intact Psychiatric exam: Present: normal affect, normal mood Skin exam: Present: warm, dry, intact, normal color. Absent: rash Course Vital Signs 10/25/24 10/25/24 10/25/24 20:01 20:12 20:54 Temperature 97.8 F Pulse Rate 102 H 102 H 94 Respiratory 18 16 12 Rate Blood Pressure 172/122 167/98 141/83 O2 Sat by Pulse 97 96 98 Oximetry 10/25/24 10/26/24 10/26/24 21:04 00:04 03:04 Temperature Pulse Rate 87 90 90 Respiratory 18 18 18 Rate Blood Pressure 149/90 154/108 156/110 O2 Sat by Pulse 94 L 97 97 Oximetry 10/26/24 05:33 Temperature 97.8 F Pulse Rate 86 Respiratory 18 Rate Blood Pressure 144/82 O2 Sat by Pulse 97 Oximetry - Reevaluation(s) Reevaluation #1: 10/25/24 20:46 Medical records reviewed Reevaluation #2: 10/25/24 22:03 patient symptoms are still negative Reevaluation #3: 10/25/24 22:03 patient informed of results are negative for acute disease Reevaluation #4: Was pt. sent in by a medical professional or institution (, PA, RECREATION LEADER, urgent care, hospital, or skilled nursing...) When possible be specific @ -no Did you speak to anyone other than the patient for history (EMS, parent, family, police, friend...)? What history was obtained from this source @ -no Did you review nursing and triage notes (agree or disagree)? Why? @ -agree Are old charts reviewed (outside hosp., previous admission, EMS record, old EKG, old radiological studies, urgent care reports/EKG's, skilled nursing records)? Report findings @ -yes Differential Diagnosis (chest pain, altered mental status, abdominal pain women, abdominal pain men, vaginal bleeding, weakness, fever, dyspnea, syncope, headache, dizziness, GI bleed, back pain, seizure, CVA, palpatations, mental health, musculoskeletal)? @ -prior EKG interpreted by me (3pts min.). @ -yes X-rays interpreted by me (1pt min.). @ -yes negative for acute disease CT interpreted by me (1pt min.). @ -no U/S interpreted by me (1pt. min.). @ -no What testing was considered but not performed or refused? (CT, X-rays, U/S, labs)? Why? @ -none What meds were considered but not given or refused? Why? @ -none Did you discuss the management of the patient with other professionals (professionals i.e. , PA, RECREATION LEADER, lab, RT, psych nurse, foster care social worker, elevator pilot, teacher, corporate security officer, case manager specialist)? Give summary @ -no Was smoking cessation discussed for >3mins.? @ -no Was critical care preformed (if so, how long)? @ -yes31 Were there social determinants of health that impacted care today? How? (Home lessness, low income, unemployed, alcoholism, drug addiction, transportation, low edu. Level, literacy, decrease access to med. care, usp, rehab)? @ -none Was there de-escalation of care discussed even if they declined (Discuss DNR or withdrawal of care, Hospice)? DNR status @ -no What co-morbidities impacted this encounter? (DM, HTN, Smoking, COPD, CAD, Cancer, CVA, ARF, Chemo, Hep., AIDS, mental health diagnosis, sleep apnea, morbid obesity)? @ -none Was patient admitted / discharged? Hospital course, mention meds given and route, prescriptions, significant lab abnormalities, going to OR and other pertinent info. @ - 48 male to the ER for evaluation of multiple discharges of his defib rillator at home today. Patient was without symptoms and remains without symptoms we will admit for cardiology evaluation we did interrogate pacer I did still have no report Admitted Undiagnosed new problem with uncertain prognosis? @ -no Drug Therapy requiring intensive monitoring for toxicity (Heparin, Nitro, Insulin, Cardizem)? @ -no Were any procedures done? @ -no Diagnosis/symptom? @ -Defibrillator discharge Acute, or Chronic, or Acute on Chronic? @ -Acute Uncomplicated (without systemic symptoms) or Complicated (systemic symptoms)? @ -Complicated Side effects of treatment? @ -no Exacerbation, Progression, or Severe Exacerbation? @ -exacerbation Poses a threat to life or bodily function? How? (Chest pain, [place], [place], pneumonia, PE, COPD, DKA, ARF, appy, cholecystitis, CVA, Diverticulitis, Homicidal, Suicidal, threat to staff... and all critical care pts) @ -yes arrhythmia Reevaluation #5: Differential Chest Pain: Stable Angina, Unstable Angina, STEMI, NSTEMI Aortic Dissection, Pneumothorax, Musculoskeletal, Esophageal Spasm GERD, Cholecystitis, Pancreatitis, Zoster, this is not meant to be an all-inclusive list. - Consultations Consultation #1: spoke w [facility] who agrees to admit the patient Medical Decision Making - Medical Decision Making 48 male to the ER for evaluation of multiple discharges of his defibrillator at home today. Patient was without symptoms and remains without symptoms we will admit for cardiology evaluation we did interrogate pacer I did still have no report - Lab Data Result diagrams: 10/27/24 04:53 10/27/24 04:53 Lab Results 10/25/24 10/25/24 10/25/24 Range/Units 20:15 20:15 20:15 WBC 12.30 H (4.50-10.00) 10*3/uL RBC 5.02 (4.40-5.60) 10*6/uL Hgb 15.2 (13.0-17.0) g/dL Hct 44.0 (39.6-50.0) % MCV 87.6 (80.0-97.0) fL MCH 30.3 (27.0-32.0) pg MCHC 34.5 (32.0-37.0) g/dL Plt Count 225 (140-440) 10*3/uL MPV 11.5 (9.5-12.2) fL Immature Gran % (Auto) 0.2 % Neutrophils % 52.3 % Lymphocytes % 33.5 % Monocytes % 9.8 % Eosinophils % 3.3 % Basophils % 0.9 % Immature Gran # 0.03 (0.00-0.04) 10*3/uL Neutrophils # 6.43 (1.80-7.70) 10*3/uL Lymphocytes # 4.12 (0.90-5.00) 10*3/uL Monocytes # 1.21 H (0.20-1.00) 10*3/uL Eosinophils # 0.40 H (0.04-0.35) 10*3/uL Basophils # 0.11 H (0.00-0.10) 10*3/uL PT 12.5 (10.0-12.5) sec INR 1.2 H (<1.2) APTT 26.6 (22.0-30.0) sec Sodium 135 L (137-145) mmol/L Potassium 4.6 (3.5-5.1) mmol/L Chloride 97 L (98-107) mmol/L Carbon Dioxide 26 (22-30) mmol/L Anion Gap 12 mmol/L BUN 7 L (9-20) mg/dL Creatinine 0.51 L (0.66-1.25) mg/dL Est GFR (CKD-EPI)AfAm >90 (>60 ml/min/1.73 sqM) Est GFR (CKD-EPI)NonAf >90 (>60 ml/min/1.73 sqM) Glucose 301 H (74-99) mg/dL Calcium 9.5 (8.4-10.2) mg/dL Phosphorus 3.9 (2.5-4.5) mg/dL Magnesium 1.9 (1.6-2.3) mg/dL Total Bilirubin 0.7 (0.2-1.3) mg/dL AST 34 (17-59) U/L ALT 23 (4-49) U/L Alkaline Phosphatase 115 (38-126) U/L Troponin I (0.000-0.034) ng/mL NT-Pro-B Natriuret Pep 316 pg/mL Total Protein 8.2 (6.3-8.2) g/dL Albumin 4.6 (3.5-5.0) g/dL 10/25/24 Range/Units 20:15 WBC (4.50-10.00) 10*3/uL RBC (4.40-5.60) 10*6/uL Hgb (13.0-17.0) g/dL Hct (39.6-50.0) % MCV (80.0-97.0) fL MCH (27.0-32.0) pg MCHC (32.0-37.0) g/dL Plt Count (140-440) 10*3/uL MPV (9.5-12.2) fL Immature Gran % (Auto) % Neutrophils % % Lymphocytes % % Monocytes % % Eosinophils % % Basophils % % Immature Gran # (0.00-0.04) 10*3/uL Neutrophils # (1.80-7.70) 10*3/uL Lymphocytes # (0.90-5.00) 10*3/uL Monocytes # (0.20-1.00) 10*3/uL Eosinophils # (0.04-0.35) 10*3/uL Basophils # (0.00-0.10) 10*3/uL PT (10.0-12.5) sec INR (<1.2) APTT (22.0-30.0) sec Sodium (137-145) mmol/L Potassium (3.5-5.1) mmol/L Chloride (98-107) mmol/L Carbon Dioxide (22-30) mmol/L Anion Gap mmol/L BUN (9-20) mg/dL Creatinine (0.66-1.25) mg/dL Est GFR (CKD-EPI)AfAm (>60 ml/min/1.73 sqM) Est GFR (CKD-EPI)NonAf (>60 ml/min/1.73 sqM) Glucose (74-99) mg/dL Calcium (8.4-10.2) mg/dL Phosphorus (2.5-4.5) mg/dL Magnesium (1.6-2.3) mg/dL Total Bilirubin (0.2-1.3) mg/dL AST (17-59) U/L ALT (4-49) U/L Alkaline Phosphatase (38-126) U/L Troponin I 0.013 (0.000-0.034) ng/mL NT-Pro-B Natriuret Pep pg/mL Total Protein (6.3-8.2) g/dL Albumin (3.5-5.0) g/dL - EKG Data -: EKG Interpreted by Me (EKG is sinus 97 TN 197 QRS 116 QTc 460) - Radiology Data Radiology results: report reviewed (Chest x-ray is negative for acute disease), image reviewed Critical Care Time Critical Care Time: Yes Total Critical Care Time: 31 Disposition Clinical Impression: Chest pain, Defibrillator discharge, Arrhythmia Disposition: ADMITTED IP TO THIS [facility] Condition: Good Is patient prescribed a controlled substance at d/c from ED?: No Time of Disposition: 22:00
[2024-10-25 20:46] LABS: Basophils # (A) 0.11 10*3/uL (0.00-0.10); Basophils % (A) 0.9 %; Eosinophils # (A) 0.40 10*3/uL (0.04-0.35); Eosinophils % (A) 3.3 %; HCT 44.0 % (39.6-50.0); HGB 15.2 g/dL (13.0-17.0); Lymphocytes # (A) 4.12 10*3/uL (0.90-5.00); Lymphocytes % (A) 33.5 %; MCH 30.3 pg (27.0-32.0); MCHC 34.5 g/dL (32.0-37.0); MCV 87.6 fL (80.0-97.0); Monocytes # (A) 1.21 10*3/uL (0.20-1.00); Monocytes % (A) 9.8 %; Neutrophils # (A) 6.43 10*3/uL (1.80-7.70); Neutrophils % (A) 52.3 %; Platelet Count 225 10*3/uL (140-440); RBC 5.02 10*6/uL (4.40-5.60); RDW 12.6 % (11.5-14.5); WBC 12.30 10*3/uL (4.50-10.00)
[2024-10-25 20:54] LABS: INR 1.2 (<1.2); Partial Thromboplastin Time 26.6 sec (22.0-30.0); Prothrombin Time 12.5 sec (10.0-12.5)
[2024-10-25] MEDS: SODIUM CHLORIDE 0.9% 1,000 ML IV ONE (20:57)
[2024-10-25 21:00] LABS: ALT 23 U/L (4-49); AST 34 U/L (17-59); African American GFR (CKD) >90 (>60 ml/min/1.73 sqM); Albumin 4.6 g/dL (3.5-5.0); Alkaline Phosphatase 115 U/L (38-126); Anion Gap 12 mmol/L; Blood Urea Nitrogen 7 mg/dL (9-20); Calcium 9.5 mg/dL (8.4-10.2); Carbon Dioxide 26 mmol/L (22-30); Chloride 97 mmol/L (98-107); Glucose 301 mg/dL (74-99); Magnesium 1.9 mg/dL (1.6-2.3); Non-African American GFR(CKD) >90 (>60 ml/min/1.73 sqM); Potassium 4.6 mmol/L (3.5-5.1); Sodium 135 mmol/L (137-145); Total Protein 8.2 g/dL (6.3-8.2)
[2024-10-25 21:09] LABS: NT-Pro-B-Type Natriuretic Pept 316 pg/mL
--- NOTE | 2024-10-25 21:14 | XR ---
EXAMINATION TYPE: XR chest 2V DATE OF EXAM: 10/25/2024 9:10 PM COMPARISON: 08/26/2024 CLINICAL INDICATION: Male, 48 years old with history of Weakness, Chest pain TECHNIQUE: XR chest 2V views of the chest are obtained. FINDINGS: There is no focal air space opacity. No evidence for pneumothorax. No pleural effusion. The cardiac silhouette size is within normal limits. The osseous structures are grossly intact. IMPRESSION: 1. No acute cardiopulmonary process. [facility], , 10/25/2024 9:12 PM
[2024-10-25] MEDS ORDERED: MORPHINE SULFATE 4 MG/ML SYRINGE IV PRN (22:00)
[2024-10-25] MEDS ORDERED: NALOXONE 0.4 MG/ML 1 ML VIAL IV PRN (22:00)
[2024-10-25] MEDS ORDERED: ONDANSETRON 4 MG/2 ML VIAL IVP PRN (22:00)
[2024-10-26 04:54] LABS: Basophils # (A) 0.10 10*3/uL (0.00-0.10); Basophils % (A) 1.0 %; Eosinophils # (A) 0.40 10*3/uL (0.04-0.35); Eosinophils % (A) 4.0 %; HCT 41.0 % (39.6-50.0); HGB 13.9 g/dL (13.0-17.0); Lymphocytes # (A) 3.49 10*3/uL (0.90-5.00); Lymphocytes % (A) 35.3 %; MCH 30.0 pg (27.0-32.0); MCHC 33.9 g/dL (32.0-37.0); MCV 88.6 fL (80.0-97.0); Monocytes # (A) 0.89 10*3/uL (0.20-1.00); Monocytes % (A) 9.0 %; Neutrophils # (A) 4.99 10*3/uL (1.80-7.70); Neutrophils % (A) 50.4 %; Platelet Count 210 10*3/uL (140-440); RBC 4.63 10*6/uL (4.40-5.60); RDW 12.7 % (11.5-14.5); WBC 9.90 10*3/uL (4.50-10.00)
[2024-10-26 05:19] LABS: ALT 20 U/L (4-49); AST 20 U/L (17-59); African American GFR (CKD) >90 (>60 ml/min/1.73 sqM); Albumin 4.2 g/dL (3.5-5.0); Alkaline Phosphatase 106 U/L (38-126); Anion Gap 11 mmol/L; Blood Urea Nitrogen 5 mg/dL (9-20); Calcium 9.4 mg/dL (8.4-10.2); Carbon Dioxide 26 mmol/L (22-30); Chloride 99 mmol/L (98-107); Glucose 186 mg/dL (74-99); Magnesium 1.7 mg/dL (1.6-2.3); Non-African American GFR(CKD) >90 (>60 ml/min/1.73 sqM); Potassium 3.9 mmol/L (3.5-5.1); Sodium 136 mmol/L (137-145); Total Protein 7.2 g/dL (6.3-8.2)
--- NOTE | 2024-10-26 08:42 | CONS ---
CONSULTATION HISTORY OF PRESENT ILLNESS: Yoni is a 48-year-old gentleman with history of dilated cardiomyopathy with severe LV systolic dysfunction, who presented to hospital following AICD discharge. He had a recent echocardiogram in the hospital that revealed severe LV systolic dysfunction with an ejection fraction of 25% to 30%. He had a cardiac catheterization in 2021 that did not reveal significant obstructive CAD. He has a single-chamber AICD placed in July of 2024. He states that yesterday he had defibrillator went off back to back, due to which he came to the emergency room and got admitted. He has had a fairly uneventful night. Cardiac enzymes have been negative. BNP is normal at 316. Hemoglobin is 13.9, potassium is 3.9, and magnesium is normal. The patient had an EKG that showed sinus rhythm, moderate intraventricular conduction delay and nonspecific ST- T wave changes. Apparently, the device had been checked yesterday, but I do not have any information on this, nurse taking care of the patient. We will try to get hold of it and once we have information on it, we will consider starting him on amiodarone. PAST MEDICAL HISTORY: Significant for dilated cardiomyopathy with severe LV systolic dysfunction, insulin- requiring diabetes, hypertension, dyslipidemia. CURRENT MEDICATIONS: Include: 1. Glucophage 1000 mg daily. 2. Coreg 25 b.i.d. 3. Topiramate 50 b.i.d. 4. Entresto 97/103. 5. Crestor 40 mg daily. 6. Insulin. 7. Neurontin. 8. Trulicity. ALLERGIES: There are no known drug allergies. FAMILY HISTORY: Negative for premature coronary artery disease. SOCIAL HISTORY: Negative for current smoking, EtOH abuse, or drug abuse. REVIEW OF SYSTEMS: 14 out of 14 review of systems has been performed, pertinent as documented. PHYSICAL EXAMINATION: GENERAL: On exam, the patient is comfortable at rest. VITAL SIGNS: Afebrile. Heart rate is 90 beats per minute. Blood pressure is 148/98, respiratory rate is 18, O2 saturation is 96% on room air. NECK: There is no jugular venous distention. Carotid upstroke is normal. There is no bruit. CHEST: Reveals good air entry bilaterally. HEART: Reveals first and second heart sounds. No gallop. No murmur. No rub. ABDOMEN: Soft, nontender. EXTREMITIES: Examination of extremities did not reveal any edema. Peripheral pulses are felt. LABORATORY DATA: Labs have been reviewed. ASSESSMENT: Dilated cardiomyopathy with severe LV systolic dysfunction, ventricular tachycardia, status post AICD discharge. PLAN: Please resume the patient's home medications. No need to repeat an echocardiogram at this time. We will review the AICD data and if necessary, start him on rhythm suppressive therapy. AMY / ALAYNAN: [id number] /
[2024-10-26] MEDS ORDERED: HYDROcodone/APAP 5-325MG 1 EACH TAB PO PRN (12:23)
[2024-10-26] MEDS ORDERED: Magnesium Replacement Protocol 1 EACH MISC MISCELLANE PRN (12:24)
[2024-10-26] MEDS ORDERED: Potassium Replacement Protocol 1 EACH MISC MISCELLANE PRN (12:24)
[2024-10-26] MEDS: GABAPENTIN 400 MG CAP PO SCH (16:27)
[2024-10-26] MEDS ORDERED: DEXTROSE 50% SYRINGE 50 ML IVP PRN ×2 (17:56)
[2024-10-26 18:00] LABS: Glucose,Whole Blood 260 mg/dL (70-110)
[2024-10-26] MEDS: SYMBICORT 160-4.5 MCG INHALER INHALATION SCH (18:27)
[2024-10-26] MEDS: INSULIN LISPRO (HumaLOG) 100 UNIT/ML 10 mL VL SQ SCH (18:28)
[2024-10-26] MEDS: metFORMIN 500 MG TAB PO SCH (18:29)
[2024-10-26 20:28] LABS: Glucose,Whole Blood 244 mg/dL (70-110)
[2024-10-26] MEDS: SACUBITRIL/VALSARTAN 97 MG-103 MG TABLET PO SCH (23:07)
[2024-10-26] MEDS: TOPIRAMATE 25 MG TAB PO SCH (23:07)
[2024-10-26] MEDS: INSULIN GLARGINE (LANTUS) 100 UNIT/ML SYR SQ SCH (23:07)
--- NOTE | 2024-10-26 23:17 | HP ---
HISTORY AND PHYSICAL CHIEF COMPLAINT: AICD discharge. HISTORY OF PRESENT ILLNESS: 48-year-old gentleman with past medical history of multiple medical problems including history of COPD, CVA, DVT, nonischemic cardiomyopathy, who was admitted with AICD discharge 4 times. Cardiology is following the patient closely the AICD interrogation prognosis. There is no history of fever, rigors, chills. No chest pain at this time. The patient admitted for further evaluation and treatment. PAST MEDICAL HISTORY: Reviewed include nonischemic cardiomyopathy. Rest of history from chart is also reviewed. HOME MEDICATIONS: Reviewed include [place]. Dose and rest of medications reviewed. ALLERGIES: None. FAMILY HISTORY: No history of brain tumor. SOCIAL HISTORY: Smoking. REVIEW OF SYSTEMS: 14-point review of systems is negative, except as mentioned earlier. PHYSICAL EXAMINATION: VITAL SIGNS: Pulse is 92, blood pressure n, respirations 18. HEENT: Conjunctivae normal. NECK: n. CARDIOVASCULAR: S1 and S2. ABDOMEN: Soft . NERVOUS SYSTEM: No focal deficits. LABORATORY DATA: WBC 10.03. Sodium 136. Mag n. ASSESSMENT: 1. AICD discharges, possible ventricular tachycardia. 2. Dilated cardiomyopathy with severe LV dysfunction. 3. Elevated WBC, improved. 4. Hyponatremia, mildly improved. 5. History of chronic obstructive pulmonary disease. 6. History of cerebrovascular accident 7. deep vein thrombosis. 8. Hypertension. 9. Multiple complex medical issues. RECOMMENDATION: This 48-year-old gentleman presented with multiple complex medical issues. We will monitor the patient closely. Closely follow with Cardiology. The patient is on Coreg right now. We will continue to monitor. Repeat labs. Magnesium and potassium will be checked and followed up. Resume the home medications. Guarded prognosis. Further recommendations to follow. MMODL / IJN: [id number] / [facility] HOSPITALChuck
[2024-10-27 06:01] LABS: Glucose,Whole Blood 220 mg/dL (70-110)
[2024-10-27 07:30] VITALS: RESP 16
[2024-10-27 07:42] LABS: Anion Gap 11.60 mmol/L (4.00-12.00); BUN/Creat Ratio 12.12 Ratio (12.00-20.00); Basophils # (A) 0.09 X 10*3/uL (0.00-0.10); Basophils % (A) 0.9 %; Blood Urea Nitrogen 9.7 mg/dL (9.0-27.0); Calcium 9.3 mg/dL (8.7-10.3); Carbon Dioxide 25.4 mmol/L (21.6-31.8); Chloride 104 mmol/L (96-109); Eosinophils # (A) 0.39 X 10*3/uL (0.04-0.35); Eosinophils % (A) 4.1 %; Glucose 233 mg/dL (70-110); HCT 43.3 % (39.6-50.0); HGB 14.4 g/dL (13.0-17.0); Immature Grans, Automated 0.20 %; Lymphocytes # (A) 3.40 X 10*3/uL (0.90-5.00); Lymphocytes % (A) 35.8 %; MCH 29.7 pg (27.0-32.0); MCHC 33.3 g/dL (32.0-37.0); MCV 89.3 FL (80.0-97.0); Magnesium 2.0 mg/dL (1.5-2.4); Monocytes # (A) 1.01 X 10*3/uL (0.20-1.00); Monocytes % (A) 10.6 %; NRBC Per 100 WBC 0 X 10*3/uL (0.00-0.01); Neutrophils # (A) 4.59 X 10*3/uL (1.80-7.70); Neutrophils % (A) 48.4 %; Platelet Count 223 X 10*3/uL (140-440); Potassium 4.2 mmol/L (3.5-5.5); RBC 4.85 X 10*6/uL (4.40-5.60); RDW 12.7 % (11.5-14.5); Sodium 141 mmol/L (135-145); WBC 9.50 X 10*3/uL (4.50-10.00)
[2024-10-27] MEDS: TIOTROPIUM 2.5 MCG INHALER INHALATION SCH (09:05)
[2024-10-27] MEDS: ATORVASTATIN 80 MG TAB PO SCH (09:27)
--- NOTE | 2024-10-27 11:23 | P.PN ---
Subjective HISTORY OF PRESENT ILLNESS: Patient examined this morning at bedside. Patient currently denies any chest pain or pressure. Denies shortness of breath. Vital signs are stable. PHYSICAL EXAM: VITAL SIGNS: Reviewed. GENERAL: Well-developed in no acute distress. NECK: Supple. No JVD or thyromegaly LUNGS: Respirations even and unlabored. Lungs essentially clear to auscultation bilaterally. HEART: Regular rate and rhythm. S1 and S2 heard. EXTREMITIES: Normal range of motion. No clubbing or cyanosis. Peripheral pulses intact. No lower extremity edema ASSESSMENT: Nonischemic/dilated cardiomyopathy History of ventricular tachycardia History of AICD implantation AICD discharge, ruled out PLAN: Patient's ICD was interrogated without evidence of ICD discharge Continue current cardiac medications Patient may be discharged home today from a cardiac standpoint Patient to follow-up postdischarge with his primary human resources project coordinator We will sign off. Please reconsult if needed. Nurse practitioner note has been reviewed by physician. Signing provider agrees with the documented findings, assessment, and plan of care documented by CUT OFF SAW OPERATOR as a scribe. Objective - Vital Signs Vital signs: Vital Signs Temp 97.9 F 10/27/24 07:00 Pulse 77 10/27/24 07:00 Resp 16 10/27/24 07:00 BP 106/74 10/27/24 07:00 Pulse Ox 94 L 10/27/24 07:00 FiO2 Intake & Output 10/26/24 10/27/24 10/27/24 18:59 06:59 18:59 Intake Total 180 118 Balance 180 118 Intake: Intake, IV Titration 0 Amount Sodium Chloride 0.9% 1, 0 000 ml @ 999 mls/hr IV . Q1H1M ONE Rx#:[id number] Oral 180 118 Other: # Voids 1 2 - Labs CBC & Chem 7: 10/27/24 04:53 10/27/24 04:53 Labs: Abnormal Lab Results - Last 24 Hours (Table) 10/26/24 10/26/24 10/26/24 Range/Units 03:35 17:58 20:27 Monocytes # (0.20-1.00) X 10*3/uL Eosinophils # (0.04-0.35) X 10*3/uL Glucose (70-110) mg/dL POC Glucose (mg/dL) 260 H 244 H (70-110) mg/dL Hemoglobin A1c 11.2 H (<=6.0) % 10/27/24 10/27/24 10/27/24 Range/Units 04:53 04:53 06:00 Monocytes # 1.01 H (0.20-1.00) X 10*3/uL Eosinophils # 0.39 H (0.04-0.35) X 10*3/uL Glucose 233 H (70-110) mg/dL POC Glucose (mg/dL) 220 H (70-110) mg/dL Hemoglobin A1c (<=6.0) %
[2024-10-27 12:04] LABS: Glucose,Whole Blood 202 mg/dL (70-110)
[2024-10-27 14:37] VITALS: BP 106/71; PULSE 70; TEMP 98.4
[2024-10-28] MEDS ORDERED: NON FORMULARY DRUG (Dulaglutide [Trulicity] 4.5 MG/0.5 ML Each) SQ SCH (09:00)
--- NOTE | 2024-10-29 01:31 | P.DS ---
Providers Date of admission: 10/25/24 22:00 Expected date of discharge: 10/27/24 Attending physician: Drake Ruano Primary care physician: Physician Nonstaff Hospital Course: . Final diagnosis AICD discharges, ventricular tachycardia Dilated cardiomyopathy with severe LV dysfunction Elevated WBC, improved History of COPD hyponatremia, mild History of CVA History of DVT DVT history Hypertension Obesity with a BMI 39.7 GI prophylaxis DVT prophylaxis Full code Discharge disposition Patient is being discharged in a stable condition with guarded prognosis to home. Patient will follow-up with Dr. Lovely Blanchard in the outpatient setting upon discharge. Patient is to continue with current medications and outpatient follow-up with cardiology as scheduled. Total time taken is greater than 35 minutes. Hospital course This is a 48-year-old male who was recently admitted with AICD discharges with chest discomfort being closely monitored with cardiology following. AICD was interrogated and patient has been cleared by cardiology patient reports to feeling improved and no further episodes of discharges noted on device. Please refer to cardiology consultation notes for further HPI. Currently no reports of chest pain, shortness of breath, or palpitations. Patient is afebrile. No reports of nausea or vomiting and patient is tolerating diet. Patient will be discharged today. Guarded prognosis and high risk for readmissions. Physical exam: Gen: This is a 48-year-old male who is awake, alert and oriented x 3, well- developed, well-nourished, appears older than stated age, obese HEENT: Head is atraumatic, normocephalic. Pupils equal, round. Sclerae is anicteric. NECK: Supple. No JVD. No lymphadenopathy. No thyromegaly. LUNGS: Diminished breath sounds bilaterally otherwise clear to auscultation. No wheezes or rhonchi. No intercostal retractions. HEART: S1, S2 are muffled ABDOMEN: Soft. Obese bowel sounds are present. No masses. No tenderness. EXTREMITIES: No pedal edema. No calf tenderness. NEUROLOGICAL: Patient is awake, alert and oriented x3. Cranial nerves 2 through 12 are grossly intact. Please refer to medication reconciliation sheet for a list of medications. The impression and plan of care has been dictated by Krysta Dunn, Nurse Practitioner as directed. Dr. Alden MD I have performed a history and examination and MDM of this patient, discussed the same with the dictator, and agree with the dictator's assessment and plan as written ,documented as a scribe. Based on total visit time, I have performed more than 50% of the visit. Patient Condition at Discharge: Good Plan - Discharge Summary Discharge Rx Participant: No New Discharge Prescriptions: Continue Insulin Glargine (Lantus) [Lantus Vial] 60 unit SQ BID INSULIN LISPRO (humaLOG) [humaLOG] See Protocol SQ AC-TID carvediloL [Coreg] 25 mg PO BID Topiramate 50 mg PO BID HYDROcodone/APAP 5-325MG [[place] 5-325] 1 tab PO QID PRN PRN Reason: Pain Rosuvastatin Calcium [Crestor] 40 mg PO DAILY Fluticasone/Umeclidin/Vilanter [Trelegy Ellipta 200-62.5-25] 1 puff INHALATION RT-DAILY Gabapentin [Neurontin] 400 mg PO TID Sacubitril/Valsartan [Entresto 97 mg-103 mg Tablet] 1 tab PO BID Dulaglutide [Trulicity] 4.5 mg SQ WE metFORMIN HCL ER [Glucophage XR] 1,000 mg PO HS Discharge Medication List INSULIN LISPRO (humaLOG) [humaLOG] See Protocol SQ AC-TID 11/13/19 [History] Insulin Glargine (Lantus) [Lantus Vial] 60 unit SQ BID 11/13/19 [History] carvediloL [Coreg] 25 mg PO BID 05/12/21 [History] Gabapentin [Neurontin] 400 mg PO TID 10/18/23 [History] Sacubitril/Valsartan [Entresto 97 mg-103 mg Tablet] 1 tab PO BID 06/25/24 [History] Dulaglutide [Trulicity] 4.5 mg SQ WE 08/26/24 [History] Fluticasone/Umeclidin/Vilanter [Trelegy Ellipta 200-62.5-25] 1 puff INHALATION RT-DAILY 08/26/24 [History] HYDROcodone/APAP 5-325MG [[place] 5-325] 1 tab PO QID PRN 08/26/24 [History] Rosuvastatin Calcium [Crestor] 40 mg PO DAILY 08/26/24 [History] Topiramate 50 mg PO BID 08/26/24 [History] metFORMIN HCL ER [Glucophage XR] 1,000 mg PO HS 08/26/24 [History] Follow up Appointment(s)/Referral(s): Glenn Gregory MD [Medical Doctor] - [address] [facility] [NON-STAFF] - As Needed Nonstaff,Physician [Primary Care Provider] - 1-2 days Patient Instructions/Handouts: Angina (ED) Activity/Diet/Wound Care/Special Instructions: Contact Us For more information about the quality services offered by [facility], please use the contact information provided below to reach our staff via email or phone. [facility], [employer]. [address] [place] [address], [facility]. [address] [place] [address] Phone For all inquires, please use the following contact information: [email or web address] for [employer], [phone] [facility] ([facility]) offers a Vehicle Purchase Assistance Program to help eligible individuals and families with transportation needs related to employment, childcare, or medical appointments. This program, known as the [place] Vehicle Purchase Assistance Guidelines, helps individuals on the [place] Program, Child Development and Care program, and those enrolled in Medicaid. To be eligible, applicants must: Be enrolled in the relevant [facility] program ([place], Child Development and Care, or Medicaid). Demonstrate a need for transportation related to employment, childcare, or medical appointments. Obtain prior approval from [facility]. Complete a Vehicle Purchase form, signed by the seller, a licensed gyro mechanic, and the senior media buyer. Have a valid [place] steam train driver's license. Be able to afford the vehicle's insurance, payments, and other expenses. Not have other reasonably available transportation options. Discharge/Stand Alone Forms: [facility], [facility], Who Do I Call?, Community Resources, Area PCPs Discharge Disposition: HOME SELF-CARE
== END 2024-10-27 15:25 | disposition home or self-care (01) ==
LOC: EC 20:00 → 6NMEDSUR 22:00
PROVIDERS: ADMIT Hospitalist; ATTEND Hospitalist
DX: T82.199A Other mechanical complication of unspecified cardiac device, initial encounter (principal); Y71.1 Therapeutic (nonsurgical) and rehabilitative cardiovascular devices associated with adverse incidents; I42.0 Dilated cardiomyopathy; I47.20 Ventricular tachycardia, unspecified; D72.829 Elevated white blood cell count, unspecified; E87.1 Hypo-osmolality and hyponatremia; E11.9 Type 2 diabetes mellitus without complications; I10 Essential (primary) hypertension; E78.5 Hyperlipidemia, unspecified; J44.9 Chronic obstructive pulmonary disease, unspecified; G47.30 Sleep apnea, unspecified; F41.9 Anxiety disorder, unspecified; F32.A Depression, unspecified; F17.200 Nicotine dependence, unspecified, uncomplicated; E66.9 Obesity, unspecified; Z68.39 Body mass index [BMI] 39.0-39.9, adult; Z86.718 Personal history of other venous thrombosis and embolism; Z86.73 Personal history of transient ischemic attack (TIA), and cerebral infarction without residual deficits; Z79.4 Long term (current) use of insulin; Z79.51 Long term (current) use of inhaled steroids; Z79.84 Long term (current) use of oral hypoglycemic drugs; Z79.85 Long-term (current) use of injectable non-insulin antidiabetic drugs; Z79.899 Other long term (current) drug therapy
CPT/HCPCS: 99291; 36415; 94640 ×3; 83880; 80053 ×2; 80048; 83735 ×3; 84100 ×2; 84484 ×2; 85025 ×3; 85610; 85730; 83036; 71046; G0378 ×3

== ENCOUNTER 2024-11-09 18:17 | Emergency (ER) | payer OTHER ==
[2024-11-09 18:42] VITALS: RESP 18
--- NOTE | 2024-11-09 21:27 | ED ---
Extremity Problem HPI - General Chief complaint: Extremity Problem,Nontraumatic Stated complaint: R foot swelling Time Seen by Provider: 11/09/24 18:32 Source: patient, RN notes reviewed Mode of arrival: ambulatory Limitations: no limitations - History of Present Illness Initial comments: This is a 48-year-old male with history including DM, DVT, CVA, hypertension and hyperlipidemia presenting for extremity issues. Patient states he has been having right lower extremity swelling and associated pain with ambulation for the past 7 days without recent trauma or known cause for swelling. Patient also endorses a wound on his left toe that has been present for years, "popping" earlier today. Denies fever, chills, chest pain, dyspnea, dizziness. MD Complaint: extremity pain, extremity swelling Onset/Timin -: days(s) Location: bilateral lower extremity Improves with: immobilization Worsens with: weight bearing, walking, palpation Associated Symptoms: denies other symptoms - Related Data Home Medications Medication Instructions Recorded Confirmed INSULIN LISPRO (humaLOG) [humaLOG] See Protocol SQ AC-TID 11/13/19 10/26/24 Insulin Glargine (Lantus) [Lantus 60 unit SQ BID 11/13/19 10/26/24 Vial] carvediloL [Coreg] 25 mg PO BID 05/12/21 10/26/24 Gabapentin [Neurontin] 400 mg PO TID 10/18/23 10/26/24 Sacubitril/Valsartan [Entresto 97 1 tab PO BID 06/25/24 10/26/24 mg-103 mg Tablet] Dulaglutide [Trulicity] 4.5 mg SQ WE 08/26/24 10/26/24 Fluticasone/Umeclidin/Vilanter 1 puff INHALATION RT-DAILY 08/26/24 10/26/24 [Trelegy Ellipta 200-62.5-25] HYDROcodone/APAP 5-325MG [[place] 1 tab PO QID PRN 08/26/24 10/26/24 5-325] Rosuvastatin Calcium [Crestor] 40 mg PO DAILY 08/26/24 10/26/24 Topiramate 50 mg PO BID 08/26/24 10/26/24 metFORMIN HCL ER [Glucophage XR] 1,000 mg PO HS 08/26/24 10/26/24 Previous Rx's Medication Instructions Recorded Bacitracin/Polymyx Oint 1 applic TOPICAL BID #15 gm 11/10/24 [Polysporin Oint] Cephalexin [Keflex] 500 mg PO Q6HR 1 Days #20 cap 11/10/24 Allergies Allergy/AdvReac Type Severity Reaction Status Date / Time No Known Allergies Allergy Verified 11/09/24 18:41 Review of Systems ROS Statement: Those systems with pertinent positive or pertinent negative responses have been documented in the HPI. ROS Other: All systems not noted in ROS Statement are negative. Past Medical History Past Medical History: COPD, CVA/TIA, Diabetes Mellitus, Deep Vein Thrombosis (DVT), Hyperlipidemia, Hypertension, Sleep Apnea/CPAP/BIPAP Additional Past Medical History / Comment(s): See Dr. Jacome's H&P; back pain with pinched nerve, migraines, hx TIA 1-2 yrs ago; no CPAP. History of Any Multi-Drug Resistant Organisms: None Reported Past Surgical History: Appendectomy, Heart Catheterization, Pacemaker Additional Past Surgical History / Comment(s): oral surgery Past Anesthesia/Blood Transfusion Reactions: No Reported Reaction Additional Past Anesthesia/Blood Transfusion Reaction / Comment(s): no hx blood transfusion Type of Cardiac Device: AICD Device Placement Date:: 07/2024 Past Psychological History: Anxiety, Depression Smoking Status: Current some day smoker Past Alcohol Use History: None Reported Past Drug Use History: None Reported - Past Family History Brother(s) Additional Family Medical History / Comment(s): tumor of brain - at 34 General Exam Limitations: no limitations General appearance: alert, in no apparent distress Head exam: Present: atraumatic, normocephalic, normal inspection Eye exam: Present: normal appearance, PERRL, EOMI. Absent: scleral icterus, conjunctival injection, periorbital swelling ENT exam: Present: normal exam, mucous membranes moist Neck exam: Present: normal inspection. Absent: tenderness, meningismus, lymphadenopathy Respiratory exam: Present: normal lung sounds bilaterally. Absent: respiratory distress, wheezes, rales, rhonchi, stridor Cardiovascular Exam: Present: regular rate, normal rhythm, normal heart sounds. Absent: systolic murmur, diastolic murmur, rubs, gallop, clicks GI/Abdominal exam: Present: soft, normal bowel sounds. Absent: distended, tenderness, guarding, rebound, rigid Extremities exam: Present: full ROM, normal capillary refill, pedal edema (Positive mild/moderate edema of RLE extending from foot to mid calf without pitting or stasis dermatitis), other (Positive minor/shallow abrasion noted on medial aspect of left distal great toe without surrounding erythema. Patient notes bilateral pedal paresthesia attributed to diabetic neuropathy.). Absent: tenderness, joint swelling, calf tenderness Back exam: Present: normal inspection Neurological exam: Present: alert, oriented X3, CN II-XII intact Psychiatric exam: Present: normal affect, normal mood Skin exam: Present: warm, dry, intact, normal color. Absent: rash Course Vital Signs 11/09/24 11/09/24 18:39 22:46 Temperature 98.1 F 98 F Pulse Rate 102 H 98 Respiratory 18 18 Rate Blood Pressure 174/105 168/105 O2 Sat by Pulse 96 96 Oximetry Medical Decision Making - Medical Decision Making Was pt. sent in by a medical professional or institution (, PA, SENIOR REGULATORY AFFAIRS SPECIALIST, urgent care, hospital, or group home...) When possible be specific @ -No Did you speak to anyone other than the patient for history (EMS, parent, family, police, friend...)? What history was obtained from this source @ -No Did you review nursing and triage notes (agree or disagree)? Why? @ -I reviewed and agree with nursing and triage notes Were old charts reviewed (outside hosp., previous admission, EMS record, old EKG, old radiological studies, urgent care reports/EKG's, group home records)? Report findings @ -No old charts were reviewed Differential Diagnosis (chest pain, altered mental status, abdominal pain women, abdominal pain men, vaginal bleeding, weakness, fever, dyspnea, syncope, headache, dizziness, GI bleed, back pain, seizure, CVA, palpatations, mental health, musculoskeletal)? @ -Differential Musculoskeletal Muscular strain, contusion, ligament sprain, fracture, arthritis, septic arthritis, bursitis, cellulitis, muscle spasm, nerve compression, DVT, arterial occlusion, herpes zoster, electrolyte abnormality, tumor.... This is not meant to be in all inclusive list EKG interpreted by me (3pts min.). @ -Not done X-rays interpreted by me (1pt min.). @ -Left toe/foot x-ray shows no signs of osteomyelitis CT interpreted by me (1pt min.). @ -None done U/S interpreted by me (1pt. min.). @ -RLE Doppler ultrasound shows no indication of DVT What testing was considered but not performed or refused? (CT, X-rays, U/S, labs)? Why? @ -None What meds were considered but not given or refused? Why? @ -None Did you discuss the management of the patient with other professionals (professionals i.e. Dr., PA, SENIOR REGULATORY AFFAIRS SPECIALIST, lab, RT, psych nurse, 7th grade social studies teacher, wire steward, teacher, quarantine officer, case picker)? Give summary @ -No Was smoking cessation discussed for >3mins.? @ -No Was critical care preformed (if so, how long)? @ -No Were there social determinants of health that impacted care today? How? (Homelessness, low income, unemployed, alcoholism, drug addiction, transportation, low edu. Level, literacy, decrease access to med. care, [facility], rehab)? @ -No Was there de-escalation of care discussed even if they declined (Discuss DNR or withdrawal of care, Hospice)? DNR status @ -No What co-morbidities impacted this encounter? (DM, HTN, Smoking, COPD, CAD, Cancer, CVA, ARF, Chemo, Hep., AIDS, mental health diagnosis, sleep apnea, morbid obesity)? @ -DM, history of DVT Was patient admitted / discharged? Hospital course, mention meds given and route, prescriptions, significant lab abnormalities, going to OR and other pertinent info. @ -Negative osteomyelitis of left foot and no DVT in right lower extremity. Wound care performed on the left toe. Keflex and bacitracin sent to pharmacy. Advised compression stocking and leg elevation for right leg and daily wound care for left toe. Antibiotics and ointment sent to patient's pharmacy. Advised follow-up with PCP regarding any ongoing extremity issues. Discussed patient with Dr. Osman. Undiagnosed new problem with uncertain prognosis? @ -No Drug Therapy requiring intensive monitoring for toxicity (Heparin, Nitro, Insulin, Cardizem)? @ -No Were any procedures done? @ -No Diagnosis/symptom? @ -Lower extremity edema, toe abrasion Acute, or Chronic, or Acute on Chronic? @ -Acute Uncomplicated (without systemic symptoms) or Complicated (systemic symptoms)? @ -Uncomplicated Side effects of treatment? @ -No Exacerbation, Progression, or Severe Exacerbation? @ -No Poses a threat to life or bodily function? How? (Chest pain, USA, SC, pneumonia, PE, COPD, DKA, ARF, appy, cholecystitis, CVA, Diverticulitis, Homicidal, Suicidal, threat to staff... and all critical care pts) @ -No Disposition Clinical Impression: Edema of right lower extremity, Open wound of left great toe Disposition: HOME SELF-CARE Condition: Fair Instructions (If sedation given, give patient instructions): Acute Wound Care (ED), Leg Edema (ED) Additional Instructions: Apply compression stocking and elevate leg to address leg swelling. Keep wound on toe clean with a bacterial soap, water and dressing change at least twice daily. Follow-up with PCP regarding any ongoing symptoms. Prescriptions: Cephalexin [Keflex] 500 mg PO Q6HR 1 Days #20 cap Bacitracin/Polymyx Oint [Polysporin Oint] 1 applic TOPICAL BID #15 gm Is patient prescribed a controlled substance at d/c from ED?: No Referrals: David Bentley MD [Primary Care Provider] - 1-2 days Time of Disposition: 00:33
--- NOTE | 2024-11-09 23:12 | XR ---
EXAM: XR Left Foot Complete, 3 or More Views CLINICAL HISTORY: ITS.REASON XR Reason: Chronic wound on left foot, history of DM TECHNIQUE: Frontal, lateral and oblique views of the left foot. COMPARISON: No relevant prior studies available. FINDINGS: Bones/joints: No radiographic evidence of acute osteomyelitis. Soft tissues: Unremarkable. IMPRESSION: No radiographic evidence of acute osteomyelitis.
--- NOTE | 2024-11-10 00:23 | US ---
EXAM: US Duplex Right Lower Extremity Veins CLINICAL HISTORY: Pain TECHNIQUE: Real-time duplex ultrasound scan of the right lower extremity veins integrating B-mode two-dimensional vascular structure, Doppler spectral analysis, color flow Doppler imaging and compression. COMPARISON: No relevant prior studies available. FINDINGS: Limitations: The patient reportedly refused imaging of the right groin. This precluded evaluation of the right common femoral vein segment. Deep veins: No DVT in the visualized femoral or popliteal veins. The veins demonstrate normal color flow, are normally compressible, with normal phasic flow and/or augmentation response. The interrogated calf veins are patent. Superficial veins: Unremarkable. No thrombus in the saphenofemoral junction. Soft tissues: No acute findings. No popliteal cyst. IMPRESSION: No evidence for deep vein thrombosis involving the right lower extremity. The right common femoral vein was not image secondary to technical factors noted above.
[2024-11-10 01:01] VITALS: BP 158/84; PULSE 91; TEMP 98.2
== END 2024-11-10 01:01 | disposition home or self-care (01) ==
LOC: EC 18:17
DX: S91.102A Unspecified open wound of left great toe without damage to nail, initial encounter (principal); R60.0 Localized edema; E11.9 Type 2 diabetes mellitus without complications; F17.200 Nicotine dependence, unspecified, uncomplicated; Z86.718 Personal history of other venous thrombosis and embolism; X58.XXXA Exposure to other specified factors, initial encounter
CPT/HCPCS: 99284

== ENCOUNTER 2024-11-17 20:51 | Observation (INO) | payer OTHER ==
--- NOTE | 2024-11-17 21:10 | ED ---
Recheck HPI - General Chief Complaint: Recheck/Abnormal Lab/Rx Stated Complaint: Pacemaker shocked Time Seen by Provider: 11/17/24 21:01 Source: patient, RN notes reviewed, old records reviewed Mode of arrival: ambulatory Limitations: no limitations - History of Present Illness Initial Comments: This is a 48-year-old male to the ER for evaluation patient was today for evaluation of pacemaker firing. Defibrillator firing patient was shocked twice MD Complaint: other -: hour(s) Returns Today for: persistent/worsening pain related to initial visit, other (Pacemaker firing) Symptoms Since Prior Visit: no new symptoms Context: planned re-check Associated Symptoms: none - Related Data Home Medications Medication Instructions Recorded Confirmed INSULIN LISPRO (humaLOG) [humaLOG] See Protocol SQ AC-TID 11/13/19 11/18/24 Insulin Glargine (Lantus) [Lantus 60 unit SQ BID 11/13/19 11/18/24 Vial] carvediloL [Coreg] 25 mg PO BID 05/12/21 11/18/24 Gabapentin [Neurontin] 400 mg PO TID 10/18/23 11/18/24 Sacubitril/Valsartan [Entresto 97 1 tab PO BID 06/25/24 11/18/24 mg-103 mg Tablet] Dulaglutide [Trulicity] 4.5 mg SQ WE 08/26/24 11/18/24 Fluticasone/Umeclidin/Vilanter 1 puff INHALATION RT-DAILY 08/26/24 11/18/24 [Trelegy Ellipta 200-62.5-25] HYDROcodone/APAP 5-325MG [[place] 1 tab PO QID PRN 08/26/24 11/18/24 5-325] Rosuvastatin Calcium [Crestor] 40 mg PO DAILY 08/26/24 11/18/24 Topiramate 50 mg PO BID 08/26/24 11/18/24 metFORMIN HCL ER [Glucophage XR] 1,000 mg PO HS 08/26/24 11/18/24 Previous Rx's Medication Instructions Recorded Bacitracin/Polymyx Oint 1 applic TOPICAL BID #15 gm 11/10/24 [Polysporin Oint] Terbinafine 1% Cream [LamISIL] 1 applic TOPICAL BID #30 gm 11/10/24 Clopidogrel [Plavix] 75 mg PO DAILY #30 tab 11/18/24 Ivabradine HCl 5 mg PO DAILY #30 tab 11/18/24 Spironolactone [Aldactone] 25 mg PO DAILY #30 tab 11/18/24 Allergies Allergy/AdvReac Type Severity Reaction Status Date / Time No Known Allergies Allergy Verified 11/18/24 09:06 Review of Systems ROS Statement: Those systems with pertinent positive or pertinent negative responses have been documented in the HPI. ROS Other: All systems not noted in ROS Statement are negative. Past Medical History Past Medical History: COPD, CVA/TIA, Diabetes Mellitus, Deep Vein Thrombosis (DVT), Hyperlipidemia, Hypertension, Sleep Apnea/CPAP/BIPAP Additional Past Medical History / Comment(s): See Dr. Jacome's H&P; back pain with pinched nerve, migraines, hx TIA 1-2 yrs ago; no CPAP. History of Any Multi-Drug Resistant Organisms: None Reported Past Surgical History: Appendectomy, Heart Catheterization, Pacemaker Additional Past Surgical History / Comment(s): oral surgery Past Anesthesia/Blood Transfusion Reactions: No Reported Reaction Additional Past Anesthesia/Blood Transfusion Reaction / Comment(s): no hx blood transfusion Type of Cardiac Device: AICD Device Placement Date:: 07/2024 Past Psychological History: Anxiety, Depression Smoking Status: Light tobacco smoker Past Alcohol Use History: None Reported Past Drug Use History: None Reported - Past Family History Brother(s) Additional Family Medical History / Comment(s): tumor of brain - at 35 General Exam Limitations: no limitations General appearance: alert, in no apparent distress Head exam: Present: atraumatic, normocephalic, normal inspection Eye exam: Present: normal appearance, PERRL, EOMI. Absent: scleral icterus, conjunctival injection, periorbital swelling ENT exam: Present: normal exam, mucous membranes moist Neck exam: Present: normal inspection. Absent: tenderness, meningismus, lymphadenopathy Respiratory exam: Present: normal lung sounds bilaterally. Absent: respiratory distress, wheezes, rales, rhonchi, stridor Cardiovascular Exam: Present: regular rate, normal rhythm, normal heart sounds. Absent: systolic murmur, diastolic murmur, rubs, gallop, clicks GI/Abdominal exam: Present: soft, normal bowel sounds. Absent: distended, tenderness, guarding, rebound, rigid Extremities exam: Present: normal inspection, full ROM, normal capillary refill. Absent: tenderness, pedal edema, joint swelling, calf tenderness Back exam: Present: normal inspection Neurological exam: Present: alert, oriented X3, CN II-XII intact Psychiatric exam: Present: normal affect, normal mood Skin exam: Present: warm, dry, intact, normal color. Absent: rash Course Vital Signs 11/17/24 11/17/24 11/17/24 20:52 21:36 22:05 Temperature 97.8 F Pulse Rate 102 H 85 86 Respiratory 18 18 20 Rate Blood Pressure 190/110 155/104 147/90 O2 Sat by Pulse 97 93 L 96 Oximetry 11/17/24 23:36 Temperature 98.0 F Pulse Rate 86 Respiratory 16 Rate Blood Pressure 125/91 O2 Sat by Pulse 96 Oximetry - Reevaluation(s) Reevaluation #1: 11/17/24 21:09 Medical records reviewed Reevaluation #2: 11/17/24 22:19 Pacemaker does not seem to be her defibrillator does not seem to be discharging while here in the ER Patient has no chest pain currently Blood pressure is improved Reevaluation #3: 11/17/24 22:19 Patient informed of results and questions answered Reevaluation #4: Was pt. sent in by a medical professional or institution (, PA, AIR CARGO AGENT, urgent care, hospital, or jail...) When possible be specific @ -no Did you speak to anyone other than the patient for history (EMS, parent, family, police, friend...)? What history was obtained from this source @ -no Did you review nursing and triage notes (agree or disagree)? Why? @ -agree Are old charts reviewed (outside hosp., previous admission, EMS record, old EKG, old radiological studies, urgent care reports/EKG's, jail records)? Report findings @ -yes Differential Diagnosis (chest pain, altered mental status, abdominal pain women, abdominal pain men, vaginal bleeding, weakness, fever, dyspnea, syncope, headache, dizziness, GI bleed, back pain, seizure, CVA, palpatations, mental h ealth, musculoskeletal)? @ -prior EKG interpreted by me (3pts min.). @ -yes X-rays interpreted by me (1pt min.). @ -no CT interpreted by me (1pt min.). @ -no U/S interpreted by me (1pt. min.). @ -no What testing was considered but not performed or refused? (CT, X-rays, U/S, labs)? Why? @ -none What meds were considered but not given or refused? Why? @ -none Did you discuss the management of the patient with other professionals (professionals i.e. Dr., PA, AIR CARGO AGENT, lab, RT, psych nurse, social services counselor, skeiner, teacher, chief privacy officer, manager case management)? Give summary @ -no Was smoking cessation discussed for >3mins.? @ -no Was critical care preformed (if so, how long)? @ -no Were there social determinants of health that impacted care today? How? (Homelessness, low income, unemployed, alcoholism, drug addiction, transportation, low edu. Level, literacy, decrease access to med. care, skilled nursing, rehab)? @ -none Was there de-escalation of care discussed even if they declined (Discuss DNR or withdrawal of care, Hospice)? DNR status @ -no What co-morbidities impacted this encounter? (DM, HTN, Smoking, COPD, CAD, Cancer, CVA, ARF, Chemo, Hep., AIDS, mental health diagnosis, sleep apnea, morbi d obesity)? @ -none Was patient admitted / discharged? Hospital course, mention meds given and rout e, prescriptions, significant lab abnormalities, going to OR and other pertinent info. @ - 48 male for another recurrent evaluation of defibrillator discharge, patient has hypertension here in the ER blood pressure improved patient will admit for cardiac observation Admitted Undiagnosed new problem with uncertain prognosis? @ -no Drug Therapy requiring intensive monitoring for toxicity (Heparin, Nitro, Insulin, Cardizem)? @ -no Were any procedures done? @ -no Diagnosis/symptom? @ -Recurrent defibrillator discharge Acute, or Chronic, or Acute on Chronic? @ -Acute Uncomplicated (without systemic symptoms) or Complicated (systemic symptoms)? @ -Complicated Side effects of treatment? @ -no Exacerbation, Progression, or Severe Exacerbation? @ -exacerbation Poses a threat to life or bodily function? How? (Chest pain, [place], [place], pneumonia, PE, COPD, DKA, ARF, appy, cholecystitis, CVA, Diverticulitis, Homicidal, Suicidal, threat to staff... and all critical care pts) @ -yes with arrhythmia - Consultations Consultation #1: Spoke with [facility] who agrees to admit this patient Medical Decision Making - Medical Decision Making 48 male for another recurrent evaluation of defibrillator discharge, patient has hypertension here in the ER blood pressure improved patient will admit for cardiac observation - Lab Data Result diagrams: 11/17/24 21:27 11/17/24 21:27 Lab Results 11/17/24 11/17/24 11/17/24 Range/Units 21:27 21: 21:27 WBC 9.17 (4.50-10.00) 10*3/uL RBC 4.88 (4.40-5.60) 10*6/uL Hgb 14.8 (13.0-17.0) g/dL Hct 43.2 (39.6-50.0) % MCV 88.5 (80.0-97.0) fL MCH 30.3 (27.0-32.0) pg MCHC 34.3 (32.0-37.0) g/dL Plt Count 219 (140-440) 10*3/uL MPV 10.8 (9.5-12.2) fL Immature Gran % (Auto) 0.2 % Neutrophils % 51.1 % Lymphocytes % 33.5 % Monocytes % 10.4 % Eosinophils % 3.9 % Basophils % 0.9 % Immature Gran # 0.02 (0.00-0.04) 10*3/uL Neutrophils # 4.69 (1.80-7.70) 10*3/uL Lymphocytes # 3.07 (0.90-5.00) 10*3/uL Monocytes # 0.95 (0.20-1.00) 10*3/uL Eosinophils # 0.36 H (0.04-0.35) 10*3/uL Basophils # 0.08 (0.00-0.10) 10*3/uL PT 13.2 H (10.0-12.5) sec INR 1.2 H (<1.2) APTT 26.5 (22.0-30.0) sec Sodium 136 L (137-145) mmol/L Potassium 4.4 (3.5-5.1) mmol/L Chloride 98 (98-107) mmol/L Carbon Dioxide 26 (22-30) mmol/L Anion Gap 12 mmol/L BUN 8 L (9-20) mg/dL Creatinine 0.55 L (0.66-1.25) mg/dL Est GFR (CKD-EPI)AfAm >90 (>60 ml/min/1.73 sqM) Est GFR (CKD-EPI)NonAf >90 (>60 ml/min/1.73 sqM) Glucose 345 H (74-99) mg/dL Calcium 9.7 (8.4-10.2) mg/dL Phosphorus 3.9 (2.5-4.5) mg/dL Magnesium 1.9 (1.6-2.3) mg/dL Total Bilirubin 0.5 (0.2-1.3) mg/dL AST 27 (17-59) U/L ALT 22 (4-49) U/L Alkaline Phosphatase 122 (38-126) U/L Troponin I (0.000-0.034) ng/mL NT-Pro-B Natriuret Pep 301 pg/mL Total Protein 7.8 (6.3-8.2) g/dL Albumin 4.5 (3.5-5.0) g/dL 11/17/24 Range/Units 21:27 WBC (4.50-10.00) 10*3/uL RBC (4.40-5.60) 10*6/uL Hgb (13.0-17.0) g/dL Hct (39.6-50.0) % MCV (80.0-97.0) fL MCH (27.0-32.0) pg MCHC (32.0-37.0) g/dL Plt Count (140-440) 10*3/uL MPV (9.5-12.2) fL Immature Gran % (Auto) % Neutrophils % % Lymphocytes % % Monocytes % % Eosinophils % % Basophils % % Immature Gran # (0.00-0.04) 10*3/uL Neutrophils # (1.80-7.70) 10*3/uL Lymphocytes # (0.90-5.00) 10*3/uL Monocytes # (0.20-1.00) 10*3/uL Eosinophils # (0.04-0.35) 10*3/uL Basophils # (0.00-0.10) 10*3/uL PT (10.0-12.5) sec INR (<1.2) APTT (22.0-30.0) sec Sodium (137-145) mmol/L Potassium (3.5-5.1) mmol/L Chloride (98-107) mmol/L Carbon Dioxide (22-30) mmol/L Anion Gap mmol/L BUN (9-20) mg/dL Creatinine (0.66-1.25) mg/dL Est GFR (CKD-EPI)AfAm (>60 ml/min/1.73 sqM) Est GFR (CKD-EPI)NonAf (>60 ml/min/1.73 sqM) Glucose (74-99) mg/dL Calcium (8.4-10.2) mg/dL Phosphorus (2.5-4.5) mg/dL Magnesium (1.6-2.3) mg/dL Total Bilirubin (0.2-1.3) mg/dL AST (17-59) U/L ALT (4-49) U/L Alkaline Phosphatase (38-126) U/L Troponin I <0.012 (0.000-0.034) ng/mL NT-Pro-B Natriuret Pep pg/mL Total Protein (6.3-8.2) g/dL Albumin (3.5-5.0) g/dL - EKG Data -: EKG Interpreted by Me (EKG is sinus 98 SC 136 QRS 102 QTc 428) Disposition Clinical Impression: Defibrillator discharge Disposition: ADMITTED IP TO THIS HOSP Condition: Fair Is patient prescribed a controlled substance at d/c from ED?: No Time of Disposition: 22:00
[2024-11-17] MEDS: SODIUM CHLORIDE 0.9% 1,000 ML IV SCH (21:21)
[2024-11-17] MEDS: LABETALOL 5 MG/ML VIAL MDV IVP STA (21:21)
[2024-11-17 21:38] LABS: Basophils # (A) 0.08 10*3/uL (0.00-0.10); Basophils % (A) 0.9 %; Eosinophils # (A) 0.36 10*3/uL (0.04-0.35); Eosinophils % (A) 3.9 %; HCT 43.2 % (39.6-50.0); HGB 14.8 g/dL (13.0-17.0); Lymphocytes # (A) 3.07 10*3/uL (0.90-5.00); Lymphocytes % (A) 33.5 %; MCH 30.3 pg (27.0-32.0); MCHC 34.3 g/dL (32.0-37.0); MCV 88.5 fL (80.0-97.0); Monocytes # (A) 0.95 10*3/uL (0.20-1.00); Monocytes % (A) 10.4 %; Neutrophils # (A) 4.69 10*3/uL (1.80-7.70); Neutrophils % (A) 51.1 %; Platelet Count 219 10*3/uL (140-440); RBC 4.88 10*6/uL (4.40-5.60); RDW 12.4 % (11.5-14.5); WBC 9.17 10*3/uL (4.50-10.00)
[2024-11-17 21:56] LABS: INR 1.2 (<1.2); Partial Thromboplastin Time 26.5 sec (22.0-30.0); Prothrombin Time 13.2 sec (10.0-12.5)
[2024-11-17 22:01] LABS: ALT 22 U/L (4-49); AST 27 U/L (17-59); African American GFR (CKD) >90 (>60 ml/min/1.73 sqM); Albumin 4.5 g/dL (3.5-5.0); Alkaline Phosphatase 122 U/L (38-126); Anion Gap 12 mmol/L; Blood Urea Nitrogen 8 mg/dL (9-20); Calcium 9.7 mg/dL (8.4-10.2); Carbon Dioxide 26 mmol/L (22-30); Chloride 98 mmol/L (98-107); Glucose 345 mg/dL (74-99); Magnesium 1.9 mg/dL (1.6-2.3); Non-African American GFR(CKD) >90 (>60 ml/min/1.73 sqM); Potassium 4.4 mmol/L (3.5-5.1); Sodium 136 mmol/L (137-145); Total Protein 7.8 g/dL (6.3-8.2)
[2024-11-17 22:09] LABS: NT-Pro-B-Type Natriuretic Pept 301 pg/mL
[2024-11-17] MEDS ORDERED: ONDANSETRON 4 MG/2 ML VIAL IVP PRN (22:17)
[2024-11-17] MEDS ORDERED: NALOXONE 0.4 MG/ML 1 ML VIAL IV PRN (22:17)
[2024-11-17] MEDS ORDERED: MORPHINE SULFATE 4 MG/ML SYRINGE IV PRN (22:17)
[2024-11-18] MEDS ORDERED: DEXTROSE 50% SYRINGE 50 ML IVP PRN ×2 (03:57)
[2024-11-18 04:06] LABS: Glucose,Whole Blood 195 mg/dL (70-110)
[2024-11-18] MEDS: INSULIN LISPRO (HumaLOG) 100 UNIT/ML 10 mL VL SQ ONE (04:08)
[2024-11-18 06:03] LABS: Glucose,Whole Blood 197 mg/dL (70-110)
[2024-11-18] MEDS: INSULIN LISPRO (HumaLOG) 100 UNIT/ML 10 mL VL SQ SCH (06:17)
[2024-11-18] MEDS: CLOPIDOGREL 75 MG TAB PO SCH (08:52)
[2024-11-18] MEDS: DAPAGLIFLOZIN PROPANEDIOL 10 MG TABLET PO SCH (08:52)
[2024-11-18] MEDS: SPIRONOLACTONE 25 MG TAB PO SCH (08:52)
[2024-11-18] MEDS: SACUBITRIL/VALSARTAN 97 MG-103 MG TABLET PO SCH (09:02)
[2024-11-18] MEDS ORDERED: HYDROcodone/APAP 5-325MG 1 EACH TAB PO PRN (10:10)
--- NOTE | 2024-11-18 10:42 | P.CRDCN ---
History of Present Illness Consult date: 11/18/24 Reason for Consult (text): Defrillation firing History of present illness: This is a 48-year-old male patient of Dr. Gregory with past medical history of nonischemic cardiomyopathy with EF of 25 to 30% in September 2023, NYHA class II, status post primary prevention ICD 07/2024, incomplete left bundle branch block, hypertension, dyslipidemia, diabetes mellitus type 2, obesity, COPD, remote history of tobacco use and dependence, history of CVA undergoing cardiac catheterization in 2021 with no residual. We have been asked to evaluate the patient for defibrillator firing. Patient felt that his defibrillator fired twice yesterday. He denies chest pain. He states he has no chest pressure or tightness. He states he has some shortness of breath when he is tying his shoes. Blood pressure 148/94, pulse ox 97% on room air, heart rate in the 80s. Device interrogation report reviewed finding no events, no arrhythmias, no shocks. No the patient was recently here on 10/27 for defibrillator firing and interrogation did not show evidence of ICD discharge. -EKG: Sinus rhythm. -Chest x-ray: -Laboratory studies: CBC within normal limits. INR 1.2. Potassium 4.4, BUN 8 creatinine 0.55. Troponin negative x 3. Magnesium 1.9. -Home cardiac medications according to office note dated 09/29/2024: Aldactone 25 mg daily, Coreg 25 mg twice daily, Entresto 97-103 mg 1 tablet twice daily, Farxiga 10 mg daily, Lipitor 40 mg daily, Plavix 75 mg daily. Patient was also prescribed ivabradine 5 mg daily but patient states that his insurance will not cover it. -Cardiac catheterization 05/08/2021 revealed normal coronary arteries, elevated left-sided filling pressure. -Echocardiogram performed 10/19/2023 revealed EF of 25 to 30%, severely dilated LV cavity, severely reduced global LV systolic function, mild to moderate functional mitral regurgitation. -Single-chamber ICD implantation, [place], 08/25/2024. Review Of Systems: At the time of my exam: CONSTITUTIONAL: Denies fever or chills. HEENT: Denies blurred vision, vision changes, or eye pain. Denies hemoptysis CARDIOVASCULAR: Denies chest pain. Denies orthopnea. Denies PND. Denies palpitations RESPIRATORY: Denies shortness of breath. GASTROINTESTINAL: Denies abdominal pain. Denies nausea or vomiting. HEMATOLOGIC: Denies bleeding disorders. GENITOURINARY: Denies any blood in urine. SKIN: Denies puritis. Denies rash. Physical examination: Gen: This is a 48-year-old male in no acute distress VS: reviewed HEENT: Head is atraumatic, normocephalic. Pupils equal, round. Sclerae is anicteric. NECK: Supple. No JVD. LUNGS: Clear to auscultation. No wheezes or rhonchi. No intercostal ret ractions. HEART: Regular rate and rhythm. No murmur. ABDOMEN: Soft No tenderness. EXTREMITIES: No pedal edema. No calf tenderness. NEUROLOGICAL: Patient is awake, alert and oriented x3. Assessment: Reported ICD firing, upon review of device interrogation, no discharge noted Nonischemic cardiomyopathy with EF of 25 to 30% Plan: Resume patient's home cardiac medications as above from the office note Regarding type of Ivabradine 5 mg daily, this was prescribed from the office on 09/29/2024 however patient states that the insurance would not cover the medication. We will send a new prescription for this and follow-up in the office. No need to repeat echocardiogram Patient is cleared for discharge from cardiology on current medications and will follow-up with Dr. Gregory in 1 week. Thank you kindly for this consultation. Nurse practitioner note has been reviewed, I agree with documented findings and plan of care. Patient was seen and examined. Past Medical History Past Medical History: COPD, CVA/TIA, Diabetes Mellitus, Deep Vein Thrombosis (DVT), Hyperlipidemia, Hypertension, Sleep Apnea/CPAP/BIPAP Additional Past Medical History / Comment(s): See Dr. Jacome's H&P; back pain with pinched nerve, migraines, hx TIA 1-2 yrs ago; no CPAP. History of Any Multi-Drug Resistant Organisms: None Reported Past Surgical History: Appendectomy, Heart Catheterization, Pacemaker Additional Past Surgical History / Comment(s): oral surgery Past Anesthesia/Blood Transfusion Reactions: No Reported Reaction Additional Past Anesthesia/Blood Transfusion Reaction / Comment(s): no hx blood transfusion Type of Cardiac Device: AICD Device Placement Date:: 07/2024 Past Psychological History: Anxiety, Depression Smoking Status: Light tobacco smoker Past Alcohol Use History: None Reported Additional Past Alcohol Use History / Comment(s): Pt states that he smoke 1 cigarette every 6 months Past Drug Use History: None Reported - Past Family History Brother(s) Additional Family Medical History / Comment(s): tumor of brain - at 35 Medications and Allergies Home Medications Medication Instructions Recorded Confirmed Type INSULIN LISPRO (humaLOG) [humaLOG] See Protocol SQ AC-TID 11/13/19 11/18/24 History Insulin Glargine (Lantus) [Lantus 60 unit SQ BID 11/13/19 11/18/24 History Vial] carvediloL [Coreg] 25 mg PO BID 05/12/21 11/18/24 History Gabapentin [Neurontin] 400 mg PO TID 10/18/23 11/18/24 History Sacubitril/Valsartan [Entresto 97 1 tab PO BID 06/25/24 11/18/24 History mg-103 mg Tablet] Dulaglutide [Trulicity] 4.5 mg SQ WE 08/26/24 11/18/24 History Fluticasone/Umeclidin/Vilanter 1 puff INHALATION RT-DAILY 08/26/24 11/18/24 History [Trelegy Ellipta 200-62.5-25] HYDROcodone/APAP 5-325MG [[place] 1 tab PO QID PRN 08/26/24 11/18/24 History 5-325] Rosuvastatin Calcium [Crestor] 40 mg PO DAILY 08/26/24 11/18/24 History Topiramate 50 mg PO BID 08/26/24 11/18/24 History metFORMIN HCL ER [Glucophage XR] 1,000 mg PO HS 08/26/24 11/18/24 History Bacitracin/Polymyx Oint 1 applic TOPICAL BID #15 gm 11/10/24 11/18/24 Rx [Polysporin Oint] Terbinafine 1% Cream [LamISIL] 1 applic TOPICAL BID #30 gm 11/10/24 11/18/24 Rx Ivabradine HCl 5 mg PO DAILY #30 tab 11/18/24 Rx Allergies Allergy/AdvReac Type Severity Reaction Status Date / Time No Known Allergies Allergy Verified 11/18/24 09:06 Physical Exam Vitals: Vital Signs Temp Pulse Pulse Resp BP BP Pulse Ox 11/18/24 07:00 98.2 F 84 20 148/94 97 11/18/24 00:33 98.2 F 88 17 146/98 96 11/17/24 23:55 80 16 11/17/24 23:36 98.0 F 86 16 125/91 96 11/17/24 22:05 86 20 147/90 96 11/17/24 21:36 85 18 155/104 93 L 11/17/24 20:52 97.8 F 102 H 18 190/110 97 Intake and Output 11/17/24 11/18/24 11/18/24 22:59 06:59 14:59 Other: Voiding Method Toilet # Voids 2 Weight 132.903 kg 132.903 kg Results 11/17/24 21:27 11/17/24 21:27 Cardiac Enzymes 11/17/24 11/17/24 11/17/24 Range/Units 21:27 21:27 23:48 AST 27 (17-59) U/L Troponin I <0.012 <0.012 (0.000-0.034) ng/mL 11/18/24 Range/Units 03:38 AST (17-59) U/L Troponin I 0.013 (0.000-0.034) ng/mL Coagulation 11/17/24 Range/Units 21:27 PT 13.2 H (10.0-12.5) sec APTT 26.5 (22.0-30.0) sec CBC 11/17/24 Range/Units 21:27 WBC 9.17 (4.50-10.00) 10*3/uL RBC 4.88 (4.40-5.60) 10*6/uL Hgb 14.8 (13.0-17.0) g/dL Hct 43.2 (39.6-50.0) % Plt Count 219 (140-440) 10*3/uL Comprehensive Metabolic Panel 11/17/24 Range/Units 21:27 Sodium 136 L (137-145) mmol/L Potassium 4.4 (3.5-5.1) mmol/L Chloride 98 (98-107) mmol/L Carbon Dioxide 26 (22-30) mmol/L BUN 8 L (9-20) mg/dL Creatinine 0.55 L (0.66-1.25) mg/dL Glucose 345 H (74-99) mg/dL Calcium 9.7 (8.4-10.2) mg/dL AST 27 (17-59) U/L ALT 22 (4-49) U/L Alkaline Phosphatase 122 (38-126) U/L Total Protein 7.8 (6.3-8.2) g/dL Albumin 4.5 (3.5-5.0) g/dL Current Medications Generic Name Dose Route Start Last Admin Trade Name Freq PRN Reason Stop Dose Admin Atorvastatin Calcium 40 mg 11/18/24 21:00 Atorvastatin 40 Mg Tab PO HS [facility] Carvedilol 25 mg 11/18/24 08:30 Carvedilol 12.5 Mg Tab PO BID-W/MEALS [facility] Clopidogrel Bisulfate 75 mg 11/18/24 09:00 11/18/24 08:52 Clopidogrel 75 Mg Tab PO 75 mg DAILY JESSICA Administration Dapagliflozin 10 mg 11/18/24 09:00 11/18/24 08:52 Dapagliflozin Propanediol 10 Mg Tablet PO 10 mg DAILY JESSICA Administration Dextrose/Water 25 ml 11/18/24 03:57 Dextrose 50% Syringe 50 Ml IVP PER PROTOCOL PRN Hypoglycemia Protocol Dextrose/Water 50 ml 11/18/24 03:57 Dextrose 50% Syringe 50 Ml IVP PER PROTOCOL PRN Hypoglycemia Protocol Sodium Chloride 1,000 mls @ 130 mls/hr 11/17/24 21:15 11/18/24 04:58 Saline 0.9% IV 130 mls/hr .[id number] JESSICA Administration Insulin Human Lispro 0 unit 11/18/24 07:30 11/18/24 06:17 Insulin Lispro (Humalog) 100 Unit/Ml 10 Ml Vl SQ Not Given ACHS [facility] Protocol Morphine Sulfate 4 mg 11/17/24 22:17 Morphine Sulfate 4 Mg/Ml Syringe IV Q4HR PRN Severe Pain (Scale 7 to 10) Naloxone HCl 0.2 mg 11/17/24 22:17 Naloxone 0.4 Mg/Ml 1 Ml Vial IV Q2M PRN Opioid Reversal Ondansetron HCl 4 mg 11/17/24 22:17 Ondansetron 4 Mg/2 Ml Vial IVP Q8HR PRN Nausea And Vomiting Sacubitril/Valsartan 1 each 11/18/24 09:00 Sacubitril/Valsartan 97 Mg-103 Mg Tablet PO BID [facility] Spironolactone 25 mg 11/18/24 09:00 11/18/24 08:52 Spironolactone 25 Mg Tab PO 25 mg DAILY JESSICA Administration Intake and Output 11/17/24 11/18/24 11/18/24 22:59 06:59 14:59 Other: Voiding Method Toilet # Voids 2 Weight 132.903 kg 132.903 kg 11/17/24 21:27 11/17/24 21:27
[2024-11-18] MEDS ORDERED: INSULIN GLARGINE (LANTUS) 100 UNIT/ML SYR SQ SCH (11:00)
[2024-11-18 12:24] LABS: Glucose,Whole Blood 190 mg/dL (70-110)
[2024-11-18 14:50] VITALS: BP 128/79; PULSE 72; RESP 18; TEMP 98.3
[2024-11-18] MEDS ORDERED: GABAPENTIN 400 MG CAP PO SCH (16:00)
[2024-11-18] MEDS ORDERED: ATORVASTATIN 40 MG TAB PO SCH (21:00)
--- NOTE | 2024-11-18 23:00 | P.HPIM ---
History of Present Illness Consider this note as combined H&P and discharge summary This is a pleasant 48 years old male with past medical history of multiple medical problem including history of AICD. Presents because he felt electric shock and an firing from his defibrillator/pacemaker Patient was evaluated by director of informatics. They checked his defibrillator site there is no evidence of any arrhythmia. Patient was cleared for discharge He denies any other symptoms like no chest pain or dyspnea. No specific general surgery or symptom. Vital stable afebrile labs unremarkable CBC BMP LFT and troponin x 3 negative. BNP is 301. EKG sinus rhythm at 98. Patient resumes on IV fluid. Eval by director of informatics and resume his home medication when Plavix Patient remains clinically stable and cleared for discharge by director of informatics. Plavix was ordered by cardiac team. As per note as part of his home medication. My review of system CONSTITUTIONAL: No fever, no malaise, no fatigue. HEENT: No recent visual problems or hearing problems. Denied any sore throat. CARDIOVASCULAR: No orthopnea, PND, no palpitations, no syncope. PULMONARY: No shortness of breath, no cough, no hemoptysis. GASTROINTESTINAL: No diarrhea, no nausea, no vomiting, no abdominal pain. Normoactive bowel sounds. NEUROLOGICAL: No headaches, no weakness, no numbness. HEMATOLOGICAL: Denies any bleeding or petechiae. GENITOURINARY: Denies any burning micturition, frequency, or urgency. MUSCULOSKELETAL/RHEUMATOLOGICAL: Denies any joint pain, swelling, or any muscle pain. ENDOCRINE: Denies any polyuria or polydipsia. My exam GENERAL: The patient is alert and oriented x3, not in any acute distress. Well developed, well nourished. HEENT: Pupils are round and equally reacting to light. EOMI. No scleral icterus. No conjunctival pallor. Normocephalic, atraumatic. No pharyngeal erythema. No thyromegaly. CARDIOVASCULAR: S1 and S2 present. No murmurs, rubs, or gallops. PULMONARY: Chest is clear to auscultation, no wheezing or crackles. ABDOMEN: Soft, nontender, nondistended, normoactive bowel sounds. No palpable organomegaly. MUSCULOSKELETAL: No joint swelling or deformity. EXTREMITIES: No cyanosis, clubbing, or pedal edema. NEUROLOGICAL: Gross neurological examination did not reveal any focal deficits. SKIN: No rashes. No petechiae - Problems and management plan were discussed with the patient and he verbalized understanding and acceptance Patient was found stable and can be discharged home in guarded prognosis however he needs follow-up as an outpatient. Patient was instructed to follow up with PCP within one week and patient agrees Patient instructed to follow-up with cardiology as outpatient and agrees Time spent more than 35 minutes Review of Systems Review of systems CONSTITUTIONAL: No fever, no malaise, no fatigue. HEENT: No recent visual problems or hearing problems. Denied any sore throat. CARDIOVASCULAR: No orthopnea, PND, no palpitations, no syncope. PULMONARY: No shortness of breath, no cough, no hemoptysis. GASTROINTESTINAL: No diarrhea, no nausea, no vomiting, no abdominal pain. Normoactive bowel sounds. NEUROLOGICAL: No headaches, no weakness, no numbness. HEMATOLOGICAL: Denies any bleeding or petechiae. GENITOURINARY: Denies any burning micturition, frequency, or urgency. MUSCULOSKELETAL/RHEUMATOLOGICAL: Denies any joint pain, swelling, or any muscle pain. ENDOCRINE: Denies any polyuria or polydipsia. Past Medical History Past Medical History: COPD, CVA/TIA, Diabetes Mellitus, Deep Vein Thrombosis (DVT), Hyperlipidemia, Hypertension, Sleep Apnea/CPAP/BIPAP Additional Past Medical History / Comment(s): See Dr. Jacome's H&P; back pain with pinched nerve, migraines, hx TIA 1-2 yrs ago; no CPAP. History of Any Multi-Drug Resistant Organisms: None Reported Past Surgical History: Appendectomy, Heart Catheterization, Pacemaker Additional Past Surgical History / Comment(s): oral surgery Past Anesthesia/Blood Transfusion Reactions: No Reported Reaction Additional Past Anesthesia/Blood Transfusion Reaction / Comment(s): no hx blood transfusion Type of Cardiac Device: AICD Device Placement Date:: 07/2024 Past Psychological History: Anxiety, Depression Smoking Status: Light tobacco smoker Past Alcohol Use History: None Reported Additional Past Alcohol Use History / Comment(s): Pt states that he smoke 1 cigarette every 6 months Past Drug Use History: None Reported - Past Family History Brother(s) Additional Family Medical History / Comment(s): tumor of brain - at 34 Medications and Allergies Home Medications Medication Instructions Recorded Confirmed Type INSULIN LISPRO (humaLOG) [humaLOG] See Protocol SQ AC-TID 11/13/19 11/18/24 History Insulin Glargine (Lantus) [Lantus 60 unit SQ BID 11/13/19 11/18/24 History Vial] carvediloL [Coreg] 25 mg PO BID 05/12/21 11/18/24 History Gabapentin [Neurontin] 400 mg PO TID 10/18/23 11/18/24 History Sacubitril/Valsartan [Entresto 97 1 tab PO BID 06/25/24 11/18/24 History mg-103 mg Tablet] Dulaglutide [Trulicity] 4.5 mg SQ WE 08/26/24 11/18/24 History Fluticasone/Umeclidin/Vilanter 1 puff INHALATION RT-DAILY 08/26/24 11/18/24 History [Trelegy Ellipta 200-62.5-25] HYDROcodone/APAP 5-325MG [[place] 1 tab PO QID PRN 08/26/24 11/18/24 History 5-325] Rosuvastatin Calcium [Crestor] 40 mg PO DAILY 08/26/24 11/18/24 History Topiramate 50 mg PO BID 08/26/24 11/18/24 History metFORMIN HCL ER [Glucophage XR] 1,000 mg PO HS 08/26/24 11/18/24 History Bacitracin/Polymyx Oint 1 applic TOPICAL BID #15 gm 11/10/24 11/18/24 Rx [Polysporin Oint] Terbinafine 1% Cream [LamISIL] 1 applic TOPICAL BID #30 gm 11/10/24 11/18/24 Rx Clopidogrel [Plavix] 75 mg PO DAILY #30 tab 11/18/24 Rx Ivabradine HCl 5 mg PO DAILY #30 tab 11/18/24 Rx Spironolactone [Aldactone] 25 mg PO DAILY #30 tab 11/18/24 Rx Allergies Allergy/AdvReac Type Severity Reaction Status Date / Time No Known Allergies Allergy Verified 11/18/24 09:06 Physical Exam Vitals: Vital Signs Temp Pulse Pulse Resp BP BP Pulse Ox 11/18/24 07:00 98.2 F 84 20 148/94 97 11/18/24 00:33 98.2 F 88 17 146/98 96 11/17/24 23:55 80 16 11/17/24 23:36 98.0 F 86 16 125/91 96 11/17/24 22:05 86 20 147/90 96 11/17/24 21:36 85 18 155/104 93 L 11/17/24 20:52 97.8 F 102 H 18 190/110 97 Intake and Output 11/17/24 11/18/24 11/18/24 22:59 06:59 14:59 Other: Voiding Method Toilet # Voids 2 Weight 132.903 kg 132.903 kg -GENERAL: The patient is alert and oriented x3, not in any acute distress. Well developed, well nourished. Obese HEENT: Pupils are round and equally reacting to light. EOMI. No scleral icterus. No conjunctival pallor. Normocephalic, atraumatic. No pharyngeal erythema. No thyromegaly. CARDIOVASCULAR: S1 and S2 present. No murmurs, rubs, or gallops. PULMONARY: Chest is clear to auscultation, no wheezing , no crackles. ABDOMEN: Soft, nontender, nondistended, normoactive bowel sounds. No palpable organomegaly. MUSCULOSKELETAL: No joint swelling or deformity. EXTREMITIES: No cyanosis, clubbing, or pedal edema. NEUROLOGICAL: Gross neurological examination did not reveal any focal deficits. SKIN: No rashes. no petechiae. Results CBC & Chem 7: 11/17/24 21:27 11/17/24 21: Labs: Abnormal Lab Results - Last 24 Hours (Table) 11/17/24 11/17/24 11/17/24 Range/Units 21:27 21:27 21: Eosinophils # 0.36 H (0.04-0.35) 10*3/uL PT 13.2 H (10.0-12.5) sec INR 1.2 H (<1.2) Sodium 136 L (137-145) mmol/L BUN 8 L (9-20) mg/dL Creatinine 0.55 L (0.66-1.25) mg/dL Glucose 345 H (74-99) mg/dL POC Glucose (mg/dL) (70-110) mg/dL 11/18/24 11/18/24 Range/Units 04:05 05:58 Eosinophils # (0.04-0.35) 10*3/uL PT (10.0-12.5) sec INR (<1.2) Sodium (137-145) mmol/L BUN (9-20) mg/dL Creatinine (0.66-1.25) mg/dL Glucose (74-99) mg/dL POC Glucose (mg/dL) 195 H 197 H (70-110) mg/dL Thrombosis Risk Factor Assmnt - Choose All That Apply Any of the Below Risk Factors Present?: Yes Each Factor Represents 1 point: Age 41-60 years, Obesity (BMI >25) Other Risk Factors: Yes Each Risk Factor Represents 3 Points: History of DVT/PE Other congenital or acquired thrombophilia - If yes, enter type in comment: No Thrombosis Risk Factor Assessment Total Risk Factor Score: 5 Thrombosis Risk Factor Assessment Level: High Risk
== END 2024-11-18 17:46 | disposition home or self-care (01) ==
LOC: EC 20:51 → 6NMEDSUR 22:18
PROVIDERS: ADMIT Hospitalist; ATTEND Hospitalist
DX: T82.118A Breakdown (mechanical) of other cardiac electronic device, initial encounter (principal); Y71.1 Therapeutic (nonsurgical) and rehabilitative cardiovascular devices associated with adverse incidents; J44.9 Chronic obstructive pulmonary disease, unspecified; E11.9 Type 2 diabetes mellitus without complications; E78.5 Hyperlipidemia, unspecified; I10 Essential (primary) hypertension; G47.30 Sleep apnea, unspecified; F41.9 Anxiety disorder, unspecified; F32.A Depression, unspecified; I42.8 Other cardiomyopathies; F17.200 Nicotine dependence, unspecified, uncomplicated; E66.9 Obesity, unspecified; Z86.718 Personal history of other venous thrombosis and embolism; Z86.73 Personal history of transient ischemic attack (TIA), and cerebral infarction without residual deficits; Z79.4 Long term (current) use of insulin; Z79.899 Other long term (current) drug therapy; Z79.51 Long term (current) use of inhaled steroids; Z79.84 Long term (current) use of oral hypoglycemic drugs; Z79.02 Long term (current) use of antithrombotics/antiplatelets; Z79.85 Long-term (current) use of injectable non-insulin antidiabetic drugs
CPT/HCPCS: 36415; 80053; 83735; 83880; 84100; 84484; 85025; 85610; 85730; 93005; 94760; 96374; 99284

== ENCOUNTER → 2024-11-23 | Outpatient (CLI) | payer OTHER ==
[2024-11-23 19:59] LABS: HCT 43.8 % (39.6-50.0); HGB 14.7 g/dL (13.0-17.0); MCH 29.6 pg (27.0-32.0); MCHC 33.6 g/dL (32.0-37.0); MCV 88.1 FL (80.0-97.0); NRBC Per 100 WBC 0 X 10*3/uL (0.00-0.01); Platelet Count 229 X 10*3/uL (140-440); RBC 4.97 X 10*6/uL (4.40-5.60); RDW 12.6 % (11.5-14.5); WBC 9.64 X 10*3/uL (4.50-10.00)
[2024-11-23 22:52] LABS: ALT 25 U/L (10-49); AST 26 U/L (14-35); Albumin 4.6 g/dL (3.8-4.9); Albumin/Globulin Ratio 1.44 Ratio (1.60-3.17); Alkaline Phosphatase 112 U/L (41-126); Anion Gap 14.30 mmol/L (4.00-12.00); BUN/Creat Ratio 10.50 Ratio (12.00-20.00); Blood Urea Nitrogen 8.4 mg/dL (9.0-27.0); Calcium 9.8 mg/dL (8.7-10.3); Carbon Dioxide 24.7 mmol/L (21.6-31.8); Chloride 97 mmol/L (96-109); Cholesterol 196.00 mg/dL (0.00-200.00); Globulin 3.2 g/dL (1.6-3.3); Glucose 251 mg/dL (70-110); HDL Cholesterol 38.10 mg/dL (40.00-60.00); LDL Cholesterol,Calculated 120.9 mg/dL (0.0-131.0); Potassium 4.7 mmol/L (3.5-5.5); Sodium 136 mmol/L (135-145); Total Protein 7.8 g/dL (6.2-8.2); Triglycerides 185.00 mg/dL (0.00-149.00); VLDL Calculation 37.00 mg/dL (5.00-40.00)
[2024-11-23 23:54] LABS: NT-Pro-B-Type Natriuretic Pept 363 pg/mL (0-125)
== END | disposition home or self-care (01) ==
LOC: LABWHC1 13:58
PROVIDERS: ATTEND Student in an Organized Health Care Education/Training Program
DX: D72.9 Disorder of white blood cells, unspecified (principal); I50.9 Heart failure, unspecified; E11.9 Type 2 diabetes mellitus without complications; E78.5 Hyperlipidemia, unspecified; E03.9 Hypothyroidism, unspecified; R79.89 Other specified abnormal findings of blood chemistry
CPT/HCPCS: 36415; 80053; 80061; 83036; 83880; 84443; 85027